=== PATIENT | female | born 1945 | race Caucasian/White ===

== ENCOUNTER 2019-09-16 09:51 | Outpatient (CLI) | payer MEDICARE, SELFPAY ==
--- NOTE | ~2019-09-16 | MM_ITS ---
EXAMINATION: MM screening sathya BI w du HISTORY: Screening mammogram TECHNIQUE: Craniocaudal and mediolateral oblique 3-D tomosynthesis images were obtained and synthetic 2-D images were generated. CAD analysis was submitted and interpreted. COMPARISON: 06/09/2018, 05/11/2017, 03/03/2016 bilateral digital screening mammogram examinations BREAST PARENCHYMAL COMPOSITION: There are scattered areas of fibroglandular density. FINDINGS: There is no evidence of suspicious mass, calcification, or architectural distortion to sugg est malignancy in either breast. There has been no suspicious interval change. IMPRESSION: 1. No mammographic evidence of malignancy. 2. Recommend routine screening mammography in one year. BI-RADS Category 1: Negative Reviewed, dictated and finalized at location A.
== END 2019-09-16 09:52 | disposition home or self-care (01) ==
PROVIDERS: PCP Internal Medicine; Visit Provider Obstetrics & Gynecology Gynecology
DX: Z12.31 Encounter for screening mammogram for malignant neoplasm of breast (principal)
CPT/HCPCS: 77063; 77067

== ENCOUNTER 2019-12-14 14:35 | Outpatient (CLI) | payer MEDICARE, SELFPAY ==
--- NOTE | 2019-12-14 | ECHO_ITS ---
Patient Info Name: Desirae Contreras Age: 74 years : 1945 Gender: Female Ht: 62 in Wt: 197 lbs BSA: 2.02 m2 HR: 90 bpm BP: 149 / 67 mmHg Heart Rhythm: Sinus Rhythm Technical Quality: Good Exam Date: 12/14/2019 3:01 PM Exam Location: [facility] Patient Status: Outpatient Admit Date: 12/14/2019 Staff Ordering Physician: Casey Newsome MD Tapper Shank: Ab Barnes RDCS Attending Provider: Casey Newsome MD Referring Physician: Jerod LONGORIA; Exam Type: CA echo doppler color flow Study Info Indications R01.1 - Cardiac murmur, unspecified Complete two-dimensional, color flow and Doppler transthoracic echocardiogram is performed. History/Risk Factors Murmur. Summary 1. Complete two-dimensional, color flow and Doppler transthoracic echocardiogram is performed. 2. Left ventricular chamber dimension is normal. 3. Left ventricular systolic function is normal, estimated at 55-60%. 4. The left ventricular diastolic function is grade I diastolic dysfunction. 5. E/e' 26 is elevated. 6. Left atrial chamber dimension is mildly enlarged. 7. There is mild aortic valve sclerosis. 8. There is trace aortic valve regurgitation. 9. The mitral valve has mildly calcified annulus. 10. There is mild mitral valve regurgitation. 11. There is trace tricuspid valve regurgitation. Left Ventricle E/e' 26 is elevated. Left ventricular chamber dimension is normal. Left ventricular systolic function is normal, estimated at 55-60%. The left ventricular diastolic function is grade I diastolic dysfunction. Right Ventricle Right ventricular chamber dimension is normal. Right ventricular systolic function is normal. Left Atria Left atrial chamber dimension is mildly enlarged. Right Atria Right atrial chamber dimension is normal. Aortic Valve The aortic valve is trileaflet. There is mild aortic valve sclerosis. There is no aortic valve stenosis. There is trace aortic valve regurgitation. Pulmonic Valve There is no pulmonic regurgitation. Mitral Valve The mitral valve has mildly calcified annulus. There is no mitral valve stenosis. There is mild mitral valve regurgitation. Tricuspid Valve There is trace tricuspid valve regurgitation. RVSP is not calculated due to an inadequate TR jet. Pericardium/Pleural There is no pericardial effusion. Inferior Vena Cava Normal inferior vena cava with >50% collapse upon inspiration consistent with normal right atrial pressure, 5 mmHg. Aorta The aortic root size at the sinus of Valsalva is normal. Left Ventricular Outflow Tract Name Value Normal LVOT 2D LVOT Diameter 2.0 cm LVOT Doppler LVOT Peak Gradient 3 mmHg LVOT Mean Gradient 2 mmHg LVOT VTI 21 cm LVOT VTI/AV VTI Ratio 0.5 LVOT Stroke Volume 62 ml LVOT CO 4.6 l/min LVOT CI 2.3 l/min/m2 Mitral Valve
== END 2019-12-14 14:36 | disposition home or self-care (01) ==
PROVIDERS: PCP Internal Medicine; Visit Provider Internal Medicine
DX: R01.1 Cardiac murmur, unspecified (principal)
CPT/HCPCS: 93306

== ENCOUNTER 2019-12-26 00:57 | Outpatient (CLI) | payer MEDICARE, SELFPAY ==
[2019-12-26 18:12] LABS: SARS-CoV-2 RNA PCR Negative
== END 2019-12-26 00:58 | disposition home or self-care (01) ==
LOC: ANHCOVIDDT 00:58
PROVIDERS: PCP Internal Medicine; Visit Provider Internal Medicine Gastroenterology
DX: Z01.812 Encounter for preprocedural laboratory examination (principal); Z20.828 Contact with and (suspected) exposure to other viral communicable diseases
CPT/HCPCS: 87635; C9803; U0003

== ENCOUNTER 2019-12-28 02:29 | Day surgery (SDC) | payer MEDICARE, SELFPAY ==
[2019-12-21 15:53] VITALS: BMI 34.7
--- NOTE | 2019-12-27 11:50 | WPDANESEPPF ---
Anes - Initial Pre Proc Eval Procedure: Operation Date: 12/28/19 07:30 Proposed Procedures p Screening Colonoscopy - Jose Miguel Seo MD Date/Time: 12/27/19 11:50 Surgeon: Jose Miguel Seo MD Pre Op Diagnosis: Hx Of Colon Cancer Patient Data Age: 74 Gender: F Height: 1.6 m Weight: 89 kg Allergies Allergy/AdvReac Type Severity Reaction Status Date / Time LON Inhibitors Allergy Unknown Cough Verified 12/28/19 06:27 Home Medications Medication Instructions Recorded Confirmed Type metformin 1,000 mg tablet 1,000 mg PO BID #180 tablet 02/23/19 12/28/19 Rx potassium chloride 10 mEq 20 meq PO DAILY #180 tablet 03/07/19 12/28/19 Rx tablet,extended release levothyroxine 137 mcg tablet 137 mcg PO DAILY #90 tablet 03/14/19 12/28/19 Rx losartan 100 mg tablet 100 mg PO DAILY #90 tablet 03/14/19 12/28/19 Rx atorvastatin 20 mg tablet 20 mg PO DAILY tablet 03/28/19 12/28/19 History cholecalciferol (vitamin D3) 1,000 unit PO DAILY ml 03/28/19 12/28/19 History linagliptin 5 mg tablet 5 mg PO QAM 03/28/19 12/28/19 History mecobalamin (vitamin B12) 1,000 1,000 mcg PO DAILY 03/28/19 12/28/19 History mcg disintegrating tablet,sublingual niacin 1,000 mg tablet,extended 1,000 mg PO DAILY tablet 03/28/19 12/28/19 History release omega-3 fatty acids 1,000 mg 2,000 mg PO BID cap 03/28/19 12/28/19 History capsule metoprolol succinate 100 mg 100 mg PO DAILY #90 tablet 06/08/19 12/28/19 Rx tablet,extended release 24 hr rosuvastatin 20 mg tablet 20 mg PO DAILY #90 tablet 07/07/19 12/28/19 Rx ferrous sulfate 325 mg (65 mg 325 mg PO DAILY #30 tablet 08/03/19 12/28/19 Rx iron) tablet furosemide 40 mg tablet 40 mg PO QAM 08/03/19 12/28/19 History gemfibrozil 600 mg tablet 600 mg PO BID #180 tablet 08/16/19 12/28/19 Rx allopurinol 100 mg tablet 100 mg PO DAILY #90 tablet 08/26/19 12/28/19 Rx glimepiride 2 mg tablet 2 mg PO DAILY #90 tablet 10/19/19 12/28/19 Rx calcium polycarbophil 625 mg tablet 1,250 mg PO DAILY 11/16/19 12/28/19 History cinnamon bark 500 mg capsule 500 mg PO DAILY 11/16/19 12/28/19 History folic acid 1 mg tablet 1 mg PO DAILY #90 tablet 11/18/19 12/28/19 Rx Patient hx anesthesia problems: none Family hx anesthesia problems: none [facility] Social History Social History Smoking status: Never smoker Second hand tobacco smoke exposure: No Alcohol intake: never Substance use: never Substance use type: does not use Living arrangements: alone Gender identity (if verbalized by the patient): Female Spiritual care concerns: No Anes - Eval Final PreProcedure Day of Procedure 12/27/19 11:50 Patient weight: obese Heart: regular rate and rhythm Lungs: clear to auscultation and normal air movement Airway: Mallampati scale class II Neurological: alert and oriented Last oral intake: >/= 8 hours ASA classification: III Emergent: no Anesthetic plan: proceed Anesthesia type and monitoring: general GIVS and standard monitoring Informed Consent: The patient's anesthetic plan and its attendant risks and benefits were discussed with the patient/family/POA. Questions were solicited and answers provided to the satisfaction of the patient/family/POA.
[2019-12-28 06:29] VITALS: BP 137/88; PULSE 81; RESP 14; TEMP 37.1; O2SAT 99; BMI 34.0
[2019-12-28] MEDS: LACTATED RINGERS 1,000 ML 150 ML IV CONT (06:41)
[2019-12-28 06:57] LABS: Glucose Point of Care 149 (65-105)
[2019-12-28 07:54] VITALS: BP 101/43; PULSE 84; RESP 17; O2SAT 96
--- NOTE | 2019-12-28 07:54 | WPDGICN ---
Assessment and Plan Assessment and plan (1) History of bowel resection: Code(s): Z90.49 - Acquired absence of other specified parts of digestive tract Status: Acute (2) Hx of colonic polyps: Code(s): Z86.010 - Personal history of colonic polyps Status: Acute Assessment and Plan: Plan is for colonoscopy patient has had colon polyps in the past surgical resection a large colon polyp was required this last year with right hemicolectomy. Continued surveillance exams at 3 year intervals is advised further recommendations may be given after endoscopy. GI Consult Note Consult date/time: 12/28/19 07:54 HPI: Desirae Contreras is a 74 year old female seen in evaluation at the request of Dr Newsome.Patient has a history of colon polyps in the past 1 year ago had large colon polyp requiring surgical resection right hemicolectomy was performed. Patient presents today for follow-up colonoscopy. She states her bowel habits return to normal. She denies abdominal pain she has had no bleeding. Family history is noncontributory. Review of Systems Review of Systems: All systems reviewed & are unremarkable except as noted in HPI and below PMFSH Social History Social History Smoking status: Never smoker Second hand tobacco smoke exposure: No Alcohol intake: never Substance use: never Substance use type: does not use Living arrangements: alone Gender identity (if verbalized by the patient): Female Spiritual care concerns: No Meds Home Medications and Allergies Home Medications Medication Instructions Recorded Confirmed Type metformin 1,000 mg tablet 1,000 mg PO BID #180 tablet 02/23/19 12/28/19 Rx potassium chloride 10 mEq 20 meq PO DAILY #180 tablet 03/07/19 12/28/19 Rx tablet,extended release levothyroxine 137 mcg tablet 137 mcg PO DAILY #90 tablet 03/14/19 12/28/19 Rx losartan 100 mg tablet 100 mg PO DAILY #90 tablet 03/14/19 12/28/19 Rx atorvastatin 20 mg tablet 20 mg PO DAILY tablet 03/28/19 12/28/19 History cholecalciferol (vitamin D3) 1,000 unit PO DAILY ml 03/28/19 12/28/19 History linagliptin 5 mg tablet 5 mg PO QAM 03/28/19 12/28/19 History mecobalamin (vitamin B12) 1,000 1,000 mcg PO DAILY 03/28/19 12/28/19 History mcg disintegrating tablet,sublingual niacin 1,000 mg tablet,extended 1,000 mg PO DAILY tablet 03/28/19 12/28/19 History release omega-3 fatty acids 1,000 mg 2,000 mg PO BID cap 03/28/19 12/28/19 History capsule metoprolol succinate 100 mg 100 mg PO DAILY #90 tablet 06/08/19 12/28/19 Rx tablet,extended release 24 hr rosuvastatin 20 mg tablet 20 mg PO DAILY #90 tablet 07/07/19 12/28/19 Rx ferrous sulfate 325 mg (65 mg 325 mg PO DAILY #30 tablet 08/03/19 12/28/19 Rx iron) tablet furosemide 40 mg tablet 40 mg PO QAM 08/03/19 12/28/19 History gemfibrozil 600 mg tablet 600 mg PO BID #180 tablet 08/16/19 12/28/19 Rx allopurinol 100 mg tablet 100 mg PO DAILY #90 tablet 08/26/19 12/28/19 Rx glimepiride 2 mg tablet 2 mg PO DAILY #90 tablet 10/19/19 12/28/19 Rx calcium polycarbophil 625 mg tablet 1,250 mg PO DAILY 11/16/19 12/28/19 History cinnamon bark 500 mg capsule 500 mg PO DAILY 11/16/19 12/28/19 History folic acid 1 mg tablet 1 mg PO DAILY #90 tablet 11/18/19 12/28/19 Rx Allergies Allergy/AdvReac Type Severity Reaction Status Date / Time LON Inhibitors Allergy Unknown Cough Verified 12/28/19 06:27 Vital Signs Vital Signs - 24 hr 12/28/19 06:29 Temperature 98.8 F Pulse Rate 81 Respiratory Rate 14 Blood Pressure 137/88 Pulse Oximetry 99 Exam Narrative: Exam Narrative: Physical exam reveals patient to be alert. Vital signs stable. HEENT exam unremarkable. Lungs are clear to auscultation and percussion. Heart is without murmur or extra sounds. Abdominal exam bowel sounds are present soft nontender with no organomegaly. Digital external rectal exam is normal.
[2019-12-28 08:04] VITALS: BP 116/54; PULSE 81; RESP 14; O2SAT 97
[2019-12-28 08:12] VITALS: BP 137/65; PULSE 78; RESP 17; O2SAT 100
== END 2019-12-28 08:31 | disposition home or self-care (01) ==
PROVIDERS: PCP Internal Medicine; Visit Provider Internal Medicine Gastroenterology
PROC: 0DJD8ZZ Inspection of Lower Intestinal Tract, Via Natural or Artificial Opening Endoscopic (ICD-10-PCS; CPT 45378; principal; 2019-12-28 07:30)
DX: Z12.11 Encounter for screening for malignant neoplasm of colon (principal); K63.5 Polyp of colon; E66.9 Obesity, unspecified; Z68.34 Body mass index [BMI] 34.0-34.9, adult; K63.89 Other specified diseases of intestine; K57.30 Diverticulosis of large intestine without perforation or abscess without bleeding; K64.8 Other hemorrhoids; Z86.010 Personal history of colon polyps; Z90.49 Acquired absence of other specified parts of digestive tract
CPT/HCPCS: 45385; 88305; J2704; J7120

== ENCOUNTER 2020-03-12 12:04 | Outpatient (CLI) | payer MEDICARE, SELFPAY ==
--- NOTE | ~2020-03-12 | CT_ITS ---
EXAMINATION: CT abdomen pelvis w con EXAM DATE: 03/12/2020 13:11 INDICATION: R10.9 - Unspecified abdominal pain. TECHNIQUE: Spiral CT of the abdomen and pelvis was performed following intravenous injection of 100 m L Omnipaque 350. Axial, coronal and sagittal images were reviewed. The dose-length product (DLP) fo r this examination was 1004.01 mGy-cm. The exposure was tailored according to patient size (auto mA exposure control), and iterative reconstruction (ASIR) was used as additional dose reduction techniqu e. Comparison is made to prior examination from 09/29/2018. FINDINGS: The liver, spleen, adrenal glands and pancreas are unremarkable. There are gallstones with in an otherwise unremarkable gallbladder. No evidence of obstructive biliary disease. Portal and sp lenic veins are patent. Kidneys enhance symmetrically. There is no hydronephrosis. Numerous subcent imeter renal hypodensities likely cysts. The uterus is unremarkable. The bladder is unremarkable. There is no retroperitoneal or pelvic lymphadenopathy. There is mild scattered arteriosclerotic di sease. There is moderate sigmoid predominant diverticulosis. There is a peridiverticular abscess located bet ween the sigmoid colon and the anterior superior aspect of the bladder, measuring 3.0 x 2.5 cm. Patie nt is potentially at risk for developing colovesicular fistula. Cecal resection. The stomach and sma ll bowel are unremarkable. There is expected amount of colonic stool. No free intraperitoneal gas. The heart is normal in size. There are no pericardial or pleural effusions. The lung bases are u nremarkable. There are no osteoblastic or osteolytic lesions identified. IMPRESSION: 1. Small abscess between sigmoid and lateral likely complication of diverticulitis. Patient at risk for developing colovesicular fistula. Reviewed, dictated and finalized at location B. IMPRESSION: 1. Small abscess between sigmoid and lateral likely complication of diverticul itis. Patient at risk for developing colovesicular fistula.
[2020-03-12 13:02] LABS: Estimated Glomerular Filt Rate 54
== END 2020-03-12 12:05 | disposition home or self-care (01) ==
PROVIDERS: PCP Internal Medicine; Visit Provider Internal Medicine
DX: R10.9 Unspecified abdominal pain (principal); Z90.49 Acquired absence of other specified parts of digestive tract
CPT/HCPCS: 74177; Q9967

== ENCOUNTER 2020-03-12 13:40 | Emergency (ER) | payer MEDICARE, SELFPAY ==
[2020-03-12] VITALS (13 sets, daily range): BP systolic 134–168; BP diastolic 55–117; PULSE 83; RESP 16; TEMP 36.8; O2SAT 92–100
[2020-03-12 14:05] LABS: Basophils Absolute Auto 0.1 K/mm3 (0.0-0.1); Basophils Percent Auto 0.7 % (0.2-1.2); Eosinophils Absolute Auto 0.3 K/mm3 (0-0.3); Eosinophils Percent Auto 2.6 % (0-4.4); Hematocrit 34.6 % (37.0-47.0); Hemoglobin 11.6 g/dL (12.0-15.0); Immature Granulocyte Absolute 0.03 K/mm3 (0.00-0.031); Immature Granulocyte Percent A 0.3 % (0-0.5); Lymphocytes Absolute Auto 2.72 K/mm3 (0.9-3.2); Lymphocytes Percent Auto 28.8 % (18.3-44.2); Mean Corpuscular HGB Conc 33.5 g/dl (32-36); Mean Corpuscular Hemoglobin 30.5 pg (26-34); Mean Corpuscular Volume 91.1 fl (80-100); Mean Platelet Volume 8.8 fl (7.4-10.4); Monocytes Absolute Auto 0.8 K/mm3 (0.1-0.6); Monocytes Percent Auto 8.3 % (2.6-8.5); Neutrophils Absolute Auto 5.6 K/mm3 (1.3-6.7); Neutrophils Percent Auto 59.3 % (45.5-73.1); Platelet Count Result 178 k/mm3 (150-375); Red Cell Distribution Width 13.3 % (11.5-14.5); White Blood Count 9.5 K/mm3 (4.5-10.0)
[2020-03-12 14:17] LABS: Alanine Aminotransferase 34 U/L (4-35); Albumin Level 4.4 g/dL (3.5-5.1); Alkaline Phosphatase 90 U/L (38-126); Anion Gap 9 mmol/L (8-16); Aspartate Amino Transferase 35 U/L (14-36); Bilirubin,Total 0.3 mg/dL (0.2-1.3); Blood Urea Nitrogen 27 mg/dL (7-17); Calcium 8.5 mg/dL (8.4-10.2); Carbon Dioxide 22 mmol/L (22-30); Chloride 112 mmol/L (98-107); Estimated CRCL calculation 51 ml/min; Estimated Glomerular Filt Rate > 60; Glucose 97 mg/dL (65-105); Lipase 50 U/L (23-300); Potassium 4.3 mmol/L (3.4-5.0); Sodium 143 mmol/L (137-145)
[2020-03-12 14:32] LABS: Add Urine Microscopic? YES; Appearance Urine Clear (Clear); Bilirubin Urine Negative (Negative); Blood Urine Negative (Negative); Color Urine Straw (Yellow); Glucose Urine UA Negative (Negative); Ketones Urine Negative (Negative); Leukocyte Esterase Ur Negative LEU/UL (Negative); Mucus Urine Rare /lpf; Nitrate Urine Negative (Negative); Protein Urine Negative (Negative); RBC Urine 0-2 /hpf (0-2); Specific Grav Ur 1.045 (1.001-1.035); Urobilinogen Urine Negative mg/dL (<2.0); WBC Urine 0-3 /hpf
--- NOTE | 2020-03-12 15:20 | PC.NURSE ---
patient brought back to ED room 13 with c/o abdomen pain. s/p CT of abdomen earlier today. advised to come to ED due to abscess. reports reviewed. patient has been out in ED waiting room due to no beds available in ED. no change in patient's condition since initial assessments. alert. oriented. daughter in room. Dr. Pritchard to room. SL inserted. additional blood drawn. waiting for further orders. patient is aware that surgical consult is needed.
--- NOTE | 2020-03-12 15:37 | ED.ABDPAIN ---
HPI - Abdominal Pain General Chief Complaint: Abdominal Pain Stated Complaint: abd pain Time Seen by Provider: 03/12/20 15:14 History of Present Illness HPI narrative: Patient is a 74-year-old female who presents to the ER with lower abdominal pain. She was seen by her PCP today who ordered an outpatient CT scan which showed an intra-abdominal abscess likely related to diverticulitis. Patient does have history of diverticulitis and underwent a partial colectomy about a year ago. She reports has been having abdominal pain for about 1 month and since she knew she had a doctor's appointment come coming up she just waited. She has had no fevers or chills or sweats. No diarrhea. Related Data Home Medications Medication Instructions Recorded Confirmed atorvastatin 20 mg tablet 20 mg PO DAILY tablet 03/28/19 03/12/20 cholecalciferol (vitamin D3) 1,000 unit PO DAILY ml 03/28/19 03/12/20 linagliptin 5 mg tablet 5 mg PO QAM 03/28/19 03/12/20 mecobalamin (vitamin B12) 1,000 1,000 mcg PO DAILY 03/28/19 03/12/20 mcg disintegrating tablet,sublingual niacin 1,000 mg tablet,extended 1,000 mg PO DAILY tablet 03/28/19 03/12/20 release omega-3 fatty acids 1,000 mg 2,000 mg PO BID cap 03/28/19 03/12/20 capsule calcium polycarbophil 625 mg tablet 1,250 mg PO DAILY 11/16/19 03/12/20 cinnamon bark 500 mg capsule 500 mg PO DAILY 11/16/19 03/12/20 Allergies Allergy/AdvReac Type Severity Reaction Status Date / Time LON Inhibitors Allergy Unknown Cough Verified 03/12/20 15:55 Review of Systems Review of Systems: All systems reviewed & are unremarkable except as noted in HPI and below Constitutional: Constitutional: Denies chills and Denies fever(s) ENT: Denies nasal congestion and Denies sore throat Cardiovascular: Cardiovascular: Denies chest pain and Denies radiating jaw, neck or arm pain Respiratory: Respiratory: Denies cough, Denies dyspnea and Denies wheezing Gastrointestinal: Gastrointestinal: Reports abdominal pain, Denies diarrhea, Denies nausea and Denies vomiting Genitourinary: Genitourinary: Denies nocturia and Denies dysuria [facility] Past Medical History Medical History (Updated 12/21/20 @ 16:29 by Abdirizak Pritchard MD) Abdominal pain Abnormal finding of blood chemistry Azotemia BMI 34.0-34.9,adult CKD (chronic kidney disease) DM2 (diabetes mellitus, type 2) Encounter for general adult medical examination w/o abnormal findings Encounter for Medicare annual wellness exam Gout Heart murmur History of diverticulitis HTN (hypertension) Hx of colonic polyps Hyperlipidemia Hypothyroidism (acquired) Increased homocysteine Iron deficiency On fci drug therapy Rhus dermatitis Vitamin D deficiency Surgical History Surgical History History of bowel resection Family History Family History Mother Diabetes mellitus Malignant neoplasm of prostate Family history of lung cancer Family history of diabetes mellitus in first degree relative Father Family history of cardiovascular disease Sibling Diabetes mellitus Family history of cardiovascular disease, Onset Age: 80 Social History Social History Smoking status: Never smoker Second hand tobacco smoke exposure: No Alcohol intake: never Substance use: never Substance use type: does not use Gender identity (if verbalized by the patient): Female Spiritual care concerns: No Exam Narrative: Exam Narrative: GENERAL: Well-appearing, well-nourished, and in no acute distress. HEAD: Normocephalic, atraumatic. CHEST: Clear to auscultation. No respiratory distress. HEART: Regular rate and rhythm. Normal peripheral pulses. ABDOMEN: Soft, nontender, nondistended. EXTREMITIES: Normal range of motion. No edema. SKIN: Warm, dry, no rash. NEURO: Alert and oriente
== END 2020-03-12 16:49 | disposition home or self-care (01) ==
PROVIDERS: Emergency Provider Emergency Medicine; PCP Internal Medicine
DX: K57.80 Diverticulitis of intestine, part unspecified, with perforation and abscess without bleeding (principal); E11.22 Type 2 diabetes mellitus with diabetic chronic kidney disease; I12.9 Hypertensive chronic kidney disease with stage 1 through stage 4 chronic kidney disease, or unspecified chronic kidney disease; N18.9 Chronic kidney disease, unspecified; M10.9 Gout, unspecified; Z86.010 Personal history of colon polyps; E78.5 Hyperlipidemia, unspecified; E03.9 Hypothyroidism, unspecified; E55.9 Vitamin D deficiency, unspecified
CPT/HCPCS: 36415; 74177; 80053; 81001; 83690; 85025; 99284; Q9967

== ENCOUNTER → 2020-04-03 15:25 | Outpatient (CLI) | payer MEDICARE, SELFPAY ==
--- NOTE | ~2020-04-03 | CT_ITS ---
EXAMINATION: CT abdomen pelvis w con DATE: 04/03/2020 15:56 INDICATION: Diverticulitis with perforation and abscess. TECHNIQUE: Computed tomography (CT) of the abdomen and pelvis was performed with 100 mL Omnipaque-350 intravenous contrast. Automated exposure control and iterative reconstruction technique were employe d. The dose-length product was 979.72 mGy-cm. COMPARISON: 03/12/2020 FINDINGS: Small calcified nodule in the right lower lobe along with calcified right hilar lymph nodes consisten t with old granulomatous disease. Heart size is normal. Aortic valve calcification. No pericardial or pleural effusion. Multiple calcified gallstones in the dependent aspect of the normal-appearing gall bladder. Liver is normal. No intra or extra hepatic biliary ductal dilation. Splenic calcification co nsistent with old granulomatous disease. Pancreas and bilateral adrenal glands are normal. Again seen are numerous bilateral small renal cysts the largest on the right measuring 1.5 cm. Postoperative ch ena of proximal right hemicolectomy with ileocolic anastomosis in the right upper quadrant. There ar e numerous diverticula along the descending and sigmoid colon. Unchanged wall thickening and mild inf lammatory stranding along the mid sigmoid colon consistent with ongoing diverticulitis. There is a pe rsistent small amount of likely fluid, gas and feculent material within a 2.5 cm peridiverticular abs cess positioned between the sigmoid colon and the dome of the bladder. There is thickening and distor tion of the wall of the bladder at this location suggesting possible invasion of the bladder wall and colovesical fistula. No bowel obstruction. Uterus and bilateral adnexa are unremarkable. No other fr ee intraperitoneal gas or fluid. A few tiny fat-containing ventral hernias along a supraumbilical breanne gical scar. No pathologically enlarged abdominal or pelvic lymphadenopathy. Bilateral fat-containing inguinal hernias. There are bridging osteophytes at multiple levels in the spine, consistent with dif fuse idiopathic skeletal hyperostosis (DISH). Moderate lumbar spondylosis with 3 mm anterolisthesis L 4 on L5. IMPRESSION: 1. No significant change in a 2.5 cm abscess situated between the sigmoid colon and bladder likely re lated to prior diverticulitis. Given the thickening and distortion of the abutting bladder wall this remains concerning for developing colovesical fistula. 2. Cholelithiasis. Reviewed, dictated and finalized at location A. DAMAGE TRA[employer]EE IMPRESSION: 1. No significant change in a 2.5 cm abscess situated between the sigmoid colon and bladder likely related to prior diverticulitis. Given the thickening and d istortion of the abutting bladder wall this remains concerning for developing c olovesical fistula. 2. Cholelithiasis.
[2020-04-03 15:42] LABS: Estimated Glomerular Filt Rate > 60
== END ==
PROVIDERS: PCP Internal Medicine; Visit Provider Surgery
DX: K57.20 Diverticulitis of large intestine with perforation and abscess without bleeding (principal); K80.20 Calculus of gallbladder without cholecystitis without obstruction
CPT/HCPCS: 74177; Q9967

== ENCOUNTER → 2020-05-03 09:46 | Outpatient (CLI) | payer MEDICARE, SELFPAY ==
--- NOTE | ~2020-05-03 | CT_ITS ---
EXAMINATION: CT abdomen pelvis w con DATE: 05/03/2020 10:18 INDICATION: Diverticulitis. Perforation with abscess. TECHNIQUE: Computed tomography (CT) of the abdomen and pelvis was performed with 100 cc Omnipaque 350 intravenous contrast. The dose-length product was 1001.03 mGy-cm. Automated exposure control and ite rative reconstruction technique were employed. COMPARISON: CT dated 04/03/2020 FINDINGS: Lung bases are unremarkable. No significant pleural or pericardial effusion. Heart size is normal. Fatty infiltration of the liver. There are gallstones. There is possible mild gallbladder wall thicke deneen. The spleen, adrenal glands are unremarkable. Pancreas within normal limits. There are multiple subcentimeter hypodensities of the kidneys which are too small to characterize, although most likely cysts. No significant vascular abnormality. No lymphadenopathy. There is mild thickening of the sigmoid colo n. There is colonic diverticulosis. No significant change to abscess situated between the sigmoid col on and bladder. There is mild thickening of the adjacent bladder. There are surgical changes consiste nt with right hemicolectomy with ileocolic anastomosis. There are a few small ventral hernias above t he umbilicus containing fat. There is diffuse idiopathic skeletal hyperostosis (DISH) of the lumbar s pine. IMPRESSION: 1. Stable abscess measuring 3.5 x 2.4 cm, insinuated between the sigmoid colon and bladder, best seen on sagittal image 94. 2: Cholelithiasis. Reviewed, dictated and finalized at location B. DDLE BUG
[2020-05-03 10:05] LABS: Estimated Glomerular Filt Rate 44
== END ==
PROVIDERS: PCP Internal Medicine; Visit Provider Surgery
DX: K57.20 Diverticulitis of large intestine with perforation and abscess without bleeding (principal)
CPT/HCPCS: 74177; Q9967

== ENCOUNTER 2020-08-16 10:34 | Outpatient (CLI) | payer MEDICARE, SELFPAY ==
--- NOTE | ~2020-08-16 | XR_ITS ---
EXAMINATION: XR lumbar spine 2-3V DATE: 08/16/2020 12:25 INDICATION: Back pain TECHNIQUE: Anteroposterior and lateral views in flexion and extension of the lumbar spine were obtain ed. COMPARISON: CT, 05/03/2020 FINDINGS: There are 3 mm of unchanged anterolisthesis of L4 on L5. No laxity is present with flexion or extension. The vertebral body heights are normal. There is moderate loss of intervertebral disc sp lita height at L5-S1 and mild loss of intervertebral disc space height throughout the remainder of the lumbar spine. There is no fracture. Moderate to severe facet osteoarthritis is present in the lower lumbar spine. Calcified atherosclerosis is noted. A group of calcifications oriented in a linear fash ion of the right mid abdomen are consistent with gallstones. IMPRESSION: 1. Mild to moderate lumbar spondylosis without acute findings. 2. Cholelithiasis. Reviewed, dictated and finalized at location A.
--- NOTE | ~2020-08-16 | US_ITS ---
EXAMINATION: US carotid duplex BI DATE: 08/16/2020 11:10 INDICATION: Carotid bruit. TECHNIQUE: Grayscale, color Doppler, and pulsed Doppler images of the cervical carotid arteries were obtained. The degree of vessel stenosis is placed in one of the following categories: normal, <50%, 5 0-69%, >=70% but less than near-occlusion, near-occlusion, or total occlusion. Note that percent sten osis relative to normal distal artery lumen diameter is indirectly measured from velocity measurement s as described by John, et al. Radiology 2003; [id number]. COMPARISON: None. FINDINGS: RIGHT: The right common carotid artery (CCA) peak systolic velocity (PSV) is 75 cm/s. The right internal car otid artery (ICA) PSV is 79 cm/s. The right ICA end-diastolic velocity (EDV) is 28 cm/s. The right IC A/CCA PSV ratio is 1.0. Grayscale and color Doppler images yield an estimate of <50% diameter reducti on from plaque in the ICA. There is antegrade flow in the right vertebral artery. LEFT: The left CCA PSV is 73 cm/s. The left ICA PSV is 112 cm/s. The left ICA EDV is 37 cm/s. The left ICA/ CCA PSV ratio is 1.5. Grayscale and color Doppler images yield an estimate of <50% diameter reduction from plaque in the ICA. There is antegrade flow in the left vertebral artery. IMPRESSION: 1. <50% stenosis in the right internal carotid artery. 2. <50% stenosis in the left internal carotid artery. Reviewed, dictated and finalized at location B.
== END 2020-08-16 10:35 | disposition home or self-care (01) ==
PROVIDERS: PCP Internal Medicine; Visit Provider Internal Medicine
DX: R09.89 Other specified symptoms and signs involving the circulatory and respiratory systems (principal); M79.671 Pain in right foot; M79.672 Pain in left foot; R20.2 Paresthesia of skin; K80.20 Calculus of gallbladder without cholecystitis without obstruction; M47.896 Other spondylosis, lumbar region; I65.23 Occlusion and stenosis of bilateral carotid arteries
CPT/HCPCS: 72100; 93880

== ENCOUNTER 2020-09-13 09:36 | Outpatient (CLI) | payer MEDICARE, SELFPAY ==
--- NOTE | 2020-09-13 12:00 | NEURO_ITS ---
Impression: # Complains of pain in both feet. Known to be diabetic. # Bilateral peroneal amplitude drop, suggestive of neuropathy. # Possibility of higher involvement cannot be ruled out. # Clinical correlation recommended. Nerve Conduction Studies Anti Sensory Summary Table Stim Site NR Peak (ms) P-T Amp (?V) Site1 Site2 Delta-P (ms) Dist (cm) Herminio (m/s) Left Sup Fibular Anti Sensory (Ant Lat Mall) 14 cm 4.6 11.6 14 cm Ant Lat Mall 4.6 16.0 35 Right Sup Fibular Anti Sensory (Ant Lat Mall) 14 cm 3.9 4.9 14 cm Ant Lat Mall 3.9 16.0 41 Left Sural Anti Sensory (Lat Mall) Calf 3.5 11.6 Calf Lat Mall 3.5 16.0 46 Right Sural Anti Sensory (Lat Mall) Calf 4.5 4.8 Calf Lat Mall 4.5 16.0 36 Motor Summary Table Stim Site NR Onset (ms) O-P Amp (mV) Site1 Site2 Delta-0 (ms) Dist (cm) Herminio (m/s) Left Peroneal Motor (Vastus Med) Ankle 5.1 0.6 Popit Ankle 8.3 39.0 47 Popit 13.4 0.8 Right Peroneal Motor (Vastus Med) Ankle 3.9 0.7 Popit Ankle 8.9 37.0 42 Popit 12.8 0.6 Left Tibial Motor (Abd Mcintosh Brev) Ankle 4.8 1.6 Knee Ankle 10.1 41.0 41 Knee 14.9 1.0 Right Tibial Motor (Abd Mcintosh Brev) Ankle 4.6 2.7 Knee Ankle 9.5 40.0 42 Knee 14.1 2.1 F Wave Studies NR F-Lat (ms) L-R F-Lat (ms) Left Peroneal (Mrkrs) (EDB) 53.22 1.05 Right Peroneal (Mrkrs) (EDB) 54.27 1.05 Left Tibial (Mrkrs) (Abd Hallucis) 57.64 0.12 Right Tibial (Mrkrs) (Abd Hallucis) 57.52 0.12 EMG Side Muscle Nerve Root Ins Act Fibs Amp Dur Recrt Comment Right AntTibialis Dp Br Fibular L4-5 Nml Nml Nml Nml Nml Right Gastroc Tibial S1-2 Nml Nml Nml Nml Nml Right Fibularis Long Sup Br Fibular L5-S1 Nml Nml Nml Nml Nml Right Flex Dig Long Tibial L5-S2 Nml Nml Nml Nml Nml Right Ext Dig Brev Dp Br Fibular L5, S1 Nml Nml Nml Nml Nml Left AntTibialis Dp Br Fibular L4-5 Nml Nml Nml Nml Nml Left Gastroc Tibial S1-2 Nml Nml Nml Nml Nml Left Fibularis Long Sup Br Fibular L5-S1 Nml Nml Nml Nml Nml Left Flex Dig Long Tibial L5-S2 Nml Nml Nml Nml Nml Left Ext Dig Brev Dp Br Fibular L5, S1 Nml Nml Nml Nml Nml Right QuadratusFem QuadFemoris L4-5, S1 Nml Nml Nml Nml Nml Left QuadratusFem QuadFemoris L4-5, S1 Nml Nml Nml Nml Nml MTDD
== END 2020-09-13 09:37 | disposition home or self-care (01) ==
PROVIDERS: PCP Internal Medicine; Visit Provider Internal Medicine
DX: R20.2 Paresthesia of skin (principal)
CPT/HCPCS: 95886; 95910

== ENCOUNTER 2020-09-28 07:44 | Outpatient (CLI) | payer MEDICARE, SELFPAY ==
--- NOTE | ~2020-09-28 | MR_ITS ---
EXAMINATION: MR lumbar spine wo con DATE: 09/28/2020 08:52 INDICATION: Low back pain. Paresthesias of skin. TECHNIQUE: Magnetic resonance imaging (MRI) of the lumbar spine was performed without intravenous con trast. Sequences included sagittal T2-weighted FSE, sagittal T2-weighted FS FSE, sagittal T1-weighted FSE, and axial T2-weighted FSE. COMPARISON: Lumbar spine radiographs 08/16/2020 FINDINGS: There is 3 degrees levocurvature of lumbar spine. There is 3 mm anterolisthesis of L4 on L5 . Vertebral body heights are normal. There is mildly decreased disc height from L3-L4 through L5-S1. The distal spinal cord signal intensity is normal. The conus medullaris is at L1. The following disc levels are specifically discussed: L1-L2: The disc does not extend beyond the endplate margin. There is mild bilateral facet joint osteo arthritis. There is no neural foraminal stenosis. There is no central canal stenosis. L2-L3: There is a right foraminal protrusion. There is moderate right and mild left facet joint osteo arthritis. There is mild right neural foraminal stenosis. There is no central canal stenosis. L3-L4: The disc is bulging. There is severe bilateral facet joint osteoarthritis. There is moderate b ilateral neural foraminal stenosis. There is mild central canal stenosis. L4-L5: The disc is bulging and has an annular fissure. There is severe bilateral facet joint osteoart hritis. There is mild bilateral neural foraminal stenosis. There is mild central canal stenosis. L5-S1: The disc is bulging and has an annular fissure. There is severe bilateral facet joint osteoart hritis. There is mild bilateral neural foraminal stenosis. There is mild central canal stenosis. IMPRESSION: 1. Moderate lumbar spondylosis. Reviewed, dictated and finalized at location A.
== END 2020-09-28 07:45 | disposition home or self-care (01) ==
PROVIDERS: PCP Internal Medicine; Visit Provider Internal Medicine
DX: M54.5 Low back pain (principal); R20.2 Paresthesia of skin; M47.816 Spondylosis without myelopathy or radiculopathy, lumbar region
CPT/HCPCS: 72148

== ENCOUNTER 2020-12-19 09:20 | Outpatient (CLI) | payer MEDICARE, SELFPAY ==
--- NOTE | ~2020-12-19 | MM_ITS ---
EXAMINATION: MM screening [facility] BI w du HISTORY: Screening TECHNIQUE: Craniocaudal and mediolateral oblique 3-D tomosynthesis images were obtained and synthetic 2-D images were generated. CAD analysis was submitted and interpreted. COMPARISON: Comparison to multiple prior studies sequentially, with oldest reviewed study dated 10/2013. BREAST PARENCHYMAL COMPOSITION: There are scattered areas of fibroglandular density. FINDINGS: There is no evidence of suspicious mass, calcification, or architectural distortion to sugg est malignancy in either breast. There has been no suspicious interval change. IMPRESSION: 1. No mammographic evidence of malignancy. 2. Recommend routine screening mammography in one year. BI-RADS Category 1: Negative Reviewed, dictated and finalized at location A.
== END 2020-12-19 09:21 | disposition home or self-care (01) ==
LOC: ANHIMG 09:22
PROVIDERS: PCP Internal Medicine; Visit Provider Obstetrics & Gynecology Gynecology
DX: Z12.31 Encounter for screening mammogram for malignant neoplasm of breast (principal)
CPT/HCPCS: 77063; 77067

== ENCOUNTER → 2021-04-05 09:08 | Outpatient (CLI) | payer MEDICARE, SELFPAY ==
[2021-04-05 14:35] LABS: Influenza A QL RT-PCR Negative (Negative); Influenza B QL RT-PCR Negative (Negative)
[2021-04-06 18:18] LABS: SARS-CoV-2 RNA PCR Negative
== END ==
PROVIDERS: PCP Internal Medicine; Visit Provider Internal Medicine
DX: R68.89 Other general symptoms and signs (principal); Z20.822 Contact with and (suspected) exposure to COVID-19
CPT/HCPCS: 87502; 87804; C9803; U0003; U0005

== ENCOUNTER 2021-04-07 08:16 | Inpatient (IN) | payer MEDICARE, SELFPAY ==
[2021-04-07] VITALS (14 sets, daily range): BP systolic 91–170; BP diastolic 37–103; PULSE 35–73; RESP 16–37; TEMP 36.7; O2SAT 96–100
--- NOTE | ~2021-04-07 | XR_ITS ---
XR chest 1V portable 04/15/2021 11:59 Indication: Shortness of breath. Pacemaker insertion. Procedure: AP portable chest Comparison: 04/12/2021 Findings: Cardiomegaly with interstitial edema. Pacemaker leads in expected position in the right atr ium and right ventricle. No significant effusion or pneumothorax. No acute osseous abnormality. Impression: 1: Cardiomegaly with mild interstitial edema. Reviewed, dictated and finalized at location B. PLANER Impression: 1: Cardiomegaly with mild interstitial edema.
--- NOTE | ~2021-04-07 | NM_ITS ---
NM pulmonary perfusion INDICATION: Shortness of breath. Elevated d-dimer. TECHNIQUE: Following ventilation scan, 5.5 mCi Tc 99m MAA was injected intravenously for perfusion im ages. Multiple images were then acquired. COMPARISON: Chest x-ray dated 04/07/2021 FINDINGS: The comparison chest radiograph demonstrates bibasilar infiltrates.. There is a small-moder ate-sized perfusion abnormality of the left upper lung posteriorly. No significant perfusion abnormal ities of the right lung. IMPRESSION: 1: Small-moderate perfusion abnormality of the left upper lung posteriorly. Reviewed, dictated and finalized at location A. ERY TESTER AND REPAIRER
--- NOTE | ~2021-04-07 | NM_ITS ---
EXAMINATION: NM pulmonary perfusion DATE: 04/22/2021 16:22 INDICATION: Chest pain, heart block. Respiratory distress. TECHNIQUE: I 0.1 mCi Tc-99m MAA by intravenous route. Scintigraphic images of the chest were obtaine d. COMPARISON: FINDINGS: There are multiple perfusion defects in the bilateral lungs. This includes a large defect involving b oth the lateral and medial segments of the right middle lobe. Moderate-sized perfusion defects are se en in the superior segment of the left lower lobe and in the anterior segment of the left upper lobe. Small perfusion defects are seen in the anterior basilar and posterior basilar segments of the right lower lobe. There are no corresponding airspace opacities of similar size evident on the prior radio graph from 4 days prior. IMPRESSION: 1. High probability for pulmonary embolism. Reviewed, dictated and finalized at location A. CHUTE CUSHION INSTALLER
--- NOTE | ~2021-04-07 | XR_ITS ---
EXAMINATION: XR chest 1V portable EXAM DATE: 04/12/2021 10:28 INDICATION: SOB, HX: HEART MURMUR, HTN, DM. TECHNIQUE: Portable AP frontal chest x-ray was obtained. Comparison is made to prior examination from 04/07/2021. FINDINGS: Mild cardiomegaly. Moderate amount of basilar edema or pneumonia. Small to moderate left, s mall right pleural effusions. No pneumothorax. There are mild bony degenerative changes. Compared to 04/07, progression in basilar airspace disease and effusions. IMPRESSION: 1. Moderate amount of basilar edema or pneumonia. 2. Small to moderate left, small right pleural effusions. 3. Mild cardiomegaly. Reviewed, dictated and finalized at location B. TABLE HARVEST WORKER
--- NOTE | ~2021-04-07 | US_ITS ---
EXAMINATION: US renal BI EXAM DATE: 04/10/2021 09:44 INDICATION: Elevated creatinine. TECHNIQUE: Multiple grayscale and Doppler images of the kidneys were obtained (by a technologist who performed the scan) and subsequently reviewed. There is no prior study for comparison. FINDINGS: Right kidney: There is normal contour and echogenicity. It measures 10.9 x 4.8 x 5.4 centimeters. Th ere is a 1.2 cm cyst. There is no hydronephrosis. Left kidney: Poorly visualized. It measures 9.2 x 4.2 x 4.8 centimeters. No hydronephrosis suspected . Bladder unremarkable. IMPRESSION: No evidence of hydronephrosis. Reviewed, dictated and finalized at location B. SITION LEAD
--- NOTE | ~2021-04-07 | XR_ITS ---
EXAMINATION: XR chest 1V portable EXAM DATE: 04/18/2021 08:23 INDICATION: Respiratory distress. TECHNIQUE: Portable AP frontal chest x-ray was obtained. Comparison is made to prior examination from 04/16/2021. FINDINGS: There is cardiomegaly and pulmonary vascular congestion. Small to moderate left, small righ t pleural effusions. Possible mild pulmonary edema. Pneumonia not excludable. No pneumothorax. There are mild bony degenerative changes. IMPRESSION: Finding consistent with mild CHF exacerbation. Pneumonia not excludable. Reviewed, dictated and finalized at location A. ARY DIRECTOR IMPRESSION: Finding consistent with mild CHF exacerbation. Pneumonia not exclu dable.
--- NOTE | ~2021-04-07 | XR_ITS ---
XR chest 2V 04/07/2021 08:49 Indication: Shortness of breath Procedure: 2 view chest Comparison: No prior studies for comparison. Findings: Heart size normal. Bibasilar airspace disease which may represent atelectasis or pneumonia. No significant effusion. Mild thoracic spondylosis. No acute osseous abnormality. Impression: 1: Bibasilar airspace disease which may represent atelectasis or pneumonia. Reviewed, dictated and finalized at location A. TY PROGRAM TECHNICIAN Impression: 1: Bibasilar airspace disease which may represent atelectasis or pneumonia.
--- NOTE | ~2021-04-07 | CT_ITS ---
EXAMINATION: CT diagnostic chest wo con DATE: 04/07/2021 10:27 INDICATION: Redness of breath. Elevated d-dimer. TECHNIQUE: Computed tomography (CT) of the chest was performed without intravenous contrast. The dose -length product was 657.40 mGy-cm. Automated exposure control and iterative reconstruction technique were employed. COMPARISON: Chest x-ray dated 04/07/2021 FINDINGS: Mild mediastinal lymphadenopathy, likely reactive. Small pleural effusions. Cardiomegaly. N o significant pericardial effusion. There is dependent atelectasis in the lung bases. No endobronchia l lesions. There are reticulonodular densities in the right upper lobe, lingula, and lower lobes, juan picious for pneumonia. Mild thoracic spondylosis. IMPRESSION: 1. Scattered reticulonodular densities with superimposed groundglass opacification scattered bilatera lly, consistent with pneumonia. 2: Small pleural effusions. 3: Mediastinal and possible right hilar lymphadenopathy, most likely reactive. Reviewed, dictated and finalized at location A. DAYCARE PROVIDER IMPRESSION: 1. Scattered reticulonodular densities with superimposed groundglass opacificat ion scattered bilaterally, consistent with pneumonia. 2: Small pleural effusions. 3: Mediastinal and possible right hilar lymphadenopathy, most likely reactive.
--- NOTE | ~2021-04-07 | US_ITS ---
EXAMINATION:US venous doppler LE BI INDICATION:Elevated d-dimer TECHNIQUE: Multiple grayscale, color flow and Doppler images of the right and left lower extremity de ep venous systems were obtained and reviewed. COMPARISON:Ultrasound dated 12/13/2006 FINDINGS: The common femoral, superficial femoral and popliteal veins demonstrate normal respiratory variation, augmentation and compressibility. Color flow is also seen within the posterior tibial, pe roneal, greater saphenous and profunda veins. Left peroneal vein not adequately visualized. IMPRESSION: 1: No lower extremity deep venous thrombosis. Reviewed, dictated and finalized at location A. OWS DEPLOYMENT TECHNICIAN
--- NOTE | ~2021-04-07 | XR_ITS ---
XR chest 2V 04/16/2021 12:06 Indication: Status post pacemaker insertion. Procedure: 2 view chest Comparison: Comparison to multiple prior studies sequentially, with oldest reviewed study dated 04/15. Findings: Extensive patchy bilateral airspace disease, compatible with pneumonia. Small pleural effus ions. Pacemaker leads are stable. Cardiomegaly. Impression: 1: Patchy bilateral airspace disease, compatible with pneumonia. 2: Small pleural effusions. Reviewed, dictated and finalized at location B. TMENT LEASING AGENT Impression: 1: Patchy bilateral airspace disease, compatible with pneumonia. 2: Small pleural effusions.
--- NOTE | 2021-04-07 08:26 | ECG_ITS ---
Measurements Intervals [place] Rate: 37 P: MS: 0 QRS: -3 QRSD: 88 T: 26 QT: 539 QTc: 426 Interpretive Statements SINUS RHYTHM WITH COMPLETE HEART BLOCK SLOW JUNCTIONAL ESCAPE RHYTHM LOW QRS VOLTAGE IN PRECORDIAL LEADS BASELINE ARTIFACT- I, II, III, AVR, AVL, AVF, V4-V6 ABNORMAL ECG Electronically Signed On 04-07-2021 9:28:37 BUSINESS INTELLIGENCE DEVELOPER by Rohit Flores D.O.
[2021-04-07 08:38] LABS: Basophils Absolute Auto 0.1 K/mm3 (0.0-0.1); Basophils Percent Auto 0.5 % (0.2-1.2); Eosinophils Absolute Auto 0.4 K/mm3 (0-0.3); Eosinophils Percent Auto 2.6 % (0-4.4); Hematocrit 33.9 % (37.0-47.0); Immature Granulocyte Absolute 0.05 K/mm3 (0.00-0.031); Immature Granulocyte Percent A 0.4 % (0-0.5); Lymphocytes Absolute Auto 2.78 K/mm3 (0.9-3.2); Lymphocytes Percent Auto 20.8 % (18.3-44.2); Mean Corpuscular HGB Conc 32.4 g/dl (32-36); Mean Corpuscular Hemoglobin 31.3 pg (26-34); Mean Corpuscular Volume 96.3 fl (80-100); Mean Platelet Volume 9.5 fl (7.4-10.4); Monocytes Percent Auto 7.8 % (2.6-8.5); Neutrophils Absolute Auto 9.1 K/mm3 (1.3-6.7); Neutrophils Percent Auto 67.9 % (45.5-73.1); Platelet Count Result 173 k/mm3 (150-375); Red Blood Count 3.52 M/mm3 (4.2-5.4); Red Cell Distribution Width 13.2 % (11.5-14.5); White Blood Count 13.4 K/mm3 (4.5-10.0)
[2021-04-07 08:49] LABS: Alanine Aminotransferase 63 U/L (4-35); Albumin Level 4.3 g/dL (3.5-5.1); Alkaline Phosphatase 70 U/L (38-126); Anion Gap 14 mmol/L (8-16); Aspartate Amino Transferase 80 U/L (14-36); Bilirubin,Total 0.7 mg/dL (0.2-1.3); Blood Urea Nitrogen 57 mg/dL (7-17); Carbon Dioxide 12 mmol/L (22-30); Chloride 115 mmol/L (98-107); Estimated CRCL calculation 27 ml/min; Estimated Glomerular Filt Rate 28; Glucose 171 mg/dL (65-110); Potassium 5.4 mmol/L (3.4-5.0); Sodium 141 mmol/L (137-145)
--- NOTE | 2021-04-07 08:51 | ED.SOB ---
HPI - SOB/Dyspnea General Chief Complaint: Shortness of Breath/Dyspnea Stated Complaint: SHORT OF BREATH Time Seen by Provider: 04/07/21 08:27 Source: patient Mode of arrival: ambulatory Limitations: no limitations History of Present Illness HPI Narrative: Patient is a 75-year-old female complaining of shortness of breath, worse with exertion x3 days. Patient also states that she is been having diarrhea, loose watery, nonbloody for the past few days, has had approximately 10-15 episodes. Patient denies any chest pain, abdominal pain, nausea, vomiting, diaphoresis, fever or chills. Related Data Home Medications Medication Instructions Recorded Confirmed cholecalciferol (vitamin D3) 1,000 unit PO DAILY ml 03/28/19 12/24/20 mecobalamin (vitamin B12) 1,000 1,000 mcg PO DAILY 03/28/19 12/24/20 mcg disintegrating tablet,sublingual omega-3 fatty acids 1,000 mg 2,000 mg PO BID cap 03/28/19 12/24/20 capsule calcium polycarbophil 625 mg tablet 1,250 mg PO DAILY 11/16/19 12/24/20 cinnamon bark 500 mg capsule 500 mg PO DAILY 11/16/19 12/24/20 vitamin B complex 1 tablet PO DAILY 08/15/20 12/24/20 Allergies Allergy/AdvReac Type Severity Reaction Status Date / Time LON Inhibitors Allergy Unknown Cough Verified 04/07/21 08:36 Review of Systems Review of Systems: All systems reviewed & are unremarkable except as noted in HPI and below Constitutional: Constitutional: Denies body ache(s), Denies chills, Denies excessive sweating, Denies fatigue, Denies fever(s), Denies headache(s), Denies lethargy, Denies malaise, Denies weakness and Denies weight loss Eyes: Eyes: Denies blurry vision, Denies change in vision and Denies loss of vision ENT: Denies dizziness, Denies ear discharge, Denies headache(s), Denies lip swelling, Denies epistaxis, Denies nasal congestion, Denies neck pain, Denies throat swelling and Denies tongue swelling Cardiovascular: Cardiovascular: Denies chest pain, Denies chest pain at rest, Denies chest pain with activity, Denies diaphoresis, Denies rapid heart rate, Denies edema, Denies irregular heart rhythm, Denies lightheadedness and Denies palpitations Respiratory: Respiratory: Denies chest congestion, Denies cough and Denies hemoptysis Gastrointestinal: Gastrointestinal: Denies abdominal pain, Denies melena, Denies hematochezia, Denies nausea, Denies vomiting and Denies hematemesis Musculoskeletal: Musculoskeletal: Denies abnormal gait, Denies deformity, Denies joint swelling, Denies limited range of motion, Denies neck pain and Denies numbness Neurologic: Denies Abnormal speech present, Denies abnormal gait, Denies confusion, Denies dizziness, Denies headache(s), Denies focal weakness, Denies loss of vision, Denies numbness, Denies Other visual disturbances, Denies Sensory deficit (Neuro) and Denies weakness Psychiatric: Psychiatric: Denies confusion, Denies depression, Denies auditory hallucinations, Denies homicidal ideation and Denies suicidal ideation Endocrine: Endocrine: Denies cold intolerance, Denies excessive sweating, Denies fatigue, Denies heat intolerance and Denies palpitations Hematologic/Lymphatic: Hematologic/Lymphatic: Denies easy bleeding and Denies easy bruising Allergic/Immunologic: Allergic/Immunologic: Denies lip swelling, Denies throat swelling and Denies tongue swelling PMFSH Past Medical History Medical History Abdominal pain Abnormal finding of blood chemistry Abscess of sigmoid colon Azotemia Bilateral foot pain BMI 33.0-33.9,adult BMI 34.0-34.9,adult BMI 35.0-35.9,adult Carotid bruit CKD (chronic kidney disease) Claustrophobia Congestive heart failure DM2 (diabetes mellitus, type 2) Encounter for general adult medical examination w/o abnormal findings Encounter for Medicare annual wellness exam Encounter for routine adult health examination with abnormal findings Follow up Gout Heart murmur History of diverticulitis H
[2021-04-07] MEDS: LACTATED RINGERS 1,000 ML 999 ML IV CONT (08:55)
[2021-04-07 09:11] LABS: D Dimer 3.24 ug/mL (<0.48)
[2021-04-07 09:22] LABS: NT Pro B Type Natriuretic Pept 14000 pg/mL (5-100); Troponin I 0.012 ng/mL (0.000-0.034)
--- NOTE | 2021-04-07 09:53 | PC.NURSE ---
Radiology notified Nuclear Med needed for VQ scan.
[2021-04-07] MEDS: FUROSEMIDE INJ 40 MG/4 ML VIAL 20 MG IV PUSH (09:58)
--- NOTE | 2021-04-07 10:07 | PM.CNCAR ---
Assessment and Plan Assessment and plan (1) Hyperlipidemia: Qualifiers: Hyperlipidemia type: mixed hyperlipidemia Qualified Code(s): E78.2 - Mixed hyperlipidemia Code(s): E78.5 - Hyperlipidemia, unspecified Status: Acute Assessment and Plan: On Rosuvastatin. (2) HTN (hypertension): Qualifiers: Hypertension type: essential hypertension Qualified Code(s): I10 - Essential (primary) hypertension Code(s): I10 - Essential (primary) hypertension Status: Acute Assessment and Plan: High. Monitor. Hold Metoprolol. Would use Hydralazine for BP to improve HR. (3) DM2 (diabetes mellitus, type 2): Qualifiers: Diabetes mellitus chcf insulin use: without intermediate designer use Diabetes mellitus complication status: with other specified complication Qualified Code(s): E11.69 - Type 2 diabetes mellitus with other specified complication Code(s): E11.9 - Type 2 diabetes mellitus without complications Status: Acute Assessment and Plan: Manage by hospitalist. (4) CKD (chronic kidney disease): Qualifiers: Chronic kidney disease stage: stage 1 Qualified Code(s): N18.1 - Chronic kidney disease, stage 1 Code(s): N18.9 - Chronic kidney disease, unspecified Status: Acute Assessment and Plan: Worsening with Stage IV with Cr 1.8/CrCl 27. (5) SOB (shortness of breath) on exertion: Code(s): R06.02 - Shortness of breath Status: Acute Assessment and Plan: CXR shows possible pneumonia vs atelectasis. D-Dimer is elevated. She is going for a VQ scan to r/o PE in ER. She was covid and flu negative 2 days ago. (6) Complete heart block: Code(s): I44.2 - Atrioventricular block, complete Status: Acute Assessment and Plan: Glucagon 10 mg IV x [address] Pacer pads on chest in case HR drops further. Hold Metoprolol. Check TSH. If remains in complete heart block in 24 hours, then consider permanent pacemaker implant. (7) Diastolic dysfunction: Code(s): I51.89 - Other ill-defined heart diseases Status: Acute Assessment and Plan: 12/13/20 Echo: EF 55-60%, grade I diastolic dysfunction (E/e' 26), mild LAE, trace AI/TR, mild MR. Obtain echo. History of Present Illness History of Present Illness Consult date/time: 04/07/21 10:07 Reason for consult: Heart block. 75 yr old woman presented to ED with sob x 3 day. Daughter is at bedside. She has a history of DM, hypertension, dyslipidemia. Reports that for last 1 week she noted more [place] walking only up to 10 feet when normally she can walk all over stores just fine. She also noted a cough. She also has diarrhea for last few days which she thought was due to her her GI abscess . Because of these symptoms her Dr. Newsome her PCP ordered a flu and covid tests 2 days ago which came back negative per patient. Denies dizziness, passing out, chest pain, orthopnea, PND, edema. On telemetry in ED she is in complete heart block at 36 bpm. EKG: Sinus rhythm with CHB and slow junctional escape rhythm at 37 bpm, low voltage in precordial leads. CXR shows bibasilar airspace disease, either atelectasis or pneumonia. WBC 13.4, Hb11.0, Potassium 5.4, BUN 57, Cr 1.8/Cr Cl 27, NTproBNP 14,000, D-Dimer 3.2. Last echo from 12/14/19 EF 55-60%, grade I diastolic dysfunction (E/e' 26), mild LAE, trace AI/TR, mild MR. Reason For Visit: SHORT OF BREATH Review of Systems Constitutional: Constitutional: Reports as per HPI, Denies chills, Reports fatigue and Denies fever(s) Cardiovascular: Cardiovascular: Reports as per HPI, Denies chest pain, Denies irregular heart rhythm, Denies leg edema, Denies lightheadedness and Reports dyspnea on exertion Respiratory: Respiratory: Reports as per HPI, Reports cough and Reports dyspnea on exertion Gastrointestinal: Gastrointestinal: Reports as per HPI, Denies abdominal pain and Reports diarrhea Genitourinary:
[2021-04-07 10:35] LABS: Lactic Acid Reflex 1.4 mmol/L (0.7-2.1)
[2021-04-07] MEDS: GLUCAGON FOR INJ 1 MG VIAL 5 MG IV PUSH (10:45)
[2021-04-07] MEDS: ONDANSETRON INJ 4 MG/2 ML VIAL IV PUSH (10:59)
--- NOTE | 2021-04-07 11:21 | PC.NURSE ---
pt taken to nuc med per nm tech.
[2021-04-07] MEDS: ALBUTEROL SULFATE NEB 2.5 MG/0.5 ML INH 5 MG INHALATION ×2 (12:46→21:32)
[2021-04-07] MEDS: IPRATROPIUM BR 0.02% INH SOLN 0.5 MG/2.5 ML VIAL INHALATION ×2 (12:47→21:32)
[2021-04-07 13:07] LABS: Troponin I 0.014 ng/mL (0.000-0.034)
--- NOTE | 2021-04-07 13:16 | PM.IMHP ---
H&P: HPI History of Present Illness Date/Time: 04/07/21 13:16 this is a 75-year-old female patient has multiple medical diagnosis. The patient came into the emergency room with complaints of being short of breath and has gotten worse with exertion the last 3 days. The patient stated that she wants was diagnosed with congestive heart failure. The patient felt that she had COVID and was going to wait it out. The patient had no fever or chills. She did have diarrhea with loose watery stools or non bloody for the last few days she had approximately 10 in 15 episodes. The patient stated that she did take her a.m. medications as usual. She denies any chest pain. The patient felt slightly nauseated earlier today. The patient's heart rate was in the 30s when she came to emergency room. Patient was found to be in complete heart block. Cardiology was consulted and has seen the patient. I did speak with my collaborative physician concerning patient's condition. Interventional Radiology has been consult per ED physician. Mines Inspector will need to be notified as well. The patient is awake and talking but is very short of breath. The patient has external pacer pads placed to her chest but is not currently turned on at this time. The patient was given glucagon and she is on a beta-lakshmi routinely. The patient has an elevated D-dimer of 3.24. Patient has chronic renal failure with creatinine of 1.8 today with a baseline are some more around 1.15 . GFR is 28 with the previous GFR in the 30s to 40s. We were unable to do a CTA pulmonary therefore a nuclear med pulmonary perfusion chest was performed and was read as small to moderate perfusion abnormality of the left upper lung posteriorly. Covid and influenza negative. She did have a chest CT without contrast and was read as the following 1. Scattered reticulonodular densities with superimposed groundglass opacification scattered bilaterally, consistent with pneumonia. 2: Small pleural effusions. 3: Mediastinal and possible right hilar lymphadenopathy, most likely reactive. The patient was ordered a heparin drip.Venous doppler was negative. Troponins are negative x2. BNP 84336. The patient was started on IV fluids. Given a syndrome I sent, Rocephin, Lasix, glucagon, Zofran, albuterol nebulizer treatment and Atrovent nebulizer treatment in the emergency room. The patient is being admitted to inpatient services to ICU on the date of service 04/07/2019 80. Chief Complaint: Shortness of breath Review of Systems Review of Systems: Patient is complaining of vaginal prolapse and tells me that she is unable to receive surgery due to her multiple health issues. All systems reviewed & are unremarkable except as noted in HPI and below Constitutional: Constitutional: Reports as per HPI and Reports no additional constitutional complaints Eyes: Eyes: Reports as per HPI and Reports no additional eye complaints ENT: Reports system reviewed and no additional complaints, except as documented and Reports Normal hearing present Cardiovascular: Cardiovascular: Reports no additional cardiovascular complaints Respiratory: Respiratory: Reports no additional respiratory complaints and Reports no additional respiratory complaints Gastrointestinal: Gastrointestinal: Reports as per HPI and Reports no additional gastrointestinal complaints Musculoskeletal: Musculoskeletal: Reports no additional musculoskeletal complaints Integumentary/Breasts: Skin/Breast: Reports system reviewed and no additional complaints, except as docu and Reports as per HPI Neurologic: Reports system reviewed and no additional complaints, except as documented, Reports as per HPI and Reports Normal hearing present Psychiatric: Psychiatric: Reports no additional psychiatric complaints and Reports as per HPI Endocrine: Endocrine: Reports no additional endocrine complaints Hematologic/Lymphatic: Hematologic/Lymphatic: Reports no additional hematologic/ly
[2021-04-07 14:33] LABS: Basophils Absolute Auto 0.1 K/mm3 (0.0-0.1); Basophils Percent Auto 0.4 % (0.2-1.2); Eosinophils Percent Auto 0.3 % (0-4.4); Hematocrit 33.5 % (37.0-47.0); Hemoglobin 10.8 g/dL (12.0-15.0); Immature Granulocyte Absolute 0.06 K/mm3 (0.00-0.031); Immature Granulocyte Percent A 0.4 % (0-0.5); Lymphocytes Absolute Auto 1.68 K/mm3 (0.9-3.2); Mean Corpuscular HGB Conc 32.2 g/dl (32-36); Mean Corpuscular Hemoglobin 31.1 pg (26-34); Mean Corpuscular Volume 96.5 fl (80-100); Mean Platelet Volume 8.8 fl (7.4-10.4); Monocytes Absolute Auto 0.6 K/mm3 (0.1-0.6); Neutrophils Absolute Auto 12.8 K/mm3 (1.3-6.7); Neutrophils Percent Auto 83.9 % (45.5-73.1); Platelet Count Result 175 k/mm3 (150-375); Red Blood Count 3.47 M/mm3 (4.2-5.4); Red Cell Distribution Width 13.2 % (11.5-14.5); White Blood Count 15.2 K/mm3 (4.5-10.0)
[2021-04-07 14:46] LABS: INR 1.1; Prothrombin Time 14.5 Seconds (11.1-14.7)
[2021-04-07 14:47] LABS: Partial Thromboplastin Time 33.8 SECONDS (22.3-36.8)
[2021-04-07] MEDS: HEPARIN SODIUM 5,000 UNITS/ML VIAL 5500 UNITS IV PUSH (15:00)
[2021-04-07] MEDS: HEPARIN SOD/D5W 100 UNITS/ML 25,000 UNITS/250 ML BAG 12 UNITS IV CONT (15:01)
[2021-04-07 15:28] LABS: Anion Gap 15 mmol/L (8-16); Blood Urea Nitrogen 57 mg/dL (7-17); Calcium 6.9 mg/dL (8.4-10.2); Carbon Dioxide 13 mmol/L (22-30); Chloride 113 mmol/L (98-107); Estimated CRCL calculation 27 ml/min; Estimated Glomerular Filt Rate 28; Glucose 217 mg/dL (65-110); Magnesium 2.1 mg/dL (1.6-2.3); Potassium 5.5 mmol/L (3.4-5.0); Sodium 141 mmol/L (137-145)
[2021-04-07 16:34] LABS: SARS-CoV-2 RNA PCR Negative
--- NOTE | 2021-04-07 17:34 | WPDPROCEDUR ---
Procedures Central Line Placement Right Femoral: Central Line Date: 04/07/21 Central Line Time: 16:55 Discussed w/ the patient/family/POA,the placement of a central venous catheter, including its clinical necessity/indication & associated potential risks, benifits and alternatives.: Yes Time Out Performed: Yes Patient Position: supine Provider Prep: Max. sterile barrier precautions Sterile US Technique with sterile gel/sterile probe covers: Yes Central line lumen inserted: triple Serbian: 7 Length (cm): 20 Depth of Insertion (cm): 20 Post Procedure: sutured in place, good blood return, all ports aspirated, flushed, capped and transparent dressing Patient tolerated procedure: well Complications: none
[2021-04-07 17:42] LABS: Glucose Point of Care 161 mg/dl (65-105)
[2021-04-07 20:54] LABS: Anion Gap 12 mmol/L (8-16); Blood Urea Nitrogen 56 mg/dL (7-17); Calcium 6.6 mg/dL (8.4-10.2); Carbon Dioxide 14 mmol/L (22-30); Chloride 113 mmol/L (98-107); Estimated CRCL calculation 25 ml/min; Estimated Glomerular Filt Rate 26; Glucose 143 mg/dL (65-110); Magnesium 2.1 mg/dL (1.6-2.3); Potassium 5.3 mmol/L (3.4-5.0); Sodium 139 mmol/L (137-145)
[2021-04-08] VITALS (77 sets, daily range): BP systolic 103–148; BP diastolic 40–66; PULSE 38–94; RESP 14–28; TEMP 36.6; O2SAT 97–100
--- NOTE | 2021-04-08 | ECHO_ITS ---
Patient Info Name: Desirae Contreras Age: 75 years : 1945 Gender: Female Ht: 63 in Wt: 200 lbs BSA: 2.05 m2 HR: 41 bpm BP: 119 / 45 mmHg Technical Quality: Fair Exam Date: 04/08/2021 10:54 AM Exam Location: [facility]am Room: ED7 Patient Status: Inpatient Admit Date: 04/07/2021 Staff Ordering Physician: Rohit Flores DO Rn Palliative: Joann Osborne RDCS Attending Provider: Ronit Rios M.A., MD Referring Physician: Mark DONNELLY; Exam Type: CA echo doppler color flow Study Info Indications - SOB Complete two-dimensional, color flow and Doppler transthoracic echocardiogram is performed. Summary 1. Complete two-dimensional, color flow and Doppler transthoracic echocardiogram is performed. 2. Left ventricular chamber dimension is normal. 3. Left ventricular systolic function is normal, estimated at 60-65%. 4. The left ventricular diastolic function is grade I diastolic dysfunction. 5. E/e' 8 is minimally elevated. 6. Left atrial chamber dimension is moderately enlarged. 7. Right atrial chamber dimension is mildly enlarged. 8. There is moderate aortic valve sclerosis. 9. There is moderate aortic valve stenosis with a peak velocity of 274 cm/s, mean gradient of 16 mmHg, and aortic valve area of 1.4 cm2. 10. The mitral valve has moderately calcified annulus. 11. There is mild to moderate mitral valve regurgitation. 12. There is mild to moderate tricuspid valve regurgitation. 13. Moderate pulmonary hypertension, estimated pulmonary arterial systolic pressure is 54 mmHg. Left Ventricle E/e' 8 is minimally elevated. Left ventricular chamber dimension is normal. Left ventricular systolic function is normal, estimated at 60-65%. The left ventricular diastolic function is grade I diastolic dysfunction. Right Ventricle Right ventricular chamber dimension is normal. Right ventricular systolic function is normal. Left Atria Left atrial chamber dimension is moderately enlarged. Right Atria Right atrial chamber dimension is mildly enlarged. Aortic Valve The aortic valve is trileaflet. There is moderate aortic valve sclerosis. There is moderate aortic valve stenosis with a peak velocity of 274 cm/s, mean gradient of 16 mmHg, and aortic valve area of 1.4 cm2. There is no aortic valve regurgitation. Pulmonic Valve There is no pulmonic regurgitation. Mitral Valve The mitral valve has moderately calcified annulus. There is no mitral valve stenosis. There is mild to moderate mitral valve regurgitation. Tricuspid Valve There is mild to moderate tricuspid valve regurgitation. Moderate pulmonary hypertension, estimated pulmonary arterial systolic pressure is 54 mmHg. Pericardium/Pleural There is no pericardial effusion. Inferior Vena Cava Normal inferior vena cava with >50% collapse upon inspiration consistent with normal right atrial pressure, 5 mmHg. Aorta The aortic root size at the sinus of Valsalva is normal. Left Ventricular Outflow Tract Name Value Normal LVOT 2D LVOT Diameter 2.0 cm LVOT Doppler LVOT Peak Gradient 4 mmHg LVOT Mean G
[2021-04-08] MEDS: CENTRAL LINE FLUSH 10 ML IV PUSH ×4 (01:41→18:16)
[2021-04-08] MEDS: ALBUTEROL SULFATE NEB 2.5 MG/0.5 ML INH 5 MG INHALATION ×4 (03:54→20:26)
[2021-04-08] MEDS: IPRATROPIUM BR 0.02% INH SOLN 0.5 MG/2.5 ML VIAL INHALATION ×4 (03:55→20:26)
--- NOTE | 2021-04-08 07:20 | PC.NURSE ---
Pt ambulated to restroom, c/o sob , noted to have small amount bright red blood on pad. states this is new for her.
[2021-04-08 07:46] LABS: Basophils Absolute Auto 0.1 K/mm3 (0.0-0.1); Basophils Percent Auto 0.8 % (0.2-1.2); Eosinophils Absolute Auto 0.3 K/mm3 (0-0.3); Eosinophils Percent Auto 2.2 % (0-4.4); Hematocrit 32.3 % (37.0-47.0); Hemoglobin 10.3 g/dL (12.0-15.0); Immature Granulocyte Absolute 0.05 K/mm3 (0.00-0.031); Immature Granulocyte Percent A 0.4 % (0-0.5); Lymphocytes Absolute Auto 3.32 K/mm3 (0.9-3.2); Lymphocytes Percent Auto 25.8 % (18.3-44.2); Mean Corpuscular HGB Conc 31.9 g/dl (32-36); Mean Corpuscular Hemoglobin 31.1 pg (26-34); Mean Corpuscular Volume 97.6 fl (80-100); Mean Platelet Volume 9.1 fl (7.4-10.4); Neutrophils Absolute Auto 8.1 K/mm3 (1.3-6.7); Neutrophils Percent Auto 62.8 % (45.5-73.1); Platelet Count Result 166 k/mm3 (150-375); Red Blood Count 3.31 M/mm3 (4.2-5.4); Red Cell Distribution Width 13.3 % (11.5-14.5); White Blood Count 12.9 K/mm3 (4.5-10.0)
[2021-04-08 07:55] LABS: Lactic Acid Reflex 2.1 mmol/L (0.7-2.1)
[2021-04-08 07:56] LABS: Alanine Aminotransferase 52 U/L (4-35); Albumin Level 4.1 g/dL (3.5-5.1); Alkaline Phosphatase 66 U/L (38-126); Anion Gap 14 mmol/L (8-16); Aspartate Amino Transferase 43 U/L (14-36); Bilirubin,Total 0.6 mg/dL (0.2-1.3); Blood Urea Nitrogen 55 mg/dL (7-17); Carbon Dioxide 14 mmol/L (22-30); Chloride 113 mmol/L (98-107); Estimated CRCL calculation 23 ml/min; Estimated Glomerular Filt Rate 23; Glucose 148 mg/dL (65-110); Lactate Dehydrogenase 618 U/L (313-618); Lipase 69 U/L (23-300); Magnesium 2.2 mg/dL (1.6-2.3); Potassium 4.8 mmol/L (3.4-5.0); Sodium 141 mmol/L (137-145)
[2021-04-08 08:00] LABS: INR 1.2; Prothrombin Time 14.7 Seconds (11.1-14.7)
[2021-04-08 08:02] LABS: Partial Thromboplastin Time 46.7 SECONDS (22.3-36.8)
--- NOTE | 2021-04-08 08:02 | PM.PNCARD ---
Progress Note: A&P Assessment and Plan (1) Hyperlipidemia: Qualifiers: Hyperlipidemia type: mixed hyperlipidemia Qualified Code(s): E78.2 - Mixed hyperlipidemia Code(s): E78.5 - Hyperlipidemia, unspecified Status: Acute Assessment and Plan: On Rosuvastatin. (2) HTN (hypertension): Qualifiers: Hypertension type: essential hypertension Qualified Code(s): I10 - Essential (primary) hypertension Code(s): I10 - Essential (primary) hypertension Status: Acute Assessment and Plan: Stable. Monitor. Hold Metoprolol and it has been 24 hours this morning since last dose. Would use Hydralazine for BP to improve HR. (3) DM2 (diabetes mellitus, type 2): Qualifiers: Diabetes mellitus longterm insulin use: without longterm use Diabetes mellitus complication status: with other specified complication Qualified Code(s): E11.69 - Type 2 diabetes mellitus with other specified complication Code(s): E11.9 - Type 2 diabetes mellitus without complications Status: Acute Assessment and Plan: Manage by hospitalist. (4) CKD (chronic kidney disease): Qualifiers: Chronic kidney disease stage: stage 1 Qualified Code(s): N18.1 - Chronic kidney disease, stage 1 Code(s): N18.9 - Chronic kidney disease, unspecified Status: Acute Assessment and Plan: Worsening with Stage IV with Cr 1.9/GFR 25. (5) SOB (shortness of breath) on exertion: Code(s): R06.02 - Shortness of breath Status: Acute Assessment and Plan: Due to pneumonia on CT chest and pulm embolism on VQ scan. D-Dimer is elevated. She was covid and flu negative 2 days ago and covid negative again here. On antibiotics and heparin drip. (6) Complete heart block: Code(s): I44.2 - Atrioventricular block, complete Status: Acute Assessment and Plan: Stable BP and asymptomatic at rest. Received Glucagon 10 mg IV x 1.project assistant. Pacer pads on chest in case HR drops further. Hold Metoprolol. TSH is OK. If remains in complete heart block for another 24 hours, then consider permanent pacemaker implant. (7) Diastolic dysfunction: Code(s): I51.89 - Other ill-defined heart diseases Status: Acute Assessment and Plan: 12/13/20 Echo: EF 55-60%, grade I diastolic dysfunction (E/e' 26), mild LAE, trace AI/TR, mild MR. Obtain echo. Subjective Date/time seen: 04/08/21 08:02 Reports SOB with minimal exertion but OK at rest. No chest pains, dizziness. Exam Const: General: cooperative, healthy appearing and comfortable Nutritional Appearance: obese Resp: Auscultation: clear to auscultation bilaterally, no crackles, no rales, no rhonchi and no wheezes Cardio: Jugular venous distension: no JVD Rate: bradycardic Rhythm: abnormal rhythm Heart sounds: no murmurs Peripheral pulses: dorsalis pedis present GI: GI Palp: No abdominal tenderness and Yes Soft to palpation Neuro: General: oriented to person, oriented to place and oriented to time Extrem: Right lower extremity: no edema Left lower extremity: no edema Objective Data Vital Signs Vital Signs: Vital Signs - 24 hr 04/07/21 08:26 04/07/21 08:29 04/07/21 08:56 Temperature 98.0 F Pulse Rate 36 L 37 L 39 L Respiratory Rate 19 23 H Blood Pressure 143/103 H 170/48 H Pulse Oximetry 100 100 04/07/21 10:46 04/07/21 11:57 04/07/21 12:49 Temperature Pulse Rate 35 L 35 L 73 Respiratory Rate 19 26 H 18 Blood Pressure 150/53 H 150/53 H Pulse Oximetry 96 99 04/07/21 13:15 04/07/21 14:02 04/07/21 14:50 Temperature Pulse Rate 37 L Respiratory Rate 37 H Blood Pressure 91/44 L 117/94 H Pulse Oximetry 99 98 04/07/21 16:23 04/07/21 17:13 04/07/21 20:12 Temperature Pulse Rate 37 L 35 L 38 L Respiratory Rate 22 H 19 16 Blood Pressure 127/37 L 119/45 L Pulse Oximetry 100 97 98 04/07/21 21:32 04/07/21 21:42 04/08/21 03:55 Temp
[2021-04-08 08:07] LABS: Hemoglobin A1C 6.2 % (<5.7)
[2021-04-08 08:32] LABS: Glucose Point of Care 149 mg/dl (65-105)
[2021-04-08] MEDS: HEPARIN SODIUM 5,000 UNITS/ML VIAL 5500 UNITS IV PUSH (08:54)
--- NOTE | 2021-04-08 09:03 | PC.NURSE ---
PT given breakfast tray and sitting at bedside.
--- NOTE | 2021-04-08 09:12 | PC.NURSE ---
heparin titrated per protocol.
--- NOTE | 2021-04-08 09:54 | WPDCNINT ---
Assessment and Plan Assessment and plan (1) Suspected pulmonary embolism: Code(s): R09.89 - Other specified symptoms and signs involving the circulatory and respiratory systems Status: Acute Assessment and Plan: perfusion scan showed - Small-moderate perfusion abnormality of the left upper lung posteriorly. unable to do CTA due to elevated creatinine lower extremity Dopplers are negative for DVT currently on heparin infusion which will be continued for now (2) Acute renal failure: Code(s): N17.9 - Acute kidney failure, unspecified Status: Acute Assessment and Plan: likely multifactorial as patient has a baseline history of hypertension, CKD and diabetes and now presented with pneumonia and also complete heart block leading to decreased perfusion will give cautious amount of IV fluids with bicarb for acidosis and intravascular hydration monitor urine output creatinine electrolytes hold Lasix ARB andmetformin (3) Third degree heart block: Code(s): I44.2 - Atrioventricular block, complete Status: Acute Assessment and Plan: currently rate is around 40 and blood pressure is adequate. Her systolic blood pressure was 140 while I was interviewing her beta-lakshmi has been held and patient received a dose of glucagon cardiology is following. If does not resolve conservatively she may need transfer venous versus permanent pacemaker being on the situation continue ICU monitoring TSH is normal (4) Pneumonia: Qualifiers: Laterality: unspecified laterality Lung location: unspecified part of lung Pneumonia type: due to unspecified organism Qualified Code(s): J18.9 - Pneumonia, unspecified organism Code(s): J18.9 - Pneumonia, unspecified organism Status: Acute Assessment and Plan: she was initially given Rocephin but switched to Zosyn on admission. I will continue atypical coverage with azithromycin cultures have been sent check urine Legionella and pneumococcal antigen (5) Diastolic dysfunction: Code(s): I51.89 - Other ill-defined heart diseases Status: Acute Assessment and Plan: patient does have congestive heart failure and chronic lower extremity edema due to her renal failure we will give her some IV fluids and hold diuretics at this time she is on room air echocardiogram is ordered (6) DM2 (diabetes mellitus, type 2): Qualifiers: Diabetes mellitus ferry terminal agent insulin use: without nursing home use Diabetes mellitus complication status: with other specified complication Qualified Code(s): E11.69 - Type 2 diabetes mellitus with other specified complication Code(s): E11.9 - Type 2 diabetes mellitus without complications Status: Acute Assessment and Plan: diabetic diet and sliding scale insulin at this time (7) HTN (hypertension): Qualifiers: Hypertension type: essential hypertension Qualified Code(s): I10 - Essential (primary) hypertension Code(s): I10 - Essential (primary) hypertension Status: Acute Assessment and Plan: currently controlled range treat as needed (8) Hyperlipidemia: Qualifiers: Hyperlipidemia type: mixed hyperlipidemia Qualified Code(s): E78.2 - Mixed hyperlipidemia Code(s): E78.5 - Hyperlipidemia, unspecified Status: Acute Assessment and Plan: hold statin at this time due to slightly elevated liver enzymes. Monitor liver enzymes Additional Plan DVT prophylaxis - currently on heparin drip Code Status - Full Code Total Critical Care Time -40 minutes Due to a high probability of clinically significant, life threatening deterioration, the patient required my highest level of preparedness to intervene emergently and I personally spent this critical care time directly and personally managing the patient. This critical care time included obtaining a history; examining the patient; pulse oxim
--- NOTE | 2021-04-08 10:14 | PC.NURSE ---
Cardiology in room doing echo at this time
[2021-04-08 10:40] LABS: Reflex Lactic Acid Yes or No Add Lactic
[2021-04-08 11:27] LABS: Lactic Acid 1.7 mmol/L (0.7-2.1)
--- NOTE | 2021-04-08 11:27 | PC.NURSE ---
secretary specialist order pt room tray at [phone]
--- NOTE | 2021-04-08 11:43 | PC.NURSE ---
nursing secretary went to deliver pt room tray. pt declined at this time stating that she is unable to sit up due to a line being in her thigh. pt asked if after she was done if nursing secretary could bring back meal. nursing secretary will order a new tray
[2021-04-08] MEDS: SODIUM BICARBONATE 8.4% 150 MEQ in WATER, STERILE FOR INJECTION 950 ML 100 MEQ IV CONT (12:12)
[2021-04-08 12:16] LABS: Glucose Point of Care 229 mg/dl (65-105)
[2021-04-08] MEDS: INSULIN ASPART (*BKC) 100 UNITS/ML SUB-Q (12:18)
--- NOTE | 2021-04-08 13:02 | PC.NURSE ---
Pt placed on hospital bed.
[2021-04-08 14:33] LABS: INR 1.2; Prothrombin Time 15.3 Seconds (11.1-14.7)
[2021-04-08 14:35] LABS: Partial Thromboplastin Time 104.1 SECONDS (22.3-36.8)
[2021-04-08] MEDS: HEPARIN SOD/D5W 100 UNITS/ML 25,000 UNITS/250 ML BAG 15 UNITS IV CONT (14:49)
[2021-04-08] MEDS: CYANOCOBALAMIN 1,000 MCG TABLET 1000 MCG PO (16:14)
[2021-04-08] MEDS: calcium polycarbophiL 625 MG TABLET PO (16:15)
[2021-04-08] MEDS: VITAMIN B COMPLEX CAPSULE 1 CAP PO (16:15)
[2021-04-08] MEDS: allopurinoL 100 MG TABLET PO (16:15)
[2021-04-08] MEDS: OMEGA 3 POLYUNSAT FATTY ACIDS 1 GM CAP PO ×2 (16:16→21:18)
[2021-04-08] MEDS: FERROUS SULFATE 324 MG TABLET PO (16:16)
[2021-04-08] MEDS: FUROSEMIDE 40 MG TABLET PO (16:16)
[2021-04-08] MEDS: CHOLECALCIFEROL 1,000 UNITS TABLET 1000 UNITS PO (16:16)
[2021-04-08] MEDS: LEVOTHYROXINE SODIUM 112 MCG TABLET PO (16:17)
[2021-04-08] MEDS: metFORMIN HCL 500 MG TABLET 1000 MG PO (16:17)
[2021-04-08] MEDS: POTASSIUM CHLORIDE 20 MEQ TABLET.ER PO (16:18)
[2021-04-08] MEDS: FOLIC ACID 1 MG TABLET PO (16:18)
[2021-04-08] MEDS: LOSARTAN POTASSIUM 100 MG TABLET PO (16:18)
[2021-04-08 16:52] LABS: Glucose Point of Care 124 mg/dl (65-105)
--- NOTE | 2021-04-08 17:18 | PC.NURSE ---
medical secretary receptionist brought room tray to pt. Pt is sitting up and eating at this time.
--- NOTE | 2021-04-08 19:18 | PC.NURSE ---
Report received from REYNALDO Gonzalez. Assumed care of patient at this time.
[2021-04-08 19:25] LABS: INR 1.2; Prothrombin Time 14.9 Seconds (11.1-14.7)
[2021-04-08 19:27] LABS: Partial Thromboplastin Time 90.8 SECONDS (22.3-36.8)
--- NOTE | 2021-04-08 20:27 | PC.NURSE ---
Respiratory in room administering breathing treatment. Family at bedside.
[2021-04-08 23:14] LABS: Glucose Point of Care 153 mg/dl (65-105)
[2021-04-09] VITALS (74 sets, daily range): BP systolic 60–132; BP diastolic 35–58; PULSE 42–101; RESP 11–24; TEMP 36.7–37; O2SAT 97–99; BMI 43.0
[2021-04-09] MEDS: SODIUM BICARBONATE 8.4% 150 MEQ in WATER, STERILE FOR INJECTION 950 ML 100 MEQ IV CONT ×2 (00:09→09:49)
[2021-04-09] MEDS: CENTRAL LINE FLUSH 10 ML IV PUSH ×4 (00:09→21:28)
[2021-04-09 01:56] LABS: INR 1.1; Prothrombin Time 14.5 Seconds (11.1-14.7)
[2021-04-09] MEDS: IPRATROPIUM BR 0.02% INH SOLN 0.5 MG/2.5 ML VIAL INHALATION ×4 (02:18→22:08)
[2021-04-09] MEDS: ALBUTEROL SULFATE NEB 2.5 MG/0.5 ML INH 5 MG INHALATION ×4 (02:18→22:08)
[2021-04-09] MEDS: LEVOTHYROXINE SODIUM 112 MCG TABLET PO (06:30)
[2021-04-09 07:07] LABS: INR 1.2; Prothrombin Time 14.9 Seconds (11.1-14.7)
[2021-04-09 07:50] LABS: Hematocrit 24.5 % (37.0-47.0); Hemoglobin 8.1 g/dL (12.0-15.0); Mean Corpuscular HGB Conc 33.1 g/dl (32-36); Mean Corpuscular Hemoglobin 30.9 pg (26-34); Mean Corpuscular Volume 93.5 fl (80-100); Platelet Count Result 114 k/mm3 (150-375); Red Blood Count 2.62 M/mm3 (4.2-5.4); Red Cell Distribution Width 13.4 % (11.5-14.5); White Blood Count 8.6 K/mm3 (4.5-10.0)
[2021-04-09 08:02] LABS: Alanine Aminotransferase 34 U/L (4-35); Albumin Level 3.2 g/dL (3.5-5.1); Alkaline Phosphatase 57 U/L (38-126); Anion Gap 10 mmol/L (8-16); Aspartate Amino Transferase 28 U/L (14-36); Bilirubin,Total 0.5 mg/dL (0.2-1.3); Blood Urea Nitrogen 54 mg/dL (7-17); Calcium 5.9 mg/dL (8.4-10.2); Carbon Dioxide 21 mmol/L (22-30); Chloride 106 mmol/L (98-107); Estimated CRCL calculation 21 ml/min; Estimated Glomerular Filt Rate 21; Glucose 148 mg/dL (65-110); Magnesium 1.8 mg/dL (1.6-2.3); Phosphorus 6.7 mg/dL (2.5-4.5); Potassium 4.6 mmol/L (3.4-5.0); Sodium 137 mmol/L (137-145)
--- NOTE | 2021-04-09 08:02 | ECG_ITS ---
Measurements Intervals [place] Rate: 47 P: [place]: 0 QRS: 11 QRSD: 85 T: 21 QT: 450 QTc: 401 Interpretive Statements SINUS RHYTHM WITH COMPLETE HEART BLOCK JUNCTIONAL ESCAPE RHYTHM LOW QRS VOLTAGE IN PRECORDIAL LEADS BORDERLINE R WAVE PROGRESSION, ANTERIOR LEADS CONSIDER INFERIOR INFARCT, AGE INDETERMINATE BORDERLINE T WAVE ABNORMALITY- ANTERIOR LEADS BASELINE ARTIFACT- V4 ABNORMAL ECG Electronically Signed On 04-09-2021 18:09:32 BOTTLE PACKING MACHINE CLEANER by Rohit Flores D.O.
--- NOTE | 2021-04-09 08:02 | PM.PNCARD ---
Progress Note: A&P Assessment and Plan (1) Hyperlipidemia: Qualifiers: Hyperlipidemia type: mixed hyperlipidemia Qualified Code(s): E78.2 - Mixed hyperlipidemia Code(s): E78.5 - Hyperlipidemia, unspecified Status: Acute Assessment and Plan: On Rosuvastatin. (2) HTN (hypertension): Qualifiers: Hypertension type: essential hypertension Qualified Code(s): I10 - Essential (primary) hypertension Code(s): I10 - Essential (primary) hypertension Status: Acute Assessment and Plan: Stable. Monitor. Hold Metoprolol and it has been 48 hours this morning since last dose. Would use Hydralazine for BP to improve HR. (3) DM2 (diabetes mellitus, type 2): Qualifiers: Diabetes mellitus alf insulin use: without alf use Diabetes mellitus complication status: with other specified complication Qualified Code(s): E11.69 - Type 2 diabetes mellitus with other specified complication Code(s): E11.9 - Type 2 diabetes mellitus without complications Status: Acute Assessment and Plan: Manage by hospitalist. (4) CKD (chronic kidney disease): Qualifiers: Chronic kidney disease stage: stage 1 Qualified Code(s): N18.1 - Chronic kidney disease, stage 1 Code(s): N18.9 - Chronic kidney disease, unspecified Status: Acute Assessment and Plan: Worsening with Stage IV with Cr 1.9/GFR 25. Check labs today. (5) SOB (shortness of breath) on exertion: Code(s): R06.02 - Shortness of breath Status: Acute Assessment and Plan: Due to pneumonia on CT chest and pulm embolism on VQ scan. D-Dimer is elevated. She was covid and flu negative 2 days ago and covid negative again here. On antibiotics and heparin drip. (6) Complete heart block: Code(s): I44.2 - Atrioventricular block, complete Status: Acute Assessment and Plan: Stable BP and asymptomatic at rest. Received Glucagon 10 mg IV x 1.classroom monitor. Pacer pads on chest in case HR drops further. Hold Metoprolol. TSH is OK. Her HR is improving to 43 bpm from 36 bpm. If remains in complete heart block for another 24 hours, then consider permanent pacemaker implant. Check EKG. (7) Diastolic dysfunction: Code(s): I51.89 - Other ill-defined heart diseases Status: Acute Assessment and Plan: 12/13/20 Echo: EF 55-60%, grade I diastolic dysfunction (E/e' 26), mild LAE, trace AI/TR, mild MR. 04/08/20 Echo: EF 60-65%, grade I diastolic dysfunction (E/e' 8), mod LAE, mild FREDY, mod (ATIF 1.4 cm2), mod MAC, mild-mod MR/TR, RVSP 54 mmHg. Subjective Date/time seen: 04/09/21 08:02 Denies chest pain or sob or dizziness. Has TIDWELL with minimal activity such as going to restroom. Exam Const: General: cooperative, healthy appearing and comfortable Nutritional Appearance: obese Resp: Auscultation: clear to auscultation bilaterally, no crackles, no rales, no rhonchi and no wheezes Cardio: Jugular venous distension: no JVD Rate: bradycardic Rhythm: abnormal rhythm Heart sounds: no murmurs Peripheral pulses: dorsalis pedis present GI: GI Palp: No abdominal tenderness and Yes Soft to palpation Neuro: General: oriented to person, oriented to place and oriented to time Extrem: Right lower extremity: no edema Left lower extremity: no edema Objective Data Vital Signs Vital Signs: Vital Signs - 24 hr 04/08/21 08:40 04/08/21 08:52 04/08/21 09:00 Temperature Pulse Rate 40 L 40 L 40 L Respiratory Rate 24 H 17 18 Blood Pressure 148/61 H Pulse Oximetry 100 98 04/08/21 09:45 04/08/21 10:00 04/08/21 10:15 Temperature Pulse Rate 81 80 83 Respiratory Rate 15 18 18 Blood Pressure Pulse Oximetry 04/08/21 10:30 04/08/21 10:45 04/08/21 11:00 Temperature Pulse Rate 82 84 76 Respiratory Rate 14 23 H 19 Blood Pressure Pulse Oximetry 04/08/21 11:10 04/08/21 11:15 04/08/21 11:16 Temperature Pul
[2021-04-09] MEDS: HEPARIN SOD/D5W 100 UNITS/ML 25,000 UNITS/250 ML BAG 15 UNITS IV CONT (08:18)
[2021-04-09 08:55] LABS: Glucose Point of Care 145 mg/dl (65-105)
--- NOTE | 2021-04-09 09:27 | WPDINTPN ---
Progress Note: A&P Assessment and Plan (1) Suspected pulmonary embolism: Code(s): R09.89 - Other specified symptoms and signs involving the circulatory and respiratory systems Status: Acute Assessment and Plan: perfusion scan showed - Small-moderate perfusion abnormality of the left upper lung posteriorly. unable to do CTA due to elevated creatinine lower extremity Dopplers are negative for DVT currently on heparin infusion which will be continued for now specially until plan for pacemaker is definite (2) Acute renal failure: Code(s): N17.9 - Acute kidney failure, unspecified Status: Acute Assessment and Plan: likely multifactorial as patient has a baseline history of hypertension, CKD and diabetes and now presented with pneumonia and also complete heart block leading to decreased perfusion Patient was started on cautious amount of IV fluids with bicarb for acidosis and intravascular hydration Her creatinine continues to be worsen and is slightly more elevated at 2.3 today Check CK level, check renal ultrasound Will consult nephrology Continue to monitor urine output creatinine electrolytes Continue to hold Lasix ARB and metformin. The nurse in ER was suppose to do med reconciliation but instead she ordered all her home medications under my name. I have discontinued all of the meds not indicated at this time. (3) Third degree heart block: Code(s): I44.2 - Atrioventricular block, complete Status: Acute Assessment and Plan: Patient continues to be in complete heart block and currently rate is around 40 but blood pressure is adequate. Her beta-lakshmi has been off cardiology is following and I anticipate the patient will need a pacemaker continue ICU monitoring until then TSH is normal (4) Pneumonia: Qualifiers: Laterality: unspecified laterality Lung location: unspecified part of lung Pneumonia type: due to unspecified organism Qualified Code(s): J18.9 - Pneumonia, unspecified organism Code(s): J18.9 - Pneumonia, unspecified organism Status: Acute Assessment and Plan: she was initially given Rocephin but switched to Zosyn on admission. I will continue atypical coverage with azithromycin cultures have been sent Ordered urine Legionella and pneumococcal antigen She is afebrile and her WBC has became normal (5) Diastolic dysfunction: Code(s): I51.89 - Other ill-defined heart diseases Status: Acute Assessment and Plan: patient does have congestive heart failure and chronic lower extremity edema due to her renal failure we will give her some IV fluids and hold diuretics at this time she is on room air ECHO Summary 1. Complete two-dimensional, color flow and Doppler transthoracic echocardiogram is performed. 2. Left ventricular chamber dimension is normal. 3. Left ventricular systolic function is normal, estimated at 60-65%. 4. The left ventricular diastolic function is grade I diastolic dysfunction. 5. E/e' 8 is minimally elevated. 6. Left atrial chamber dimension is moderately enlarged. 7. Right atrial chamber dimension is mildly enlarged. 8. There is moderate aortic valve sclerosis. 9. There is moderate aortic valve stenosis with a peak velocity of 274 cm/s, mean gradient of 16 mmHg, and aortic valve area of 1.4 cm2. 10. The mitral valve has moderately calcified annulus. 11. There is mild to moderate mitral valve regurgitation. 12. There is mild to moderate tricuspid valve regurgitation. 13. Moderate pulmonary hypertension, estimated pulmonary arterial systolic pressure is 54 mmHg. (6) DM2 (diabetes mellitus, type 2): Qualifiers: Diabetes mellitus terminal carman insulin use: without terminal carman use Diabetes mellitus complication status: with other specified complication Qualified Code(s): E11.69 - Type 2 diabetes mellitus with other specified complication Code(s): E11.9 - Type 2 d
[2021-04-09] MEDS: OMEGA 3 POLYUNSAT FATTY ACIDS 1 GM CAP PO ×4 (09:44→21:28)
[2021-04-09] MEDS: FERROUS SULFATE 324 MG TABLET PO (09:45)
[2021-04-09] MEDS: CALCIUM GLUC 2,000 MG/NS 100ML 2,000 MG/100 ML BAG 100 MG IVPB (11:04)
[2021-04-09 12:27] LABS: Glucose Point of Care 217 mg/dl (65-105)
[2021-04-09] MEDS: CHOLECALCIFEROL 1,000 UNITS TABLET 1000 UNITS PO (12:30)
[2021-04-09] MEDS: VITAMIN B COMPLEX CAPSULE 1 CAP PO (12:30)
[2021-04-09] MEDS: calcium polycarbophiL 625 MG TABLET PO (12:30)
[2021-04-09] MEDS: INSULIN ASPART (*BKC) 100 UNITS/ML SUB-Q (12:31)
[2021-04-09] MEDS: CYANOCOBALAMIN 1,000 MCG TABLET 1000 MCG PO (12:32)
[2021-04-09 15:15] LABS: INR 1.2; Prothrombin Time 15.2 Seconds (11.1-14.7)
[2021-04-09 15:34] LABS: Partial Thromboplastin Time 90.8 SECONDS (22.3-36.8)
--- NOTE | 2021-04-09 16:48 | ADMGEN ---
This patient, Desirae Contreras, was admitted to IMU Room 200-01. Patient/family oriented to hospital policies and general routines including ID bracelet, bed and alarms, visiting hours, pain management, procedures, bathroom and other care routines, personal items, smoking policy, room service/diet, and visiting hours. Information on how to activate the Rapid Response Team has been discussed. Patient/Family are encouraged to report perceived risks to care and to ask questions if they do not understand what they are told or what they should do.
[2021-04-09 16:52] LABS: Glucose Point of Care 187 mg/dl (65-105)
[2021-04-09] MEDS: FOLIC ACID 1 MG TABLET PO (17:39)
[2021-04-09 19:57] LABS: Partial Thromboplastin Time 92.3 SECONDS (22.3-36.8)
[2021-04-09 21:18] LABS: Glucose Point of Care 189 mg/dl (65-105)
[2021-04-10] VITALS (25 sets, daily range): BP systolic 137–168; BP diastolic 36–76; PULSE 36–92; RESP 16–24; TEMP 36–36.6; O2SAT 95–99
[2021-04-10] MEDS: HEPARIN SOD/D5W 100 UNITS/ML 25,000 UNITS/250 ML BAG 15 UNITS IV CONT ×2 (00:33→19:00)
[2021-04-10] MEDS: ALBUTEROL SULFATE NEB 2.5 MG/0.5 ML INH 5 MG INHALATION ×4 (02:13→20:09)
[2021-04-10] MEDS: IPRATROPIUM BR 0.02% INH SOLN 0.5 MG/2.5 ML VIAL INHALATION ×4 (02:13→20:09)
[2021-04-10] MEDS: CENTRAL LINE FLUSH 10 ML IV PUSH ×4 (04:47→20:59)
[2021-04-10 05:15] LABS: Hematocrit 23.7 % (37.0-47.0); Hemoglobin 7.8 g/dL (12.0-15.0); Mean Corpuscular HGB Conc 32.9 g/dl (32-36); Mean Corpuscular Hemoglobin 30.4 pg (26-34); Mean Corpuscular Volume 92.2 fl (80-100); Mean Platelet Volume 9.6 fl (7.4-10.4); Platelet Count Result 123 k/mm3 (150-375); Red Blood Count 2.57 M/mm3 (4.2-5.4); Red Cell Distribution Width 13.3 % (11.5-14.5); White Blood Count 8.1 K/mm3 (4.5-10.0)
[2021-04-10 05:27] LABS: Partial Thromboplastin Time 71.1 SECONDS (22.3-36.8)
[2021-04-10 05:37] LABS: Alanine Aminotransferase 29 U/L (4-35); Albumin Level 3.2 g/dL (3.5-5.1); Alkaline Phosphatase 53 U/L (38-126); Anion Gap 12 mmol/L (8-16); Aspartate Amino Transferase 24 U/L (14-36); Bilirubin,Total 0.4 mg/dL (0.2-1.3); Blood Urea Nitrogen 49 mg/dL (7-17); Calcium 6.2 mg/dL (8.4-10.2); Carbon Dioxide 22 mmol/L (22-30); Chloride 103 mmol/L (98-107); Estimated CRCL calculation 26 ml/min; Estimated Glomerular Filt Rate 23; Glucose 134 mg/dL (65-110); Magnesium 1.9 mg/dL (1.6-2.3); Potassium 4.1 mmol/L (3.4-5.0); Sodium 137 mmol/L (137-145)
--- NOTE | 2021-04-10 06:58 | ECG_ITS ---
Measurements Intervals [place] Rate: 45 P: [place]: 0 QRS: 3 QRSD: 93 T: 12 QT: 538 QTc: 469 Interpretive Statements SINUS RHYTHM WITH COMPLETE HEART BLOCK JUNCTIONAL ESCAPE RHYTHM LOW QRS VOLTAGE IN PRECORDIAL LEADS BORDERLINE R WAVE PROGRESSION, ANTERIOR LEADS CONSIDER INFERIOR INFARCT, AGE INDETERMINATE ABNORMAL ECG Electronically Signed On 04-10-2021 9:05:25 RADIATION ONCOLOGIST by Rohit Flores D.O.
--- NOTE | 2021-04-10 07:44 | PM.CNNEP ---
Assessment and Plan Assessment and plan (1) Acute renal failure: Code(s): N17.9 - Acute kidney failure, unspecified Status: Acute Assessment and Plan: The patient has chronic kidney disease. This is most likely stage IIIA. This is most likely due to diabetes and hypertension. She has acute kidney injury. Her creatinine has gradually risen during the hospital stay. There are several possibilities of what may be going on. The patient could have obstruction. Will check a renal ultrasound. Patient could have rhabdomyolysis. Will check a CPK The patient could have dehydration, however she has been getting IV fluids this entire stay and things have just been getting worse. She could have acute tubular necrosis due to the pneumonia/pulmonary embolism/bradycardia. She does have some heart disease but probably not bad enough to cause chronic pre renal azotemia. I will get a renal ultrasound urine electrolytes and a CPK. I will repeat her chest x-ray to make sure were not giving her too much fluid considering her cardiac disease. (2) Hyperkalemia: Code(s): E87.5 - Hyperkalemia Status: Acute Assessment and Plan: She had a high potassium on admission but this is okay now. (3) Suspected pulmonary embolism: Code(s): R09.89 - Other specified symptoms and signs involving the circulatory and respiratory systems Status: Acute Assessment and Plan: She is on a heparin drip (4) Third degree heart block: Code(s): I44.2 - Atrioventricular block, complete Status: Acute Assessment and Plan: Cardiology is following and plans a pacemaker down the line (5) Pneumonia: Qualifiers: Laterality: unspecified laterality Lung location: unspecified part of lung Pneumonia type: due to unspecified organism Qualified Code(s): J18.9 - Pneumonia, unspecified organism Code(s): J18.9 - Pneumonia, unspecified organism Status: Acute Assessment and Plan: She is on antibiotic (6) HTN (hypertension): Qualifiers: Hypertension type: essential hypertension Qualified Code(s): I10 - Essential (primary) hypertension Code(s): I10 - Essential (primary) hypertension Status: Acute Assessment and Plan: Her blood pressure is under good control right now. She had 1 blood pressure yesterday of 60/50 but that may have just been an error. (7) Pedal edema: Code(s): R60.0 - Localized edema Status: Acute Assessment and Plan: She was on furosemide as an outpatient. This has been discontinued (8) Vitamin D deficiency: Code(s): E55.9 - Vitamin D deficiency, unspecified Status: Acute Assessment and Plan: Will check a level (9) Hyperlipidemia: Qualifiers: Hyperlipidemia type: mixed hyperlipidemia Qualified Code(s): E78.2 - Mixed hyperlipidemia Code(s): E78.5 - Hyperlipidemia, unspecified Status: Acute Assessment and Plan: She is not on a statin (10) DM2 (diabetes mellitus, type 2): Qualifiers: Diabetes mellitus finance manager insulin use: without custodial use Diabetes mellitus complication status: with other specified complication Qualified Code(s): E11.69 - Type 2 diabetes mellitus with other specified complication Code(s): E11.9 - Type 2 diabetes mellitus without complications Status: Acute Assessment and Plan: She is on Accu-Chek plus sliding scale (11) Gout: Qualifiers: Gout site: unspecified site Gout etiology: unspecified cause Chronicity: unspecified Qualified Code(s): M10.9 - Gout, unspecified Code(s): M10.9 - Gout, unspecified Status: Chronic Assessment and Plan: She is on allopurinol History of Present Illness Reason for Consult Consult date: 04/10/21 Chief Complaint Chief complaint: third-degree heart block, pneumonia History of Present Illness Narrative: Desirae is a very pleasa
--- NOTE | 2021-04-10 07:52 | PM.PNCARD ---
Progress Note: A&P Assessment and Plan (1) Hyperlipidemia: Qualifiers: Hyperlipidemia type: mixed hyperlipidemia Qualified Code(s): E78.2 - Mixed hyperlipidemia Code(s): E78.5 - Hyperlipidemia, unspecified Status: Acute Assessment and Plan: On Rosuvastatin. (2) HTN (hypertension): Qualifiers: Hypertension type: essential hypertension Qualified Code(s): I10 - Essential (primary) hypertension Code(s): I10 - Essential (primary) hypertension Status: Acute Assessment and Plan: Stable. Monitor. Hold Metoprolol and it has been 72 hours this morning since last dose. Would use Hydralazine for BP to improve HR. (3) DM2 (diabetes mellitus, type 2): Qualifiers: Diabetes mellitus long-term insulin use: without long-term use Diabetes mellitus complication status: with other specified complication Qualified Code(s): E11.69 - Type 2 diabetes mellitus with other specified complication Code(s): E11.9 - Type 2 diabetes mellitus without complications Status: Acute Assessment and Plan: Manage by hospitalist. (4) CKD (chronic kidney disease): Qualifiers: Chronic kidney disease stage: stage 1 Qualified Code(s): N18.1 - Chronic kidney disease, stage 1 Code(s): N18.9 - Chronic kidney disease, unspecified Status: Acute Assessment and Plan: Worsening with Stage IV with Cr 2.1/Cr Cl 26. (5) SOB (shortness of breath) on exertion: Code(s): R06.02 - Shortness of breath Status: Acute Assessment and Plan: Due to pneumonia on CT chest and pulm embolism on VQ scan. D-Dimer is elevated. She was covid and flu negative 2 days ago and covid negative again here. On antibiotics and heparin drip. Worsening anemia with Hb 7.8 today. (6) Complete heart block: Code(s): I44.2 - Atrioventricular block, complete Status: Acute Assessment and Plan: Stable BP and asymptomatic at rest. Received Glucagon 10 mg IV x 1.court monitor. Pacer pads on chest in case HR drops further. Hold Metoprolol. TSH is OK. Her HR is improving to 40's bpm from 36 bpm. If remains in complete heart block for another 24 hours, then consider permanent pacemaker implant. Check EKG. (7) Diastolic dysfunction: Code(s): I51.89 - Other ill-defined heart diseases Status: Acute Assessment and Plan: 12/13/20 Echo: EF 55-60%, grade I diastolic dysfunction (E/e' 26), mild LAE, trace AI/TR, mild MR. 04/08/20 Echo: EF 60-65%, grade I diastolic dysfunction (E/e' 8), mod LAE, mild FREDY, mod (ATIF 1.4 cm2), mod MAC, mild-mod MR/TR, RVSP 54 mmHg. Subjective Date/time seen: 04/10/21 07:52 Denies chest pain or dizziness. Had sob last night requiring breathing treatment. Exam Const: General: cooperative, healthy appearing and comfortable Nutritional Appearance: obese Resp: Auscultation: clear to auscultation bilaterally, no crackles, no rales, no rhonchi and no wheezes Cardio: Jugular venous distension: no JVD Rate: bradycardic Rhythm: abnormal rhythm Heart sounds: no murmurs Peripheral pulses: dorsalis pedis present GI: GI Palp: No abdominal tenderness and Yes Soft to palpation Neuro: General: oriented to person, oriented to place and oriented to time Extrem: Right lower extremity: no edema Left lower extremity: no edema Objective Data Vital Signs Vital Signs: Vital Signs - 24 hr 04/09/21 08:01 04/09/21 08:15 04/09/21 08:24 Temperature Pulse Rate 75 82 87 Respiratory Rate 17 19 18 Blood Pressure 123/45 L 123/45 L Pulse Oximetry 98 04/09/21 09:15 04/09/21 09:30 04/09/21 09:45 Temperature Pulse Rate 89 90 84 Respiratory Rate 18 19 18 Blood Pressure Pulse Oximetry 04/09/21 10:15 04/09/21 10:27 04/09/21 10:30 Temperature Pulse Rate 94 47 L 94 Respiratory Rate 24 H 15 20 Blood Pressure Pulse Oximetry 04/09/21 10:32 04/09/21 11:01 04/09/21 11:15 Temperatur
[2021-04-10 09:10] LABS: Glucose Point of Care 143 mg/dl (65-105)
[2021-04-10] MEDS: OMEGA 3 POLYUNSAT FATTY ACIDS 1 GM CAP PO ×4 (10:22→20:58)
[2021-04-10] MEDS: FERROUS SULFATE 324 MG TABLET PO (10:22)
--- NOTE | 2021-04-10 12:11 | PM.IMPN ---
Progress Note: A&P Assessment and Plan (1) Third degree heart block: Code(s): I44.2 - Atrioventricular block, complete Status: Acute Assessment and Plan: Patient presents with SOB with EKG showing CHB. She was on metoprolol and this has been stopped. Last dose of metoprolol was 04/06/21. She continues to be in CHB and currently rate is around 40 with adequate blood pressure. Cardiology is following and appreciate their input. Echo with EF 60-65%, Grade I diastolic dysfunction and moderate . TSH normal. Anticipate the patient will need a pacemaker if remains in CHB tomorrow. Echo also showing moderate pulmonary hypertension (54 mmHg). (2) Suspected pulmonary embolism: Code(s): R09.89 - Other specified symptoms and signs involving the circulatory and respiratory systems Status: Acute Assessment and Plan: Patient presents with SOB. DDimer 3.3. CT chest without contrast as mentioned below. Perfusion scan showing small-moderate perfusion abnormality of the left upper lung posteriorly. Unable to do CTA chest due to elevated creatinine. Lower extremity Dopplers are negative for DVT. Patient remains on heparin infusion which will be continued for now specially until plan for pacemaker is definite. Monitor HH closely. (3) Acute renal failure: Code(s): N17.9 - Acute kidney failure, unspecified Status: Acute Assessment and Plan: Cr baseline normal last year but was 1.8 on admission. Likely multifactorial as patient has a baseline history of hypertension, CKD and diabetes and now presents with pneumonia and CHB leading to decreased perfusion. Patient was started on cautious amount of IV fluids with bicarb for acidosis and intravascular hydration. Her creatinine worsened to 2.3 but slightly better today. Renal US normal. TCK pending. Nephrology consulted and appreciate their input. Continue to hold Lasix, ARB and metformin. (4) Pneumonia: Qualifiers: Laterality: unspecified laterality Lung location: unspecified part of lung Pneumonia type: due to unspecified organism Qualified Code(s): J18.9 - Pneumonia, unspecified organism Code(s): J18.9 - Pneumonia, unspecified organism Status: Acute Assessment and Plan: Patient presents with SOB. CT chest without contrast 04/07 showing scattered reticulonodular densities with superimposed ground glass opacification scattered bilaterally, consistent with pneumonia. No fevers but WBC up to 15K. She was initially given Rocephin but switched to Zosyn on admission. Atypical coverage with azithromycin added but this can prolong the QT so will stop. She remains on room air. MRSA nasal swab negative. BCx NGTD. Continue IV abx. (5) Anemia: Code(s): D64.9 - Anemia, unspecified Status: Acute Assessment and Plan: Hgb 10-11 last year and was 11 on admission. She is on Heparin drip. Hgb has trended down daily to 7.8. Suspect related to fluid overload. No evidence of acute blood loss. Check iron studies. Trend HH. (6) Diastolic dysfunction: Code(s): I51.89 - Other ill-defined heart diseases Status: Acute Assessment and Plan: Patient does have chronic diastolic CHF and chronic lower extremity edema due to her renal failure. Heart block also contributing. Echo as mentioned above. Resume diuretics when able when renal failure improved. (7) DM2 (diabetes mellitus, type 2): Qualifiers: Diabetes mellitus complication status: with other specified complication Diabetes mellitus custodial insulin use: without custodial use Qualified Code(s): E11.69 - Type 2 diabetes mellitus with other specified complication Code(s): E11.9 - Type 2 diabetes mellitus without complications Status: Acute Assessment and Plan: A1c 6.2 The patient's blood glucose was reviewed on 04/10 Glucose remains reasonably well controlled. Continue AccuCheks covering with sliding scale. Hypoglycemia
[2021-04-10] MEDS: calcium polycarbophiL 625 MG TABLET PO (13:20)
[2021-04-10] MEDS: VITAMIN B COMPLEX CAPSULE 1 CAP PO (13:20)
[2021-04-10] MEDS: CYANOCOBALAMIN 1,000 MCG TABLET 1000 MCG PO (13:20)
[2021-04-10] MEDS: CHOLECALCIFEROL 1,000 UNITS TABLET 1000 UNITS PO (13:20)
[2021-04-10 13:50] LABS: Hematocrit 25.9 % (37.0-47.0); Hemoglobin 8.5 g/dL (12.0-15.0)
[2021-04-10] MEDS: FOLIC ACID 1 MG TABLET PO (16:02)
[2021-04-10 17:35] LABS: Glucose Point of Care 173 mg/dl (65-105)
[2021-04-10 17:52] LABS: Glucose Point of Care 186 mg/dl (65-105)
[2021-04-10 22:44] LABS: Glucose Point of Care 172 mg/dl (65-105)
[2021-04-10 23:59] LABS: Add Urine Microscopic? YES; Appearance Urine Clear (Clear); Bilirubin Urine Negative (Negative); Blood Urine Negative (Negative); Color Urine Yellow (Yellow); Glucose Urine UA Negative (Negative); Ketones Urine Negative (Negative); Leukocyte Esterase Ur Negative LEU/UL (NEGATIVE); Nitrate Urine Negative (Negative); Protein Urine 1+ mg/dL (Negative); RBC Urine 0-2 /hpf (0-2); Specific Grav Ur 1.009 (1.001-1.035); Squamous Epithelial Cell Urine Rare /hpf (Few); Urobilinogen Urine Negative mg/dL (<2.0); WBC Urine 0-3 /hpf (0-3)
[2021-04-11] VITALS (25 sets, daily range): BP systolic 150–176; BP diastolic 32–57; PULSE 41–51; RESP 16–22; TEMP 35.7–37.1; O2SAT 95–100
[2021-04-11 00:10] LABS: Creatinine Urine 80.8 mg/dL; Total Protein Urine Random 48 mg/dL; Ur Ttl Prot Creatinine Ratio 0.59 mg/mg (0-0.20)
[2021-04-11 00:20] LABS: Sodium Urine Random 10 meq/L
[2021-04-11 01:34] LABS: Hematocrit 26.6 % (37.0-47.0); Hemoglobin 8.7 g/dL (12.0-15.0)
[2021-04-11 01:49] LABS: Iron 58 ug/dL (37-170)
[2021-04-11 01:58] LABS: Percent Iron Saturation 21 % (20-50)
[2021-04-11] MEDS: ALBUTEROL SULFATE NEB 2.5 MG/0.5 ML INH 5 MG INHALATION ×4 (02:06→21:03)
[2021-04-11] MEDS: IPRATROPIUM BR 0.02% INH SOLN 0.5 MG/2.5 ML VIAL INHALATION ×4 (02:06→21:03)
[2021-04-11 02:07] LABS: Vitamin D 25 Hydroxy 14.8 ng/mL
[2021-04-11] MEDS: LEVOTHYROXINE SODIUM 112 MCG TABLET PO (05:03)
[2021-04-11] MEDS: CENTRAL LINE FLUSH 10 ML IV PUSH ×3 (05:04→20:41)
[2021-04-11 05:20] LABS: Hematocrit 26.1 % (37.0-47.0); Hemoglobin 8.5 g/dL (12.0-15.0); Mean Corpuscular HGB Conc 32.6 g/dl (32-36); Mean Corpuscular Hemoglobin 31.4 pg (26-34); Mean Corpuscular Volume 96.3 fl (80-100); Mean Platelet Volume 9.2 fl (7.4-10.4); Platelet Count Result 134 k/mm3 (150-375); Red Blood Count 2.71 M/mm3 (4.2-5.4); White Blood Count 9.7 K/mm3 (4.5-10.0)
[2021-04-11 05:31] LABS: Creatine Kinase 57 U/L (30-135); Uric Acid 6.3 mg/dL (2.5-7.5)
[2021-04-11 05:35] LABS: Alanine Aminotransferase 25 U/L (4-35); Albumin Level 3.4 g/dL (3.5-5.1); Alkaline Phosphatase 57 U/L (38-126); Anion Gap 12 mmol/L (8-16); Aspartate Amino Transferase 24 U/L (14-36); Bilirubin,Total 0.4 mg/dL (0.2-1.3); Blood Urea Nitrogen 42 mg/dL (7-17); Calcium 6.5 mg/dL (8.4-10.2); Carbon Dioxide 21 mmol/L (22-30); Chloride 105 mmol/L (98-107); Estimated CRCL calculation 28 ml/min; Estimated Glomerular Filt Rate 26; Glucose 167 mg/dL (65-110); Phosphorus 7.2 mg/dL (2.5-4.5); Sodium 138 mmol/L (137-145)
[2021-04-11 05:36] LABS: Partial Thromboplastin Time 66.5 SECONDS (22.3-36.8)
[2021-04-11] MEDS: HEPARIN SODIUM 5,000 UNITS/ML VIAL 2500 UNITS IV PUSH (06:03)
--- NOTE | 2021-04-11 06:15 | ECG_ITS ---
Measurements Intervals [place] Rate: 47 P: [place]: 0 QRS: 8 QRSD: 86 T: 15 QT: 542 QTc: 481 Interpretive Statements SINUS RHYTHM WITH COMPLETE HEART BLOCK JUNCTIONAL ESCAPE RHYTHM LOW QRS VOLTAGE IN PRECORDIAL LEADS BORDERLINE R WAVE PROGRESSION, ANTERIOR LEADS CONSIDER INFERIOR INFARCT, AGE INDETERMINATE BASELINE ARTIFACT- I, II, III, AVR, AVF, V3-V6 ABNORMAL ECG Electronically Signed On 04-11-2021 9:35:45 CABLE TELEVISION TECHNICIAN by Rohit Flores D.O.
[2021-04-11 06:44] LABS: Folic Acid > 20.0 ng/mL (2.76->20); Vitamin B12 > 1000.0 pg/mL (239-931)
[2021-04-11 08:18] LABS: Glucose Point of Care 146 mg/dl (65-105)
--- NOTE | 2021-04-11 08:29 | PM.PNCARD ---
Progress Note: A&P Assessment and Plan (1) HTN (hypertension): Qualifiers: Hypertension type: essential hypertension Qualified Code(s): I10 - Essential (primary) hypertension Code(s): I10 - Essential (primary) hypertension Status: Acute Assessment and Plan: Stable. Monitor. Hold Metoprolol and it has been 96 hours this morning since last dose. Would use Hydralazine for BP to improve HR. (2) DM2 (diabetes mellitus, type 2): Qualifiers: Diabetes mellitus termite inspector insulin use: without fdc use Diabetes mellitus complication status: with other specified complication Qualified Code(s): E11.69 - Type 2 diabetes mellitus with other specified complication Code(s): E11.9 - Type 2 diabetes mellitus without complications Status: Acute Assessment and Plan: Manage by hospitalist. (3) CKD (chronic kidney disease): Qualifiers: Chronic kidney disease stage: stage 1 Qualified Code(s): N18.1 - Chronic kidney disease, stage 1 Code(s): N18.9 - Chronic kidney disease, unspecified Status: Acute Assessment and Plan: Worsened but stabilized and slightly improved to Cr 1.9/Cl Cr 28. Followed by Dr. Kate. (4) SOB (shortness of breath) on exertion: Code(s): R06.02 - Shortness of breath Status: Acute Assessment and Plan: Due to pneumonia on CT chest and pulm embolism on VQ scan. D-Dimer is elevated. She was covid and flu negative 2 days ago and covid negative again here. On antibiotics and heparin drip. Blood cultures has shown no growth to date. Worsening anemia and this morning Hb 8.5. Discuss with Dr. Kate to perform CTA chest to assess PE. If no PE, then can stop anticoagulation, and would move forward with pacemaker placement. The concern is bleeding into pacemaker pocket perioperatively as would need to anticoagulate her for PE. (5) Complete heart block: Code(s): I44.2 - Atrioventricular block, complete Status: Acute Assessment and Plan: Stable BP and asymptomatic at rest. Received Glucagon 10 mg IV x 1.secured entrance monitor. Pacer pads on chest in case HR drops further. Hold Metoprolol. TSH is OK. Her HR is improving to 40's bpm from 36 bpm. If remains in complete heart block for another 24 hours, then consider permanent pacemaker implant. Check EKG. (6) Diastolic dysfunction: Code(s): I51.89 - Other ill-defined heart diseases Status: Acute Assessment and Plan: 12/13/20 Echo: EF 55-60%, grade I diastolic dysfunction (E/e' 26), mild LAE, trace AI/TR, mild MR. 04/08/20 Echo: EF 60-65%, grade I diastolic dysfunction (E/e' 8), mod LAE, mild FREDY, mod (ATIF 1.4 cm2), mod MAC, mild-mod MR/TR, RVSP 54 mmHg. Subjective Date/time seen: 04/11/21 08:29 Denies chest pain or dizziness. Has TIDWELL with very minimal activity and cough. Exam Const: General: cooperative, healthy appearing and comfortable Nutritional Appearance: obese Resp: Auscultation: clear to auscultation bilaterally, no crackles, no rales, no rhonchi and no wheezes Cardio: Jugular venous distension: no JVD Rate: bradycardic Rhythm: abnormal rhythm Heart sounds: no murmurs Peripheral pulses: dorsalis pedis present GI: GI Palp: No abdominal tenderness and Yes Soft to palpation Neuro: General: oriented to person, oriented to place and oriented to time Extrem: Right lower extremity: no edema Left lower extremity: no edema Objective Data Vital Signs Vital Signs: Vital Signs - 24 hr 04/10/21 10:00 04/10/21 12:00 04/10/21 14:00 Temperature 97.8 F Pulse Rate 45 L 45 L 43 L Respiratory Rate 22 H 20 Blood Pressure 138/42 L Pulse Oximetry 95 04/10/21 14:08 04/10/21 16:00 04/10/21 18:00 Temperature 97.6 F Pulse Rate 50 L 46 L 46 L Respiratory Rate 20 20 Blood Pressure 143/49 H Pulse Oximetry 95 04/10/21 19:44 04/10/21 20:00 04/10/21 20:11 Temperature 97.5 F L Pulse Rate 48 L 48 L 49 L Respi
[2021-04-11] MEDS: OMEGA 3 POLYUNSAT FATTY ACIDS 1 GM CAP PO ×4 (08:32→20:40)
[2021-04-11] MEDS: FERROUS SULFATE 324 MG TABLET PO (08:33)
--- NOTE | 2021-04-11 10:17 | PM.IMPN ---
Progress Note: A&P Assessment and Plan (1) Third degree heart block: Code(s): I44.2 - Atrioventricular block, complete Status: Acute Assessment and Plan: Patient presents with SOB with EKG showing CHB. She was on metoprolol and this has been stopped. Last dose of metoprolol was around 04/06/21. She continues to be in CHB and currently rate is around 40 with adequate blood pressure. Cardiology is following and appreciate their input. Echo with EF 60-65%, Grade I diastolic dysfunction and moderate . Echo also showing moderate pulmonary hypertension (54 mmHg). TSH normal. Anticipate the patient will need a pacemaker. CTA chest being considered in hopes of being able to stop heparin drip for PM placement. (2) Suspected pulmonary embolism: Code(s): R09.89 - Other specified symptoms and signs involving the circulatory and respiratory systems Status: Acute Assessment and Plan: Patient presents with SOB. DDimer 3.3. CT chest without contrast as mentioned below. Perfusion scan showing small-moderate perfusion abnormality of the left upper lung posteriorly. Have been unable to do CTA chest due to elevated creatinine. Lower extremity Dopplers are negative for DVT. Patient remains on heparin infusion. Cr slightly better. CTA chest being considered. (3) Acute renal failure: Code(s): N17.9 - Acute kidney failure, unspecified Status: Acute Assessment and Plan: Cr baseline normal last year but was 1.8 on admission. Likely multifactorial as patient has a baseline history of hypertension, CKD and diabetes and now presents with pneumonia and CHB leading to decreased perfusion. Patient was started on cautious amount of IV fluids with bicarb for acidosis and intravascular hydration. Her creatinine worsened to 2.3 but better at 1.9 today. Renal US normal. TCK normal. Potassium normal and serum bicarb 21 with normal gap. Nephrology consulted and appreciate their input. Continue to hold Lasix, ARB and metformin. (4) Pneumonia: Qualifiers: Laterality: unspecified laterality Lung location: unspecified part of lung Pneumonia type: due to unspecified organism Qualified Code(s): J18.9 - Pneumonia, unspecified organism Code(s): J18.9 - Pneumonia, unspecified organism Status: Acute Assessment and Plan: Patient presents with SOB. CT chest without contrast 04/07 showing scattered reticulonodular densities with superimposed ground glass opacification scattered bilaterally, consistent with pneumonia. No fevers but WBC was up to 15K. She was initially given Rocephin but switched to Zosyn on admission. Atypical coverage with azithromycin added but this can prolong the QT so this was stopped. She remains on room air. MRSA nasal swab negative. BCx NGTD. Continue IV abx (Day 5) to complete a 7 day course. (5) Anemia: Code(s): D64.9 - Anemia, unspecified Status: Acute Assessment and Plan: Hgb 10-11 last year and was 11 on admission. She is on Heparin drip. Hgb trended down to 7.8. Suspect related to fluid overload. No evidence of acute blood loss. Iron studies, B12, folate levels normal. hgb better at 8.5. Continue to follow. Add pepcid (6) Diastolic dysfunction: Code(s): I51.89 - Other ill-defined heart diseases Status: Acute Assessment and Plan: Patient does have chronic diastolic CHF and chronic lower extremity edema due to her renal failure. Heart block also contributing. Echo as mentioned above. Resume diuretics when able when renal failure improved. (7) DM2 (diabetes mellitus, type 2): Qualifiers: Diabetes mellitus complication status: with other specified complication Diabetes mellitus assistant terminal manager insulin use: without assistant terminal manager use Qualified Code(s): E11.69 - Type 2 diabetes mellitus with other specified complication Code(s): E11.9 - Type 2 diabetes mellitus without complications Status: Acute Assessm
--- NOTE | 2021-04-11 11:40 | PM.PNNEP ---
Progress Note: A&P Assessment and Plan (1) Acute renal failure: Code(s): N17.9 - Acute kidney failure, unspecified Status: Acute Assessment and Plan: The patient has chronic kidney disease. This is most likely stage IIIA. This is most likely due to diabetes and hypertension. She has acute kidney injury. Urine electrolytes are pre renal CPK is normal renal ultrasound is unremarkable. Will check another chest x-ray. Consider IV fluids question her creatinine peaked to 2.3 and now is 1.9. Will check another creatinine tomorrow. she has a positive lung perfusion scan suggesting a pulmonary embolus but this is not definitive. She is on anticoagulants now but since she has bradycardia they are waiting to decide whether they can do a permanent pacemaker. Just holding the anticoagulants for a day still gives her risk of pocket oozing and infection so Dr. Flores would rather not do it if she can be off anticoagulants in the near future. If the creatinine is stable then we might be able to do a CT angio tomorrow. The risk of contrast nephrotoxicity is higher in those who are dehydrated. Ideally it would be better to wait till her creatinine is back down to 1.1. however understand the urgency with which pacer needs to be done. See how her creatinine is tomorrow. (2) Hyperkalemia: Code(s): E87.5 - Hyperkalemia Status: Acute Assessment and Plan: She had a high potassium on admission but this is okay now. (3) Suspected pulmonary embolism: Code(s): R09.89 - Other specified symptoms and signs involving the circulatory and respiratory systems Status: Acute Assessment and Plan: She is on a heparin drip (4) Third degree heart block: Code(s): I44.2 - Atrioventricular block, complete Status: Acute Assessment and Plan: Cardiology is following and plans a pacemaker down the line (5) Pneumonia: Qualifiers: Laterality: unspecified laterality Lung location: unspecified part of lung Pneumonia type: due to unspecified organism Qualified Code(s): J18.9 - Pneumonia, unspecified organism Code(s): J18.9 - Pneumonia, unspecified organism Status: Acute Assessment and Plan: She is on antibiotic (6) HTN (hypertension): Qualifiers: Hypertension type: essential hypertension Qualified Code(s): I10 - Essential (primary) hypertension Code(s): I10 - Essential (primary) hypertension Status: Acute Assessment and Plan: Her blood pressure is under good control right now. She had 1 blood pressure yesterday of 60/50 but that may have just been an error. (7) Pedal edema: Code(s): R60.0 - Localized edema Status: Acute Assessment and Plan: She was on furosemide as an outpatient. This has been discontinued (8) Vitamin D deficiency: Code(s): E55.9 - Vitamin D deficiency, unspecified Status: Acute Assessment and Plan: Will check a level (9) Hyperlipidemia: Qualifiers: Hyperlipidemia type: mixed hyperlipidemia Qualified Code(s): E78.2 - Mixed hyperlipidemia Code(s): E78.5 - Hyperlipidemia, unspecified Status: Acute Assessment and Plan: She is not on a statin (10) DM2 (diabetes mellitus, type 2): Qualifiers: Diabetes mellitus terminal supervisor insulin use: without terminal supervisor use Diabetes mellitus complication status: with other specified complication Qualified Code(s): E11.69 - Type 2 diabetes mellitus with other specified complication Code(s): E11.9 - Type 2 diabetes mellitus without complications Status: Acute Assessment and Plan: She is on Accu-Chek plus sliding scale (11) Gout: Qualifiers: Gout site: unspecified site Gout etiology: unspecified cause Chronicity: unspecified Qualified Code(s): M10.9 - Gout, unspecified Code(s): M10.9 - Gout, unspecified Status: Chronic
[2021-04-11] MEDS: CHOLECALCIFEROL 1,000 UNITS TABLET 1000 UNITS PO (12:07)
[2021-04-11] MEDS: CYANOCOBALAMIN 1,000 MCG TABLET 1000 MCG PO (12:07)
[2021-04-11] MEDS: CALCIUM GLUC 1,000 MG/NS 50 ML 1,000 MG/50 ML BAG 100 MG IVPB (12:07)
[2021-04-11] MEDS: FAMOTIDINE 20 MG TABLET PO ×2 (12:07→20:40)
[2021-04-11] MEDS: VITAMIN B COMPLEX CAPSULE 1 CAP PO (12:07)
[2021-04-11] MEDS: calcium polycarbophiL 625 MG TABLET PO (12:07)
[2021-04-11 12:41] LABS: Glucose Point of Care 157 mg/dl (65-105)
[2021-04-11] MEDS: HEPARIN SOD/D5W 100 UNITS/ML 25,000 UNITS/250 ML BAG 15 UNITS IV CONT (12:53)
[2021-04-11] MEDS: SODIUM CHLORIDE 0.9% IV 1,000 ML 100 ML IV CONT (12:53)
[2021-04-11 12:54] LABS: Parathyroid Intact 31.3 pg/mL (7.5-53.5)
[2021-04-11 14:23] LABS: Vitamin D 25 Hydroxy < 12.8 ng/mL
[2021-04-11] MEDS: FOLIC ACID 1 MG TABLET PO (16:16)
[2021-04-11 16:47] LABS: Glucose Point of Care 191 mg/dl (65-105)
[2021-04-11 20:19] LABS: Partial Thromboplastin Time 78.2 SECONDS (22.3-36.8)
[2021-04-11 22:07] LABS: Glucose Point of Care 172 mg/dl (65-105)
[2021-04-12] VITALS (23 sets, daily range): BP systolic 154–191; BP diastolic 44–70; PULSE 45–52; RESP 20–24; TEMP 36.4–37.1; O2SAT 95–99
[2021-04-12] MEDS: SODIUM CHLORIDE 0.9% IV 1,000 ML 100 ML IV CONT ×2 (00:09→10:53)
[2021-04-12] MEDS: IPRATROPIUM BR 0.02% INH SOLN 0.5 MG/2.5 ML VIAL INHALATION ×4 (02:53→19:52)
[2021-04-12] MEDS: ALBUTEROL SULFATE NEB 2.5 MG/0.5 ML INH 5 MG INHALATION ×4 (02:53→19:52)
[2021-04-12] MEDS: HEPARIN SOD/D5W 100 UNITS/ML 25,000 UNITS/250 ML BAG 15 UNITS IV CONT (06:02)
[2021-04-12] MEDS: CENTRAL LINE FLUSH 10 ML IV PUSH ×3 (06:03→20:58)
[2021-04-12 06:14] LABS: Hematocrit 29.4 % (37.0-47.0); Hemoglobin 9.2 g/dL (12.0-15.0); Mean Corpuscular HGB Conc 31.3 g/dl (32-36); Mean Corpuscular Hemoglobin 30.3 pg (26-34); Mean Corpuscular Volume 96.7 fl (80-100); Mean Platelet Volume 9.1 fl (7.4-10.4); Platelet Count Result 168 k/mm3 (150-375); Red Blood Count 3.04 M/mm3 (4.2-5.4); Red Cell Distribution Width 14.1 % (11.5-14.5); White Blood Count 10.7 K/mm3 (4.5-10.0)
[2021-04-12 06:23] LABS: Alanine Aminotransferase 24 U/L (4-35); Albumin Level 3.8 g/dL (3.5-5.1); Alkaline Phosphatase 62 U/L (38-126); Anion Gap 12 mmol/L (8-16); Aspartate Amino Transferase 25 U/L (14-36); Bilirubin,Total 0.5 mg/dL (0.2-1.3); Blood Urea Nitrogen 33 mg/dL (7-17); Calcium 6.7 mg/dL (8.4-10.2); Carbon Dioxide 20 mmol/L (22-30); Chloride 109 mmol/L (98-107); Estimated CRCL calculation 32 ml/min; Estimated Glomerular Filt Rate 29; Glucose 174 mg/dL (65-110); Magnesium 2.1 mg/dL (1.6-2.3); Phosphorus 6.2 mg/dL (2.5-4.5); Potassium 4.1 mmol/L (3.4-5.0); Sodium 141 mmol/L (137-145)
[2021-04-12 06:32] LABS: Partial Thromboplastin Time 75.2 SECONDS (22.3-36.8)
--- NOTE | 2021-04-12 06:39 | ECG_ITS ---
Measurements Intervals [place] Rate: 48 P: [place]: 0 QRS: 7 QRSD: 88 T: 12 QT: 533 QTc: 480 Interpretive Statements SINUS RHYTHM WITH COMPLETE HEART BLOCK JUNCTIONAL ESCAPE RHYTHM LOW QRS VOLTAGE IN PRECORDIAL LEADS BORDERLINE R WAVE PROGRESSION, ANTERIOR LEADS CONSIDER INFERIOR INFARCT, AGE INDETERMINATE BASELINE ARTIFACT- II, III, V1, V4 ABNORMAL ECG Electronically Signed On 04-12-2021 9:11:10 VP COMMUNICATIONS by Rohit Flores D.O.
[2021-04-12] MEDS: LEVOTHYROXINE SODIUM 112 MCG TABLET PO (06:47)
--- NOTE | 2021-04-12 08:01 | PM.PNCARD ---
Progress Note: A&P Assessment and Plan (1) HTN (hypertension): Qualifiers: Hypertension type: essential hypertension Qualified Code(s): I10 - Essential (primary) hypertension Code(s): I10 - Essential (primary) hypertension Status: Acute Assessment and Plan: High. Monitor. Hold Metoprolol and it has been 96 hours this morning since last dose. Change Hydralazine 10 mg IV q 8 hrs for BP to improve HR and to be given for SBP>160. (2) DM2 (diabetes mellitus, type 2): Qualifiers: Diabetes mellitus intermission coordinator insulin use: without intermission coordinator use Diabetes mellitus complication status: with other specified complication Qualified Code(s): E11.69 - Type 2 diabetes mellitus with other specified complication Code(s): E11.9 - Type 2 diabetes mellitus without complications Status: Acute Assessment and Plan: Manage by hospitalist. (3) CKD (chronic kidney disease): Qualifiers: Chronic kidney disease stage: stage 1 Qualified Code(s): N18.1 - Chronic kidney disease, stage 1 Code(s): N18.9 - Chronic kidney disease, unspecified Status: Acute Assessment and Plan: Worsened but stabilized and slightly improved to Cr 1.7/Cl Cr 32. Followed by Dr. Kate. (4) SOB (shortness of breath) on exertion: Code(s): R06.02 - Shortness of breath Status: Acute Assessment and Plan: Due to pneumonia on CT chest and pulm embolism on VQ scan. D-Dimer is elevated. She was covid and flu negative 2 days ago and covid negative again here. On antibiotics and heparin drip. Blood cultures has shown no growth to date. Worsening anemia and this morning Hb 9.2. Discussed with Dr. Kate to perform CTA chest to assess PE. If no PE, then can stop anticoagulation, and would move forward with pacemaker placement. The concern is bleeding into pacemaker pocket perioperatively as would need to anticoagulate her for PE. (5) Complete heart block: Code(s): I44.2 - Atrioventricular block, complete Status: Acute Assessment and Plan: Stable BP and asymptomatic at rest. She is symptomatic with minimal exertion. 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 Pacer pads on chest in case HR drops further. Hold Metoprolol. TSH is OK. Her HR is improving to 40's bpm from 36 bpm. If remains in complete heart block, then consider permanent pacemaker implant after we evaluate for definitive pulm embolism so we can stop anticoagulation if not needed. Since it is the weekend approaching and pacemaker not placed non-emergently on weekends, would hold off on CTA chest until at least Thursday to let her kidney function return as close as possible to baseline. Check EKG. (6) Diastolic dysfunction: Code(s): I51.89 - Other ill-defined heart diseases Status: Acute Assessment and Plan: 12/13/20 Echo: EF 55-60%, grade I diastolic dysfunction (E/e' 26), mild LAE, trace AI/TR, mild MR. 04/08/20 Echo: EF 60-65%, grade I diastolic dysfunction (E/e' 8), mod LAE, mild FREDY, mod (ATIF 1.4 cm2), mod MAC, mild-mod MR/TR, RVSP 54 mmHg. Subjective Date/time seen: 04/12/21 08:01 Reports having sob with minimal activity and last night she felt like she was going to pass out while using cammode. No chest pains. Exam Const: General: cooperative, healthy appearing and comfortable Nutritional Appearance: obese Resp: Auscultation: clear to auscultation bilaterally, no crackles, no rales, no rhonchi and no wheezes Cardio: Jugular venous distension: no JVD Rate: bradycardic Rhythm: abnormal rhythm Heart sounds: no murmurs Peripheral pulses: dorsalis pedis present GI: GI Palp: No abdominal tenderness and Yes Soft to palpation Neuro: General: oriented to person, oriented to place and oriented to time Extrem: Right lower extremity: no edema Left lower extremity: no edema Objective Data Vital Signs Vital Signs: Vital Signs - 24 hr 04/11/21 08:20 04/11/21 08:44 0
[2021-04-12 08:06] LABS: Glucose Point of Care 157 mg/dl (65-105)
[2021-04-12] MEDS: CALCIUM CARBONATE (TUMS) 500 MG (200 MG ELEMENTAL) PO (08:33)
[2021-04-12] MEDS: FAMOTIDINE 20 MG TABLET PO ×2 (08:34→20:57)
[2021-04-12] MEDS: FERROUS SULFATE 324 MG TABLET PO (08:34)
[2021-04-12] MEDS: OMEGA 3 POLYUNSAT FATTY ACIDS 1 GM CAP PO ×4 (08:34→20:57)
--- NOTE | 2021-04-12 09:54 | PM.IMPN ---
Progress Note: A&P Assessment and Plan (1) Third degree heart block: Code(s): I44.2 - Atrioventricular block, complete Status: Acute Assessment and Plan: Patient presents with SOB with EKG showing CHB. She was on metoprolol and this was stopped. Last dose of metoprolol was around 04/06/21. She continues to be in CHB and currently rate is around 40 with adequate blood pressure. Echo with EF 60-65%, Grade I diastolic dysfunction and moderate . Echo also showing moderate pulmonary hypertension (54 mmHg). TSH normal. Anticipate the patient will need a pacemaker. CTA chest being considered in hopes of being able to stop heparin drip for PM placement. Cardiology is following and appreciate their input. (2) Suspected pulmonary embolism: Code(s): R09.89 - Other specified symptoms and signs involving the circulatory and respiratory systems Status: Acute Assessment and Plan: Patient presents with SOB. DDimer 3.3. CT chest without contrast as mentioned below. Perfusion scan showing small-moderate perfusion abnormality of the left upper lung posteriorly so she was started on Heparin drip. Unable to do CTA chest due to elevated creatinine. Lower extremity Dopplers are negative for DVT. Patient remains on heparin infusion. Cr slightly better. CTA chest being considered. (3) Acute on chronic renal failure: Code(s): N17.9 - Acute kidney failure, unspecified; N18.9 - Chronic kidney disease, unspecified Status: Acute Assessment and Plan: Cr baseline normal last year with a CrCl in the 50's but Cr was 1.8 on admission. Likely multifactorial as patient has a baseline history of HTN, CKD and DM and now presents with pneumonia and CHB leading to decreased perfusion. Renal US normal. TCK normal. Patient was started on cautious amount of IV fluids with bicarb for acidosis and intravascular hydration. Her creatinine worsened to 2.3 but better at 1.7 today. Potassium normal and serum bicarb 20 with normal gap. Nephrology consulted and appreciate their input. Continue to hold Lasix, ARB and metformin. (4) Congestive heart failure: Code(s): I50.9 - Heart failure, unspecified Status: Acute Assessment and Plan: Patient does have chronic diastolic CHF. BNP 14K. Chest CT showing scattered reticulonodular densities (04/07). Patient with acute/chronic diastolic CHF related to new CHB and renal insufficiency contributing to her lower extremity edema and tachypnea. Echo as mentioned above. Resume diuretics when able when renal failure improved. Check CXR today. (5) Pneumonia: Qualifiers: Laterality: unspecified laterality Lung location: unspecified part of lung Pneumonia type: due to unspecified organism Qualified Code(s): J18.9 - Pneumonia, unspecified organism Code(s): J18.9 - Pneumonia, unspecified organism Status: Acute Assessment and Plan: Patient presents with SOB. CT chest without contrast 04/07 showing scattered reticulonodular densities with superimposed ground glass opacification scattered bilaterally, consistent with pneumonia. No fevers but WBC was up to 15K. She was initially given Rocephin but switched to Zosyn on admission. Atypical coverage with azithromycin added but this can prolong the QT so this was stopped. She remains on room air. MRSA nasal swab negative. BCx NGTD. Sputum cx negative. Continue IV abx (Day 6) to complete a 7 day course. (6) Anemia: Code(s): D64.9 - Anemia, unspecified Status: Acute Assessment and Plan: Hgb 10-11 last year and was 11 on admission. She is on Heparin drip. Hgb trended down to 7.8. Suspect related to fluid overload. No evidence of acute blood loss. Iron studies, B12, folate levels normal. Hgb better at 9.2 today. Continue to follow. Continue pepcid. Continue Vit B and Iron supplements. (7) DM2 (diabetes mellitus, type 2): Qualifiers: Diabetes mellitus complication status: w
[2021-04-12] MEDS: CALCIUM GLUCONATE 1,000 MG/10 ML VIAL 1000 MG IV PUSH (10:52)
[2021-04-12] MEDS: ERGOCALCIFEROL 50,000 UNIT CAPSULE 50000 UNITS PO (10:53)
--- NOTE | 2021-04-12 12:19 | PM.PNNEP ---
Progress Note: A&P Assessment and Plan (1) Acute renal failure: Code(s): N17.9 - Acute kidney failure, unspecified Status: Acute Assessment and Plan: creatinine elevated above baseline on admission evaluation to date reveals: unremarkable renal U/S prerenal urine electrolytes normal CPK creatinine peaked at 2.3mg/dl...now down to 1.7mg/dl still remains at risk for contrast nephropathy would rather wait till renal function closer to baseline prior to contrast exposure if possible... (2) Stage 3a chronic kidney disease: Code(s): N18.31 - Chronic kidney disease, stage 3a Status: Chronic Assessment and Plan: Baseline creatinine runs ~ 0.8 - 1.3mg/dl likely due to diabetes and hypertension (3) Suspected pulmonary embolism: Code(s): R09.89 - Other specified symptoms and signs involving the circulatory and respiratory systems Status: Acute Assessment and Plan: on a heparin drip CTA of chest on hold given renal dysfunction (4) Third degree heart block: Code(s): I44.2 - Atrioventricular block, complete Status: Acute Assessment and Plan: may need pacemaker Cardiology following (5) Pneumonia: Qualifiers: Laterality: unspecified laterality Lung location: unspecified part of lung Pneumonia type: due to unspecified organism Qualified Code(s): J18.9 - Pneumonia, unspecified organism Code(s): J18.9 - Pneumonia, unspecified organism Status: Acute Assessment and Plan: follow culture data on antibiotics (6) HTN (hypertension): Qualifiers: Hypertension type: essential hypertension Qualified Code(s): I10 - Essential (primary) hypertension Code(s): I10 - Essential (primary) hypertension Status: Chronic Assessment and Plan: BP quite elevated today follow trend to ascertain if further medications needed (7) DM2 (diabetes mellitus, type 2): Qualifiers: Diabetes mellitus complication status: with other specified complication Diabetes mellitus longterm insulin use: without longterm use Qualified Code(s): E11.69 - Type 2 diabetes mellitus with other specified complication Code(s): E11.9 - Type 2 diabetes mellitus without complications Status: Chronic Assessment and Plan: follow Accu-Cheks on SSI Will continue to follow. Subjective Date/time seen: 04/12/21 12:19 Chart reviewed - assuming care from Dr. Kate; ongoing issues with shortness of breath which is worse with exertional activities - eventually improves with relaxation techniques and controlled breathing; noted some worse shortness of breath overnight as well. Exam Narrative: General: Elderly female in NAD Heart: normal S1 and S2; no rub Lungs: soem bibasilar crackles noted Abdomen: soft, nontender, nondistended, positive bowel sounds Extremities: no cyanosis or clubbing; 1+ edema Skin: warm and dry Objective Data Vital Signs Vital Signs: Vital Signs Temp Pulse Resp BP Pulse Ox 04/12/21 12:00 36.4 C L 46 L 22 H 191/58 H 96 04/12/21 10:00 46 L 04/12/21 08:42 47 L 20 04/12/21 08:27 45 L 20 96 04/12/21 08:00 36.4 C L 45 L 22 H 163/70 H 97 04/12/21 06:00 47 L 04/12/21 04:00 37.1 C 47 L 20 172/44 H 95 04/12/21 03:07 46 L 20 04/12/21 02:54 46 L 20 04/12/21 02:00 46 L 04/12/21 00:00 47 L 04/11/21 23:54 36.6 C 49 L 20 162/43 H 96 04/11/21 22:00 49 L 04/11/21 21:13 47 L 20 04/11/21 21:04 47 L 20 04/11/21 21:02 47 L 95 04/11/21 20:45 37.1 C 48 L 21 H 176/57 H 97 04/11/21 20:00 47 L 04/11/21 18:00 49 L 04/11/21 16:54 35.7 C L 49 L 20 157/44 H 97 04/11/21 16:00 46 L 96 Intake/Output Intake/Output: Intake & Output 04/09/21 04/10/21 04/11/21 04/12/21 23:59 23:59 23:59 23:59 Intake Total 2999 2019 7378.6 1371.4 Ou
--- NOTE | 2021-04-12 12:19 | P.PNNP_ITS ---
Progress Note: A&P Assessment and Plan (1) Acute renal failure: Code(s): N17.9 - Acute kidney failure, unspecified Status: Acute Assessment and Plan: * creatinine elevated above baseline on admission * evaluation to date reveals: * unremarkable renal U/S * prerenal urine electrolytes * normal CPK * creatinine peaked at 2.3mg/dl...now down to 1.7mg/dl * still remains at risk for contrast nephropathy * would rather wait till renal function closer to baseline prior to contrast exposure if possible... (2) Stage 3a chronic kidney disease: Code(s): N18.31 - Chronic kidney disease, stage 3a Status: Chronic Assessment and Plan: * Baseline creatinine runs ~ 0.8 - 1.3mg/dl * likely due to diabetes and hypertension (3) Suspected pulmonary embolism: Code(s): R09.89 - Other specified symptoms and signs involving the circulatory and respiratory systems Status: Acute Assessment and Plan: * on a heparin drip * CTA of chest on hold given renal dysfunction (4) Third degree heart block: Code(s): I44.2 - Atrioventricular block, complete Status: Acute Assessment and Plan: * may need pacemaker * Cardiology following (5) Pneumonia: Qualifiers: Laterality: unspecified laterality Lung location: unspecified part of [place] Pneumonia type: due to unspecified organism Qualified Code(s): J18.9 - Pneumonia, unspecified organism Code(s): J18.9 - Pneumonia, unspecified organism Status: Acute Assessment and Plan: * follow culture data * on antibiotics (6) HTN (hypertension): Qualifiers: Hypertension type: essential hypertension Qualified Code(s): I10 - Essential (primary) hypertension Code(s): I10 - Essential (primary) hypertension Status: Chronic Assessment and Plan: * BP quite elevated today * follow trend to ascertain if further medications needed (7) DM2 (diabetes mellitus, type 2): Qualifiers: Diabetes mellitus complication status: with other specified complication Diabetes mellitus snf insulin use: without termite inspector use Qualified Code(s): E11.69 - Type 2 diabetes mellitus with other specified complication Code(s): E11.9 - Type 2 diabetes mellitus without complications Status: Chronic Assessment and Plan: * follow Accu-Cheks * on SSI Will continue to follow. Subjective Date/time seen: 04/12/21 12:19 Chart reviewed - assuming care from Dr. Kate; ongoing issues with shortness of breath which is worse with exertional activities - eventually improves with relaxation techniques and controlled breathing; noted some worse shortness of breath overnight as well. Exam Narrative: General: Elderly female in NAD Heart: normal S1 and S2; no rub Lungs: soem bibasilar crackles noted Abdomen: soft, nontender, nondistended, positive bowel sounds Extremities: no cyanosis or clubbing; 1+ edema Skin: warm and dry Objective Data Vital Signs Vital Signs: Vital Signs Temp Pulse Resp BP Pulse Ox 04/12/21 12:00 36.4 C L 46 L 22 H 191/58 H 96 04/12/21 10:00 46 L 04/12/21 08:42 47 L 20 04/12/21 08:27 45 L 20 96 04/12/21 08:00 36.4 C L 45 L 22 H 163/70 H 97 04/12/21 06:00 47 L 04/12/21 04:00 37.1 C 47 L 20 172/44 H 95
[2021-04-12] MEDS: hydrALAZINE HCL 20 MG/ML VIAL 10 MG IV PUSH (12:41)
[2021-04-12] MEDS: CHOLECALCIFEROL 1,000 UNITS TABLET 1000 UNITS PO (12:41)
[2021-04-12] MEDS: VITAMIN B COMPLEX CAPSULE 1 CAP PO (12:41)
[2021-04-12] MEDS: CYANOCOBALAMIN 1,000 MCG TABLET 1000 MCG PO (12:42)
[2021-04-12] MEDS: calcium polycarbophiL 625 MG TABLET PO (12:42)
[2021-04-12 12:49] LABS: Glucose Point of Care 177 mg/dl (65-105)
[2021-04-12] MEDS: FUROSEMIDE INJ 40 MG/4 ML VIAL IV PUSH (13:09)
[2021-04-12 17:05] LABS: Glucose Point of Care 202 mg/dl (65-105)
[2021-04-12] MEDS: FOLIC ACID 1 MG TABLET PO (17:13)
[2021-04-12] MEDS: INSULIN ASPART (*BKC) 100 UNITS/ML SUB-Q (17:13)
[2021-04-12 20:22] LABS: Glucose Point of Care 247 mg/dl (65-105)
--- NOTE | 2021-04-12 23:11 | PC.NURSE ---
Spoke with daughter Di Mcnamara, and updated her on the events of the day. Advised her that her mother is feeling much better with decreased shortness of breath, good urine output after IV Lasix. Vital signs stable, O2 sat 99% on 2L nasal cannula.
[2021-04-13] VITALS (25 sets, daily range): BP systolic 142–157; BP diastolic 51–89; PULSE 43–60; RESP 18–23; TEMP 35.6–37; O2SAT 96–100
[2021-04-13] MEDS: HEPARIN SOD/D5W 100 UNITS/ML 25,000 UNITS/250 ML BAG 15 UNITS IV CONT ×2 (00:38→17:04)
[2021-04-13] MEDS: IPRATROPIUM BR 0.02% INH SOLN 0.5 MG/2.5 ML VIAL INHALATION ×4 (02:05→20:36)
[2021-04-13] MEDS: ALBUTEROL SULFATE NEB 2.5 MG/0.5 ML INH 5 MG INHALATION ×4 (02:05→20:35)
[2021-04-13] MEDS: LEVOTHYROXINE SODIUM 112 MCG TABLET PO (05:31)
[2021-04-13] MEDS: CENTRAL LINE FLUSH 10 ML IV PUSH ×3 (05:32→20:22)
[2021-04-13 05:51] LABS: Hematocrit 30.7 % (37.0-47.0); Hemoglobin 9.7 g/dL (12.0-15.0); Mean Corpuscular HGB Conc 31.6 g/dl (32-36); Mean Corpuscular Hemoglobin 31.4 pg (26-34); Mean Corpuscular Volume 99.4 fl (80-100); Mean Platelet Volume 9.1 fl (7.4-10.4); Platelet Count Result 164 k/mm3 (150-375); Red Blood Count 3.09 M/mm3 (4.2-5.4); Red Cell Distribution Width 14.6 % (11.5-14.5); White Blood Count 11.9 K/mm3 (4.5-10.0)
[2021-04-13 06:03] LABS: Partial Thromboplastin Time 86.9 SECONDS (22.3-36.8)
[2021-04-13 06:09] LABS: Alanine Aminotransferase 25 U/L (4-35); Albumin Level 3.9 g/dL (3.5-5.1); Alkaline Phosphatase 62 U/L (38-126); Anion Gap 14 mmol/L (8-16); Aspartate Amino Transferase 37 U/L (14-36); Bilirubin,Total 0.6 mg/dL (0.2-1.3); Blood Urea Nitrogen 32 mg/dL (7-17); Calcium 7.1 mg/dL (8.4-10.2); Carbon Dioxide 19 mmol/L (22-30); Chloride 108 mmol/L (98-107); Estimated CRCL calculation 28 ml/min; Estimated Glomerular Filt Rate 26; Glucose 181 mg/dL (65-110); Magnesium 2.1 mg/dL (1.6-2.3); Phosphorus 6.7 mg/dL (2.5-4.5); Sodium 141 mmol/L (137-145)
--- NOTE | 2021-04-13 07:19 | ECG_ITS ---
Measurements Intervals [place] Rate: 47 P: NE: 0 QRS: -1 QRSD: 73 T: 127 QT: 500 QTc: 445 Interpretive Statements SINUS RHYTHM WITH COMPLETE HEART BLOCK JUNCTIONAL ESCAPE RHYTHM LOW QRS VOLTAGE IN PRECORDIAL LEADS ANTEROSEPTAL INFARCT, AGE INDETERMINATE BORDERLINE T WAVE ABNORMALITY- INFERIOR LEADS BASELINE ARTIFACT- I, II, III, AVR, AVL, AVF, V1-V6 ABNORMAL ECG Electronically Signed On 04-13-2021 14:59:14 RAILROAD TRACK INSPECTOR by Rohit Flores D.O.
--- NOTE | 2021-04-13 08:20 | PM.PNCARD ---
Progress Note: A&P Assessment and Plan (1) HTN (hypertension): Qualifiers: Hypertension type: essential hypertension Qualified Code(s): I10 - Essential (primary) hypertension Code(s): I10 - Essential (primary) hypertension Status: Acute Assessment and Plan: Mildly high. Monitor. Hold Metoprolol and it has been 96 hours this morning since last dose. Change Hydralazine 10 mg IV q 8 hrs for BP to improve HR and to be given for SBP>160. 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 (3) CKD (chronic kidney disease): Qualifiers: Chronic kidney disease stage: stage 1 Qualified Code(s): N18.1 - Chronic kidney disease, stage 1 Code(s): N18.9 - Chronic kidney disease, unspecified Status: Acute Assessment and Plan: Worsened with Lasix, but she needed it for volume overload. Followed by Dr. Kate. (4) SOB (shortness of breath) on exertion: Code(s): R06.02 - Shortness of breath Status: Acute Assessment and Plan: Due to pneumonia on CT chest and pulm embolism on VQ scan. D-Dimer is elevated. She was covid and flu negative 2 days ago and covid negative again here. On antibiotics and heparin drip. Blood cultures has shown no growth to date. Worsening anemia that stabilized. Discussed with Dr. Kate concern for worsening kidney function if she is exposed to contrast with CTA chest to assess PE. If no PE, then can stop anticoagulation, and would move forward with pacemaker placement. The concern is bleeding into pacemaker pocket perioperatively as would need to anticoagulate her for PE. (5) Complete heart block: Code(s): I44.2 - Atrioventricular block, complete Status: Acute Assessment and Plan: Stable BP and asymptomatic at rest. She is symptomatic with very minimal exertion. 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 Pacer pads on chest in case HR drops further. Hold Metoprolol. TSH is OK. Her HR is improving to 40's bpm from 36 bpm. If remains in complete heart block, then consider permanent pacemaker implant after we evaluate for definitive pulm embolism so we can stop anticoagulation if not needed. Check EKG. (6) Diastolic dysfunction: Code(s): I51.89 - Other ill-defined heart diseases Status: Acute Assessment and Plan: 12/13/20 Echo: EF 55-60%, grade I diastolic dysfunction (E/e' 26), mild LAE, trace AI/TR, mild MR. 04/08/20 Echo: EF 60-65%, grade I diastolic dysfunction (E/e' 8), mod LAE, mild FREDY, mod (ATIF 1.4 cm2), mod MAC, mild-mod MR/TR, RVSP 54 mmHg. Subjective Date/time seen: 04/13/21 08:20 Had episode of acute sob yesterday and after given Lasix 40 mg IV she felt better. With minimal activity such as using using cammode or changing she is sob. No chest pain or dizziness. Exam Const: General: cooperative, healthy appearing and comfortable Nutritional Appearance: obese Resp: Auscultation: clear to auscultation bilaterally, crackles (slight crackles at bases), no rhonchi and no wheezes Cardio: Jugular venous distension: no JVD Rate: bradycardic Rhythm: abnormal rhythm Heart sounds: no murmurs Peripheral pulses: dorsalis pedis present GI: GI Palp: No abdominal tenderness and Yes Soft to palpation Neuro: General: oriented to person, oriented to place and oriented to time Extrem: Right lower extremity: edema Left lower extremity: edema Other: Mild edema of both legs Objective Data Vital Signs Vital Signs: Vital Signs - 24 hr 04/12/21 08:27 04/12/21 08:42 04/12/21 10:00 Temperature Pulse Rate 45 L 47 L 46 L
[2021-04-13 08:30] LABS: Glucose Point of Care 164 mg/dl (65-105)
[2021-04-13] MEDS: FAMOTIDINE 20 MG TABLET PO ×2 (08:30→20:22)
[2021-04-13] MEDS: FERROUS SULFATE 324 MG TABLET PO (08:30)
[2021-04-13] MEDS: CALCIUM CARBONATE (TUMS) 500 MG (200 MG ELEMENTAL) PO (08:30)
[2021-04-13] MEDS: OMEGA 3 POLYUNSAT FATTY ACIDS 1 GM CAP PO ×4 (08:30→20:22)
--- NOTE | 2021-04-13 11:31 | PM.IMPN ---
Progress Note: A&P Assessment and Plan (1) Third degree heart block: Code(s): I44.2 - Atrioventricular block, complete Status: Acute Assessment and Plan: Patient presents with SOB with EKG showing CHB. She was on metoprolol and this was stopped. Last dose of metoprolol was around 04/06/21. She continues to be in CHB and currently rate is around 40 with adequate blood pressure. Echo with EF 60-65%, Grade I diastolic dysfunction and moderate . Echo also showing moderate pulmonary hypertension (54 mmHg). TSH normal. Anticipate the patient will need a pacemaker. CTA chest being considered in hopes of being able to stop heparin drip for PM placement. Cardiology is following. (2) Suspected pulmonary embolism: Code(s): R09.89 - Other specified symptoms and signs involving the circulatory and respiratory systems Status: Acute Assessment and Plan: Patient presents with SOB. DDimer 3.3. CT chest without contrast as mentioned below. Perfusion scan showing small-moderate perfusion abnormality of the left upper lung posteriorly so she was started on Heparin drip. Unable to do CTA chest due to elevated creatinine. Lower extremity Dopplers are negative for DVT. Patient remains on heparin infusion. 04/13 creatinine improved from high of 2.3 to 1.9. (3) Acute renal failure: Qualifiers: Acute renal failure type: unspecified Qualified Code(s): N17.9 - Acute kidney failure, unspecified Code(s): N17.9 - Acute kidney failure, unspecified Status: Acute Assessment and Plan: Possibly related to decreased perfusion due ot 3rd degree AV block (4) Pneumonia: Qualifiers: Laterality: unspecified laterality Lung location: unspecified part of lung Pneumonia type: due to unspecified organism Qualified Code(s): J18.9 - Pneumonia, unspecified organism Code(s): J18.9 - Pneumonia, unspecified organism Status: Acute Assessment and Plan: Patient presents with SOB. CT chest without contrast 04/07 showing scattered reticulonodular densities with superimposed ground glass opacification scattered bilaterally, consistent with pneumonia. No fevers but WBC was up to 15K. She was initially given Rocephin but switched to Zosyn on admission. Atypical coverage with azithromycin added but this can prolong the QT so this was stopped. She remains on room air. MRSA nasal swab negative. BCx NGTD. Sputum cx negative. D/c Zosyn 04/13 as this completes her 7-day course. (5) Anemia: Qualifiers: Anemia type: unspecified type Qualified Code(s): D64.9 - Anemia, unspecified Code(s): D64.9 - Anemia, unspecified Status: Acute Assessment and Plan: Hgb 10-11 last year and was 11 on admission. She is on Heparin drip. Hgb trended down to 7.8. Suspect related to fluid overload. No evidence of acute blood loss. Iron studies, B12, folate levels normal. 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 Continue AccuCheks covering with sliding scale. Hypoglycemia protocol available as needed. Continue to monitor. (8) HTN (hypertension): Qualifiers: Hypertension type: essential hypertension Qualified Code(s): I10 - Essential (primary) hypertension Code(s): I10 - Essential (primary) hypertension Status: Acute Ass
--- NOTE | 2021-04-13 12:13 | PM.PNNEP ---
Progress Note: A&P Assessment and Plan (1) Acute renal failure: Qualifiers: Acute renal failure type: unspecified Qualified Code(s): N17.9 - Acute kidney failure, unspecified Code(s): N17.9 - Acute kidney failure, unspecified Status: Acute Assessment and Plan: creatinine elevated above baseline on admission evaluation to date reveals: unremarkable renal U/S prerenal urine electrolytes normal CPK creatinine peaked at 2.3mg/dl...came down to 1.7 but back up again... suspect possible decreased renal perfusion due to bradycardia/heart block(?) still remains at risk for contrast nephropathy would rather wait till renal function closer to baseline prior to contrast exposure if possible...but not sure renal function will ever be truly optimal given current trend (2) Stage 3a chronic kidney disease: Code(s): N18.31 - Chronic kidney disease, stage 3a Status: Chronic Assessment and Plan: Baseline creatinine runs ~ 0.8 - 1.3mg/dl likely due to diabetes and hypertension (3) Suspected pulmonary embolism: Code(s): R09.89 - Other specified symptoms and signs involving the circulatory and respiratory systems Status: Acute Assessment and Plan: on a heparin drip CTA of chest on hold given renal dysfunction as noted, I am concerned that renal function may never be optimal for contrast exposure (4) Third degree heart block: Code(s): I44.2 - Atrioventricular block, complete Status: Acute Assessment and Plan: may need pacemaker Cardiology following (5) Pneumonia: Qualifiers: Laterality: unspecified laterality Lung location: unspecified part of lung Pneumonia type: due to unspecified organism Qualified Code(s): J18.9 - Pneumonia, unspecified organism Code(s): J18.9 - Pneumonia, unspecified organism Status: Acute Assessment and Plan: follow culture data on antibiotics (6) HTN (hypertension): Qualifiers: Hypertension type: essential hypertension Qualified Code(s): I10 - Essential (primary) hypertension Code(s): I10 - Essential (primary) hypertension Status: Chronic Assessment and Plan: BP quite elevated today follow trend to ascertain if further medications needed (7) DM2 (diabetes mellitus, type 2): Qualifiers: Diabetes mellitus roasterman insulin use: without longterm use Diabetes mellitus complication status: with other specified complication Qualified Code(s): E11.69 - Type 2 diabetes mellitus with other specified complication Code(s): E11.9 - Type 2 diabetes mellitus without complications Status: Chronic Assessment and Plan: follow Accu-Cheks on SSI Will continue to follow. Subjective Date/time seen: 04/13/21 12:13 Ongoing issues with shortness of breath yesterday and with CXR findings, given IV lasix with good response and improvement in symptoms; however, she still feels quite fatigued and continues to have shortness of breath with any exertional activity; no acute distress voiced at the time of my visit. Exam Narrative: General: Elderly female in NAD Heart: normal S1 and S2; no rub Lungs: soem bibasilar crackles noted Abdomen: soft, nontender, nondistended, positive bowel sounds Extremities: no cyanosis or clubbing; 1+ edema Skin: warm and intact Objective Data Vital Signs Vital Signs: Vital Signs Temp Pulse Resp BP Pulse Ox 04/13/21 12:00 45 L 100 04/13/21 10:00 47 L 04/13/21 08:44 49 L 18 04/13/21 08:37 35.6 C L 46 L 23 H 152/61 H 100 04/13/21 08:32 48 L 18 98 04/13/21 08:00 44 L 99 04/13/21 06:00 43 L 04/13/21 04:00 36.9 C 46 L 21 H 142/58 H 100 04/13/21 02:13 60 21 H 04/13/21 02:05 60 22 H 04/13/21 02:00 48 L 04/13/21 00:30 37.0 C 48 L 21 H 153/57 H 99 04/13/21 00:00 49 L 99 04/12/21 22:00
--- NOTE | 2021-04-13 12:13 | P.PNNP_ITS ---
Progress Note: A&P Assessment and Plan (1) Acute renal failure: Qualifiers: Acute renal failure type: unspecified Qualified Code(s): N17.9 - Acute kidney failure, unspecified Code(s): N17.9 - Acute kidney failure, unspecified Status: Acute Assessment and Plan: * creatinine elevated above baseline on admission * evaluation to date reveals: * unremarkable renal U/S * prerenal urine electrolytes * normal CPK * creatinine peaked at 2.3mg/dl...came down to 1.7 but back up again... * suspect possible decreased renal perfusion due to bradycardia/heart block(?) * still remains at risk for contrast nephropathy * would rather wait till renal function closer to baseline prior to contrast exposure if possible...but not sure renal function will ever be truly optimal given current trend (2) Stage 3a chronic kidney disease: Code(s): N18.31 - Chronic kidney disease, stage 3a Status: Chronic Assessment and Plan: * Baseline creatinine runs ~ 0.8 - 1.3mg/dl * likely due to diabetes and hypertension (3) Suspected pulmonary embolism: Code(s): R09.89 - Other specified symptoms and signs involving the circulatory and respiratory systems Status: Acute Assessment and Plan: * on a heparin drip * CTA of chest on hold given renal dysfunction * as noted, I am concerned that renal function may never be optimal for contrast exposure (4) Third degree heart block: Code(s): I44.2 - Atrioventricular block, complete Status: Acute Assessment and Plan: * may need pacemaker * Cardiology following (5) Pneumonia: Qualifiers: Laterality: unspecified laterality Lung location: unspecified part of lung Pneumonia type: due to unspecified organism Qualified Code(s): J18.9 - Pneumonia, unspecified organism Code(s): J18.9 - Pneumonia, unspecified organism Status: Acute Assessment and Plan: * follow culture data * on antibiotics (6) HTN (hypertension): Qualifiers: Hypertension type: essential hypertension Qualified Code(s): I10 - Essential (primary) hypertension Code(s): I10 - Essential (primary) hypertension Status: Chronic Assessment and Plan: * BP quite elevated today * follow trend to ascertain if further medications needed (7) DM2 (diabetes mellitus, type 2): Qualifiers: Diabetes mellitus fci insulin use: without intermediate frame tender use Diabetes mellitus complication status: with other specified complication Qualified Code(s): E11.69 - Type 2 diabetes mellitus with other specified complication Code(s): E11.9 - Type 2 diabetes mellitus without complications Status: Chronic Assessment and Plan: * follow Accu-Cheks * on SSI Will continue to follow. Subjective Date/time seen: 04/13/21 12:13 Ongoing issues with shortness of breath yesterday and with CXR findings, given IV lasix with good response and improvement in symptoms; however, she still feels quite fatigued and continues to have shortness of breath with any exertional activity; no acute distress voiced at the time of my visit. Exam Narrative: General: Elderly female in NAD Heart: normal S1 and S2; no rub Lungs: soem bibasilar crackles noted Abdomen: soft, nontender, nondistended, positive bowel sounds Extremities: no cyanosis or clubbing; 1+ edema Skin: warm and intact Objective Data Vital Signs Vital Signs:
[2021-04-13] MEDS: VITAMIN B COMPLEX CAPSULE 1 CAP PO (12:56)
[2021-04-13] MEDS: CHOLECALCIFEROL 1,000 UNITS TABLET 1000 UNITS PO (12:56)
[2021-04-13] MEDS: calcium polycarbophiL 625 MG TABLET PO (12:56)
[2021-04-13] MEDS: CYANOCOBALAMIN 1,000 MCG TABLET 1000 MCG PO (12:56)
[2021-04-13 13:04] LABS: Glucose Point of Care 186 mg/dl (65-105)
[2021-04-13 17:03] LABS: Glucose Point of Care 203 mg/dl (65-105)
[2021-04-13] MEDS: FOLIC ACID 1 MG TABLET PO (17:05)
[2021-04-13] MEDS: INSULIN ASPART (*BKC) 100 UNITS/ML SUB-Q (17:05)
[2021-04-13 21:27] LABS: Glucose Point of Care 218 mg/dl (65-105)
[2021-04-14] VITALS (22 sets, daily range): BP systolic 144–165; BP diastolic 43–53; PULSE 44–51; RESP 16–21; TEMP 36.2–36.9; O2SAT 96–99
[2021-04-14] MEDS: ALBUTEROL SULFATE NEB 2.5 MG/0.5 ML INH 5 MG INHALATION ×4 (01:38→20:02)
[2021-04-14] MEDS: IPRATROPIUM BR 0.02% INH SOLN 0.5 MG/2.5 ML VIAL INHALATION ×4 (01:38→20:02)
[2021-04-14] MEDS: LEVOTHYROXINE SODIUM 112 MCG TABLET PO (05:45)
[2021-04-14] MEDS: CENTRAL LINE FLUSH 10 ML IV PUSH ×3 (05:46→21:00)
[2021-04-14 06:33] LABS: Anion Gap 11 mmol/L (8-16); Blood Urea Nitrogen 39 mg/dL (7-17); Calcium 6.9 mg/dL (8.4-10.2); Carbon Dioxide 21 mmol/L (22-30); Chloride 108 mmol/L (98-107); Estimated CRCL calculation 21 ml/min; Estimated Glomerular Filt Rate 18; Glucose 172 mg/dL (65-110); Potassium 3.9 mmol/L (3.4-5.0); Sodium 140 mmol/L (137-145)
--- NOTE | 2021-04-14 07:16 | ECG_ITS ---
Measurements Intervals [place] Rate: 47 P: LA: 0 QRS: 7 QRSD: 75 T: 77 QT: 497 QTc: 443 Interpretive Statements SINUS RHYTHM WITH COMPLETE HEART BLOCK JUNCTIONAL ESCAPE RHYTHM LOW QRS VOLTAGE IN PRECORDIAL LEADS ANTEROSEPTAL INFARCT, AGE INDETERMINATE BORDERLINE T WAVE ABNORMALITY- HIGH LATERAL LEADS BASELINE ARTIFACT- I, II, III, AVR, AVL, AVF, V1-V5 ABNORMAL ECG Electronically Signed On 04-14-2021 13:36:48 [employer] by Rohit Flores D.O.
--- NOTE | 2021-04-14 07:53 | PM.PNCARD ---
Progress Note: A&P Assessment and Plan (1) HTN (hypertension): Qualifiers: Hypertension type: essential hypertension Qualified Code(s): I10 - Essential (primary) hypertension Code(s): I10 - Essential (primary) hypertension Status: Acute Assessment and Plan: Mildly high. Monitor. Hold Metoprolol and it has been 96 hours this morning since last dose. Change Hydralazine 10 mg IV q 8 hrs for BP to improve HR and to be given for SBP>160. (2) DM2 (diabetes mellitus, type 2): Qualifiers: Diabetes mellitus penitentiary insulin use: without intermediate accountant use Diabetes mellitus complication status: with other specified complication Qualified Code(s): E11.69 - Type 2 diabetes mellitus with other specified complication Code(s): E11.9 - Type 2 diabetes mellitus without complications Status: Acute Assessment and Plan: Manage by hospitalist. (3) CKD (chronic kidney disease): Qualifiers: Chronic kidney disease stage: stage 1 Qualified Code(s): N18.1 - Chronic kidney disease, stage 1 Code(s): N18.9 - Chronic kidney disease, unspecified Status: Acute Assessment and Plan: Worsened with Lasix, but she needed it for volume overload. Followed by Dr. Kate. (4) SOB (shortness of breath) on exertion: Code(s): R06.02 - Shortness of breath Status: Acute Assessment and Plan: Due to pneumonia on CT chest and pulm embolism on VQ scan. D-Dimer is elevated. She was covid and flu negative 2 days ago and covid negative again here. On antibiotics and heparin drip. Blood cultures has shown no growth to date. Worsening anemia that stabilized. Discussed with Dr. Kate concern for worsening kidney function if she is exposed to contrast with CTA chest to assess PE. If no PE, then can stop anticoagulation, and would move forward with pacemaker placement. The concern is bleeding into pacemaker pocket perioperatively as would need to anticoagulate her for PE. (5) Complete heart block: Code(s): I44.2 - Atrioventricular block, complete Status: Acute Assessment and Plan: Stable BP and asymptomatic at rest. She is symptomatic with very minimal exertion. Received Glucagon 10 mg IV x 1.gambling monitor. Pacer pads on chest in case HR drops further. Hold Metoprolol. TSH is OK. Her HR is improving to 40's bpm from 36 bpm. If remains in complete heart block, then consider permanent pacemaker implant after we evaluate for definitive pulm embolism so we can stop anticoagulation if not needed. Check EKG. Due to worsening kidney function which precludes obtaining CTA chest to r/o PE definitively, will ask HCG to see her tomorrow for dual chamber pacemaker implant. Discuss risks/benefits/alternative treatment with patient which includes but not limited to bleeding, infection, perforation, . She is agreeable to it. (6) Diastolic dysfunction: Code(s): I51.89 - Other ill-defined heart diseases Status: Acute Assessment and Plan: 12/13/20 Echo: EF 55-60%, grade I diastolic dysfunction (E/e' 26), mild LAE, trace AI/TR, mild MR. 04/08/20 Echo: EF 60-65%, grade I diastolic dysfunction (E/e' 8), mod LAE, mild FREDY, mod (ATIF 1.4 cm2), mod MAC, mild-mod MR/TR, RVSP 54 mmHg. Subjective Date/time seen: 04/14/21 07:53 Reports no sob while resting in bed. No chest pains or dizziness. Exam Const: General: cooperative, healthy appearing and comfortable Nutritional Appearance: obese Resp: Auscultation: clear to auscultation bilaterally, crackles (slight crackles at bases), no rhonchi and no wheezes Cardio: Jugular venous distension: no JVD Rate: bradycardic Rhythm: abnormal rhythm Heart sounds: no murmurs Peripheral pulses: dorsalis pedis present GI: GI Palp: No abdominal tenderness and Yes Soft to palpation Neuro: General: oriented to person, oriented to place and oriented to time Extrem: Right lower extremity: edema Left lower ex
[2021-04-14 08:43] LABS: Glucose Point of Care 144 mg/dl (65-105)
--- NOTE | 2021-04-14 10:13 | PC.NURSE ---
Patient is eating and drinking. Dr. Downey ordered for fluids to be stopped.
[2021-04-14] MEDS: HEPARIN SOD/D5W 100 UNITS/ML 25,000 UNITS/250 ML BAG 14 UNITS IV CONT (10:18)
[2021-04-14] MEDS: FAMOTIDINE 20 MG TABLET PO ×2 (10:36→21:00)
[2021-04-14] MEDS: CALCIUM CARBONATE (TUMS) 500 MG (200 MG ELEMENTAL) PO (10:36)
[2021-04-14] MEDS: OMEGA 3 POLYUNSAT FATTY ACIDS 1 GM CAP PO ×4 (10:36→21:00)
[2021-04-14] MEDS: FERROUS SULFATE 324 MG TABLET PO (10:37)
--- NOTE | 2021-04-14 10:40 | PM.IMPN ---
Progress Note: A&P Assessment and Plan (1) Third degree heart block: Code(s): I44.2 - Atrioventricular block, complete Status: Acute Assessment and Plan: Patient presents with SOB with EKG showing CHB. She was on metoprolol and this was stopped. Last dose of metoprolol was around 04/06/21. She continues to be in CHB and currently rate is around 40 with adequate blood pressure. Echo with EF 60-65%, Grade I diastolic dysfunction and moderate . Echo also showing moderate pulmonary hypertension (54 mmHg). TSH normal. Anticipate the patient will need a pacemaker. CTA chest is now out of the question due to worsening renal function with creatinine of 2.[address] Kathryn olivas and Dr. Flores by phone that further delay prior to pacemaker insertion does not seem prudent. Both manager transportation and the patient agree to proceed tomorrow. 04/14 HOLD HEPARING AFTER MN AND NPO AFTER MN (2) Suspected pulmonary embolism: Code(s): R09.89 - Other specified symptoms and signs involving the circulatory and respiratory systems Status: Acute Assessment and Plan: Patient presents with SOB. DDimer 3.3. CT chest without contrast as mentioned below. Perfusion scan showing small-moderate perfusion abnormality of the left upper lung posteriorly so she was started on Heparin drip. Unable to do CTA chest due to elevated creatinine. Lower extremity Dopplers are negative for DVT. Patient remains on heparin infusion. 04/13 creatinine improved from high of 2.3 to 1.9. (3) Acute renal failure: Qualifiers: Acute renal failure type: unspecified Qualified Code(s): N17.9 - Acute kidney failure, unspecified Code(s): N17.9 - Acute kidney failure, unspecified Status: Acute Assessment and Plan: Possibly related to decreased perfusion due ot 3rd degree AV block Creatinine: 04/12 1.7, 04/14 2.6 (4) Pneumonia: Qualifiers: Laterality: unspecified laterality Lung location: unspecified part of lung Pneumonia type: due to unspecified organism Qualified Code(s): J18.9 - Pneumonia, unspecified organism Code(s): J18.9 - Pneumonia, unspecified organism Status: Acute Assessment and Plan: Patient presents with SOB. CT chest without contrast 04/07 showing scattered reticulonodular densities with superimposed ground glass opacification scattered bilaterally, consistent with pneumonia. No fevers but WBC was up to 15K. She was initially given Rocephin but switched to Zosyn on admission. Atypical coverage with azithromycin added but this can prolong the QT so this was stopped. She remains on room air. MRSA nasal swab negative. BCx NGTD. Sputum cx negative. D/c'd Zosyn 04/13 as this completed a 7-day course. (5) Anemia: Qualifiers: Anemia type: unspecified type Qualified Code(s): D64.9 - Anemia, unspecified Code(s): D64.9 - Anemia, unspecified Status: Acute Assessment and Plan: Hgb 10-11 last year and was 11 on admission. She is on Heparin drip. Hgb trended down to 7.8. Suspect related to fluid overload. No evidence of acute blood loss. Iron studies, B12, folate levels normal. 04/13 hgb 9/7 (6) Diastolic dysfunction: Code(s): I51.89 - Other ill-defined heart diseases Status: Acute Assessment and Plan: Monitor fluid balance (7) DM2 (diabetes mellitus, type 2): Qualifiers: Diabetes mellitus joint terminal attack controller insulin use: without joint terminal attack controller use Diabetes mellitus complication status: with other specified complication Qualified Code(s): E11.69 - Type 2 diabetes mellitus with other specified complication Code(s): E11.9 - Type 2 diabetes mellitus without complications Status: Acute Assessment and Plan: A1c 6.2 The patient's blood glucose was reviewed on 04/14 Glucose remains reasonably well controlled. Continue AccuCheks covering with sliding scale. Hypoglycemia protocol available as needed. Continue to monitor.
[2021-04-14 12:19] LABS: Glucose Point of Care 198 mg/dl (65-105)
--- NOTE | 2021-04-14 13:08 | PM.PNNEP ---
Progress Note: A&P Assessment and Plan (1) Acute renal failure: Qualifiers: Acute renal failure type: unspecified Qualified Code(s): N17.9 - Acute kidney failure, unspecified Code(s): N17.9 - Acute kidney failure, unspecified Status: Acute Assessment and Plan: creatinine elevated above baseline on admission evaluation to date reveals: unremarkable renal U/S prerenal urine electrolytes normal CPK creatinine peaked at 2.3mg/dl...came down to 1.7 but back up again... suspect possible decreased renal perfusion due to bradycardia/heart block(?) would rather wait till renal function closer to baseline prior to contrast exposure if possible...but not sure renal function will ever be truly optimal given current trend hence, seems reasonable as noted to proceed with pacemaker placement (scheduled for tomorrow - 04/15/20) (2) Stage 3a chronic kidney disease: Code(s): N18.31 - Chronic kidney disease, stage 3a Status: Chronic Assessment and Plan: Baseline creatinine runs ~ 0.8 - 1.3mg/dl likely due to diabetes and hypertension (3) Suspected pulmonary embolism: Code(s): R09.89 - Other specified symptoms and signs involving the circulatory and respiratory systems Status: Acute Assessment and Plan: on a heparin drip CTA of chest on hold given renal dysfunction as noted, I am concerned that renal function may never be optimal for contrast exposure by trend of labs (4) Third degree heart block: Code(s): I44.2 - Atrioventricular block, complete Status: Acute Assessment and Plan: needs pacemaker - tentatively on schedule for tomorrow (04/15/20) Cardiology following (5) Pneumonia: Qualifiers: Laterality: unspecified laterality Lung location: unspecified part of lung Pneumonia type: due to unspecified organism Qualified Code(s): J18.9 - Pneumonia, unspecified organism Code(s): J18.9 - Pneumonia, unspecified organism Status: Acute Assessment and Plan: follow culture data on antibiotics (6) HTN (hypertension): Qualifiers: Hypertension type: essential hypertension Qualified Code(s): I10 - Essential (primary) hypertension Code(s): I10 - Essential (primary) hypertension Status: Chronic Assessment and Plan: BP quite elevated today follow trend to ascertain if further medications needed (7) DM2 (diabetes mellitus, type 2): Qualifiers: Diabetes mellitus jail insulin use: without jail use Diabetes mellitus complication status: with other specified complication Qualified Code(s): E11.69 - Type 2 diabetes mellitus with other specified complication Code(s): E11.9 - Type 2 diabetes mellitus without complications Status: Chronic Assessment and Plan: follow Accu-Cheks on SSI Will continue to follow. Subjective Date/time seen: 04/14/21 13:08 Still with shortness of breath with any exertional activities as well as generalized fatigue; denies any shortness of breath at rest; creatinine worse today by AM labs; no acute distress noted. Exam Narrative: General: Elderly female in NAD Heart: normal S1 and S2; no rub Lungs: soem bibasilar crackles noted Abdomen: soft, nontender, nondistended, positive bowel sounds Extremities: no cyanosis or clubbing; 1+ edema Skin: no rash Objective Data Vital Signs Vital Signs: Vital Signs Temp Pulse Resp BP Pulse Ox 04/14/21 12:00 36.7 C 46 L 18 156/44 H 99 04/14/21 10:00 46 L 04/14/21 08:08 45 L 16 04/14/21 08:00 36.7 C 45 L 18 153/48 H 99 04/14/21 07:59 46 L 16 96 04/14/21 06:00 44 L 04/14/21 04:00 46 L 97 04/14/21 03:29 36.8 C 47 L 20 144/43 H 97 04/14/21 02:00 46 L 04/14/21 01:47 48 L 20 04/14/21 01:39 47 L 20 04/14/21 00:00 36.9 C 50 L 21 H 161/51 H 97 04/13/21 22:00 48 L
--- NOTE | 2021-04-14 13:08 | P.PNNP_ITS ---
Progress Note: A&P Assessment and Plan (1) Acute renal failure: Qualifiers: Acute renal failure type: unspecified Qualified Code(s): N17.9 - Acute kidney failure, unspecified Code(s): N17.9 - Acute kidney failure, unspecified Status: Acute Assessment and Plan: * creatinine elevated above baseline on admission * evaluation to date reveals: * unremarkable renal U/S * prerenal urine electrolytes * normal CPK * creatinine peaked at 2.3mg/dl...came down to 1.7 but back up again... * suspect possible decreased renal perfusion due to bradycardia/heart block(?) * would rather wait till renal function closer to baseline prior to contrast exposure if possible...but not sure renal function will ever be truly optimal given current trend * hence, seems reasonable as noted to proceed with pacemaker placement (scheduled for tomorrow - 04/15/20) (2) Stage 3a chronic kidney disease: Code(s): N18.31 - Chronic kidney disease, stage 3a Status: Chronic Assessment and Plan: * Baseline creatinine runs ~ 0.8 - 1.3mg/dl * likely due to diabetes and hypertension (3) Suspected pulmonary embolism: Code(s): R09.89 - Other specified symptoms and signs involving the circulatory and r espiratory systems Status: Acute Assessment and Plan: * on a heparin drip * CTA of chest on hold given renal dysfunction * as noted, I am concerned that renal function may never be optimal for contrast exposure by trend of labs (4) Third degree heart block: Code(s): I44.2 - Atrioventricular block, complete Status: Acute Assessment and Plan: * needs pacemaker - tentatively on schedule for tomorrow (04/15/20) * Cardiology following (5) Pneumonia: Qualifiers: Laterality: unspecified laterality Lung location: unspecified part of lung Pneumonia type: due to unspecified organism Qualified Code(s): J18.9 - Pneumonia, unspecified organism Code(s): J18.9 - Pneumonia, unspecified organism Status: Acute Assessment and Plan: * follow culture data * on antibiotics (6) HTN (hypertension): Qualifiers: Hypertension type: essential hypertension Qualified Code(s): I10 - Essential (primary) hypertension Code(s): I10 - Essential (primary) hypertension Status: Chronic Assessment and Plan: * BP quite elevated today * follow trend to ascertain if further medications needed (7) DM2 (diabetes mellitus, type 2): Qualifiers: Diabetes mellitus fci insulin use: without terminal worker use Diabetes mellitus complication status: with other specified complication Qualified Code(s): E11.69 - Type 2 diabetes mellitus with other specified complication Code(s): E11.9 - Type 2 diabetes mellitus without complications Status: Chronic Assessment and Plan: * follow Accu-Cheks * on SSI Will continue to follow. Subjective Date/time seen: 04/14/21 13:08 Still with shortness of breath with any exertional activities as well as generalized fatigue; denies any shortness of breath at rest; creatinine worse today by AM labs; no acute distress noted. Exam Narrative: General: Elderly female in NAD Heart: normal S1 and S2; no rub Lungs: soem bibasilar crackles noted Abdomen: soft, nontender, nondistended, positive bowel sounds Extremities: no cyanosis or clubbing; 1+ edema Skin: no rash Objective Data Vital Signs Vital Signs:
[2021-04-14] MEDS: calcium polycarbophiL 625 MG TABLET PO (13:40)
[2021-04-14] MEDS: CHOLECALCIFEROL 1,000 UNITS TABLET 1000 UNITS PO (13:40)
[2021-04-14] MEDS: VITAMIN B COMPLEX CAPSULE 1 CAP PO (13:41)
[2021-04-14] MEDS: CYANOCOBALAMIN 1,000 MCG TABLET 1000 MCG PO (13:41)
[2021-04-14 17:14] LABS: Glucose Point of Care 205 mg/dl (65-105)
[2021-04-14] MEDS: INSULIN ASPART (*BKC) 100 UNITS/ML SUB-Q (18:01)
[2021-04-14] MEDS: FOLIC ACID 1 MG TABLET PO (18:03)
[2021-04-14 19:31] LABS: Partial Thromboplastin Time 87.2 SECONDS (22.3-36.8)
[2021-04-14 20:00] LABS: Ionized Calcium 3.5 mg/dL (4.8-5.6)
[2021-04-14 21:45] LABS: Glucose Point of Care 213 mg/dl (65-105)
[2021-04-15] VITALS (28 sets, daily range): BP systolic 134–178; BP diastolic 43–121; PULSE 44–117; RESP 16–28; TEMP 36.1–37; O2SAT 94–100
[2021-04-15] MEDS: ALBUTEROL SULFATE NEB 2.5 MG/0.5 ML INH 5 MG INHALATION ×4 (02:06→19:54)
[2021-04-15] MEDS: IPRATROPIUM BR 0.02% INH SOLN 0.5 MG/2.5 ML VIAL INHALATION ×4 (02:06→19:54)
[2021-04-15 02:34] LABS: Pneumococcal Antigen Urine Not Detected (Not Detected)
[2021-04-15] MEDS: CENTRAL LINE FLUSH 10 ML IV PUSH ×3 (04:10→21:21)
[2021-04-15] MEDS: LEVOTHYROXINE SODIUM 112 MCG TABLET PO (04:10)
[2021-04-15 04:35] LABS: Hematocrit 28.8 % (37.0-47.0); Hemoglobin 9.1 g/dL (12.0-15.0); Mean Corpuscular HGB Conc 31.6 g/dl (32-36); Mean Corpuscular Hemoglobin 30.7 pg (26-34); Mean Corpuscular Volume 97.3 fl (80-100); Mean Platelet Volume 9.6 fl (7.4-10.4); Platelet Count Result 182 k/mm3 (150-375); Red Blood Count 2.96 M/mm3 (4.2-5.4); Red Cell Distribution Width 14.6 % (11.5-14.5); White Blood Count 10.9 K/mm3 (4.5-10.0)
[2021-04-15 04:48] LABS: Partial Thromboplastin Time 31.4 SECONDS (22.3-36.8)
[2021-04-15 04:53] LABS: Anion Gap 14 mmol/L (8-16); Blood Urea Nitrogen 44 mg/dL (7-17); Calcium 6.8 mg/dL (8.4-10.2); Carbon Dioxide 18 mmol/L (22-30); Chloride 107 mmol/L (98-107); Estimated CRCL calculation 19 ml/min; Estimated Glomerular Filt Rate 16; Glucose 174 mg/dL (65-110); Magnesium 2.3 mg/dL (1.6-2.3); Potassium 3.5 mmol/L (3.4-5.0); Sodium 139 mmol/L (137-145)
--- NOTE | 2021-04-15 06:51 | P.PNNP_ITS ---
Progress Note: A&P Assessment and Plan (1) Acute renal failure: Qualifiers: Acute renal failure type: unspecified Qualified Code(s): N17.9 - Acute kidney failure, unspecified Code(s): N17.9 - Acute kidney failure, unspecified Status: Acute Assessment and Plan: * creatinine elevated above baseline on admission * evaluation to date reveals: * unremarkable renal U/S * prerenal urine electrolytes * normal CPK * creatinine peaked at 2.3mg/dl...came down to 1.7 but currently on the rise and is up to 2.9. * Patient is not making very much urine. * suspect possible decreased renal perfusion due to bradycardia/heart block(?) Pre renal electrolytes consistent with this thought. No exposure to contrast. No offending medications. No episodes of hypotension. * Possibly a pacemaker might improve renal perfusion * If creatinine continues to worsen we may need to do dialysis. * would rather wait till renal function closer to baseline prior to contrast exposure if possible...but not sure renal function will ever be truly optimal given current trend * hence, seems reasonable as noted to proceed with pacemaker placement (scheduled for tomorrow - 04/15/20) (2) Stage 3a chronic kidney disease: Code(s): N18.31 - Chronic kidney disease, stage 3a Status: Chronic Assessment and Plan: * Baseline creatinine runs ~ 0.8 - 1.3mg/dl * likely due to diabetes and hypertension (3) Suspected pulmonary embolism: Code(s): R09.89 - Other specified symptoms and signs involving the circulatory and respiratory systems Status: Acute Assessment and Plan: * on a heparin drip * CTA of chest on hold given renal dysfunction * as noted, I am concerned that renal function may never be optimal for contrast exposure by trend of labs (4) Third degree heart block: Code(s): I44.2 - Atrioventricular block, complete Status: Acute Assessment and Plan: * needs pacemaker - tentatively on schedule for tomorrow (04/15/20) * Cardiology following (5) Pneumonia: Qualifiers: Laterality: unspecified laterality Lung location: unspecified part of lung Pneumonia type: due to unspecified organism Qualified Code(s): J18.9 - Pneumonia, unspecified organism Code(s): J18.9 - Pneumonia, unspecified organism Status: Acute Assessment and Plan: * Cultures negative. * on Zosyn (6) HTN (hypertension): Qualifiers: Hypertension type: essential hypertension Qualified Code(s): I10 - Essential (primary) hypertension Code(s): I10 - Essential (primary) hypertension Status: Chronic Assessment and Plan: * BP quite elevated today * follow trend to ascertain if further medications needed (7) DM2 (diabetes mellitus, type 2): Qualifiers: Diabetes mellitus mcc insulin use: without mcc use Diabetes mellitus complication status: with other specified complication Qualified Code(s): E11.69 - Type 2 diabetes mellitus with other specified complication Code(s): E11.9 - Type 2 diabetes mellitus without complications Status: Chronic Assessment and Plan: * follow Accu-Cheks * on SSI Will continue to follow. (8) Shortness of breath: Code(s): R06.02 - Shortness of breath Status: Acute Assessment and Plan: She looks fairly dyspneic. Chest x-ray shows volume overload. Urine output not all that great. On Thursday she was more short of breath and received some Lasix
--- NOTE | 2021-04-15 06:51 | PM.PNNEP ---
Progress Note: A&P Assessment and Plan (1) Acute renal failure: Qualifiers: Acute renal failure type: unspecified Qualified Code(s): N17.9 - Acute kidney failure, unspecified Code(s): N17.9 - Acute kidney failure, unspecified Status: Acute Assessment and Plan: creatinine elevated above baseline on admission evaluation to date reveals: unremarkable renal U/S prerenal urine electrolytes normal CPK creatinine peaked at 2.3mg/dl...came down to 1.7 but currently on the rise and is up to 2.9. Patient is not making very much urine. suspect possible decreased renal perfusion due to bradycardia/heart block(?) Pre renal electrolytes consistent with this thought. No exposure to contrast. No offending medications. No episodes of hypotension. Possibly a pacemaker might improve renal perfusion If creatinine continues to worsen we may need to do dialysis. would rather wait till renal function closer to baseline prior to contrast exposure if possible...but not sure renal function will ever be truly optimal given current trend hence, seems reasonable as noted to proceed with pacemaker placement (scheduled for tomorrow - 04/15/20) (2) Stage 3a chronic kidney disease: Code(s): N18.31 - Chronic kidney disease, stage 3a Status: Chronic Assessment and Plan: Baseline creatinine runs ~ 0.8 - 1.3mg/dl likely due to diabetes and hypertension (3) Suspected pulmonary embolism: Code(s): R09.89 - Other specified symptoms and signs involving the circulatory and respiratory systems Status: Acute Assessment and Plan: on a heparin drip CTA of chest on hold given renal dysfunction as noted, I am concerned that renal function may never be optimal for contrast exposure by trend of labs (4) Third degree heart block: Code(s): I44.2 - Atrioventricular block, complete Status: Acute Assessment and Plan: needs pacemaker - tentatively on schedule for tomorrow (04/15/20) Cardiology following (5) Pneumonia: Qualifiers: Laterality: unspecified laterality Lung location: unspecified part of lung Pneumonia type: due to unspecified organism Qualified Code(s): J18.9 - Pneumonia, unspecified organism Code(s): J18.9 - Pneumonia, unspecified organism Status: Acute Assessment and Plan: Cultures negative. on Zosyn (6) HTN (hypertension): Qualifiers: Hypertension type: essential hypertension Qualified Code(s): I10 - Essential (primary) hypertension Code(s): I10 - Essential (primary) hypertension Status: Chronic Assessment and Plan: BP quite elevated today follow trend to ascertain if further medications needed (7) DM2 (diabetes mellitus, type 2): Qualifiers: Diabetes mellitus residential insulin use: without support service tech use Diabetes mellitus complication status: with other specified complication Qualified Code(s): E11.69 - Type 2 diabetes mellitus with other specified complication Code(s): E11.9 - Type 2 diabetes mellitus without complications Status: Chronic Assessment and Plan: follow Accu-Cheks on SSI Will continue to follow. (8) Shortness of breath: Code(s): R06.02 - Shortness of breath Status: Acute Assessment and Plan: She looks fairly dyspneic. Chest x-ray shows volume overload. Urine output not all that great. On Thursday she was more short of breath and received some Lasix and had a good response. Will try this again. I am hoping that placing the pacemaker will improve renal perfusion and improve renal function. Either way she needs to make more urine to be less dyspneic. So will give a dose of diuretics to help things out. If creatinine continues to worsen or if shortness of breath is worse then we may need to do dialysis. Subjective Date/time seen: 04/15/21 06:51 Interval history: The patient is still shor
--- NOTE | 2021-04-15 07:46 | PM.PNCARD ---
Progress Note: A&P Assessment and Plan (1) HTN (hypertension): Qualifiers: Hypertension type: essential hypertension Qualified Code(s): I10 - Essential (primary) hypertension Code(s): I10 - Essential (primary) hypertension Status: Chronic Assessment and Plan: Mildly high. Monitor. Hold Metoprolol and it has been over a week since last dose. On Hydralazine 10 mg IV q 8 hrs for BP to improve HR and to be given for SBP>160. (2) DM2 (diabetes mellitus, type 2): Qualifiers: Diabetes mellitus spd manager insulin use: without fpc use Diabetes mellitus complication status: with other specified complication Qualified Code(s): E11.69 - Type 2 diabetes mellitus with other specified complication Code(s): E11.9 - Type 2 diabetes mellitus without complications Status: Chronic Assessment and Plan: Manage by hospitalist. (3) CKD (chronic kidney disease): Qualifiers: Chronic kidney disease stage: stage 1 Qualified Code(s): N18.1 - Chronic kidney disease, stage 1 Code(s): N18.9 - Chronic kidney disease, unspecified Status: Acute Assessment and Plan: Worsened with Lasix, but she needed it for volume overload. Followed by Dr. Kate. (4) SOB (shortness of breath) on exertion: Code(s): R06.02 - Shortness of breath Status: Acute Assessment and Plan: Due to pneumonia on CT chest and pulm embolism on VQ scan. D-Dimer is elevated. She was covid and flu negative 2 days ago and covid negative again here. On antibiotics and heparin drip. Blood cultures has shown no growth to date. Worsening anemia that stabilized. Discussed with Dr. Kate concern for worsening kidney function if she is exposed to contrast with CTA chest to assess PE. If no PE, then can stop anticoagulation, and would move forward with pacemaker placement. The concern is bleeding into pacemaker pocket perioperatively as would need to anticoagulate her for PE. Discussed with Dr. Raines and due to concern for pocket hematoma with anticoagulation, would rather hold off on anticoagulation after pacemaker placement as PE was not definitive. (5) Complete heart block: Code(s): I44.2 - Atrioventricular block, complete Status: Acute Assessment and Plan: Stable BP and asymptomatic at rest. She is symptomatic with very minimal exertion. 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 Pacer pads on chest in case HR drops further. Hold Metoprolol. TSH is OK. Her HR remained in mid 40's bpm range in heart block. Due to worsening kidney function which precludes obtaining CTA chest to r/o PE definitively, I spoke to Dr. Raines this morning for dual chamber pacemaker implant. Discuss risks/benefits/alternative treatment with patient which includes but not limited to bleeding, infection, perforation, . She is agreeable to it. (6) Diastolic dysfunction: Code(s): I51.89 - Other ill-defined heart diseases Status: Acute Assessment and Plan: 12/13/20 Echo: EF 55-60%, grade I diastolic dysfunction (E/e' 26), mild LAE, trace AI/TR, mild MR. 04/08/20 Echo: EF 60-65%, grade I diastolic dysfunction (E/e' 8), mod LAE, mild FREDY, mod (ATIF 1.4 cm2), mod MAC, mild-mod MR/TR, RVSP 54 mmHg. Subjective Date/time seen: 04/15/21 07:46 Reports sob with very minimal movement such as turning. No chest pain or dizziness. Exam Const: General: cooperative, healthy appearing and comfortable Nutritional Appearance: obese Resp: Auscultation: clear to auscultation bilaterally, crackles (slight crackles at bases), no rhonchi and no wheezes Cardio: Jugular venous distension: no JVD Rate: bradycardic Rhythm: abnormal rhythm Heart sounds: no murmurs Peripheral pulses: dorsalis pedis present GI: GI Palp: No abdominal tenderness and Yes Soft to palpation Neuro: General: oriented to person, oriented to place and oriented to time Extrem: Right lower extremity:
[2021-04-15] MEDS: FUROSEMIDE INJ 40 MG/4 ML VIAL IV PUSH ×2 (08:11→13:23)
[2021-04-15 08:18] LABS: Glucose Point of Care 174 mg/dl (65-105)
--- NOTE | 2021-04-15 08:36 | PCNWS ---
Weekly nutritional screen. Patient screened in for 7 day length of stay. Patient is tolerating current diet with adequate intake. No weight loss reported. No nutritional needs at this time.
[2021-04-15 08:42] LABS: INR 1.2; Prothrombin Time 14.7 Seconds (11.1-14.7)
--- NOTE | 2021-04-15 09:41 | WPDMODSED ---
Moderate Sedation Note-Pt Data Patient Data Diagnosis: Acquired complete heart block Acute on chronic renal failure Morbid obesity Anemia Present Complaint: Shortness of breath Procedure to be performed/Plan: Implantation of permanent pacemaker Allergies Allergy/AdvReac Type Severity Reaction Status Date / Time LON Inhibitors Allergy Unknown Cough Verified 04/07/21 08:36 Home Medications Medication Instructions Recorded Confirmed Type cholecalciferol (vitamin D3) 1,000 unit PO QNOON ml 03/28/19 04/08/21 History mecobalamin (vitamin B12) 1,000 1,000 mcg PO QNOON 03/28/19 04/08/21 History mcg disintegrating tablet,sublingual omega-3 fatty acids 1,000 mg 1,000 mg PO QID cap 03/28/19 04/08/21 History capsule calcium polycarbophil 625 mg tablet 1,250 mg PO QNOON 11/16/19 04/08/21 History vitamin B complex 1 tablet PO QNOON 08/15/20 04/08/21 History allopurinol 100 mg PO QPM 04/08/21 04/08/21 History ferrous sulfate 325 mg PO QAM 04/08/21 04/08/21 History folic acid 1 mg PO QPM 04/08/21 04/08/21 History furosemide 40 mg PO EVERY OTHER DAY 04/08/21 04/08/21 History furosemide 80 mg PO EVERY OTHER DAY 04/08/21 04/08/21 History glimepiride 2 mg PO QAM 04/08/21 04/08/21 History levothyroxine 112 mcg PO QAM 04/08/21 04/08/21 History linagliptin [Tradjenta] 5 mg PO QAM 04/08/21 04/08/21 History losartan 100 mg PO QPM 04/08/21 04/08/21 History metformin 1,000 mg PO BID 04/08/21 04/08/21 History metoprolol succinate 100 mg PO QAM 04/08/21 04/08/21 History potassium chloride 20 meq PO QAM 04/08/21 04/08/21 History Current Medications: Active Medications Albuterol (Albuterol Sulfate Neb 2.5 Mg/0.5 Ml Inh) 5 mg INHALATION Q6HRT MARIA D Last Admin: 04/15/21 08:14 Dose: 5 mg Documented by: Calcium Carbonate (Calcium Carbonate (Tums) 500 Mg (200 Mg Elemental)) 200 mg PO DAILY@0800 [facility] Last Admin: 04/14/21 10:36 Dose: 200 mg Documented by: Calcium Polycarbophil (Calcium Polycarbophil 625 Mg Tablet) 625 mg PO NOON [facility] Last Admin: 04/14/21 13:40 Dose: 625 mg Documented by: Cyanocobalamin (Cyanocobalamin 1,000 Mcg Tablet) 1,000 mcg PO NOON [facility] Last Admin: 04/14/21 13:41 Dose: 1,000 mcg Documented by: Dextrose (Dextrose 50% 25 Gm/50 Ml Syringe) 12.5 gm IV PUSH PRN PRN; Protocol PRN Reason: Hypoglycemia Ergocalciferol (Ergocalciferol 50,000 Unit Capsule) 50,000 unit PO WEEKLY [facility] Last Admin: 04/12/21 10:53 Dose: 50,000 unit Documented by: Famotidine (Famotidine 20 Mg Tablet) 20 mg PO Q12HR [facility] Last Admin: 04/14/21 21:00 Dose: 20 mg Documented by: Ferrous Sulfate (Ferrous Sulfate 324 Mg Tablet) 324 mg PO DAILY@0800 [facility] Last Admin: 04/14/21 10:37 Dose: 324 mg Documented by: Fish Oil ([place] 3 Polyunsat Fatty Acids 1 Gm Cap) 1 gm PO QID [facility] Last Admin: 04/14/21 21:00 Dose: 1 gm Documented by: Folic Acid (Folic Acid 1 Mg Tablet) 1 mg PO DAILY@1700 [facility] Last Admin: 04/14/21 18:03 Dose: 1 mg Documented by: Glucagon (Glucagon For Inj 1 Mg Vial) 1 mg IM PRN PRN; Protocol PRN Reason: Hypoglycemia Glucose (Glucose Oral Gel 15 Gm Of Glucse In 37.5 Gm Tube) 15 gm PO PRN PRN; Protocol PRN Reason: Hypoglycemia Heparin Sodium (Porcine) (Heparin Sodium 5,000 Units/Ml Vial) 5,500 units IV PUSH PRN PRN PRN Reason: aPTT less than 55 seconds Last Admin: 04/08/21 08:54 Dose: 5,500 units Documented by: Heparin Sodium (Porcine) (Heparin Sodium 5,000 Units/Ml Vial) 2,500 units IV PUSH PRN PRN PRN Reason: aPTT 55 - 70 seconds Last Admin: 04/11/21 06:03 Dose: 2,500 units Documented by: Hydralazine HCl (Hydralazine Hcl 20 Mg/Ml Vial) 10 mg IV PUSH Q8H PRN PRN Reason: Blood Pressure - High Last Admin: 04/12/21 12:41 Dose: 10 mg Documented by: Dextrose (Dextrose 5% 1,000 Ml) 1,000 mls @ 100 mls/hr IVPB PRN PRN; Protocol PRN Reason: Hypoglycemia Piperacillin/Tazobactam/Dextrose (Zosyn 3.375 Gm/D5w 50ml Pm) 3.375 gm in 50 mls @ 100 mls/hr IVPB Q6H [facility] Last Infusion: 04/15/21 04:40 Dose: Infused Doc
--- NOTE | 2021-04-15 11:24 | ECG_ITS ---
Measurements Intervals [place] Rate: 109 P: -52 DC: 82 QRS: -75 QRSD: 190 T: 80 QT: 450 QTc: 607 Interpretive Statements ELECTRONIC VENTRICULAR PACEMAKER UNDERLYING SINUS TACHYCARDIA BASELINE ARTIFACT- I, II, III, AVR, AVL, AVF NO FURTHER INTERPRETATION IS POSSIBLE ABNORMAL ECG Electronically Signed On 04-15-2021 12:49:24 WEED ERADICATOR by Rohit Flores D.O.
--- NOTE | 2021-04-15 11:26 | WPDCARDPROC ---
Cardiac Cath Procedure Note Date of procedure:: 04/15/21 Performing physician:: Mario Raines MD Indication:: complete heart block Brief clinical history:: this is a 75-year-old lady who presented to the hospital with symptomatic bradycardia and complete heart block. Despite withdrawal of beta-lakshmi she remains in complete heart block and permanent pacemaker implantation has been recommended Procedure Procedure performed:: implantation of permanent dual-chamber pacemaker Sedation/Medication given:: fentanyl 25 mg Versed 2 mg case start time 1038 a.m. case end time 11:19 a.m. Access site:: left anterior chest wall /left subclavian vein Estimated blood loss:: 15 cc Procedure note:: patient was brought to the cardiac catheterization lab in the postabsorptive state she was placed on the hatchery laborer table in the supine position and was started on 3 L of nasal cannula oxygen. She the left anterior chest wall was then draped in the usual sterile fashion. Anesthesia was the given with 1% lidocaine infiltrated inferior to the clavicle. An incision was then made about an inch below the clavicle from the midclavicular line to the deltopectoral groove. Using electrocautery cutaneous hemostasis was provided. Sharp and blunt dissection was used to separate the subcutaneous tissue to the level of the prepectoral fascia and blunt dissection was then used to create a pocket inferior to the incision. A Ancef soaked 4 x 4 was placed into the pocket. Attention was then turned to venous access. Using the safe sheath kit provided 2 separate punctures were made of the left subclavian vein and the J tipped access wires were placed into the venous circulation under fluoroscopic visualization into the level of the right atrium. Using the 2 6 Vietnamese safe sheaths the leads detailed below were placed into the venous circulation to the level of the right atrium. Attention was then turned to the ventricular lead. The stylet was with moved and I used a 3 cc syringe to fashion a J-tip on the stylet and used this to steer the lead through the right ventricle and out into the pulmonary artery. A straight stylet was then placed back into the lead it was withdrawn and placed into the right ventricular apex. The lead was fixed into position by deploying the fixation screw and appropriate pacing and sensing performance was demonstrated. Following this attention was turned to the atrial lead. The straight stylet was removed and a preformed atrial J stylet was placed into the lead was then fixed into the right atrial appendage position and the fixation screw was deployed. Once again appropriate pacing and sensing performance was demonstrated. A 10 volts stimulus in either lead did not show any evidence of extracardiac stimulation. Following this the lead was secured to the base the pocket using the suture sleeves and 2-0 silk ties. The retained sponge was then removed from the pocket which was irrigated with Ancef infused saline. Following this the pacemaker generator was connected to the leads using the torque wrench and the entire assembly was placed into the newly created pocket. The wound was then closed in layers using 3-0 Vicryl an interrupted fashion for the subcutaneous tissue and 4-0 Vicryl in a running subcuticular fashion for the skin. The wound was dressed with an Aquacel dressing postop antibiotics chest x-ray and ECG were ordered. Procedure was well tolerated and uncomplicated. Findings:: The patient received a Biotronik dual-chamber pacemaker model Edora 8 DR-T serial number [id number]. device is programmed in the DDD mode lower rate limit 60 upper rate limit 130. the atrial lead is a Biotronik screw-in bipolar lead model Solia S 53 serial number [id number]. the P-waves are sensed at 1.8 mV threshold 0.9 volts at 0.4 millisecond impedance 429 Ohms. The ventricular lead is a Biotronik screw-in bipolar lead model Solia S 60 serial number [id number].
--- NOTE | 2021-04-15 12:01 | PM.IMPN ---
Progress Note: A&P Assessment and Plan (1) Acute respiratory failure: Code(s): J96.00 - Acute respiratory failure, unspecified whether with hypoxia or hypercapnia Status: Acute Assessment and Plan: Patient developed acute respiratory failure on 04/12 felt related to fluid overload. IV fluids stopped and Lasix once given. Her symptoms improved and had good UOP but unfortunately, her renal function worsened. Called again to the room for acute respiratory failure. Patient with tachypnea, hypoxia and orthopnea with evidence of fluid overload. She did receive lasix 40mg IV once this morning but unclear if she had a good diuresis with this. CXR not showing any PTX but mild pulmonary congestion. Clinically doubt PE but more likely fluid overload. Will check ABG. Repeat Lasix. Discussed with Cardiology and Nephrology. 35 minutes spent on critical care Returned to the room. Patient feels much better. She feels less SOB. (2) Third degree heart block: Code(s): I44.2 - Atrioventricular block, complete Status: Acute Assessment and Plan: Patient presents with SOB with EKG showing CHB. She was on metoprolol and this was stopped. She continued to be in CHB. Echo with EF 60-65%, Grade I diastolic dysfunction and moderate . Echo also showing moderate pulmonary hypertension (54 mmHg). TSH normal. Heparin held and PM placed today. Appreciate Cardiology input. (3) Suspected pulmonary embolism: Code(s): R09.89 - Other specified symptoms and signs involving the circulatory and respiratory systems Status: Acute Assessment and Plan: Patient presents with SOB. DDimer 3.3. COVID negative. CT chest without contrast as mentioned below. Perfusion scan showing small-moderate perfusion abnormality of the left upper lung posteriorly so she was started on Heparin drip. Unable to do CTA chest due to elevated creatinine. Lower extremity Dopplers are negative for DVT. Patient was on heparin infusion but held due to PM placement. Resume Heparin drip when okay with Cardiology. (4) Acute renal failure: Qualifiers: Acute renal failure type: unspecified Qualified Code(s): N17.9 - Acute kidney failure, unspecified Code(s): N17.9 - Acute kidney failure, unspecified Status: Acute Assessment and Plan: Possibly related to decreased perfusion due ot 3rd degree AV block. Creatinine climbed to 2.3 befor improvinig to 1.7. Creatinine worsened after the Lasix on 04/12 to 2.9 today. Lasix was repeated this morning. Hopefully renal perfusion will help with fluid overload and renal function will improve. (5) Stage 3a chronic kidney disease: Code(s): N18.31 - Chronic kidney disease, stage 3a Status: Chronic Assessment and Plan: Patient has underlying CKD. Baseline Cr 0.8-1.2 over the past year. As above (6) Pneumonia: Qualifiers: Laterality: unspecified laterality Lung location: unspecified part of lung Pneumonia type: due to unspecified organism Qualified Code(s): J18.9 - Pneumonia, unspecified organism Code(s): J18.9 - Pneumonia, unspecified organism Status: Acute Assessment and Plan: Patient presents with SOB. CT chest without contrast 04/07 showing scattered reticulonodular densities with superimposed ground glass opacification scattered bilaterally, consistent with pneumonia. No fevers but WBC was up to 15K. She was initially given Rocephin but switched to Zosyn on admission. Atypical coverage with azithromycin added but this can prolong the QT so this was stopped. MRSA nasal swab negative. BCx and Sputum cx negative. Will stop Zosyn since she has completed a course. (7) Anemia: Qualifiers: Anemia type: unspecified type Qualified Code(s): D64.9 - Anemia, unspecified Code(s): D64.9 - Anemia, unspecified Status: Acute Assessment and Plan: Hgb 10-11 last year and was 11 on admission. She was on a Hepa
[2021-04-15 12:50] LABS: Glucose Point of Care 197 mg/dl (65-105)
[2021-04-15 13:17] LABS: Alveolar/Arterial O2 Gradient 74.3 mmHg; Base Excess ABG -6.8 mEq/l (+/-2.0); Device NASAL CANNULA; Fractional Inspired Oxygen 28 %; HCO3 ABG 17.1 mEq/l (22.0-26.0); Modified Allen's Test Pass; Oxygen Content ABG 15.4 %vol (16.0-22.0); Oxyhemoglobin 94.8 % THb (90.0-100.0); PCO2 ABG 29.1 mmHg (35.0-45.0); PO2 FiO2 Ratio Arterial Blood 3.25 %; Site Drawn RIGHT RADIAL; Total Hemoglobin 11.5 g/dL (12.0-18.0); pH ABG 7.386 (7.350-7.450)
[2021-04-15] MEDS: CALCIUM GLUCONATE 1,000 MG/10 ML VIAL 1000 MG IV PUSH (17:27)
[2021-04-15] MEDS: FOLIC ACID 1 MG TABLET PO (17:30)
[2021-04-15] MEDS: OMEGA 3 POLYUNSAT FATTY ACIDS 1 GM CAP PO ×2 (17:30→21:21)
[2021-04-15 18:01] LABS: Glucose Point of Care 176 mg/dl (65-105)
[2021-04-15 20:42] LABS: Glucose Point of Care 168 mg/dl (65-105)
[2021-04-15] MEDS: FAMOTIDINE 20 MG TABLET PO (21:21)
[2021-04-16] VITALS (20 sets, daily range): BP systolic 137–160; BP diastolic 77–91; PULSE 82–120; RESP 18–32; TEMP 36.5–36.9; O2SAT 96–100
--- NOTE | 2021-04-16 00:39 | PC.NURSE ---
Patient becomes very anxious, tachypneic, forced respirations with wheezes with any activity. O2 sats remain 99-100% on 2L. Teaching done regarding pursed lip breathing and relaxation techniques.
[2021-04-16] MEDS: ALBUTEROL SULFATE NEB 2.5 MG/0.5 ML INH 5 MG INHALATION ×3 (02:00→20:48)
[2021-04-16] MEDS: IPRATROPIUM BR 0.02% INH SOLN 0.5 MG/2.5 ML VIAL INHALATION ×3 (02:00→20:48)
[2021-04-16 05:41] LABS: Hematocrit 30.4 % (37.0-47.0); Hemoglobin 9.3 g/dL (12.0-15.0); Mean Corpuscular HGB Conc 30.6 g/dl (32-36); Mean Corpuscular Hemoglobin 31.1 pg (26-34); Mean Corpuscular Volume 101.7 fl (80-100); Mean Platelet Volume 9.7 fl (7.4-10.4); Platelet Count Result 175 k/mm3 (150-375); Red Blood Count 2.99 M/mm3 (4.2-5.4); Red Cell Distribution Width 14.4 % (11.5-14.5); White Blood Count 13.3 K/mm3 (4.5-10.0)
[2021-04-16] MEDS: LEVOTHYROXINE SODIUM 112 MCG TABLET PO (05:45)
[2021-04-16 05:48] LABS: Partial Thromboplastin Time 29.9 SECONDS (22.3-36.8)
[2021-04-16 05:50] LABS: Albumin Level 3.9 g/dL (3.5-5.1); Anion Gap 15 mmol/L (8-16); Blood Urea Nitrogen 43 mg/dL (7-17); Calcium 7.1 mg/dL (8.4-10.2); Carbon Dioxide 20 mmol/L (22-30); Chloride 107 mmol/L (98-107); Estimated CRCL calculation 24 ml/min; Estimated Glomerular Filt Rate 21; Glucose 179 mg/dL (65-110); Phosphorus 7.7 mg/dL (2.5-4.5); Potassium 3.9 mmol/L (3.4-5.0); Sodium 142 mmol/L (137-145)
--- NOTE | 2021-04-16 06:47 | P.PNNP_ITS ---
Progress Note: A&P Assessment and Plan (1) Acute renal failure: Qualifiers: Acute renal failure type: unspecified Qualified Code(s): N17.9 - Acute kidney failure, unspecified Code(s): N17.9 - Acute kidney failure, unspecified Status: Acute Assessment and Plan: * creatinine elevated above baseline on admission * evaluation to date reveals: * unremarkable renal U/S * prerenal urine electrolytes * normal CPK * creatinine peaked at 2.3mg/dl...came down to 1.7 but then mallory to 2.9 yesterday. This morning creatinine is down to 2.3. * Urine output is much better after the diuretics. * Creatinine is better also. * I think that most of this was due to the bradycardia and pre renal azotemia there from. * Pacemaker is in and so now her creatinine is improving. * She still volume overloaded so will give extra doses of diuretics today. (2) Stage 3a chronic kidney disease: Code(s): N18.31 - Chronic kidney disease, stage 3a Status: Chronic Assessment and Plan: * Baseline creatinine runs ~ 0.8 - 1.3mg/dl * likely due to diabetes and hypertension (3) Suspected pulmonary embolism: Code(s): R09.89 - Other specified symptoms and signs involving the circulatory and respiratory systems Status: Acute Assessment and Plan: * on a heparin drip * CTA of chest on hold given renal dysfunction * Hopefully renal function will improve and we can get the CTA down the line. (4) Third degree heart block: Code(s): I44.2 - Atrioventricular block, complete Status: Acute Assessment and Plan: * needs pacemaker - tentatively on schedule for tomorrow (04/15/20) * Cardiology following (5) Pneumonia: Qualifiers: Laterality: unspecified laterality Lung location: unspecified part of lung Pneumonia type: due to unspecified organism Qualified Code(s): J18.9 - Pneumonia, unspecified organism Code(s): J18.9 - Pneumonia, unspecified organism Status: Acute Assessment and Plan: * Cultures negative. * on Zosyn (6) HTN (hypertension): Qualifiers: Hypertension type: essential hypertension Qualified Code(s): I10 - Essential (primary) hypertension Code(s): I10 - Essential (primary) hypertension Status: Chronic Assessment and Plan: * Systolic running 130-160. * Will see how she does after diuretics. (7) DM2 (diabetes mellitus, type 2): Qualifiers: Diabetes mellitus marine tower operator insulin use: without marine tower operator use Diabetes mellitus complication status: with other specified complication Qualified Code(s): E11.69 - Type 2 diabetes mellitus with other specified complication Code(s): E11.9 - Type 2 diabetes mellitus without complications Status: Chronic Assessment and Plan: * follow Accu-Cheks * on SSI Will continue to follow. (8) Shortness of breath: Code(s): R06.02 - Shortness of breath Status: Acute Assessment and Plan: She looks a little better today than she did yesterday morning and certainly better than yesterday afternoon. She still has some swelling. Will give diuretics Subjective Date/time seen: 04/16/21 06:47 Interval history: Breathing got worse after the pacemaker. Dr. Castano gave her diuretics. Now she is better but still short of breath. No chest pain. Pacemaker pocket is a little uncomfortable but not bad. Exam Narrative: General: Elderly female in NAD Heart: normal S1 and S
--- NOTE | 2021-04-16 06:47 | PM.PNNEP ---
Progress Note: A&P Assessment and Plan (1) Acute renal failure: Qualifiers: Acute renal failure type: unspecified Qualified Code(s): N17.9 - Acute kidney failure, unspecified Code(s): N17.9 - Acute kidney failure, unspecified Status: Acute Assessment and Plan: creatinine elevated above baseline on admission evaluation to date reveals: unremarkable renal U/S prerenal urine electrolytes normal CPK creatinine peaked at 2.3mg/dl...came down to 1.7 but then mallory to 2.9 yesterday. This morning creatinine is down to 2.3. Urine output is much better after the diuretics. Creatinine is better also. I think that most of this was due to the bradycardia and pre renal azotemia there from. Pacemaker is in and so now her creatinine is improving. She still volume overloaded so will give extra doses of diuretics today. (2) Stage 3a chronic kidney disease: Code(s): N18.31 - Chronic kidney disease, stage 3a Status: Chronic Assessment and Plan: Baseline creatinine runs ~ 0.8 - 1.3mg/dl likely due to diabetes and hypertension (3) Suspected pulmonary embolism: Code(s): R09.89 - Other specified symptoms and signs involving the circulatory and respiratory systems Status: Acute Assessment and Plan: on a heparin drip CTA of chest on hold given renal dysfunction Hopefully renal function will improve and we can get the CTA down the line. (4) Third degree heart block: Code(s): I44.2 - Atrioventricular block, complete Status: Acute Assessment and Plan: needs pacemaker - tentatively on schedule for tomorrow (04/15/20) Cardiology following (5) Pneumonia: Qualifiers: Laterality: unspecified laterality Lung location: unspecified part of lung Pneumonia type: due to unspecified organism Qualified Code(s): J18.9 - Pneumonia, unspecified organism Code(s): J18.9 - Pneumonia, unspecified organism Status: Acute Assessment and Plan: Cultures negative. on Zosyn (6) HTN (hypertension): Qualifiers: Hypertension type: essential hypertension Qualified Code(s): I10 - Essential (primary) hypertension Code(s): I10 - Essential (primary) hypertension Status: Chronic Assessment and Plan: Systolic running 130-160. Will see how she does after diuretics. (7) DM2 (diabetes mellitus, type 2): Qualifiers: Diabetes mellitus terminal operator insulin use: without terminal operator use Diabetes mellitus complication status: with other specified complication Qualified Code(s): E11.69 - Type 2 diabetes mellitus with other specified complication Code(s): E11.9 - Type 2 diabetes mellitus without complications Status: Chronic Assessment and Plan: follow Accu-Cheks on SSI Will continue to follow. (8) Shortness of breath: Code(s): R06.02 - Shortness of breath Status: Acute Assessment and Plan: She looks a little better today than she did yesterday morning and certainly better than yesterday afternoon. She still has some swelling. Will give diuretics Subjective Date/time seen: 04/16/21 06:47 Interval history: Breathing got worse after the pacemaker. Dr. Castano gave her diuretics. Now she is better but still short of breath. No chest pain. Pacemaker pocket is a little uncomfortable but not bad. Exam Narrative: General: Elderly female in NAD Heart: normal S1 and S2; no rub or gallop Lungs: soem bibasilar crackles noted Abdomen: soft, nontender, nondistended, positive bowel sounds Extremities: 1+ edema bilaterally Skin: no rash or subQ nodules Objective Data Vital Signs Vital Signs: Vital Signs - 24 hr 04/15/21 08:00 04/15/21 08:17 04/15/21 08:25 Temperature 36.7 C Pulse Rate 44 L 47 L 47 L Respiratory Rate 18 16 16 Blood Pressure 153/51 H Pulse Oximetry 95 95 04/15/21 10:00 04/15/21 11:43 04/15/21 11:53
--- NOTE | 2021-04-16 07:31 | PM.PNCARD ---
Progress Note: A&P Assessment and Plan (1) HTN (hypertension): Qualifiers: Hypertension type: essential hypertension Qualified Code(s): I10 - Essential (primary) hypertension Code(s): I10 - Essential (primary) hypertension Status: Chronic Assessment and Plan: Mildly high. Start Coreg 6.25 mg BID. Hydralazine prn for SBP>160 mmHg. Monitor BP. (2) DM2 (diabetes mellitus, type 2): Qualifiers: Diabetes mellitus retirement insulin use: without retirement use Diabetes mellitus complication status: with other specified complication Qualified Code(s): E11.69 - Type 2 diabetes mellitus with other specified complication Code(s): E11.9 - Type 2 diabetes mellitus without complications Status: Chronic Assessment and Plan: Manage by hospitalist. (3) CKD (chronic kidney disease): Qualifiers: Chronic kidney disease stage: stage 1 Qualified Code(s): N18.1 - Chronic kidney disease, stage 1 Code(s): N18.9 - Chronic kidney disease, unspecified Status: Acute Assessment and Plan: Worsened with Lasix, but she needed it for volume overload. Followed by Dr. Kate. (4) SOB (shortness of breath) on exertion: Code(s): R06.02 - Shortness of breath Status: Acute Assessment and Plan: Due to pneumonia on CT chest and pulm embolism on VQ scan. D-Dimer is elevated. She was covid and flu negative 2 days ago and covid negative again here. On antibiotics and heparin drip. Blood cultures has shown no growth to date. Worsening anemia that stabilized. Discussed with Dr. Kate concern for worsening kidney function if she is exposed to contrast with CTA chest to assess PE. If no PE, then can stop anticoagulation, and would move forward with pacemaker placement. The concern is bleeding into pacemaker pocket perioperatively as would need to anticoagulate her for PE. Discussed with Dr. Raines and due to concern for pocket hematoma with anticoagulation, would rather hold off on anticoagulation post pacemaker implant. Given sob and with orthopnea, will give Lasix 40 mg IV x 1 now. Monitor kidney function. (5) Complete heart block: Code(s): I44.2 - Atrioventricular block, complete Status: Acute Assessment and Plan: Stable BP and asymptomatic at rest. She is symptomatic with very minimal exertion. Received Glucagon 10 mg IV x 1.quality assurance monitor body. Pacer pads on chest in case HR drops further. Hold Metoprolol. TSH is OK. Her HR remained in mid 40's bpm range in heart block. Due to worsening kidney function which precludes obtaining CTA chest to r/o PE definitively, I spoke to Dr. Raines this morning for dual chamber pacemaker implant. Discuss risks/benefits/alternative treatment with patient which includes but not limited to bleeding, infection, perforation, . She is agreeable to it. S/P Biotronik dual chamber pacemaker with rates of 60/130 POD 1. Post op management per Dr. Raines. Upon discharge she will f/u with Dr. Raines in 1 week for incisional wound check, and then f/u with me 3 weeks later. (6) Diastolic dysfunction: Code(s): I51.89 - Other ill-defined heart diseases Status: Acute Assessment and Plan: 12/13/20 Echo: EF 55-60%, grade I diastolic dysfunction (E/e' 26), mild LAE, trace AI/TR, mild MR. 04/08/20 Echo: EF 60-65%, grade I diastolic dysfunction (E/e' 8), mod LAE, mild FREDY, mod (ATIF 1.4 cm2), mod MAC, mild-mod MR/TR, RVSP 54 mmHg. Subjective Date/time seen: 04/16/21 07:31 Reports sob while sitting reclined in bed. No chest pain. Left chest pacemaker pocket incision is bandaged. Exam Const: General: cooperative, healthy appearing and comfortable Nutritional Appearance: obese Resp: Auscultation: clear to auscultation bilaterally, crackles (slight crackles at bases), no rhonchi and no wheezes Cardio: Jugular venous distension: no JVD Rate: bradycardic Rhythm: abnormal rhythm Heart sound
[2021-04-16 08:07] LABS: Glucose Point of Care 149 mg/dl (65-105)
--- NOTE | 2021-04-16 08:16 | PM.IMPN ---
Progress Note: A&P Assessment and Plan (1) Acute respiratory failure: Code(s): J96.00 - Acute respiratory failure, unspecified whether with hypoxia or hypercapnia Status: Acute Assessment and Plan: Patient developed acute respiratory failure on 04/12 felt related to fluid overload. IV fluids stopped and Lasix once given. Her symptoms improved and had good UOP but unfortunately, her renal function worsened. Called again to the room for acute respiratory failure on 04/15 and received Lasix 40mg IV once with good response. CXR not showing any PTX but mild pulmonary congestion. ABG 7.38/ on 2L. Better overall today with continued diuretics and negative fluid balance. Follow. (2) Third degree heart block: Code(s): I44.2 - Atrioventricular block, complete Status: Acute Assessment and Plan: Patient presents with SOB with EKG showing CHB. She was on metoprolol and this was stopped. She continued to be in CHB. Echo with EF 60-65%, Grade I diastolic dysfunction and moderate . Echo also showing moderate pulmonary hypertension (54 mmHg). TSH normal. Heparin held and PM placed She toelrated this procedure well. Appreciate Cardiology input. (3) Suspected pulmonary embolism: Code(s): R09.89 - Other specified symptoms and signs involving the circulatory and respiratory systems Status: Acute Assessment and Plan: Patient presents with SOB. DDimer 3.3. COVID negative. CT chest without contrast as mentioned below. Perfusion scan showing small-moderate perfusion abnormality of the left upper lung posteriorly so she was started on Heparin drip. Unable to do CTA chest due to elevated creatinine. Lower extremity Dopplers are negative for DVT. Patient was on heparin infusion but held due to PM placement. Resume Heparin drip when okay with Cardiology. Check CTA when renal function improves. (4) Acute renal failure: Qualifiers: Acute renal failure type: unspecified Qualified Code(s): N17.9 - Acute kidney failure, unspecified Code(s): N17.9 - Acute kidney failure, unspecified Status: Acute Assessment and Plan: Possibly related to decreased perfusion due ot 3rd degree AV block. Creatinine climbed to 2.3 befor improvinig to 1.7. Creatinine worsened to 2.9 but better today with good UOP. Started on Bumex IV. Follow. Appreciate nephrology input. (5) Stage 3a chronic kidney disease: Code(s): N18.31 - Chronic kidney disease, stage 3a Status: Chronic Assessment and Plan: Patient has underlying CKD. Baseline Cr 0.8-1.2 over the past year. As above (6) Pneumonia: Qualifiers: Laterality: unspecified laterality Lung location: unspecified part of lung Pneumonia type: due to unspecified organism Qualified Code(s): J18.9 - Pneumonia, unspecified organism Code(s): J18.9 - Pneumonia, unspecified organism Status: Acute Assessment and Plan: Patient presents with SOB. CT chest without contrast 04/07 showing scattered reticulonodular densities with superimposed ground glass opacification scattered bilaterally, consistent with pneumonia. No fevers but WBC was up to 15K. She was initially given Rocephin but switched to Zosyn on admission. Atypical coverage with azithromycin added but this can prolong the QT so this was stopped. MRSA nasal swab negative. BCx and Sputum cx negative. She completed a course of abx. (7) Anemia: Qualifiers: Anemia type: unspecified type Qualified Code(s): D64.9 - Anemia, unspecified Code(s): D64.9 - Anemia, unspecified Status: Acute Assessment and Plan: Hgb 10-11 last year and was 11 on admission. She was on a Heparin drip. Hgb trended down to 7.8. Suspect related to fluid overload. No evidence of acute blood loss. Iron studies, B12, folate levels normal. Hgb improved to 9 range. Follow. (8) Diastolic dysfunction: Code(s): I51.89 - Other ill-defined heart
--- NOTE | 2021-04-16 08:43 | PM.PNCARD ---
Progress Note: A&P Assessment and Plan (1) Complete heart block: Code(s): I44.2 - Atrioventricular block, complete Status: Acute Assessment and Plan: S/p Biotronik dual chamber PPM. Chest xray stable this a.m., no pneumothorax. She does not have and bleeding, hematoma, or pain at the incision site. Experiencing some mild tenderness with palpation. Surgical dressing clean, dry, and intact. Will schedule wound check in our office in one week then subsequent follow up will be with Dr. Flores. We will sign off for now. Please do not hesitate to contact us if we can be of assistance in the care of this patient in any way. (2) Congestive heart failure: Code(s): I50.9 - Heart failure, unspecified Status: Acute Additional Plan She is short of breath and has evidence of volume overload on exam. Will defer management of this to her greek professor, Dr. Flores. Subjective Date/time seen: 04/16/21 08:43 Interval history: 75yo female with DM and HTN here for shortness of breath as well as diarrhea. EKG on admission showing CHB now s/p dual chamber PPM placement yesterday. Follow up visit 04/16/2021: Feels okay today, complaining of feeling short of breath. No concerns regarding her pacemaker implantation site, not having any pain. She remains in the sling. Review of Systems Review of Systems: All systems reviewed & are unremarkable except as noted in HPI and below Exam Const: General: comfortable, no acute distress, alert and awake HENMT: Head: normal to inspection Ears: hearing grossly normal bilaterally Eyes: General: appearance normal, both eyes and all related structures Chest: Other: Left upper chest pacemaker pocket site covered with surgical dressing. Dressing clean, dry, intact. No hematoma. Resp: Effort & Inspection: not able to speak in complete sentences and tachypneic (mildly tachypneic ) Auscultation: not clear to auscultation bilaterally and rales (1/[address] bilaterally ) Cardio: Rate: tachycardic Rhythm: regular rhythm Heart sounds: no murmurs GI: Auscultation: normal bowel sounds Skin: General skin exam: normal color Neuro: General: patient oriented x3 Extrem: General: edema and pedal edema Psych: Appearance: grossly normal Mental Status: mental status grossly normal Objective Data Vital Signs Vital Signs: Vital Signs - 24 hr 04/15/21 10:00 04/15/21 11:43 04/15/21 11:53 Temperature 36.5 C Pulse Rate 46 L 116 H 112 H Respiratory Rate 28 H 25 H Blood Pressure 178/121 H 172/91 H Pulse Oximetry 94 95 04/15/21 12:05 04/15/21 12:16 04/15/21 13:00 Temperature Pulse Rate 109 H 109 H 100 Respiratory Rate 26 H 24 H 16 Blood Pressure 171/100 H 150/112 H Pulse Oximetry 95 95 04/15/21 13:08 04/15/21 13:09 04/15/21 14:00 Temperature 37.0 C Pulse Rate 101 H 72 80 Respiratory Rate 16 20 Blood Pressure 134/65 Pulse Oximetry 100 04/15/21 16:00 04/15/21 17:09 04/15/21 18:00 Temperature 36.9 C Pulse Rate 105 H 69 117 H Respiratory Rate 20 Blood Pressure 137/63 Pulse Oximetry 100 100 04/15/21 19:54 04/15/21 19:56 04/15/21 20:00 Temperature 36.7 C Pulse Rate 87 87 111 H Respiratory Rate 18 18 22 H Blood Pressure 149/70 H Pulse Oximetry 99 100 04/15/21 20:08 04/15/21 22:00 04/15/21 23:32 Temperature 36.5 C Pulse Rate 89 110 H 109 H Respiratory Rate 20 20 Blood Pressure 149/78 H Pulse Oximetry 100 04/16/21 00:00 04/16/21 02:00 04/16/21 02:07 Temperature Pulse Rate 108 H 110 H 89 Respiratory Rate 18 19 Blood Pressure Pulse Oximetry 100 04/16/21 04:00 04/16/21 06:00 04/16/21 08:00 Temperature 36.6 C 36.7 C Pulse Rate 107 H 109 H 111 H Respiratory Rate 20 32 H Blood Pressure 160/80 H 137/91 H Pulse Oximetry 99 100 04/16/21 08:11 Temperature Pulse Rate 82 Respiratory Rate 18 Blood Pressure Pulse Oximetry 99 Intake/Output Intake/Output: Intake & Output 03/24
[2021-04-16] MEDS: FERROUS SULFATE 324 MG TABLET PO (09:00)
[2021-04-16] MEDS: CALCIUM CARBONATE (TUMS) 500 MG (200 MG ELEMENTAL) PO (09:00)
[2021-04-16] MEDS: metOLazone 5 MG TABLET PO (09:00)
[2021-04-16] MEDS: carvediloL 6.25 MG TABLET PO ×2 (09:01→20:33)
[2021-04-16] MEDS: BUMETANIDE INJ 2.5 MG/10 ML VIAL 2 MG IV PUSH ×2 (09:01→17:55)
[2021-04-16] MEDS: FAMOTIDINE 20 MG TABLET PO ×2 (09:01→20:33)
[2021-04-16] MEDS: OMEGA 3 POLYUNSAT FATTY ACIDS 1 GM CAP PO ×4 (09:02→20:33)
[2021-04-16] MEDS: calcium polycarbophiL 625 MG TABLET PO (13:21)
[2021-04-16] MEDS: CYANOCOBALAMIN 1,000 MCG TABLET 1000 MCG PO (13:21)
[2021-04-16] MEDS: CHOLECALCIFEROL 1,000 UNITS TABLET 1000 UNITS PO (13:22)
[2021-04-16] MEDS: VITAMIN B COMPLEX CAPSULE 1 CAP PO (13:22)
[2021-04-16 13:34] LABS: Glucose Point of Care 166 mg/dl (65-105)
[2021-04-16 15:47] LABS: Glucose Point of Care 174 mg/dl (65-105)
[2021-04-16] MEDS: FOLIC ACID 1 MG TABLET PO (17:56)
[2021-04-16 20:57] LABS: Glucose Point of Care 159 mg/dl (65-105)
[2021-04-16 23:39] LABS: Legionella pneumophila Ag Ur Not Detected (Not Detected)
[2021-04-17] VITALS (19 sets, daily range): BP systolic 127–157; BP diastolic 58–89; PULSE 83–104; RESP 18–20; TEMP 36.1–36.8; O2SAT 97–100
[2021-04-17] MEDS: IPRATROPIUM BR 0.02% INH SOLN 0.5 MG/2.5 ML VIAL INHALATION ×4 (01:41→19:28)
[2021-04-17] MEDS: ALBUTEROL SULFATE NEB 2.5 MG/0.5 ML INH 5 MG INHALATION ×4 (01:41→19:28)
[2021-04-17 05:19] LABS: Basophils Absolute Auto 0.1 K/mm3 (0.0-0.1); Basophils Percent Auto 0.6 % (0.2-1.2); Eosinophils Absolute Auto 0.1 K/mm3 (0-0.3); Eosinophils Percent Auto 1.3 % (0-4.4); Hematocrit 28.1 % (37.0-47.0); Hemoglobin 8.8 g/dL (12.0-15.0); Immature Granulocyte Absolute 0.07 K/mm3 (0.00-0.031); Immature Granulocyte Percent A 0.7 % (0-0.5); Lymphocytes Absolute Auto 1.48 K/mm3 (0.9-3.2); Lymphocytes Percent Auto 15.3 % (18.3-44.2); Mean Corpuscular HGB Conc 31.3 g/dl (32-36); Mean Corpuscular Hemoglobin 30.3 pg (26-34); Mean Corpuscular Volume 96.9 fl (80-100); Mean Platelet Volume 9.8 fl (7.4-10.4); Monocytes Absolute Auto 0.8 K/mm3 (0.1-0.6); Monocytes Percent Auto 8.2 % (2.6-8.5); Neutrophils Absolute Auto 7.1 K/mm3 (1.3-6.7); Neutrophils Percent Auto 73.9 % (45.5-73.1); Nucleated Red Blood Cells Perc 0.2 % (0.0-0.2); Platelet Count Result 160 k/mm3 (150-375); White Blood Count 9.7 K/mm3 (4.5-10.0)
[2021-04-17 05:44] LABS: Alanine Aminotransferase 17 U/L (4-35); Albumin Level 3.7 g/dL (3.5-5.1); Alkaline Phosphatase 52 U/L (38-126); Anion Gap 12 mmol/L (8-16); Aspartate Amino Transferase 30 U/L (14-36); Bilirubin,Total 0.6 mg/dL (0.2-1.3); Blood Urea Nitrogen 44 mg/dL (7-17); Calcium 7.3 mg/dL (8.4-10.2); Carbon Dioxide 22 mmol/L (22-30); Chloride 107 mmol/L (98-107); Estimated CRCL calculation 28 ml/min; Estimated Glomerular Filt Rate 26; Glucose 150 mg/dL (65-110); Magnesium 1.7 mg/dL (1.6-2.3); Phosphorus 5.9 mg/dL (2.5-4.5); Potassium 3.2 mmol/L (3.4-5.0); Sodium 141 mmol/L (137-145)
[2021-04-17] MEDS: LEVOTHYROXINE SODIUM 112 MCG TABLET PO (06:46)
--- NOTE | 2021-04-17 07:45 | PM.PNCARD ---
Progress Note: A&P Assessment and Plan (1) HTN (hypertension): Qualifiers: Hypertension type: essential hypertension Qualified Code(s): I10 - Essential (primary) hypertension Code(s): I10 - Essential (primary) hypertension Status: Chronic Assessment and Plan: Stable. On Coreg 6.25 mg BID. Hydralazine prn for SBP>160 mmHg. Monitor BP. (2) DM2 (diabetes mellitus, type 2): Qualifiers: Diabetes mellitus poison information specialist insulin use: without poison information specialist use Diabetes mellitus complication status: with other specified complication Qualified Code(s): E11.69 - Type 2 diabetes mellitus with other specified complication Code(s): E11.9 - Type 2 diabetes mellitus without complications Status: Chronic Assessment and Plan: Manage by hospitalist. (3) CKD (chronic kidney disease): Qualifiers: Chronic kidney disease stage: stage 1 Qualified Code(s): N18.1 - Chronic kidney disease, stage 1 Code(s): N18.9 - Chronic kidney disease, unspecified Status: Acute Assessment and Plan: Improving with Bumetanide and after pacemaker implant. Followed by Dr. Kate. (4) SOB (shortness of breath) on exertion: Code(s): R06.02 - Shortness of breath Status: Acute Assessment and Plan: Also due to volume overload from acute on chronic diastolic heart failure. Due to pneumonia on CT chest and pulm embolism on VQ scan. D-Dimer is elevated. She was covid and flu negative 2 days ago and covid negative again here. On antibiotics and heparin drip. Blood cultures has shown no growth to date. Worsening anemia that stabilized. Discussed with Dr. Kate concern for worsening kidney function if she is exposed to contrast with CTA chest to assess PE. If no PE, then can stop anticoagulation, and would move forward with pacemaker placement. The concern is bleeding into pacemaker pocket perioperatively as would need to anticoagulate her for PE. Discussed with Dr. Raines and due to concern for pocket hematoma with anticoagulation, would rather hold off on anticoagulation post pacemaker implant. On Bumetanide 2 mg IV BID now, normally on Lasix 40 mg PO alternating with 80 mg daily at home. Monitor kidney function. Consider CTA to assess PE once Cr is back to baseline at Cr 1.1. (5) Complete heart block: Code(s): I44.2 - Atrioventricular block, complete Status: Acute Assessment and Plan: Stable BP and asymptomatic at rest. She is symptomatic with very minimal exertion. Received Glucagon 10 mg IV x 1.compliance monitor. Pacer pads on chest in case HR drops further. Hold Metoprolol. TSH is OK. Her HR remained in mid 40's bpm range in heart block. Due to worsening kidney function which precludes obtaining CTA chest to r/o PE definitively, I spoke to Dr. Raines this morning for dual chamber pacemaker implant. Discuss risks/benefits/alternative treatment with patient which includes but not limited to bleeding, infection, perforation, . She is agreeable to it. S/P Biotronik dual chamber pacemaker with rates of 60/130 POD 2. Post op management per Dr. Raines. Upon discharge she will f/u with Dr. Raines in 1 week for incisional wound check, and then f/u with me 3 weeks later. (6) Diastolic dysfunction: Code(s): I51.89 - Other ill-defined heart diseases Status: Acute Assessment and Plan: 12/13/20 Echo: EF 55-60%, grade I diastolic dysfunction (E/e' 26), mild LAE, trace AI/TR, mild MR. 04/08/20 Echo: EF 60-65%, grade I diastolic dysfunction (E/e' 8), mod LAE, mild FREDY, mod (ATIF 1.4 cm2), mod MAC, mild-mod MR/TR, RVSP 54 mmHg. Subjective Date/time seen: 04/17/21 07:45 Denies chest pain. She has some back pain and would like to be able to sit up in chair. Breathing is better than yesterday, has some sob. Exam Const: General: cooperative, healthy appearing and comfortable Nutritional Appearance: obese Resp: Auscultation: clear
[2021-04-17 10:09] LABS: Glucose Point of Care 142 mg/dl (65-105)
[2021-04-17] MEDS: MAGNESIUM SULF 2 GM/WATER 50ML 2 GM/50 ML BAG IVPB (10:18)
[2021-04-17] MEDS: carvediloL 6.25 MG TABLET PO ×2 (10:19→22:28)
[2021-04-17] MEDS: FAMOTIDINE 20 MG TABLET PO ×2 (10:19→22:28)
[2021-04-17] MEDS: OMEGA 3 POLYUNSAT FATTY ACIDS 1 GM CAP PO ×4 (10:19→22:28)
[2021-04-17] MEDS: BUMETANIDE INJ 2.5 MG/10 ML VIAL 2 MG IV PUSH ×2 (10:19→17:39)
[2021-04-17] MEDS: CALCIUM CARBONATE (TUMS) 500 MG (200 MG ELEMENTAL) PO (10:19)
[2021-04-17] MEDS: FERROUS SULFATE 324 MG TABLET PO (10:20)
--- NOTE | 2021-04-17 12:25 | PM.IMPN ---
Progress Note: A&P Assessment and Plan (1) Acute respiratory failure: Code(s): J96.00 - Acute respiratory failure, unspecified whether with hypoxia or hypercapnia Status: Acute Assessment and Plan: Patient developed acute respiratory failure on 04/12 felt related to fluid overload. IV fluids stopped and Lasix once given. Her symptoms improved and had good UOP but unfortunately, her renal function worsened. Called again to the room for acute respiratory failure on 04/15 and received Lasix 40mg IV once with good response. CXR showing again mild pulmonary congestion. ABG 7.38 on 2L. Started on Bumex with good UOP and continued improvement in her respiratory symptoms. She has been weaned to room air. (2) Third degree heart block: Code(s): I44.2 - Atrioventricular block, complete Status: Acute Assessment and Plan: Patient presents with SOB with EKG showing CHB. She was on metoprolol and this was stopped. She continued to be in CHB. Echo with EF 60-65%, Grade I diastolic dysfunction and moderate . Echo also showing moderate pulmonary hypertension (54 mmHg). TSH normal. Heparin held and PM placed 04/15. She tolerated this procedure well. Appreciate Cardiology input. Check apnea link. (3) Suspected pulmonary embolism: Code(s): R09.89 - Other specified symptoms and signs involving the circulatory and respiratory systems Status: Acute Assessment and Plan: Patient presents with SOB. DDimer 3.3. COVID negative. CT chest without contrast as mentioned below. Perfusion scan showing small-moderate perfusion abnormality of the left upper lung posteriorly so she was started on Heparin drip. Unable to do CTA Chest due to elevated creatinine. Lower extremity Dopplers are negative for DVT. Patient was on heparin infusion but held due to PM placement. No plans to resume Heparin drip per Cardiology. Check CTA when renal function improves. SCDs for DVT prophylaxis. (4) Acute renal failure: Qualifiers: Acute renal failure type: unspecified Qualified Code(s): N17.9 - Acute kidney failure, unspecified Code(s): N17.9 - Acute kidney failure, unspecified Status: Acute Assessment and Plan: Possibly related to decreased perfusion due to 3rd degree AV block. Creatinine climbed to 2.9 but has been improving daily since PM placement with good UOP. Cr down to 1.9 today. Continue Bumex IV. Follow. Appreciate nephrology input. Okay to remove Elin (5) Stage 3a chronic kidney disease: Code(s): N18.31 - Chronic kidney disease, stage 3a Status: Chronic Assessment and Plan: Patient has underlying CKD. Baseline Cr 0.8-1.2 over the past year. As above (6) Pneumonia: Qualifiers: Laterality: unspecified laterality Lung location: unspecified part of lung Pneumonia type: due to unspecified organism Qualified Code(s): J18.9 - Pneumonia, unspecified organism Code(s): J18.9 - Pneumonia, unspecified organism Status: Acute Assessment and Plan: Patient presents with SOB. CT chest without contrast 04/07 showing scattered reticulonodular densities with superimposed ground glass opacification scattered bilaterally, consistent with pneumonia. No fevers but WBC was up to 15K. She was initially given Rocephin but switched to Zosyn on admission. Atypical coverage with azithromycin added but this can prolong the QT so this was stopped. MRSA nasal swab negative. BCx and Sputum cx negative. She completed a course of abx. Repeat CXR tomorrow (7) Anemia: Qualifiers: Anemia type: unspecified type Qualified Code(s): D64.9 - Anemia, unspecified Code(s): D64.9 - Anemia, unspecified Status: Acute Assessment and Plan: Hgb 10-11 last year and was 11 on admission. She was on a Heparin drip. Hgb trended down to 7.8. Suspect related to fluid overload. No evidence of acute blood loss. Iron studies, B12, folate levels normal.
[2021-04-17 12:36] LABS: Glucose Point of Care 175 mg/dl (65-105)
--- NOTE | 2021-04-17 13:10 | P.PNNP_ITS ---
Progress Note: A&P Assessment and Plan (1) Acute renal failure: Qualifiers: Acute renal failure type: unspecified Qualified Code(s): N17.9 - Acute kidney failure, unspecified Code(s): N17.9 - Acute kidney failure, unspecified Status: Acute Assessment and Plan: * creatinine elevated above baseline on admission * evaluation to date reveals: * unremarkable renal U/S * prerenal urine electrolytes * normal CPK * creatinine has continued to drop. Now down to 1.9. * Urine output is much better after the diuretics. * Will continue diuretics. (2) Stage 3a chronic kidney disease: Code(s): N18.31 - Chronic kidney disease, stage 3a Status: Chronic Assessment and Plan: * Baseline creatinine runs ~ 0.8 - 1.3mg/dl * likely due to diabetes and hypertension (3) Suspected pulmonary embolism: Code(s): R09.89 - Other specified symptoms and signs involving the circulatory and respiratory systems Status: Acute Assessment and Plan: * on a heparin drip * CTA of chest on hold given renal dysfunction * Hopefully renal function will improve and we can get the CTA down the line. (4) Third degree heart block: Code(s): I44.2 - Atrioventricular block, complete Status: Acute Assessment and Plan: * needs pacemaker - tentatively on schedule for tomorrow (04/15/20) * Cardiology following (5) Pneumonia: Qualifiers: Laterality: unspecified laterality Lung location: unspecified part of lung Pneumonia type: due to unspecified organism Qualified Code(s): J18.9 - Pneumonia, unspecified organism Code(s): J18.9 - Pneumonia, unspecified organism Status: Acute Assessment and Plan: * Cultures negative. * on Zosyn (6) HTN (hypertension): Qualifiers: Hypertension type: essential hypertension Qualified Code(s): I10 - Essential (primary) hypertension Code(s): I10 - Essential (primary) hypertension Status: Chronic Assessment and Plan: * Systolic running 130-150. * Continue diuretic (7) DM2 (diabetes mellitus, type 2): Qualifiers: Diabetes mellitus terminal operator insulin use: without intermediate use Diabetes mellitus complication status: with other specified complication Qualified Code(s): E11.69 - Type 2 diabetes mellitus with other specified complication Code(s): E11.9 - Type 2 diabetes mellitus without complications Status: Chronic Assessment and Plan: * follow Accu-Cheks * on SSI Will continue to follow. (8) Shortness of breath: Code(s): R06.02 - Shortness of breath Status: Acute Assessment and Plan: She looks a little better today than she did yesterday morning and certainly better than yesterday afternoon. She still has some swelling. Will give diuretics Subjective Date/time seen: 04/17/21 13:10 Interval history: patient sitting up in a chair. She is comfortable without any dyspnea. No chest pain. Pacemaker pocket is a little uncomfortable but not bad. Exam Narrative: General: Elderly female in NAD Heart: normal S1 and S2; no rub or gallop Lungs: Rare by basilar crackles Abdomen: soft, nontender, nondistended, positive bowel sounds Extremities: 1+ edema bilaterally Skin: no rash Objective Data Vital Signs Vital Signs: Vital Signs - 24 hr 04/16/21 13:43 04/16/21 13:50 04/16/21 14:0
--- NOTE | 2021-04-17 13:10 | PM.PNNEP ---
Progress Note: A&P Assessment and Plan (1) Acute renal failure: Qualifiers: Acute renal failure type: unspecified Qualified Code(s): N17.9 - Acute kidney failure, unspecified Code(s): N17.9 - Acute kidney failure, unspecified Status: Acute Assessment and Plan: creatinine elevated above baseline on admission evaluation to date reveals: unremarkable renal U/S prerenal urine electrolytes normal CPK creatinine has continued to drop. Now down to 1.9. Urine output is much better after the diuretics. Will continue diuretics. (2) Stage 3a chronic kidney disease: Code(s): N18.31 - Chronic kidney disease, stage 3a Status: Chronic Assessment and Plan: Baseline creatinine runs ~ 0.8 - 1.3mg/dl likely due to diabetes and hypertension (3) Suspected pulmonary embolism: Code(s): R09.89 - Other specified symptoms and signs involving the circulatory and respiratory systems Status: Acute Assessment and Plan: on a heparin drip CTA of chest on hold given renal dysfunction Hopefully renal function will improve and we can get the CTA down the line. (4) Third degree heart block: Code(s): I44.2 - Atrioventricular block, complete Status: Acute Assessment and Plan: needs pacemaker - tentatively on schedule for tomorrow (04/15/20) Cardiology following (5) Pneumonia: Qualifiers: Laterality: unspecified laterality Lung location: unspecified part of lung Pneumonia type: due to unspecified organism Qualified Code(s): J18.9 - Pneumonia, unspecified organism Code(s): J18.9 - Pneumonia, unspecified organism Status: Acute Assessment and Plan: Cultures negative. on Zosyn (6) HTN (hypertension): Qualifiers: Hypertension type: essential hypertension Qualified Code(s): I10 - Essential (primary) hypertension Code(s): I10 - Essential (primary) hypertension Status: Chronic Assessment and Plan: Systolic running 130-150. Continue diuretic (7) DM2 (diabetes mellitus, type 2): Qualifiers: Diabetes mellitus tank terminal gauger insulin use: without tank terminal gauger use Diabetes mellitus complication status: with other specified complication Qualified Code(s): E11.69 - Type 2 diabetes mellitus with other specified complication Code(s): E11.9 - Type 2 diabetes mellitus without complications Status: Chronic Assessment and Plan: follow Accu-Cheks on SSI Will continue to follow. (8) Shortness of breath: Code(s): R06.02 - Shortness of breath Status: Acute Assessment and Plan: She looks a little better today than she did yesterday morning and certainly better than yesterday afternoon. She still has some swelling. Will give diuretics Subjective Date/time seen: 04/17/21 13:10 Interval history: patient sitting up in a chair. She is comfortable without any dyspnea. No chest pain. Pacemaker pocket is a little uncomfortable but not bad. Exam Narrative: General: Elderly female in NAD Heart: normal S1 and S2; no rub or gallop Lungs: Rare by basilar crackles Abdomen: soft, nontender, nondistended, positive bowel sounds Extremities: 1+ edema bilaterally Skin: no rash Objective Data Vital Signs Vital Signs: Vital Signs - 24 hr 04/16/21 13:43 04/16/21 13:50 04/16/21 14:00 Temperature Pulse Rate 82 85 102 H Respiratory Rate 18 19 Blood Pressure Pulse Oximetry 04/16/21 15:56 04/16/21 16:00 04/16/21 18:00 Temperature 36.6 C Pulse Rate 110 H 102 H 101 H Respiratory Rate 28 H Blood Pressure 139/84 Pulse Oximetry 96 04/16/21 20:00 04/16/21 20:50 04/16/21 20:56 Temperature 36.5 C Pulse Rate 120 H 103 H 100 Respiratory Rate 20 18 18 Blood Pressure 154/82 H Pulse Oximetry 99 99 04/16/21 22:00 04/17/21 00:00 04/17/21 01:44 Temperature 36.6 C Pulse Rate 99 93 97
[2021-04-17] MEDS: VITAMIN B COMPLEX CAPSULE 1 CAP PO (13:16)
[2021-04-17] MEDS: CHOLECALCIFEROL 1,000 UNITS TABLET 1000 UNITS PO (13:17)
[2021-04-17] MEDS: POTASSIUM CHLORIDE 20 MEQ TABLET 40 MEQ PO (13:17)
[2021-04-17] MEDS: CYANOCOBALAMIN 1,000 MCG TABLET 1000 MCG PO (13:17)
[2021-04-17] MEDS: calcium polycarbophiL 625 MG TABLET PO (13:17)
[2021-04-17] MEDS: FOLIC ACID 1 MG TABLET PO (17:39)
[2021-04-17] MEDS: metOLazone 5 MG TABLET PO (17:39)
[2021-04-17 19:13] LABS: Glucose Point of Care 167 mg/dl (65-105)
[2021-04-17 20:10] LABS: Glucose Point of Care 219 mg/dl (65-105)
--- NOTE | 2021-04-17 22:54 | PCRCNOTE ---
An ApneaLink was ordered on Ms. Contreras. She recently had a pacemaker implanted and has some tenderness in the area, so was somewhat concerned with the strap being put around her chest, but she did agree to try the study. However, the pt is not yet in bed and will not be going to bed until she gets moved to her new room (moving from U to 2M). At that time, it will be too late to perform the study tonight. Study will be attempted again tomorrow.
[2021-04-18] VITALS (16 sets, daily range): BP systolic 123–142; BP diastolic 58–71; PULSE 74–99; RESP 14–20; TEMP 36.1–36.8; O2SAT 97–99
--- NOTE | 2021-04-18 01:34 | PC.NURSE ---
This patient, Desirae Contreras, was transferred to [facility] on 04/17/21 at 2330. Personal belongings sent with patient. Report given to Faraz JACOBS. Appropriate documentation sent with patient.
[2021-04-18] MEDS: IPRATROPIUM BR 0.02% INH SOLN 0.5 MG/2.5 ML VIAL INHALATION ×3 (01:44→14:21)
[2021-04-18] MEDS: ALBUTEROL SULFATE NEB 2.5 MG/0.5 ML INH 5 MG INHALATION ×3 (01:44→14:21)
[2021-04-18 06:37] LABS: Basophils Absolute Auto 0.1 K/mm3 (0.0-0.1); Basophils Percent Auto 0.6 % (0.2-1.2); Eosinophils Absolute Auto 0.2 K/mm3 (0-0.3); Eosinophils Percent Auto 2.4 % (0-4.4); Hemoglobin 9.5 g/dL (12.0-15.0); Immature Granulocyte Absolute 0.04 K/mm3 (0.00-0.031); Immature Granulocyte Percent A 0.4 % (0-0.5); Lymphocytes Absolute Auto 1.87 K/mm3 (0.9-3.2); Lymphocytes Percent Auto 18.9 % (18.3-44.2); Mean Corpuscular HGB Conc 31.7 g/dl (32-36); Mean Corpuscular Hemoglobin 30.6 pg (26-34); Mean Corpuscular Volume 96.8 fl (80-100); Mean Platelet Volume 9.9 fl (7.4-10.4); Monocytes Absolute Auto 0.8 K/mm3 (0.1-0.6); Monocytes Percent Auto 8.2 % (2.6-8.5); Neutrophils Absolute Auto 6.9 K/mm3 (1.3-6.7); Neutrophils Percent Auto 69.5 % (45.5-73.1); Nucleated Red Blood Cells Perc 0.2 % (0.0-0.2); Platelet Count Result 170 k/mm3 (150-375); Red Cell Distribution Width 14.2 % (11.5-14.5); White Blood Count 9.9 K/mm3 (4.5-10.0)
[2021-04-18] MEDS: LEVOTHYROXINE SODIUM 112 MCG TABLET PO (06:53)
[2021-04-18 06:57] LABS: Albumin Level 3.7 g/dL (3.5-5.1); Anion Gap 12 mmol/L (8-16); Blood Urea Nitrogen 44 mg/dL (7-17); Calcium 7.6 mg/dL (8.4-10.2); Carbon Dioxide 25 mmol/L (22-30); Chloride 104 mmol/L (98-107); Estimated CRCL calculation 29 ml/min; Estimated Glomerular Filt Rate 28; Glucose 153 mg/dL (65-110); Potassium 3.2 mmol/L (3.4-5.0); Sodium 141 mmol/L (137-145)
[2021-04-18 06:59] LABS: Magnesium 1.9 mg/dL (1.6-2.3)
[2021-04-18 07:53] LABS: Glucose Point of Care 146 mg/dl (65-105)
--- NOTE | 2021-04-18 08:23 | PM.PNCARD ---
Progress Note: A&P Assessment and Plan (1) HTN (hypertension): Qualifiers: Hypertension type: essential hypertension Qualified Code(s): I10 - Essential (primary) hypertension Code(s): I10 - Essential (primary) hypertension Status: Chronic Assessment and Plan: Stable. On Coreg 6.25 mg BID. Hydralazine prn for SBP>160 mmHg. Monitor BP. (2) DM2 (diabetes mellitus, type 2): Qualifiers: Diabetes mellitus manager terminal insulin use: without manager terminal use Diabetes mellitus complication status: with other specified complication Qualified Code(s): E11.69 - Type 2 diabetes mellitus with other specified complication Code(s): E11.9 - Type 2 diabetes mellitus without complications Status: Chronic Assessment and Plan: Manage by hospitalist. (3) CKD (chronic kidney disease): Qualifiers: Chronic kidney disease stage: stage 1 Qualified Code(s): N18.1 - Chronic kidney disease, stage 1 Code(s): N18.9 - Chronic kidney disease, unspecified Status: Acute Assessment and Plan: Improving with Bumetanide and after pacemaker implant. Followed by Dr. Kate. (4) SOB (shortness of breath) on exertion: Code(s): R06.02 - Shortness of breath Status: Acute Assessment and Plan: Also due to volume overload from acute on chronic diastolic heart failure. Due to pneumonia on CT chest and pulm embolism on VQ scan. D-Dimer is elevated. She was covid and flu negative 2 days ago and covid negative again here. On antibiotics and heparin drip. Blood cultures has shown no growth to date. Worsening anemia that stabilized. Discussed with Dr. Kate concern for worsening kidney function if she is exposed to contrast with CTA chest to assess PE. If no PE, then can stop anticoagulation, and would move forward with pacemaker placement. The concern is bleeding into pacemaker pocket perioperatively as would need to anticoagulate her for PE. Discussed with Dr. aRines and due to concern for pocket hematoma with anticoagulation, would rather hold off on anticoagulation post pacemaker implant. On Bumetanide 2 mg IV BID now, normally on Lasix 40 mg PO alternating with 80 mg daily at home. Monitor kidney function and electrolytes. Replete potassium. Consider CTA to assess PE once Cr is back to baseline at Cr 1.1. (5) Complete heart block: Code(s): I44.2 - Atrioventricular block, complete Status: Acute Assessment and Plan: Stable BP and asymptomatic at rest. She is symptomatic with very minimal exertion. 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 Pacer pads on chest in case HR drops further. Hold Metoprolol. TSH is OK. Her HR remained in mid 40's bpm range in heart block. Due to worsening kidney function which precludes obtaining CTA chest to r/o PE definitively, I spoke to Dr. Raines this morning for dual chamber pacemaker implant. Discuss risks/benefits/alternative treatment with patient which includes but not limited to bleeding, infection, perforation, . She is agreeable to it. S/P Biotronik dual chamber pacemaker with rates of 60/130 POD 2. Post op management per Dr. Raines. Upon discharge she will f/u with Dr. Raines in 1 week for incisional wound check, and then f/u with me 3 weeks later. (6) Diastolic dysfunction: Code(s): I51.89 - Other ill-defined heart diseases Status: Acute Assessment and Plan: 12/13/20 Echo: EF 55-60%, grade I diastolic dysfunction (E/e' 26), mild LAE, trace AI/TR, mild MR. 04/08/20 Echo: EF 60-65%, grade I diastolic dysfunction (E/e' 8), mod LAE, mild FREDY, mod (ATIF 1.4 cm2), mod MAC, mild-mod MR/TR, RVSP 54 mmHg. Subjective Date/time seen: 04/18/21 08:23 Reports sob with very minimal activity. No chest pains. Exam Const: General: cooperative, healthy appearing and comfortable Nutritional Appearance: obese Resp: Auscultation: clear to auscultation bilaterally, crackles (slight
[2021-04-18] MEDS: OMEGA 3 POLYUNSAT FATTY ACIDS 1 GM CAP PO ×4 (09:31→20:02)
[2021-04-18] MEDS: CALCIUM CARBONATE (TUMS) 500 MG (200 MG ELEMENTAL) PO (09:31)
[2021-04-18] MEDS: FAMOTIDINE 20 MG TABLET PO ×2 (09:32→20:02)
[2021-04-18] MEDS: FERROUS SULFATE 324 MG TABLET PO (09:32)
[2021-04-18] MEDS: carvediloL 6.25 MG TABLET PO ×2 (09:32→20:02)
[2021-04-18] MEDS: BUMETANIDE INJ 2.5 MG/10 ML VIAL 2 MG IV PUSH ×2 (09:34→16:41)
[2021-04-18 11:45] LABS: Glucose Point of Care 179 mg/dl (65-105)
[2021-04-18] MEDS: POTASSIUM CHLORIDE 20 MEQ TABLET 40 MEQ PO (12:09)
[2021-04-18] MEDS: calcium polycarbophiL 625 MG TABLET PO (12:09)
[2021-04-18] MEDS: VITAMIN B COMPLEX CAPSULE 1 CAP PO (12:09)
[2021-04-18] MEDS: CHOLECALCIFEROL 1,000 UNITS TABLET 1000 UNITS PO (12:10)
[2021-04-18] MEDS: CYANOCOBALAMIN 1,000 MCG TABLET 1000 MCG PO (12:10)
--- NOTE | 2021-04-18 13:56 | PM.PNNEP ---
Progress Note: A&P Assessment and Plan (1) Acute renal failure: Qualifiers: Acute renal failure type: unspecified Qualified Code(s): N17.9 - Acute kidney failure, unspecified Code(s): N17.9 - Acute kidney failure, unspecified Status: Acute Assessment and Plan: slow improvement noted at this time evaluation to date reveals: unremarkable renal U/S prerenal urine electrolytes normal CPK creatinine down to 1.8mg/dl urine output is much better after the diuretics continue diuretics (for CHF and shortness of breath) and follow repeat labs (2) Stage 3a chronic kidney disease: Code(s): N18.31 - Chronic kidney disease, stage 3a Status: Chronic Assessment and Plan: baseline creatinine runs ~ 0.8 - 1.3mg/dl likely due to diabetes and hypertension (3) Suspected pulmonary embolism: Code(s): R09.89 - Other specified symptoms and signs involving the circulatory and respiratory systems Status: Acute Assessment and Plan: off heparin drip CTA of chest on hold for now hopefully renal function will improve and we can get the CTA down the line. (4) Third degree heart block: Code(s): I44.2 - Atrioventricular block, complete Status: Acute Assessment and Plan: s/p pacemaker placement on 04/15/21 Cardiology following (5) Pneumonia: Qualifiers: Laterality: unspecified laterality Lung location: unspecified part of lung Pneumonia type: due to unspecified organism Qualified Code(s): J18.9 - Pneumonia, unspecified organism Code(s): J18.9 - Pneumonia, unspecified organism Status: Acute Assessment and Plan: resolved cultures negative completed course of antibiotics (6) HTN (hypertension): Qualifiers: Hypertension type: essential hypertension Qualified Code(s): I10 - Essential (primary) hypertension Code(s): I10 - Essential (primary) hypertension Status: Chronic Assessment and Plan: reasonable control at this time follow trend of hemodynamics diuresis likely helping to stablize (7) DM2 (diabetes mellitus, type 2): Qualifiers: Diabetes mellitus complication status: with other specified complication Diabetes mellitus long term care pharmacist insulin use: without correction use Qualified Code(s): E11.69 - Type 2 diabetes mellitus with other specified complication Code(s): E11.9 - Type 2 diabetes mellitus without complications Status: Chronic Assessment and Plan: follow Accu-Cheks on SSI Will continue to follow. Subjective Date/time seen: 04/18/21 13:56 Chart reviewed - assuming care from Dr. Kate; shortness of breath has improved when she is at rest but still has some dyspnea on exertion; good/reasonable urine output with diuretic therapy; no other issues/events overnight or earlier this morning. Exam Narrative: General: Elderly female in NAD Heart: normal S1 and S2; no rub or gallop Lungs: Rare by basilar crackles Abdomen: soft, nontender, nondistended, positive bowel sounds Extremities: 1+ edema bilaterally Skin: warm and dry Objective Data Vital Signs Vital Signs: Vital Signs Temp Pulse Resp BP Pulse Ox 04/18/21 12:00 82 04/18/21 11:47 36.6 C 74 14 123/58 L 99 04/18/21 09:32 92 04/18/21 09:21 82 20 04/18/21 08:00 95 04/18/21 07:59 36.1 C L 96 14 136/63 99 04/18/21 04:00 36.4 C 88 16 135/62 98 04/18/21 01:50 88 20 04/18/21 01:44 83 20 04/18/21 00:00 79 04/17/21 20:00 36.5 C 89 20 127/58 L 98 04/17/21 19:38 86 18 04/17/21 19:31 93 18 99 04/17/21 18:00 83 Intake/Output Intake/Output: Intake & Output 04/15/21 04/16/21 04/17/21 04/18/21 23:59 23:59 23:59 23:59 Intake Total 220 770 800 540 Output Total 1575 1700 3550 1550 Balance -1355 -930 -2750 -1010 Meds/Results Medications: Active Medications G
--- NOTE | 2021-04-18 13:56 | P.PNNP_ITS ---
Progress Note: A&P Assessment and Plan (1) Acute renal failure: Qualifiers: Acute renal failure type: unspecified Qualified Code(s): N17.9 - Acute kidney failure, unspecified Code(s): N17.9 - Acute kidney failure, unspecified Status: Acute Assessment and Plan: * slow improvement noted at this time * evaluation to date reveals: * unremarkable renal U/S * prerenal urine electrolytes * normal CPK * creatinine down to 1.8mg/dl * urine output is much better after the diuretics * continue diuretics (for CHF and shortness of breath) and follow repeat labs (2) Stage 3a chronic kidney disease: Code(s): N18.31 - Chronic kidney disease, stage 3a Status: Chronic Assessment and Plan: * baseline creatinine runs ~ 0.8 - 1.3mg/dl * likely due to diabetes and hypertension (3) Suspected pulmonary embolism: Code(s): R09.89 - Other specified symptoms and signs involving the circulatory and respiratory systems Status: Acute Assessment and Plan: * off heparin drip * CTA of chest on hold for now * hopefully renal function will improve and we can get the CTA down the line. (4) Third degree heart block: Code(s): I44.2 - Atrioventricular block, complete Status: Acute Assessment and Plan: * s/p pacemaker placement on 04/15/21 * Cardiology following (5) Pneumonia: Qualifiers: Laterality: unspecified laterality Lung location: unspecified part of lung Pneumonia type: due to unspecified organism Qualified Code(s): J18.9 - Pneumonia, unspecified organism Code(s): J18.9 - Pneumonia, unspecified organism Status: Acute Assessment and Plan: * resolved * cultures negative * completed course of antibiotics (6) HTN (hypertension): Qualifiers: Hypertension type: essential hypertension Qualified Code(s): I10 - Essential (primary) hypertension Code(s): I10 - Essential (primary) hypertension Status: Chronic Assessment and Plan: * reasonable control at this time * follow trend of hemodynamics * diuresis likely helping to stablize (7) DM2 (diabetes mellitus, type 2): Qualifiers: Diabetes mellitus complication status: with other specified complication Diabetes mellitus halfway insulin use: without halfway use Qualified Code(s): E11.69 - Type 2 diabetes mellitus with other specified complication Code(s): E11.9 - Type 2 diabetes mellitus without complications Status: Chronic Assessment and Plan: * follow Accu-Cheks * on SSI Will continue to follow. Subjective Date/time seen: 04/18/21 13:56 Chart reviewed - assuming care from Dr. Kate; shortness of breath has improved when she is at rest but still has some dyspnea on exertion; good/reasonable urine output with diuretic therapy; no other issues/events overnight or earlier this morning. Exam Narrative: General: Elderly female in NAD Heart: normal S1 and S2; no rub or gallop Lungs: Rare by basilar crackles Abdomen: soft, nontender, nondistended, positive bowel sounds Extremities: 1+ edema bilaterally Skin: warm and dry Objective Data Vital Signs Vital Signs: Vital Signs Temp Pulse Resp BP Pulse Ox 04/18/21 12:00 82 04/18/21 11:47 36.6 C 74 14 123/58 L 99 04/18/21 09:32 92 04/18/21 09:21 82 20
--- NOTE | 2021-04-18 15:18 | PC.NURSE ---
On 04/18/21, the student, [Max Lawrence], provided care and completed [facility] documentation on this patient. I have reviewed the student's documentation and agree with the findings.
--- NOTE | 2021-04-18 15:55 | PM.IMPN ---
Progress Note: A&P Assessment and Plan (1) Acute respiratory failure: Code(s): J96.00 - Acute respiratory failure, unspecified whether with hypoxia or hypercapnia Status: Acute Assessment and Plan: Patient developed acute respiratory failure on 04/12 felt related to fluid overload. IV fluids stopped and Lasix once given. Her symptoms improved and had good UOP but unfortunately, her renal function worsened. Called again to the room for acute respiratory failure on 04/15 and received Lasix 40mg IV once with good response. CXR showing again mild pulmonary congestion. ABG 7.38/ on 2L. Started on Bumex with good UOP with continued improvement in her respiratory symptoms and Cr trending down. CXR showing mild CHF exacerbation. She has been weaned to room air. Much better overall. Change nebs to prn. (2) Third degree heart block: Code(s): I44.2 - Atrioventricular block, complete Status: Acute Assessment and Plan: Patient presents with SOB with EKG showing CHB. She was on metoprolol and this was stopped. She continued to be in CHB. Echo with EF 60-65%, Grade I diastolic dysfunction and moderate . Echo also showing moderate pulmonary hypertension (54 mmHg). TSH normal. Heparin held and PM placed 04/15. She tolerated this procedure well. Apnea link ordered but not completed. Appreciate Cardiology input. Continue tele. (3) Suspected pulmonary embolism: Code(s): R09.89 - Other specified symptoms and signs involving the circulatory and respiratory systems Status: Acute Assessment and Plan: Patient presents with SOB. DDimer 3.3. COVID negative. CT chest without contrast as mentioned below. Perfusion scan showing small-moderate perfusion abnormality of the left upper lung posteriorly so she was started on Heparin drip. Unable to do CTA Chest due to elevated creatinine. Lower extremity Dopplers are negative for DVT. Patient was on heparin infusion but held due to PM placement. No plans to resume Heparin drip per Cardiology. Check CTA when renal function improves. SCDs for DVT prophylaxis. (4) Acute renal failure: Qualifiers: Acute renal failure type: unspecified Qualified Code(s): N17.9 - Acute kidney failure, unspecified Code(s): N17.9 - Acute kidney failure, unspecified Status: Acute Assessment and Plan: Possibly related to decreased perfusion due to 3rd degree AV block. Creatinine climbed to 2.9 but has been improving daily since PM placement with good UOP. Cr down to 1.8 today. Continue Bumex IV. Follow. Appreciate nephrology input. (5) Stage 3a chronic kidney disease: Code(s): N18.31 - Chronic kidney disease, stage 3a Status: Chronic Assessment and Plan: Patient has underlying CKD. Baseline Cr 0.8-1.2 over the past year. As above (6) Pneumonia: Qualifiers: Laterality: unspecified laterality Lung location: unspecified part of lung Pneumonia type: due to unspecified organism Qualified Code(s): J18.9 - Pneumonia, unspecified organism Code(s): J18.9 - Pneumonia, unspecified organism Status: Acute Assessment and Plan: Patient presents with SOB. CT chest without contrast 04/07 showing scattered reticulonodular densities with superimposed ground glass opacification scattered bilaterally, consistent with pneumonia. No fevers but WBC was up to 15K. She was initially given Rocephin but switched to Zosyn on admission. Atypical coverage with azithromycin added but this can prolong the QT so this was stopped. MRSA nasal swab negative. BCx and Sputum cx negative. She completed a course of abx. Resolved (7) Anemia: Qualifiers: Anemia type: unspecified type Qualified Code(s): D64.9 - Anemia, unspecified Code(s): D64.9 - Anemia, unspecified Status: Acute Assessment and Plan: Hgb 10-11 last year and was 11 on admission. She was on a Heparin drip. Hgb trended down to 7.8. Suspec
[2021-04-18 16:23] LABS: Glucose Point of Care 146 mg/dl (65-105)
[2021-04-18] MEDS: FOLIC ACID 1 MG TABLET PO (16:40)
[2021-04-18 21:29] LABS: Glucose Point of Care 151 mg/dl (65-105)
--- NOTE | 2021-04-18 22:15 | PCRCNOTE ---
apnea study was not completed; pt reported frequent urination due to the use of a diuretic
[2021-04-19] VITALS (13 sets, daily range): BP systolic 117–138; BP diastolic 51–75; PULSE 78–100; RESP 14–20; TEMP 35.8–36.7; O2SAT 96–100
[2021-04-19 06:05] LABS: Anion Gap 10 mmol/L (8-16); Blood Urea Nitrogen 42 mg/dL (7-17); Calcium 7.4 mg/dL (8.4-10.2); Carbon Dioxide 27 mmol/L (22-30); Chloride 103 mmol/L (98-107); Estimated CRCL calculation 31 ml/min; Estimated Glomerular Filt Rate 29; Glucose 139 mg/dL (65-110); Potassium 3.1 mmol/L (3.4-5.0); Sodium 140 mmol/L (137-145)
[2021-04-19] MEDS: LEVOTHYROXINE SODIUM 112 MCG TABLET PO (06:24)
--- NOTE | 2021-04-19 07:38 | PM.PNCARD ---
Progress Note: A&P Assessment and Plan (1) HTN (hypertension): Qualifiers: Hypertension type: essential hypertension Qualified Code(s): I10 - Essential (primary) hypertension Code(s): I10 - Essential (primary) hypertension Status: Chronic Assessment and Plan: Stable. On Coreg 6.25 mg BID. Hydralazine prn for SBP>160 mmHg. Monitor BP. (2) DM2 (diabetes mellitus, type 2): Qualifiers: Diabetes mellitus predatory animal 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 insulin use: without predatory animal 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 use Diabetes mellitus complication status: with other specified complication Qualified Code(s): E11.69 - Type 2 diabetes mellitus with other specified complication Code(s): E11.9 - Type 2 diabetes mellitus without complications Status: Chronic Assessment and Plan: Manage by hospitalist. (3) CKD (chronic kidney disease): Qualifiers: Chronic kidney disease stage: stage 1 Qualified Code(s): N18.1 - Chronic kidney disease, stage 1 Code(s): N18.9 - Chronic kidney disease, unspecified Status: Acute Assessment and Plan: Improving with Bumetanide and after pacemaker implant. Followed by Dr. Kate. (4) SOB (shortness of breath) on exertion: Code(s): R06.02 - Shortness of breath Status: Acute Assessment and Plan: Also due to volume overload from acute on chronic diastolic heart failure. Due to pneumonia on CT chest and pulm embolism on VQ scan. D-Dimer is elevated. She was covid and flu negative and covid negative again here. On antibiotics and heparin drip. Blood cultures has shown no growth to date. Worsening anemia that stabilized. Discussed with Dr. Kate concern for worsening kidney function if she is exposed to contrast with CTA chest to assess PE. If no PE, then can stop anticoagulation, and would move forward with pacemaker placement. The concern is bleeding into pacemaker pocket perioperatively as would need to anticoagulate her for PE. Discussed with Dr. Raines and due to concern for pocket hematoma with anticoagulation, would rather hold off on anticoagulation post pacemaker implant. On Bumetanide 2 mg IV BID now, normally on Lasix 40 mg PO alternating with 80 mg daily at home. Monitor kidney function and electrolytes. Replete potassium. Consider CTA to assess PE once Cr is back to baseline at Cr 1.1. (5) Complete heart block: Code(s): I44.2 - Atrioventricular block, complete Status: Acute Assessment and Plan: Stable BP and asymptomatic at rest. She is symptomatic with very minimal exertion. 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 Pacer pads on chest in case HR drops further. Hold Metoprolol. TSH is OK. Her HR remained in mid 40's bpm range in heart block. Due to worsening kidney function which precludes obtaining CTA chest to r/o PE definitively, I spoke to Dr. Raines this morning for dual chamber pacemaker implant. Discuss risks/benefits/alternative treatment with patient which includes but not limited to bleeding, infection, perforation, . She is agreeable to it. S/P Biotronik dual chamber pacemaker on 04/15/21. Post op management per Dr. Raines. Upon discharge she will f/u with Dr. Raines in 1 week for incisional wound check, and then f/u with me 3 weeks later. (6) Diastolic dysfunction: Code(s): I51.89 - Other ill-defined heart diseases Status: Acute Assessment and Plan: 12/13/20 Echo: EF 55-60%, grade I diastolic dysfunction (E/e' 26), mild LAE, trace AI/TR, mild MR. 04/08/20 Echo: EF 60-65%, grade I diastolic dysfunction (E/e' 8), mod LAE, mild FREDY, mod (ATIF 1.4 cm2), mod MAC, mild-mod MR/TR, RVSP 54 mmHg. Subjective Date/time seen: 04/19/21 07:38 Patient reports breathing has improved but has sob with activity. No chest pains. Exam Const: General: cooperative, healthy appearing and comfortable Nutritional Appearance: obese Resp: Auscultation: clear to auscultation bilaterally, crackles (slight c
[2021-04-19 08:38] LABS: Glucose Point of Care 160 mg/dl (65-105)
[2021-04-19] MEDS: CALCIUM CARBONATE (TUMS) 500 MG (200 MG ELEMENTAL) PO (09:03)
[2021-04-19] MEDS: carvediloL 6.25 MG TABLET PO ×2 (09:04→21:16)
[2021-04-19] MEDS: FERROUS SULFATE 324 MG TABLET PO (09:04)
[2021-04-19] MEDS: OMEGA 3 POLYUNSAT FATTY ACIDS 1 GM CAP PO ×4 (09:05→21:17)
[2021-04-19] MEDS: FAMOTIDINE 20 MG TABLET PO ×2 (09:05→21:16)
[2021-04-19] MEDS: ERGOCALCIFEROL 50,000 UNIT CAPSULE 50000 UNITS PO (09:05)
[2021-04-19] MEDS: BUMETANIDE INJ 2.5 MG/10 ML VIAL 2 MG IV PUSH (09:07)
[2021-04-19] MEDS: ENOXAPARIN 40 MG/0.4 ML SYRINGE SUB-Q (09:07)
--- NOTE | 2021-04-19 09:42 | P.PNNP_ITS ---
Progress Note: A&P Assessment and Plan (1) Acute renal failure: Qualifiers: Acute renal failure type: unspecified Qualified Code(s): N17.9 - Acute kidney failure, unspecified Code(s): N17.9 - Acute kidney failure, unspecified Status: Acute Assessment and Plan: * slow improvement noted at this time * evaluation to date reveals: * unremarkable renal U/S * prerenal urine electrolytes * normal CPK * creatinine has stabilized at 1.8. Her baseline creatinine is lower than this. * Her volume status is much better. I think we can switch to p.o. diuretics and her creatinine will probably improve. * Once the creatinine is back to baseline or if on very mild diuretics her creatinine is stable we can do the CT angio. This can be done as an outpatient if she is ready to go home before hand. (2) Stage 3a chronic kidney disease: Code(s): N18.31 - Chronic kidney disease, stage 3a Status: Chronic Assessment and Plan: * baseline creatinine runs ~ 0.8 - 1.3mg/dl * likely due to diabetes and hypertension (3) Suspected pulmonary embolism: Code(s): R09.89 - Other specified symptoms and signs involving the circulatory and respiratory systems Status: Acute Assessment and Plan: * off heparin drip * CTA of chest on hold for now * hopefully renal function will improve and we can get the CTA down the line. (4) Third degree heart block: Code(s): I44.2 - Atrioventricular block, complete Status: Acute Assessment and Plan: * s/p pacemaker placement on 04/15/21 * Much better heart function since then. * Cardiology following (5) Pneumonia: Qualifiers: Laterality: unspecified laterality Lung location: unspecified part of lung Pneumonia type: due to unspecified organism Qualified Code(s): J18.9 - Pneumonia, unspecified organism Code(s): J18.9 - Pneumonia, unspecified organism Status: Acute Assessment and Plan: * resolved (6) HTN (hypertension): Qualifiers: Hypertension type: essential hypertension Qualified Code(s): I10 - Essential (primary) hypertension Code(s): I10 - Essential (primary) hypertension Status: Chronic Assessment and Plan: * Blood pressure is good between 110 and 140. * On carvedilol 6.25 b.i.d.. (7) DM2 (diabetes mellitus, type 2): Qualifiers: Diabetes mellitus emt intermediate insulin use: without emt intermediate use Diabetes mellitus complication status: with other specified complication Qualified Code(s): E11.69 - Type 2 diabetes mellitus with other specified complication Code(s): E11.9 - Type 2 diabetes mellitus without complications Status: Chronic Assessment and Plan: * On Accu-Cheks and sliding-scale insulin Will continue to follow. Subjective Date/time seen: 04/19/21 09:42 Interval history: patient sitting up in a chair. Walks around the room without shortness of breath. Physical therapy is about to walker down the halls. Swelling is much better. Exam Narrative: General: Elderly female in NAD Heart: normal S1 and S2; no rub or gallop Lungs: Just about clear Abdomen: soft, nontender, nondistended, positive bowel sounds Extremities: 1+ edema bilaterally Skin: No rash or subcu nodules Objective Data Vital Signs Vital Signs: Vital Signs - 24 hr 04/18/21 11:47 04/18/21 12:00 04/18/21 14:21
--- NOTE | 2021-04-19 09:42 | PM.PNNEP ---
Progress Note: A&P Assessment and Plan (1) Acute renal failure: Qualifiers: Acute renal failure type: unspecified Qualified Code(s): N17.9 - Acute kidney failure, unspecified Code(s): N17.9 - Acute kidney failure, unspecified Status: Acute Assessment and Plan: slow improvement noted at this time evaluation to date reveals: unremarkable renal U/S prerenal urine electrolytes normal CPK creatinine has stabilized at 1.8. Her baseline creatinine is lower than this. Her volume status is much better. I think we can switch to p.o. diuretics and her creatinine will probably improve. Once the creatinine is back to baseline or if on very mild diuretics her creatinine is stable we can do the CT angio. This can be done as an outpatient if she is ready to go home before hand. (2) Stage 3a chronic kidney disease: Code(s): N18.31 - Chronic kidney disease, stage 3a Status: Chronic Assessment and Plan: baseline creatinine runs ~ 0.8 - 1.3mg/dl likely due to diabetes and hypertension (3) Suspected pulmonary embolism: Code(s): R09.89 - Other specified symptoms and signs involving the circulatory and respiratory systems Status: Acute Assessment and Plan: off heparin drip CTA of chest on hold for now hopefully renal function will improve and we can get the CTA down the line. (4) Third degree heart block: Code(s): I44.2 - Atrioventricular block, complete Status: Acute Assessment and Plan: s/p pacemaker placement on 04/15/21 Much better heart function since then. Cardiology following (5) Pneumonia: Qualifiers: Laterality: unspecified laterality Lung location: unspecified part of lung Pneumonia type: due to unspecified organism Qualified Code(s): J18.9 - Pneumonia, unspecified organism Code(s): J18.9 - Pneumonia, unspecified organism Status: Acute Assessment and Plan: resolved (6) HTN (hypertension): Qualifiers: Hypertension type: essential hypertension Qualified Code(s): I10 - Essential (primary) hypertension Code(s): I10 - Essential (primary) hypertension Status: Chronic Assessment and Plan: Blood pressure is good between 110 and 140. On carvedilol 6.25 b.i.d.. (7) DM2 (diabetes mellitus, type 2): Qualifiers: Diabetes mellitus machine long goods helper insulin use: without jail use Diabetes mellitus complication status: with other specified complication Qualified Code(s): E11.69 - Type 2 diabetes mellitus with other specified complication Code(s): E11.9 - Type 2 diabetes mellitus without complications Status: Chronic Assessment and Plan: On Accu-Cheks and sliding-scale insulin Will continue to follow. Subjective Date/time seen: 04/19/21 09:42 Interval history: patient sitting up in a chair. Walks around the room without shortness of breath. Physical therapy is about to walker down the halls. Swelling is much better. Exam Narrative: General: Elderly female in NAD Heart: normal S1 and S2; no rub or gallop Lungs: Just about clear Abdomen: soft, nontender, nondistended, positive bowel sounds Extremities: 1+ edema bilaterally Skin: No rash or subcu nodules Objective Data Vital Signs Vital Signs: Vital Signs - 24 hr 04/18/21 11:47 04/18/21 12:00 04/18/21 14:21 Temperature 36.6 C Pulse Rate 74 82 86 Respiratory Rate 14 20 Blood Pressure 123/58 L Pulse Oximetry 99 04/18/21 14:30 04/18/21 16:00 04/18/21 20:00 Temperature 36.8 C 36.4 C Pulse Rate 89 87 99 Respiratory Rate 20 18 16 Blood Pressure 132/58 L 142/71 H Pulse Oximetry 98 97 04/18/21 20:02 04/18/21 22:14 04/19/21 00:00 Temperature 36.4 C Pulse Rate 91 78 Respiratory Rate 14 Blood Pressure 138/75 Pulse Oximetry 97 96 04/19/21 04:00 04/19/21 09:04 Temperature 36.4 C L Pulse Rate 84 86 Respi
[2021-04-19] MEDS: POTASSIUM CHLORIDE 20 MEQ TABLET 40 MEQ PO (11:04)
[2021-04-19] MEDS: CYANOCOBALAMIN 1,000 MCG TABLET 1000 MCG PO (11:05)
[2021-04-19] MEDS: CHOLECALCIFEROL 1,000 UNITS TABLET 1000 UNITS PO (11:05)
[2021-04-19] MEDS: VITAMIN B COMPLEX CAPSULE 1 CAP PO (11:05)
[2021-04-19] MEDS: calcium polycarbophiL 625 MG TABLET PO (11:05)
--- NOTE | 2021-04-19 11:19 | PM.IMPN ---
Progress Note: A&P Assessment and Plan (1) Acute respiratory failure: Code(s): J96.00 - Acute respiratory failure, unspecified whether with hypoxia or hypercapnia Status: Acute Assessment and Plan: Patient developed acute respiratory failure on 04/12 felt related to fluid overload. IV fluids stopped and Lasix once given. Her symptoms improved and had good UOP but unfortunately, her renal function worsened. Called again to the room for acute respiratory failure on 04/15 and received Lasix 40mg IV once with good response. CXR showing again mild pulmonary congestion. ABG 7.38/ on 2L. Started on Bumex with good UOP with continued improvement in her respiratory symptoms and Cr trending down. CXR 04/18 showing mild CHF exacerbation. She has been weaned to room air and only minimal TIDWELL. Much better overall. Home when okay with others. (2) Third degree heart block: Code(s): I44.2 - Atrioventricular block, complete Status: Acute Assessment and Plan: Patient presents with SOB with EKG showing CHB. She was on metoprolol and this was stopped. She continued to be in CHB. Echo with EF 60-65%, Grade I diastolic dysfunction and moderate . Echo also showing moderate pulmonary hypertension (54 mmHg). TSH normal. Heparin held and PM placed 04/15. She tolerated this procedure well. Apnea link ordered but not completed. Appreciate Cardiology input. Continue tele. (3) Suspected pulmonary embolism: Code(s): R09.89 - Other specified symptoms and signs involving the circulatory and respiratory systems Status: Acute Assessment and Plan: Patient presents with SOB. DDimer 3.3. COVID negative. CT chest without contrast as mentioned below. Perfusion scan showing small-moderate perfusion abnormality of the left upper lung posteriorly so she was started on Heparin drip. Unable to do Chest CTA due to elevated creatinine. Lower extremity Dopplers are negative for DVT. Patient was on heparin infusion but held due to PM placement. No plans to resume Heparin drip per Cardiology. Check CTA when renal function improves. (4) Acute renal failure: Qualifiers: Acute renal failure type: unspecified Qualified Code(s): N17.9 - Acute kidney failure, unspecified Code(s): N17.9 - Acute kidney failure, unspecified Status: Acute Assessment and Plan: Possibly related to decreased perfusion due to 3rd degree AV block. Creatinine climbed to 2.9 but has been improving daily since PM placement with good UOP. Cr down to 1.7 today. Continue Bumex IV. Follow. Appreciate nephrology input. (5) Stage 3a chronic kidney disease: Code(s): N18.31 - Chronic kidney disease, stage 3a Status: Chronic Assessment and Plan: Patient has underlying CKD. Baseline Cr 0.8-1.2 over the past year. As above (6) Pneumonia: Qualifiers: Laterality: unspecified laterality Lung location: unspecified part of lung Pneumonia type: due to unspecified organism Qualified Code(s): J18.9 - Pneumonia, unspecified organism Code(s): J18.9 - Pneumonia, unspecified organism Status: Acute Assessment and Plan: Patient presents with SOB. CT chest without contrast 04/07 showing scattered reticulonodular densities with superimposed ground glass opacification scattered bilaterally, consistent with pneumonia. No fevers but WBC was up to 15K. She was initially given Rocephin but switched to Zosyn on admission. Atypical coverage with azithromycin added but this can prolong the QT so this was stopped. MRSA nasal swab negative. BCx and Sputum cx negative. She completed a course of abx. Resolved (7) Anemia: Qualifiers: Anemia type: unspecified type Qualified Code(s): D64.9 - Anemia, unspecified Code(s): D64.9 - Anemia, unspecified Status: Acute Assessment and Plan: Hgb 10-11 last year and was 11 on admission. She was on a Heparin drip. Hgb trended down to 7
[2021-04-19 12:06] LABS: Glucose Point of Care 161 mg/dl (65-105)
[2021-04-19] MEDS: FOLIC ACID 1 MG TABLET PO (16:19)
[2021-04-19 16:39] LABS: Glucose Point of Care 148 mg/dl (65-105)
[2021-04-19 21:30] LABS: Glucose Point of Care 159 mg/dl (65-105)
[2021-04-20] VITALS (14 sets, daily range): BP systolic 108–172; BP diastolic 45–89; PULSE 73–90; RESP 14–20; TEMP 36.1–37.2; O2SAT 92–100
[2021-04-20] MEDS: LEVOTHYROXINE SODIUM 112 MCG TABLET PO (05:17)
[2021-04-20 05:56] LABS: Albumin Level 3.9 g/dL (3.5-5.1); Anion Gap 8 mmol/L (8-16); Blood Urea Nitrogen 40 mg/dL (7-17); Calcium 7.7 mg/dL (8.4-10.2); Carbon Dioxide 29 mmol/L (22-30); Chloride 105 mmol/L (98-107); Cholesterol 218 mg/dL (0-200); Estimated CRCL calculation 30 ml/min; Estimated Glomerular Filt Rate 29; Glucose 140 mg/dL (65-110); HDL Direct 40 mg/dL; Phosphorus 5.8 mg/dL (2.5-4.5); Potassium 3.4 mmol/L (3.4-5.0); Sodium 142 mmol/L (137-145); Triglycerides 221 mg/dL (<150)
[2021-04-20 06:06] LABS: LDL Cholesterol Direct 104 mg/dL
[2021-04-20 08:20] LABS: Glucose Point of Care 137 mg/dl (65-105)
--- NOTE | 2021-04-20 08:41 | PM.PNCARD ---
Progress Note: A&P Assessment and Plan (1) HTN (hypertension): Qualifiers: Hypertension type: essential hypertension Qualified Code(s): I10 - Essential (primary) hypertension Code(s): I10 - Essential (primary) hypertension Status: Chronic Assessment and Plan: Stable. On Coreg 6.25 mg BID. Hydralazine prn for SBP>160 mmHg. Monitor BP. (2) DM2 (diabetes mellitus, type 2): Qualifiers: Diabetes mellitus ferry terminal supervisor insulin use: without ferry terminal supervisor use Diabetes mellitus complication status: with other specified complication Qualified Code(s): E11.69 - Type 2 diabetes mellitus with other specified complication Code(s): E11.9 - Type 2 diabetes mellitus without complications Status: Chronic Assessment and Plan: Manage by hospitalist. (3) CKD (chronic kidney disease): Qualifiers: Chronic kidney disease stage: stage 1 Qualified Code(s): N18.1 - Chronic kidney disease, stage 1 Code(s): N18.9 - Chronic kidney disease, unspecified Status: Acute Assessment and Plan: Improving with Bumetanide and after pacemaker implant. Bumetanide changed to Furosemide. Followed by Dr. Kate. (4) SOB (shortness of breath) on exertion: Code(s): R06.02 - Shortness of breath Status: Acute Assessment and Plan: Also due to volume overload from acute on chronic diastolic heart failure. Due to pneumonia on CT chest and pulm embolism on VQ scan. D-Dimer is elevated. She was covid and flu negative and covid negative again here. On antibiotics and heparin drip. Blood cultures has shown no growth to date. Worsening anemia that stabilized. Discussed with Dr. Kate concern for worsening kidney function if she is exposed to contrast with CTA chest to assess PE. If no PE, then can stop anticoagulation, and would move forward with pacemaker placement. The concern is bleeding into pacemaker pocket perioperatively as would need to anticoagulate her for PE. Discussed with Dr. Raines and due to concern for pocket hematoma with anticoagulation, would rather hold off on anticoagulation post pacemaker implant. On Furosemide 40 mg PO daily now, normally on Lasix 40 mg PO alternating with 80 mg daily at home. Monitor kidney function and electrolytes. Replete potassium. Increase Furosemide 40 mg PO BID as she still has edema and crackles and pleural effusions. Consider CTA to assess PE once Cr is back to baseline at Cr 1.1. (5) Complete heart block: Code(s): I44.2 - Atrioventricular block, complete Status: Acute Assessment and Plan: Stable BP and asymptomatic at rest. She is symptomatic with very minimal exertion. 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 Pacer pads on chest in case HR drops further. Hold Metoprolol. TSH is OK. Her HR remained in mid 40's bpm range in heart block. Due to worsening kidney function which precludes obtaining CTA chest to r/o PE definitively, I spoke to Dr. Raines this morning for dual chamber pacemaker implant. Discuss risks/benefits/alternative treatment with patient which includes but not limited to bleeding, infection, perforation, . She is agreeable to it. S/P Biotronik dual chamber pacemaker on 04/15/21. Post op management per Dr. Raines. Upon discharge she will f/u with Dr. Raines in 1 week for incisional wound check, and then f/u with me 3 weeks later. (6) Diastolic dysfunction: Code(s): I51.89 - Other ill-defined heart diseases Status: Acute Assessment and Plan: 12/13/20 Echo: EF 55-60%, grade I diastolic dysfunction (E/e' 26), mild LAE, trace AI/TR, mild MR. 04/08/20 Echo: EF 60-65%, grade I diastolic dysfunction (E/e' 8), mod LAE, mild FREDY, mod (ATIF 1.4 cm2), mod MAC, mild-mod MR/TR, RVSP 54 mmHg. Subjective Date/time seen: 04/20/21 08:41 She was able to sit at side of bed for several hours yesterday which made her feel better. No chest pain or sob. Exam Const: Syncurity
--- NOTE | 2021-04-20 08:47 | P.PNNP_ITS ---
Progress Note: A&P Assessment and Plan (1) Acute renal failure: Qualifiers: Acute renal failure type: unspecified Qualified Code(s): N17.9 - Acute kidney failure, unspecified Code(s): N17.9 - Acute kidney failure, unspecified Status: Acute Assessment and Plan: * slow improvement noted at this time * evaluation to date reveals: * unremarkable renal U/S * prerenal urine electrolytes * normal CPK * creatinine has stabilized at 1.8. Her baseline creatinine is lower than this. * On furosemide 40mg once a day p.o.. * See how the creatinine does over the weekend (2) Stage 3a chronic kidney disease: Code(s): N18.31 - Chronic kidney disease, stage 3a Status: Chronic Assessment and Plan: * baseline creatinine runs ~ 0.8 - 1.3mg/dl * likely due to diabetes and hypertension (3) Suspected pulmonary embolism: Code(s): R09.89 - Other specified symptoms and signs involving the circulatory and res piratory systems Status: Acute Assessment and Plan: * off heparin drip * CTA of chest on hold for now * If it drops to normal or a new baseline we can proceed with the CTA. (4) Third degree heart block: Code(s): I44.2 - Atrioventricular block, complete Status: Acute Assessment and Plan: * s/p pacemaker placement on 04/15/21 * Much better heart function since then. * Cardiology following (5) Pneumonia: Qualifiers: Laterality: unspecified laterality Lung location: unspecified part of lung Pneumonia type: due to unspecified organism Qualified Code(s): J18.9 - Pneumonia, unspecified organism Code(s): J18.9 - Pneumonia, unspecified organism Status: Acute Assessment and Plan: * resolved (6) HTN (hypertension): Qualifiers: Hypertension type: essential hypertension Qualified Code(s): I10 - Essential (primary) hypertension Code(s): I10 - Essential (primary) hypertension Status: Chronic Assessment and Plan: * Blood pressure is high this morning. This is a 1 time value though because generally has been running between 117 and 135. Will see how it is going forward. * On carvedilol 6.25 b.i.d.. (7) DM2 (diabetes mellitus, type 2): Qualifiers: Diabetes mellitus correction insulin use: without correction use Diabetes mellitus complication status: with other specified complication Qualified Code(s): E11.69 - Type 2 diabetes mellitus with other specified complication Code(s): E11.9 - Type 2 diabetes mellitus without complications Status: Chronic Assessment and Plan: * On Accu-Cheks and sliding-scale insulin Will continue to follow. Subjective Date/time seen: 04/20/21 08:47 Interval history: Feels okay today. Resting in bed comfortably. Still a little bit of swelling but much better than before Exam Narrative: General: Elderly female in NAD Heart: normal S1 and S2; no rub or gallop Lungs: Fairly clear Abdomen: soft, nontender, nondistended, positive bowel sounds Extremities: 1+ edema bilaterally Skin: No rash or subcu nodules Objective Data Vital Signs Vital Signs: Vital Signs - 24 hr 04/19/21 09:04 04/19/21 10:35 04/19/21 12:00 Temperature 36.7 C Pulse Rate 86 80 78 Respiratory Rate 16 Blood Pressure 130/66 Pulse Oximetry 98 04/19/21 14:
--- NOTE | 2021-04-20 08:47 | PM.PNNEP ---
Progress Note: A&P Assessment and Plan (1) Acute renal failure: Qualifiers: Acute renal failure type: unspecified Qualified Code(s): N17.9 - Acute kidney failure, unspecified Code(s): N17.9 - Acute kidney failure, unspecified Status: Acute Assessment and Plan: slow improvement noted at this time evaluation to date reveals: unremarkable renal U/S prerenal urine electrolytes normal CPK creatinine has stabilized at 1.8. Her baseline creatinine is lower than this. On furosemide 40mg once a day p.o.. See how the creatinine does over the weekend (2) Stage 3a chronic kidney disease: Code(s): N18.31 - Chronic kidney disease, stage 3a Status: Chronic Assessment and Plan: baseline creatinine runs ~ 0.8 - 1.3mg/dl likely due to diabetes and hypertension (3) Suspected pulmonary embolism: Code(s): R09.89 - Other specified symptoms and signs involving the circulatory and respiratory systems Status: Acute Assessment and Plan: off heparin drip CTA of chest on hold for now If it drops to normal or a new baseline we can proceed with the CTA. (4) Third degree heart block: Code(s): I44.2 - Atrioventricular block, complete Status: Acute Assessment and Plan: s/p pacemaker placement on 04/15/21 Much better heart function since then. Cardiology following (5) Pneumonia: Qualifiers: Laterality: unspecified laterality Lung location: unspecified part of lung Pneumonia type: due to unspecified organism Qualified Code(s): J18.9 - Pneumonia, unspecified organism Code(s): J18.9 - Pneumonia, unspecified organism Status: Acute Assessment and Plan: resolved (6) HTN (hypertension): Qualifiers: Hypertension type: essential hypertension Qualified Code(s): I10 - Essential (primary) hypertension Code(s): I10 - Essential (primary) hypertension Status: Chronic Assessment and Plan: Blood pressure is high this morning. This is a 1 time value though because generally has been running between 117 and 135. Will see how it is going forward. On carvedilol 6.25 b.i.d.. (7) DM2 (diabetes mellitus, type 2): Qualifiers: Diabetes mellitus fci insulin use: without fci use Diabetes mellitus complication status: with other specified complication Qualified Code(s): E11.69 - Type 2 diabetes mellitus with other specified complication Code(s): E11.9 - Type 2 diabetes mellitus without complications Status: Chronic Assessment and Plan: On Accu-Cheks and sliding-scale insulin Will continue to follow. Subjective Date/time seen: 04/20/21 08:47 Interval history: Feels okay today. Resting in bed comfortably. Still a little bit of swelling but much better than before Exam Narrative: General: Elderly female in NAD Heart: normal S1 and S2; no rub or gallop Lungs: Fairly clear Abdomen: soft, nontender, nondistended, positive bowel sounds Extremities: 1+ edema bilaterally Skin: No rash or subcu nodules Objective Data Vital Signs Vital Signs: Vital Signs - 24 hr 04/19/21 09:04 04/19/21 10:35 04/19/21 12:00 Temperature 36.7 C Pulse Rate 86 80 78 Respiratory Rate 16 Blood Pressure 130/66 Pulse Oximetry 98 04/19/21 14:43 04/19/21 16:00 04/19/21 18:22 Temperature 36.5 C 36.6 C Pulse Rate 89 87 85 Respiratory Rate 16 16 Blood Pressure 131/55 L 125/53 L Pulse Oximetry 100 100 04/19/21 20:00 04/19/21 20:24 04/19/21 21:16 Temperature 35.8 C L Pulse Rate 84 85 85 Respiratory Rate 20 Blood Pressure 135/51 L Pulse Oximetry 100 04/19/21 23:36 04/20/21 00:00 04/20/21 04:00 Temperature Pulse Rate 77 80 Respiratory Rate Blood Pressure Pulse Oximetry 98 04/20/21 05:22 Temperature 36.1 C L Pulse Rate 84 Respiratory Rate 20 Blood Pressure 172/89 H Pulse Oximetry
[2021-04-20] MEDS: FERROUS SULFATE 324 MG TABLET PO (09:03)
[2021-04-20] MEDS: CALCIUM CARBONATE (TUMS) 500 MG (200 MG ELEMENTAL) PO (09:03)
[2021-04-20] MEDS: carvediloL 6.25 MG TABLET PO ×2 (09:03→21:04)
[2021-04-20] MEDS: FUROSEMIDE 40 MG TABLET PO ×2 (09:04→17:27)
[2021-04-20] MEDS: FAMOTIDINE 20 MG TABLET PO ×2 (09:04→21:05)
[2021-04-20] MEDS: OMEGA 3 POLYUNSAT FATTY ACIDS 1 GM CAP PO ×4 (09:04→21:05)
[2021-04-20] MEDS: POTASSIUM CHLORIDE 20 MEQ TABLET PO (09:08)
[2021-04-20 11:44] LABS: Glucose Point of Care 137 mg/dl (65-105)
[2021-04-20] MEDS: VITAMIN B COMPLEX CAPSULE 1 CAP PO (12:08)
[2021-04-20] MEDS: CYANOCOBALAMIN 1,000 MCG TABLET 1000 MCG PO (12:08)
[2021-04-20] MEDS: calcium polycarbophiL 625 MG TABLET PO (12:08)
[2021-04-20] MEDS: CHOLECALCIFEROL 1,000 UNITS TABLET 1000 UNITS PO (12:08)
[2021-04-20 16:46] LABS: Glucose Point of Care 129 mg/dl (65-105)
--- NOTE | 2021-04-20 17:25 | PM.IMPN ---
Progress Note: A&P Assessment and Plan (1) Acute respiratory failure: Code(s): J96.00 - Acute respiratory failure, unspecified whether with hypoxia or hypercapnia Status: Acute Assessment and Plan: Patient developed acute respiratory failure on 04/12 felt related to fluid overload. IV fluids stopped and Lasix once given. Her symptoms improved and had good UOP but unfortunately, her renal function worsened. Called again to the room for acute respiratory failure on 04/15 and received Lasix 40mg IV once with good response. CXR showing again mild pulmonary congestion. ABG 7.38/ on 2L. Started on Bumex with good UOP with continued improvement in her respiratory symptoms and Cr trending down. CXR 04/18 showing mild CHF exacerbation. She has been weaned to room air and only minimal TIDWELL. Much better overall. Home when okay with others. (2) Third degree heart block: Code(s): I44.2 - Atrioventricular block, complete Status: Acute Assessment and Plan: Patient presents with SOB with EKG showing CHB. She was on metoprolol and this was stopped. She continued to be in CHB. Echo with EF 60-65%, Grade I diastolic dysfunction and moderate . Echo also showing moderate pulmonary hypertension (54 mmHg). TSH normal. Heparin held and PM placed 04/15. She tolerated this procedure well. Apnea link ordered but not completed. Appreciate Cardiology input. Continue tele. (3) Suspected pulmonary embolism: Code(s): R09.89 - Other specified symptoms and signs involving the circulatory and respiratory systems Status: Acute Assessment and Plan: Patient presents with SOB. DDimer 3.3. COVID negative. CT chest without contrast as mentioned below. Perfusion scan showing small-moderate perfusion abnormality of the left upper lung posteriorly so she was started on Heparin drip. Unable to do Chest CTA due to elevated creatinine. Lower extremity Dopplers are negative for DVT. Patient was on heparin infusion but held due to PM placement. No plans to resume Heparin drip per Cardiology. Check CTA when renal function improves. Awaiting creatinine to improve for this evaluation renal is following with regard to her renal dysfunction. (4) Acute renal failure: Qualifiers: Acute renal failure type: unspecified Qualified Code(s): N17.9 - Acute kidney failure, unspecified Code(s): N17.9 - Acute kidney failure, unspecified Status: Acute Assessment and Plan: Possibly related to decreased perfusion due to 3rd degree AV block. Creatinine climbed to 2.9 but has been improving daily since PM placement with good UOP. Cr down to 1.7 and remained stable. Continue Bumex IV. Follow. Appreciate nephrology input. (5) Stage 3a chronic kidney disease: Code(s): N18.31 - Chronic kidney disease, stage 3a Status: Chronic Assessment and Plan: Patient has underlying CKD. Baseline Cr 0.8-1.2 over the past year. As above (6) Pneumonia: Qualifiers: Laterality: unspecified laterality Lung location: unspecified part of lung Pneumonia type: due to unspecified organism Qualified Code(s): J18.9 - Pneumonia, unspecified organism Code(s): J18.9 - Pneumonia, unspecified organism Status: Acute Assessment and Plan: Patient presents with SOB. CT chest without contrast 04/07 showing scattered reticulonodular densities with superimposed ground glass opacification scattered bilaterally, consistent with pneumonia. No fevers but WBC was up to 15K. She was initially given Rocephin but switched to Zosyn on admission. Atypical coverage with azithromycin added but this can prolong the QT so this was stopped. MRSA nasal swab negative. BCx and Sputum cx negative. She completed a course of abx. Resolved (7) Anemia: Qualifiers: Anemia type: unspecified type Qualified Code(s): D64.9 - Anemia, unspecified Code(s): D64.9 - Anemia, unspecified Status: Acute
[2021-04-20] MEDS: FOLIC ACID 1 MG TABLET PO (17:28)
[2021-04-21] VITALS (15 sets, daily range): BP systolic 120–138; BP diastolic 53–64; PULSE 72–90; RESP 18–20; TEMP 36–37.1; O2SAT 96–100
[2021-04-21 00:48] LABS: Glucose Point of Care 149 mg/dl (65-105)
[2021-04-21] MEDS: LEVOTHYROXINE SODIUM 112 MCG TABLET PO (05:38)
[2021-04-21 06:02] LABS: Basophils Absolute Auto 0.1 K/mm3 (0.0-0.1); Basophils Percent Auto 0.8 % (0.2-1.2); Eosinophils Absolute Auto 0.2 K/mm3 (0-0.3); Eosinophils Percent Auto 3.1 % (0-4.4); Hematocrit 30.7 % (37.0-47.0); Hemoglobin 9.5 g/dL (12.0-15.0); Immature Granulocyte Absolute 0.02 K/mm3 (0.00-0.031); Immature Granulocyte Percent A 0.3 % (0-0.5); Lymphocytes Absolute Auto 2.29 K/mm3 (0.9-3.2); Lymphocytes Percent Auto 31.2 % (18.3-44.2); Mean Corpuscular HGB Conc 30.9 g/dl (32-36); Mean Corpuscular Volume 100.3 fl (80-100); Mean Platelet Volume 9.5 fl (7.4-10.4); Monocytes Absolute Auto 0.7 K/mm3 (0.1-0.6); Monocytes Percent Auto 9.7 % (2.6-8.5); Neutrophils Percent Auto 54.9 % (45.5-73.1); Platelet Count Result 157 k/mm3 (150-375); Red Blood Count 3.06 M/mm3 (4.2-5.4); Red Cell Distribution Width 13.9 % (11.5-14.5); White Blood Count 7.3 K/mm3 (4.5-10.0)
[2021-04-21 06:19] LABS: Alanine Aminotransferase 15 U/L (4-35); Albumin Level 3.8 g/dL (3.5-5.1); Alkaline Phosphatase 60 U/L (38-126); Anion Gap 5 mmol/L (8-16); Aspartate Amino Transferase 28 U/L (14-36); Bilirubin,Total 0.5 mg/dL (0.2-1.3); Blood Urea Nitrogen 40 mg/dL (7-17); Calcium 7.5 mg/dL (8.4-10.2); Carbon Dioxide 33 mmol/L (22-30); Chloride 104 mmol/L (98-107); Estimated CRCL calculation 32 ml/min; Estimated Glomerular Filt Rate 32; Glucose 135 mg/dL (65-110); Potassium 3.2 mmol/L (3.4-5.0); Sodium 142 mmol/L (137-145)
[2021-04-21 06:32] LABS: Phosphorus 5.4 mg/dL (2.5-4.5)
[2021-04-21] MEDS: CALCIUM CARBONATE (TUMS) 500 MG (200 MG ELEMENTAL) PO (07:48)
[2021-04-21] MEDS: FAMOTIDINE 20 MG TABLET PO ×2 (07:49→19:43)
[2021-04-21] MEDS: FUROSEMIDE 40 MG TABLET PO ×2 (07:49→17:47)
[2021-04-21] MEDS: FERROUS SULFATE 324 MG TABLET PO (07:49)
[2021-04-21] MEDS: OMEGA 3 POLYUNSAT FATTY ACIDS 1 GM CAP PO ×4 (07:50→19:43)
[2021-04-21] MEDS: carvediloL 6.25 MG TABLET PO ×2 (07:50→19:43)
--- NOTE | 2021-04-21 08:30 | PM.PNCARD ---
Progress Note: A&P Assessment and Plan (1) HTN (hypertension): Qualifiers: Hypertension type: essential hypertension Qualified Code(s): I10 - Essential (primary) hypertension Code(s): I10 - Essential (primary) hypertension Status: Chronic Assessment and Plan: Stable. On Coreg 6.25 mg BID. Hydralazine prn for SBP>160 mmHg. Monitor BP. 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 (3) CKD (chronic kidney disease): Qualifiers: Chronic kidney disease stage: stage 1 Qualified Code(s): N18.1 - Chronic kidney disease, stage 1 Code(s): N18.9 - Chronic kidney disease, unspecified Status: Acute Assessment and Plan: Improving with Bumetanide and after pacemaker implant. Bumetanide changed to Furosemide. Followed by Dr. Kate. (4) SOB (shortness of breath) on exertion: Code(s): R06.02 - Shortness of breath Status: Acute Assessment and Plan: Also due to volume overload from acute on chronic diastolic heart failure. Due to pneumonia on CT chest and pulm embolism on VQ scan. D-Dimer is elevated. She was covid and flu negative and covid negative again here. On antibiotics and heparin drip. Blood cultures has shown no growth to date. Worsening anemia that stabilized. Discussed with Dr. Kate concern for worsening kidney function if she is exposed to contrast with CTA chest to assess PE. If no PE, then can stop anticoagulation, and would move forward with pacemaker placement. The concern is bleeding into pacemaker pocket perioperatively as would need to anticoagulate her for PE. Discussed with Dr. Raines and due to concern for pocket hematoma with anticoagulation, would rather hold off on anticoagulation post pacemaker implant. On Furosemide 40 mg PO daily now, normally on Lasix 40 mg PO alternating with 80 mg daily at home. Monitor kidney function and electrolytes. Replete potassium. Increase Furosemide 40 mg PO BID as she still has edema and crackles and pleural effusions. Consider CTA to assess PE once Cr is back to baseline at Cr 1.1. (5) Complete heart block: Code(s): I44.2 - Atrioventricular block, complete Status: Acute Assessment and Plan: Stable BP and asymptomatic at rest. She is symptomatic with very minimal exertion. 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 Pacer pads on chest in case HR drops further. Hold Metoprolol. TSH is OK. Her HR remained in mid 40's bpm range in heart block. Due to worsening kidney function which precludes obtaining CTA chest to r/o PE definitively, I spoke to Dr. Raines this morning for dual chamber pacemaker implant. Discuss risks/benefits/alternative treatment with patient which includes but not limited to bleeding, infection, perforation, . She is agreeable to it. S/P Biotronik dual chamber pacemaker on 04/15/21. Post op management per Dr. Raines. Upon discharge she will f/u with Dr. Raines in 1 week for incisional wound check, and then f/u with me 3 weeks later. (6) Diastolic dysfunction: Code(s): I51.89 - Other ill-defined heart diseases Status: Acute Assessment and Plan: 12/13/20 Echo: EF 55-60%, grade I diastolic dysfunction (E/e' 26), mild LAE, trace AI/TR, mild MR. 04/08/20 Echo: EF 60-65%, grade I diastolic dysfunction (E/e' 8), mod LAE, mild FREDY, mod (ATIF 1.4 cm2), mod MAC, mild-mod MR/TR, RVSP 54 mmHg. Subjective Date/time seen: 04/21/21 08:30 Denies chest pain or sob. Has TIDWELL with minimal activity. Exam Const: General: cooperative, healthy appearing and comfortable N
--- NOTE | 2021-04-21 08:45 | P.PNNP_ITS ---
Progress Note: A&P Assessment and Plan (1) Acute renal failure: Qualifiers: Acute renal failure type: unspecified Qualified Code(s): N17.9 - Acute kidney failure, unspecified Code(s): N17.9 - Acute kidney failure, unspecified Status: Acute Assessment and Plan: * slow improvement noted at this time * evaluation to date reveals: * unremarkable renal U/S * prerenal urine electrolytes * normal CPK * creatinine dropped to to 1.6. * On furosemide 40mg once a day p.o.. * See how the creatinine does over the weekend (2) Stage 3a chronic kidney disease: Code(s): N18.31 - Chronic kidney disease, stage 3a Status: Chronic Assessment and Plan: * baseline creatinine runs ~ 0.8 - 1.3mg/dl * likely due to diabetes and hypertension (3) Suspected pulmonary embolism: Code(s): R09.89 - Other specified symptoms and signs involving the circulatory and respiratory systems Status: Acute Assessment and Plan: * off heparin drip * CTA of chest on hold for now * If it drops to normal or a new baseline we can proceed with the CTA. Creatinine due to improve a little bit. (4) Third degree heart block: Code(s): I44.2 - Atrioventricular block, complete Status: Acute Assessment and Plan: * s/p pacemaker placement on 04/15/21 * Much better heart function since then. * Cardiology following (5) Pneumonia: Qualifiers: Laterality: unspecified laterality Lung location: unspecified part of lung Pneumonia type: due to unspecified organism Qualified Code(s): J18.9 - Pneumonia, unspecified organism Code(s): J18.9 - Pneumonia, unspecified organism Status: Acute Assessment and Plan: * resolved (6) HTN (hypertension): Qualifiers: Hypertension type: essential hypertension Qualified Code(s): I10 - Essential (primary) hypertension Code(s): I10 - Essential (primary) hypertension Status: Chronic Assessment and Plan: * Blood pressure is high this morning. This is a 1 time value though because generally has been running between 117 and 135. Will see how it is going forward. * On carvedilol 6.25 b.i.d.. 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 Subjective Date/time seen: 04/21/21 08:45 Interval history: Feels okay today. Resting in bed comfortably. Eating okay. Getting out of bed and walking around. Exam Narrative: General: Elderly female in NAD Heart: normal S1 and S2; no rub or gallop Lungs: Clear Abdomen: soft, nontender, nondistended, positive bowel sounds Extremities: 1+ edema bilaterally Skin: No rash or subcu nodules Objective Data Vital Signs Vital Signs: Vital Signs - 24 hr 04/20/21 09:03 04/20/21 10:00 04/20/21 12:00 Temperature 36.2 C L Pulse Rate 84 77 78 Respiratory Rate 16 Blood Pressure 131/62 Pulse Oximetry 99 04/20/21 14:00
--- NOTE | 2021-04-21 08:45 | PM.PNNEP ---
Progress Note: A&P Assessment and Plan (1) Acute renal failure: Qualifiers: Acute renal failure type: unspecified Qualified Code(s): N17.9 - Acute kidney failure, unspecified Code(s): N17.9 - Acute kidney failure, unspecified Status: Acute Assessment and Plan: slow improvement noted at this time evaluation to date reveals: unremarkable renal U/S prerenal urine electrolytes normal CPK creatinine dropped to to 1.6. On furosemide 40mg once a day p.o.. See how the creatinine does over the weekend (2) Stage 3a chronic kidney disease: Code(s): N18.31 - Chronic kidney disease, stage 3a Status: Chronic Assessment and Plan: baseline creatinine runs ~ 0.8 - 1.3mg/dl likely due to diabetes and hypertension (3) Suspected pulmonary embolism: Code(s): R09.89 - Other specified symptoms and signs involving the circulatory and respiratory systems Status: Acute Assessment and Plan: off heparin drip CTA of chest on hold for now If it drops to normal or a new baseline we can proceed with the CTA. Creatinine due to improve a little bit. (4) Third degree heart block: Code(s): I44.2 - Atrioventricular block, complete Status: Acute Assessment and Plan: s/p pacemaker placement on 04/15/21 Much better heart function since then. Cardiology following (5) Pneumonia: Qualifiers: Laterality: unspecified laterality Lung location: unspecified part of lung Pneumonia type: due to unspecified organism Qualified Code(s): J18.9 - Pneumonia, unspecified organism Code(s): J18.9 - Pneumonia, unspecified organism Status: Acute Assessment and Plan: resolved (6) HTN (hypertension): Qualifiers: Hypertension type: essential hypertension Qualified Code(s): I10 - Essential (primary) hypertension Code(s): I10 - Essential (primary) hypertension Status: Chronic Assessment and Plan: Blood pressure is high this morning. This is a 1 time value though because generally has been running between 117 and 135. Will see how it is going forward. On carvedilol 6.25 b.i.d.. 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 Subjective Date/time seen: 04/21/21 08:45 Interval history: Feels okay today. Resting in bed comfortably. Eating okay. Getting out of bed and walking around. Exam Narrative: General: Elderly female in NAD Heart: normal S1 and S2; no rub or gallop Lungs: Clear Abdomen: soft, nontender, nondistended, positive bowel sounds Extremities: 1+ edema bilaterally Skin: No rash or subcu nodules Objective Data Vital Signs Vital Signs: Vital Signs - 24 hr 04/20/21 09:03 04/20/21 10:00 04/20/21 12:00 Temperature 36.2 C L Pulse Rate 84 77 78 Respiratory Rate 16 Blood Pressure 131/62 Pulse Oximetry 99 04/20/21 14:00 04/20/21 16:00 04/20/21 18:35 Temperature 36.7 C 36.6 C Pulse Rate 84 74 83 Respiratory Rate 16 14 Blood Pressure 137/58 L 132/57 L Pulse Oximetry 100 100 04/20/21 20:00 04/20/21 20:17 04/20/21 21:04 Temperature 37.2 C Pulse Rate 84 84 80 Respiratory Rate 17 Blood Pressure 122/52 L Pulse Oximetry 99 04/20/21 23:44 04/21/21 00:00 04/21/21 00:41 Temperature 36.3 C L Pulse Rate 73 73 Respiratory Rate 18 Blood Pressure 108/45 L Pulse Oximetry 99 99 04/21/21 03:36 04/21/21 04:00 04/21/21 07:50 Temperature 37.1 C Pulse Rate 90 76 81 Respiratory Rate 18
[2021-04-21 09:31] LABS: Glucose Point of Care 133 mg/dl (65-105)
[2021-04-21] MEDS: POTASSIUM CHLORIDE 20 MEQ TABLET 40 MEQ PO (11:45)
[2021-04-21] MEDS: calcium polycarbophiL 625 MG TABLET PO (11:45)
[2021-04-21] MEDS: VITAMIN B COMPLEX CAPSULE 1 CAP PO (11:45)
[2021-04-21] MEDS: CHOLECALCIFEROL 1,000 UNITS TABLET 1000 UNITS PO (11:45)
[2021-04-21] MEDS: CYANOCOBALAMIN 1,000 MCG TABLET 1000 MCG PO (11:46)
[2021-04-21 11:51] LABS: Glucose Point of Care 138 mg/dl (65-105)
--- NOTE | 2021-04-21 15:18 | PM.IMPN ---
Progress Note: A&P Assessment and Plan (1) Acute respiratory failure: Code(s): J96.00 - Acute respiratory failure, unspecified whether with hypoxia or hypercapnia Status: Acute Assessment and Plan: Patient developed acute respiratory failure on 04/12 felt related to fluid overload. IV fluids stopped and Lasix once given. Her symptoms improved and had good UOP but unfortunately, her renal function worsened. Called again to the room for acute respiratory failure on 04/15 and received Lasix 40mg IV once with good response. CXR showing again mild pulmonary congestion. ABG 7.38/ on 2L. Started on Bumex with good UOP with continued improvement in her respiratory symptoms and Cr trending down. CXR 04/18 showing mild CHF exacerbation. She has been weaned to room air and only minimal TIDWELL. Much better overall. Home when okay with others. PT OT suggest home with home health to be arranged at the time of discharge (2) Third degree heart block: Code(s): I44.2 - Atrioventricular block, complete Status: Acute Assessment and Plan: Patient presents with SOB with EKG showing CHB. She was on metoprolol and this was stopped. She continued to be in CHB. Echo with EF 60-65%, Grade I diastolic dysfunction and moderate . Echo also showing moderate pulmonary hypertension (54 mmHg). TSH normal. Heparin held and PM placed 04/15. She tolerated this procedure well. Apnea link with AHI 13.4 with RIS 15 suspected sleep apnea. Needs formal sleep study as an outpatient basis. Appreciate Cardiology input. Continue tele. (3) Suspected pulmonary embolism: Code(s): R09.89 - Other specified symptoms and signs involving the circulatory and respiratory systems Status: Acute Assessment and Plan: Patient presents with SOB. DDimer 3.3. COVID negative. CT chest without contrast as mentioned below. Perfusion scan showing small-moderate perfusion abnormality of the left upper lung posteriorly so she was started on Heparin drip. Unable to do Chest CTA due to elevated creatinine. Lower extremity Dopplers are negative for DVT. Patient was on heparin infusion but held due to PM placement. No plans to resume Heparin drip per Cardiology. Check CTA when renal function improves. Awaiting creatinine to improve for this evaluation renal is following with regard to her renal dysfunction. (4) Acute renal failure: Qualifiers: Acute renal failure type: unspecified Qualified Code(s): N17.9 - Acute kidney failure, unspecified Code(s): N17.9 - Acute kidney failure, unspecified Status: Acute Assessment and Plan: Possibly related to decreased perfusion due to 3rd degree AV block. Creatinine climbed to 2.9 but has been improving daily since PM placement with good UOP. Cr slowly improving. Continue diuresis per nephrology (5) Stage 3a chronic kidney disease: Code(s): N18.31 - Chronic kidney disease, stage 3a Status: Chronic Assessment and Plan: Patient has underlying CKD. Baseline Cr 0.8-1.2 over the past year. As above (6) Pneumonia: Qualifiers: Laterality: unspecified laterality Lung location: unspecified part of lung Pneumonia type: due to unspecified organism Qualified Code(s): J18.9 - Pneumonia, unspecified organism Code(s): J18.9 - Pneumonia, unspecified organism Status: Acute Assessment and Plan: Patient presents with SOB. CT chest without contrast 04/07 showing scattered reticulonodular densities with superimposed ground glass opacification scattered bilaterally, consistent with pneumonia. No fevers but WBC was up to 15K. She was initially given Rocephin but switched to Zosyn on admission. Atypical coverage with azithromycin added but this can prolong the QT so this was stopped. MRSA nasal swab negative. BCx and Sputum cx negative. She completed a course of abx. Resolved (7) Anemia: Qualifiers: Anemia type: unspecified type Qual
[2021-04-21 16:54] LABS: Glucose Point of Care 145 mg/dl (65-105)
[2021-04-21] MEDS: FOLIC ACID 1 MG TABLET PO (17:48)
[2021-04-21 20:55] LABS: Glucose Point of Care 154 mg/dl (65-105)
[2021-04-22] VITALS (14 sets, daily range): BP systolic 130–134; BP diastolic 52–65; PULSE 72–87; RESP 14–20; TEMP 36–36.8; O2SAT 98–100
[2021-04-22] MEDS: LEVOTHYROXINE SODIUM 112 MCG TABLET PO (05:53)
[2021-04-22 06:48] LABS: Basophils Absolute Auto 0.1 K/mm3 (0.0-0.1); Basophils Percent Auto 0.7 % (0.2-1.2); Eosinophils Absolute Auto 0.3 K/mm3 (0-0.3); Eosinophils Percent Auto 3.8 % (0-4.4); Hematocrit 29.9 % (37.0-47.0); Hemoglobin 9.5 g/dL (12.0-15.0); Immature Granulocyte Absolute 0.03 K/mm3 (0.00-0.031); Immature Granulocyte Percent A 0.4 % (0-0.5); Lymphocytes Absolute Auto 2.24 K/mm3 (0.9-3.2); Lymphocytes Percent Auto 30.6 % (18.3-44.2); Mean Corpuscular HGB Conc 31.8 g/dl (32-36); Mean Corpuscular Hemoglobin 30.5 pg (26-34); Mean Corpuscular Volume 96.1 fl (80-100); Mean Platelet Volume 9.6 fl (7.4-10.4); Monocytes Absolute Auto 0.7 K/mm3 (0.1-0.6); Monocytes Percent Auto 9.8 % (2.6-8.5); Neutrophils Percent Auto 54.7 % (45.5-73.1); Platelet Count Result 159 k/mm3 (150-375); Red Blood Count 3.11 M/mm3 (4.2-5.4); Red Cell Distribution Width 13.7 % (11.5-14.5); White Blood Count 7.3 K/mm3 (4.5-10.0)
[2021-04-22 07:09] LABS: Alanine Aminotransferase 16 U/L (4-35); Albumin Level 3.8 g/dL (3.5-5.1); Alkaline Phosphatase 60 U/L (38-126); Anion Gap 7 mmol/L (8-16); Aspartate Amino Transferase 30 U/L (14-36); Bilirubin,Total 0.6 mg/dL (0.2-1.3); Blood Urea Nitrogen 40 mg/dL (7-17); Calcium 7.5 mg/dL (8.4-10.2); Carbon Dioxide 33 mmol/L (22-30); Chloride 103 mmol/L (98-107); Estimated CRCL calculation 28 ml/min; Estimated Glomerular Filt Rate 28; Glucose 131 mg/dL (65-110); Magnesium 1.5 mg/dL (1.6-2.3); Potassium 3.2 mmol/L (3.4-5.0); Sodium 143 mmol/L (137-145)
[2021-04-22 07:15] LABS: Troponin I 0.038 ng/mL (0.000-0.034)
--- NOTE | 2021-04-22 07:29 | P.PNNP_ITS ---
Progress Note: A&P Assessment and Plan (1) Acute renal failure: Qualifiers: Acute renal failure type: unspecified Qualified Code(s): N17.9 - Acute kidney failure, unspecified Code(s): N17.9 - Acute kidney failure, unspecified Status: Acute Assessment and Plan: * slow improvement noted at this time * evaluation to date reveals: * unremarkable renal U/S * prerenal urine electrolytes * normal CPK * creatinine back up to 1.8. * On furosemide 40mg b.i.d. per Cardiology. 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 Diuretics are necessary to keep her fluid under control. * This creatinine may be a new baseline for her. (2) Stage 3a chronic kidney disease: Code(s): N18.31 - Chronic kidney disease, stage 3a Status: Chronic Assessment and Plan: * baseline creatinine runs ~ 0.8 - 1.3mg/dl * likely due to diabetes and hypertension (3) Suspected pulmonary embolism: Code(s): R09.89 - Other specified symptoms and signs involving the circulatory and respiratory systems Status: Acute Assessment and Plan: * off heparin drip * CTA of chest on hold for now * If creatinine is stable tomorrow we could probably do the CTA. (4) Third degree heart block: Code(s): I44.2 - Atrioventricular block, complete Status: Acute Assessment and Plan: * s/p pacemaker placement on 04/15/21 * Much better heart function since then. * Cardiology following (5) Pneumonia: Qualifiers: Laterality: unspecified laterality Lung location: unspecified part of lung Pneumonia type: due to unspecified organism Qualified Code(s): J18.9 - Pneumonia, unspecified organism Code(s): J18.9 - Pneumonia, unspecified organism Status: Acute Assessment and Plan: * resolved (6) HTN (hypertension): Qualifiers: Hypertension type: essential hypertension Qualified Code(s): I10 - Essential (primary) hypertension Code(s): I10 - Essential (primary) hypertension Status: Chronic Assessment and Plan: * Blood pressure is under good control * On carvedilol 6.25 b.i.d.. (7) DM2 (diabetes mellitus, type 2): Qualifiers: Diabetes mellitus long chain beamer insulin use: without residential use Diabetes mellitus complication status: with other specified complication Qualified Code(s): E11.69 - Type 2 diabetes mellitus with other specified complication Code(s): E11.9 - Type 2 diabetes mellitus without complications Status: Chronic Assessment and Plan: * On Accu-Cheks and sliding-scale insulin Will continue to follow. Subjective Date/time seen: 04/22/21 07:29 Interval history: Feels okay today. Resting in bed comfortably. Eating okay. Swelling is mild. She is currently on 40mg of Lasix b.i.d. Exam Narrative: General: Elderly female in NAD Heart: normal S1 and S2; no rub or gallop Lungs: Clear bilaterally Abdomen: soft, nontender, nondistended, positive bowel sounds Extremities: Trace to 1+ edema bilaterally Skin: No rash or subcu nodules Objective Data Vital Signs Vital Signs: Vital Signs - 24 hr 04/21/21 07:50 04/21/21 08:00 04/21/21 10:03 Temperature 36.3 C L Pulse Rate 81 82 77 Respiratory Rate 20 Blood Pressure 138/64 Pulse Oximetry 100 04/21/21
--- NOTE | 2021-04-22 07:29 | PM.PNNEP ---
Progress Note: A&P Assessment and Plan (1) Acute renal failure: Qualifiers: Acute renal failure type: unspecified Qualified Code(s): N17.9 - Acute kidney failure, unspecified Code(s): N17.9 - Acute kidney failure, unspecified Status: Acute Assessment and Plan: slow improvement noted at this time evaluation to date reveals: unremarkable renal U/S prerenal urine electrolytes normal CPK creatinine back up to 1.8. On furosemide 40mg b.i.d. per Cardiology. 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 Diuretics are necessary to keep her fluid under control. This creatinine may be a new baseline for her. (2) Stage 3a chronic kidney disease: Code(s): N18.31 - Chronic kidney disease, stage 3a Status: Chronic Assessment and Plan: baseline creatinine runs ~ 0.8 - 1.3mg/dl likely due to diabetes and hypertension (3) Suspected pulmonary embolism: Code(s): R09.89 - Other specified symptoms and signs involving the circulatory and respiratory systems Status: Acute Assessment and Plan: off heparin drip CTA of chest on hold for now If creatinine is stable tomorrow we could probably do the CTA. (4) Third degree heart block: Code(s): I44.2 - Atrioventricular block, complete Status: Acute Assessment and Plan: s/p pacemaker placement on 04/15/21 Much better heart function since then. Cardiology following (5) Pneumonia: Qualifiers: Laterality: unspecified laterality Lung location: unspecified part of lung Pneumonia type: due to unspecified organism Qualified Code(s): J18.9 - Pneumonia, unspecified organism Code(s): J18.9 - Pneumonia, unspecified organism Status: Acute Assessment and Plan: resolved (6) HTN (hypertension): Qualifiers: Hypertension type: essential hypertension Qualified Code(s): I10 - Essential (primary) hypertension Code(s): I10 - Essential (primary) hypertension Status: Chronic Assessment and Plan: Blood pressure is under good control On carvedilol 6.25 b.i.d.. (7) DM2 (diabetes mellitus, type 2): Qualifiers: Diabetes mellitus oysterman insulin use: without oysterman use Diabetes mellitus complication status: with other specified complication Qualified Code(s): E11.69 - Type 2 diabetes mellitus with other specified complication Code(s): E11.9 - Type 2 diabetes mellitus without complications Status: Chronic Assessment and Plan: On Accu-Cheks and sliding-scale insulin Will continue to follow. Subjective Date/time seen: 04/22/21 07:29 Interval history: Feels okay today. Resting in bed comfortably. Eating okay. Swelling is mild. She is currently on 40mg of Lasix b.i.d. Exam Narrative: General: Elderly female in NAD Heart: normal S1 and S2; no rub or gallop Lungs: Clear bilaterally Abdomen: soft, nontender, nondistended, positive bowel sounds Extremities: Trace to 1+ edema bilaterally Skin: No rash or subcu nodules Objective Data Vital Signs Vital Signs: Vital Signs - 24 hr 04/21/21 07:50 04/21/21 08:00 04/21/21 10:03 Temperature 36.3 C L Pulse Rate 81 82 77 Respiratory Rate 20 Blood Pressure 138/64 Pulse Oximetry 100 04/21/21 12:00 04/21/21 14:39 04/21/21 16:00 Temperature 36.6 C Pulse Rate 72 76 80 Respiratory Rate 20 Blood Pressure 138/60 Pulse Oximetry 98 04/21/21 17:58 04/21/21 19:43 04/21/21 19:47 Temperature 36.3 C L 36.9 C Pulse Rate 88 88 86 Respiratory Rate 18 18 Blood Pressure 134/55 L 128/61 Pulse Oximetry 100 100 04/21/21 20:00 04/21/21 23:38 04/22/21 00:00 Temperature 36.0 C L Pulse Rate 84 88 73 Respiratory Rate 18 Blood Pressure 120/53 L Pulse Oximetry 97 04/22/21 03:43 04/22/21 04:00 Temperature 36.4 C L Pulse Rate 81 75 Respiratory Rate 16 Blood Pressu
--- NOTE | 2021-04-22 07:57 | PM.PNCARD ---
Progress Note: A&P Assessment and Plan (1) HTN (hypertension): Qualifiers: Hypertension type: essential hypertension Qualified Code(s): I10 - Essential (primary) hypertension Code(s): I10 - Essential (primary) hypertension Status: Chronic Assessment and Plan: Stable. On Coreg 6.25 mg BID. Hydralazine prn for SBP>160 mmHg. Monitor BP. (2) DM2 (diabetes mellitus, type 2): Qualifiers: Diabetes mellitus termite treater helper insulin use: without termite treater helper use Diabetes mellitus complication status: with other specified complication Qualified Code(s): E11.69 - Type 2 diabetes mellitus with other specified complication Code(s): E11.9 - Type 2 diabetes mellitus without complications Status: Chronic Assessment and Plan: Manage by hospitalist. (3) CKD (chronic kidney disease): Qualifiers: Chronic kidney disease stage: stage 1 Qualified Code(s): N18.1 - Chronic kidney disease, stage 1 Code(s): N18.9 - Chronic kidney disease, unspecified Status: Acute Assessment and Plan: Improving with Bumetanide and after pacemaker implant. Bumetanide changed to Furosemide. Followed by Dr. Kate. (4) SOB (shortness of breath) on exertion: Code(s): R06.02 - Shortness of breath Status: Acute Assessment and Plan: Also due to volume overload from acute on chronic diastolic heart failure. Due to pneumonia on CT chest and pulm embolism on VQ scan. D-Dimer is elevated. She was covid and flu negative and covid negative again here. On antibiotics and heparin drip. Blood cultures has shown no growth to date. Worsening anemia that stabilized. Discussed with Dr. Kate concern for worsening kidney function if she is exposed to contrast with CTA chest to assess PE. If no PE, then can stop anticoagulation, and would move forward with pacemaker placement. The concern is bleeding into pacemaker pocket perioperatively as would need to anticoagulate her for PE. Discussed with Dr. Raines and due to concern for pocket hematoma with anticoagulation, would rather hold off on anticoagulation post pacemaker implant. On Furosemide 40 mg PO BID now, normally on Lasix 40 mg PO alternating with 80 mg daily at home. Monitor kidney function and electrolytes. Clinically less sob, will decrease Furosemide 40 mg daily. Replete potassium and Mag. Consider CTA to assess PE once Cr is back to baseline at Cr 1.1. (5) Complete heart block: Code(s): I44.2 - Atrioventricular block, complete Status: Acute Assessment and Plan: Stable BP and asymptomatic at rest. She is symptomatic with very minimal exertion. Received Glucagon 10 mg IV x 1.alarm security or surveillance monitor. Pacer pads on chest in case HR drops further. Hold Metoprolol. TSH is OK. Her HR remained in mid 40's bpm range in heart block. Due to worsening kidney function which precludes obtaining CTA chest to r/o PE definitively, I spoke to Dr. Raines this morning for dual chamber pacemaker implant. Discuss risks/benefits/alternative treatment with patient which includes but not limited to bleeding, infection, perforation, . She is agreeable to it. S/P Biotronik dual chamber pacemaker on 04/15/21. Post op management per Dr. Raines. Upon discharge she will f/u with Dr. Raines in 1 week for incisional wound check, and then f/u with me 3 weeks later. (6) Diastolic dysfunction: Code(s): I51.89 - Other ill-defined heart diseases Status: Acute Assessment and Plan: 12/13/20 Echo: EF 55-60%, grade I diastolic dysfunction (E/e' 26), mild LAE, trace AI/TR, mild MR. 04/08/20 Echo: EF 60-65%, grade I diastolic dysfunction (E/e' 8), mod LAE, mild FREDY, mod (ATIF 1.4 cm2), mod MAC, mild-mod MR/TR, RVSP 54 mmHg. Subjective Date/time seen: 04/22/21 07:57 Denies chest pain or sob at rest. Has TIDWELL with minimal activity. Exam Const: General: cooperative, healthy appearing and comfortable Nutritional Appeara
[2021-04-22 08:05] LABS: Glucose Point of Care 119 mg/dl (65-105)
[2021-04-22] MEDS: MAGNESIUM SULF 2 GM/WATER 50ML 2 GM/50 ML BAG IVPB (08:24)
[2021-04-22] MEDS: FUROSEMIDE 40 MG TABLET PO (08:24)
[2021-04-22] MEDS: CALCIUM CARBONATE (TUMS) 500 MG (200 MG ELEMENTAL) PO (08:24)
[2021-04-22] MEDS: POTASSIUM CHLORIDE 20 MEQ TABLET 40 MEQ PO (08:24)
[2021-04-22] MEDS: OMEGA 3 POLYUNSAT FATTY ACIDS 1 GM CAP PO ×4 (08:24→20:41)
[2021-04-22] MEDS: FERROUS SULFATE 324 MG TABLET PO (08:25)
[2021-04-22] MEDS: carvediloL 6.25 MG TABLET PO ×2 (08:25→20:41)
[2021-04-22] MEDS: FAMOTIDINE 20 MG TABLET PO ×2 (08:25→20:41)
--- NOTE | 2021-04-22 09:06 | PC.NURSE ---
1 week post PPM implant wound check completed. Aquacell dressing removed by this RN per Dr Raines, 1 week post ppm implant. Old drainage noted on removed bandage, pt wearing sling appropriately. Pt tolerated extremely well, noted no pain to site. Wound well approximated, no scabs noted, no sutures seen at site, care instructions given to pt and pt verbalized understanding. All questions answered. See additional wound care documentation for further info.
--- NOTE | 2021-04-22 10:27 | PCNWS ---
Weekly nutritional screen. Patient is tolerating current diet with adequate intake. No weight loss reported. No nutritional needs at this time.
[2021-04-22 11:55] LABS: Glucose Point of Care 145 mg/dl (65-105)
[2021-04-22] MEDS: calcium polycarbophiL 625 MG TABLET PO (12:09)
[2021-04-22] MEDS: VITAMIN B COMPLEX CAPSULE 1 CAP PO (12:09)
[2021-04-22] MEDS: CYANOCOBALAMIN 1,000 MCG TABLET 1000 MCG PO (12:09)
[2021-04-22] MEDS: CHOLECALCIFEROL 1,000 UNITS TABLET 1000 UNITS PO (12:09)
--- NOTE | 2021-04-22 15:21 | PM.IMPN ---
Progress Note: A&P Assessment and Plan (1) Acute respiratory failure: Code(s): J96.00 - Acute respiratory failure, unspecified whether with hypoxia or hypercapnia Status: Acute Assessment and Plan: Patient developed acute respiratory failure on 04/12 felt related to fluid overload. IV fluids stopped and Lasix once given. Her symptoms improved and had good UOP but unfortunately, her renal function worsened. Called again to the room for acute respiratory failure on 04/15 and received Lasix 40mg IV once with good response. CXR showing again mild pulmonary congestion. ABG 7.38/ on 2L. Started on Bumex with good UOP with continued improvement in her respiratory symptoms. CXR 04/18 showing mild CHF exacerbation. She has been weaned to room air and only minimal TIDWELL. Much better overall. (2) Third degree heart block: Code(s): I44.2 - Atrioventricular block, complete Status: Acute Assessment and Plan: Patient presents with SOB with EKG showing CHB. She was on metoprolol and this was stopped. She continued to be in CHB. Echo with EF 60-65%, Grade I diastolic dysfunction and moderate . Echo also showing moderate pulmonary hypertension (54 mmHg). TSH normal. Heparin held and PM placed 04/15. She tolerated this procedure well. Apnea link with AHI 13.4 with RI 15 and thus suspected sleep apnea. Needs formal sleep study as an outpatient basis. Troponin level elevated slightly but not felt to be clinically significant given that she is asymptomatic and unclear why this was drawn. Appreciate Cardiology input. Continue tele. (3) Suspected pulmonary embolism: Code(s): R09.89 - Other specified symptoms and signs involving the circulatory and respiratory systems Status: Acute Assessment and Plan: Patient presents with SOB. DDimer 3.3. COVID negative. CT chest without contrast as mentioned below. Perfusion scan showing small-moderate perfusion abnormality of the left upper lung posteriorly so she was started on Heparin drip. Unable to do Chest CTA due to elevated creatinine. Lower extremity Dopplers are negative for DVT. Patient was on heparin infusion but held due to PM placement. No plans to resume Heparin drip per Cardiology. Check CTA when renal function improves. Cr worse today so mally repeat lung perfusion study. Awaiting creatinine to improve for this evaluation. Renal is following with regard to her renal dysfunction. (4) Acute renal failure: Qualifiers: Acute renal failure type: unspecified Qualified Code(s): N17.9 - Acute kidney failure, unspecified Code(s): N17.9 - Acute kidney failure, unspecified Status: Acute Assessment and Plan: Possibly related to decreased perfusion due to 3rd degree AV block. Creatinine climbed to 2.9 but was improving daily since PM placement with good UOP but worse today. Continue diuresis as tolerated (5) Stage 3a chronic kidney disease: Code(s): N18.31 - Chronic kidney disease, stage 3a Status: Chronic Assessment and Plan: Patient has underlying CKD. Baseline Cr 0.8-1.2 over the past year. As above. (6) Pneumonia: Qualifiers: Laterality: unspecified laterality Lung location: unspecified part of lung Pneumonia type: due to unspecified organism Qualified Code(s): J18.9 - Pneumonia, unspecified organism Code(s): J18.9 - Pneumonia, unspecified organism Status: Acute Assessment and Plan: Patient presents with SOB. CT chest without contrast 04/07 showing scattered reticulonodular densities with superimposed ground glass opacification scattered bilaterally, consistent with pneumonia. No fevers but WBC was up to 15K. She was initially given Rocephin but switched to Zosyn on admission. Atypical coverage with azithromycin added but this can prolong the QT so this was stopped. MRSA nasal swab negative. BCx and Sputum cx negative. She completed a course of abx. Resolved (7) Anemia:
[2021-04-22 16:42] LABS: Glucose Point of Care 132 mg/dl (65-105)
[2021-04-22] MEDS: FOLIC ACID 1 MG TABLET PO (17:03)
[2021-04-22 22:17] LABS: Glucose Point of Care 160 mg/dl (65-105)
[2021-04-23] VITALS (8 sets, daily range): BP systolic 121–132; BP diastolic 52–66; PULSE 76–92; RESP 16–20; TEMP 36.2–36.7; O2SAT 98–100
[2021-04-23 05:33] LABS: Hematocrit 30.5 % (37.0-47.0); Hemoglobin 9.5 g/dL (12.0-15.0); Mean Corpuscular HGB Conc 31.1 g/dl (32-36); Mean Corpuscular Hemoglobin 30.7 pg (26-34); Mean Corpuscular Volume 98.7 fl (80-100); Mean Platelet Volume 9.7 fl (7.4-10.4); Platelet Count Result 156 k/mm3 (150-375); Red Blood Count 3.09 M/mm3 (4.2-5.4); Red Cell Distribution Width 13.5 % (11.5-14.5); White Blood Count 7.7 K/mm3 (4.5-10.0)
[2021-04-23 05:43] LABS: Albumin Level 3.6 g/dL (3.5-5.1); Anion Gap 6 mmol/L (8-16); Blood Urea Nitrogen 41 mg/dL (7-17); Calcium 7.3 mg/dL (8.4-10.2); Carbon Dioxide 32 mmol/L (22-30); Chloride 103 mmol/L (98-107); Estimated CRCL calculation 28 ml/min; Estimated Glomerular Filt Rate 28; Glucose 132 mg/dL (65-110); Magnesium 2.1 mg/dL (1.6-2.3); Phosphorus 5.4 mg/dL (2.5-4.5); Potassium 3.5 mmol/L (3.4-5.0); Sodium 141 mmol/L (137-145)
[2021-04-23] MEDS: LEVOTHYROXINE SODIUM 112 MCG TABLET PO (06:13)
[2021-04-23] MEDS: APIXABAN 5 MG TABLET PO ×2 (06:13→08:50)
--- NOTE | 2021-04-23 06:36 | P.PNNP_ITS ---
Progress Note: A&P Assessment and Plan (1) Acute renal failure: Qualifiers: Acute renal failure type: unspecified Qualified Code(s): N17.9 - Acute kidney failure, unspecified Code(s): N17.9 - Acute kidney failure, unspecified Status: Acute Assessment and Plan: * slow improvement noted at this time * evaluation to date reveals: * unremarkable renal U/S * prerenal urine electrolytes * normal CPK * creatinine stable at 1.8. * On furosemide 40mg PO b.i.d. per Cardiology. 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 We discussed at length. * This creatinine may be a new baseline for her. * Okay for discharge from the kidney standpoint once anticoagulation worked out (2) Stage 3a chronic kidney disease: Code(s): N18.31 - Chronic kidney disease, stage 3a Status: Chronic Assessment and Plan: * baseline creatinine runs ~ 0.8 - 1.3mg/dl * likely due to diabetes and hypertension (3) Suspected pulmonary embolism: Code(s): R09.89 - Other specified symptoms and signs involving the circulatory and respiratory systems Status: Acute Assessment and Plan: * off heparin drip * Discussed with Dr. Castano at length yesterday. He ordered a V/Q scan. It was done late at night and the result has come back high probability. I put the patient on apixaban when the nurse talked to me about the scan. (4) Third degree heart block: Code(s): I44.2 - Atrioventricular block, complete Status: Acute Assessment and Plan: * s/p pacemaker placement on 04/15/21 * Much better heart function since then. * Cardiology following (5) Pneumonia: Qualifiers: Laterality: unspecified laterality Lung location: unspecified part of lung Pneumonia type: due to unspecified organism Qualified Code(s): J18.9 - Pneumonia, unspecified organism Code(s): J18.9 - Pneumonia, unspecified organism Status: Acute Assessment and Plan: * resolved (6) HTN (hypertension): Qualifiers: Hypertension type: essential hypertension Qualified Code(s): I10 - Essential (primary) hypertension Code(s): I10 - Essential (primary) hypertension Status: Chronic Assessment and Plan: * Blood pressure is under good control * On carvedilol 6.25 b.i.d.. (7) DM2 (diabetes mellitus, type 2): Qualifiers: Diabetes mellitus longwall shearer operator insulin use: without longwall shearer operator use Diabetes mellitus complication status: with other specified complication Qualified Code(s): E11.69 - Type 2 diabetes mellitus with other specified complication Code(s): E11.9 - Type 2 diabetes mellitus without complications Status: Chronic Assessment and Plan: * On Accu-Cheks and sliding-scale insulin Will continue to follow. Subjective Date/time seen: 04/23/21 06:36 Interval history: Feels okay today. She slept well. Swelling is mild. Exam Narrative: General: Elderly female in NAD Heart: normal S1 and S2; no rub or gallop Lungs: Few crackles at the bases. Abdomen: soft, nontender, nondistended, positive bowel sounds Extremities: Trace to 1+ edema bilaterally Skin: No rash or subcu nodules Objective Data Vital Signs Vital Signs: Vital Signs - 24 hr 04/22/21 08:00 04/22/21 08:25 04/22/21 09:45 Temperature 36.0 C L Pulse Rate 80 75 77 Respiratory
--- NOTE | 2021-04-23 06:36 | PM.PNNEP ---
Progress Note: A&P Assessment and Plan (1) Acute renal failure: Qualifiers: Acute renal failure type: unspecified Qualified Code(s): N17.9 - Acute kidney failure, unspecified Code(s): N17.9 - Acute kidney failure, unspecified Status: Acute Assessment and Plan: slow improvement noted at this time evaluation to date reveals: unremarkable renal U/S prerenal urine electrolytes normal CPK creatinine stable at 1.8. On furosemide 40mg PO b.i.d. per Cardiology. 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 We discussed at length. This creatinine may be a new baseline for her. Okay for discharge from the kidney standpoint once anticoagulation worked out (2) Stage 3a chronic kidney disease: Code(s): N18.31 - Chronic kidney disease, stage 3a Status: Chronic Assessment and Plan: baseline creatinine runs ~ 0.8 - 1.3mg/dl likely due to diabetes and hypertension (3) Suspected pulmonary embolism: Code(s): R09.89 - Other specified symptoms and signs involving the circulatory and respiratory systems Status: Acute Assessment and Plan: off heparin drip Discussed with Dr. Castano at length yesterday. He ordered a V/Q scan. It was done late at night and the result has come back high probability. I put the patient on apixaban when the nurse talked to me about the scan. (4) Third degree heart block: Code(s): I44.2 - Atrioventricular block, complete Status: Acute Assessment and Plan: s/p pacemaker placement on 04/15/21 Much better heart function since then. Cardiology following (5) Pneumonia: Qualifiers: Laterality: unspecified laterality Lung location: unspecified part of lung Pneumonia type: due to unspecified organism Qualified Code(s): J18.9 - Pneumonia, unspecified organism Code(s): J18.9 - Pneumonia, unspecified organism Status: Acute Assessment and Plan: resolved (6) HTN (hypertension): Qualifiers: Hypertension type: essential hypertension Qualified Code(s): I10 - Essential (primary) hypertension Code(s): I10 - Essential (primary) hypertension Status: Chronic Assessment and Plan: Blood pressure is under good control On carvedilol 6.25 b.i.d.. (7) DM2 (diabetes mellitus, type 2): Qualifiers: Diabetes mellitus [facility] insulin use: without terminal computer operator use Diabetes mellitus complication status: with other specified complication Qualified Code(s): E11.69 - Type 2 diabetes mellitus with other specified complication Code(s): E11.9 - Type 2 diabetes mellitus without complications Status: Chronic Assessment and Plan: On Accu-Cheks and sliding-scale insulin Will continue to follow. Subjective Date/time seen: 04/23/21 06:36 Interval history: Feels okay today. She slept well. Swelling is mild. Exam Narrative: General: Elderly female in NAD Heart: normal S1 and S2; no rub or gallop Lungs: Few crackles at the bases. Abdomen: soft, nontender, nondistended, positive bowel sounds Extremities: Trace to 1+ edema bilaterally Skin: No rash or subcu nodules Objective Data Vital Signs Vital Signs: Vital Signs - 24 hr 04/22/21 08:00 04/22/21 08:25 04/22/21 09:45 Temperature 36.0 C L Pulse Rate 80 75 77 Respiratory Rate 14 Blood Pressure 134/58 L Pulse Oximetry 100 04/22/21 12:00 04/22/21 14:04 04/22/21 16:00 Temperature 36.4 C Pulse Rate 78 72 87 Respiratory Rate 14 Blood Pressure 132/61 Pulse Oximetry 99 04/22/21 18:21 04/22/21 20:00 04/22/21 20:25 Temperature 36.8 C 36.6 C Pulse Rate 83 87 86 Respiratory Rate 16 20 20 Blood Pressure 134/53 L 133/65 Pulse Oximetry 98 100 100 04/22/21 20:41 04/22/21 23:54 04/23/21 00:00 Temperature 36.4 C L Pulse Rate 73 82 76 Respiratory Rate 18 Blood Pressure 130/52 L Pulse Oximet
--- NOTE | 2021-04-23 07:42 | PM.PNCARD ---
Progress Note: A&P Assessment and Plan (1) HTN (hypertension): Qualifiers: Hypertension type: essential hypertension Qualified Code(s): I10 - Essential (primary) hypertension Code(s): I10 - Essential (primary) hypertension Status: Chronic Assessment and Plan: Stable. On Coreg 6.25 mg BID. Hydralazine prn for SBP>160 mmHg. Monitor BP. (2) DM2 (diabetes mellitus, type 2): Qualifiers: Diabetes mellitus long term care phlebotomist insulin use: without long term care phlebotomist use Diabetes mellitus complication status: with other specified complication Qualified Code(s): E11.69 - Type 2 diabetes mellitus with other specified complication Code(s): E11.9 - Type 2 diabetes mellitus without complications Status: Chronic Assessment and Plan: Manage by hospitalist. (3) CKD (chronic kidney disease): Qualifiers: Chronic kidney disease stage: stage 1 Qualified Code(s): N18.1 - Chronic kidney disease, stage 1 Code(s): N18.9 - Chronic kidney disease, unspecified Status: Acute Assessment and Plan: Improving with Bumetanide and after pacemaker implant. Bumetanide changed to Furosemide. Followed by Dr. Kate. (4) SOB (shortness of breath) on exertion: Code(s): R06.02 - Shortness of breath Status: Acute Assessment and Plan: Also due to volume overload from acute on chronic diastolic heart failure. Due to pneumonia on CT chest and pulm embolism on VQ scan. D-Dimer is elevated. She was covid and flu negative and covid negative again here. On antibiotics and heparin drip. Blood cultures has shown no growth to date. Worsening anemia that stabilized. Discussed with Dr. Kate concern for worsening kidney function if she is exposed to contrast with CTA chest to assess PE. If no PE, then can stop anticoagulation, and would move forward with pacemaker placement. The concern is bleeding into pacemaker pocket perioperatively as would need to anticoagulate her for PE. Discussed with Dr. Raines and due to concern for pocket hematoma with anticoagulation, would rather hold off on anticoagulation post pacemaker implant. On Furosemide 40 mg PO daily now, normally on Lasix 40 mg PO alternating with 80 mg daily at home. Monitor kidney function and electrolytes. Consider CTA to assess PE once Cr is back to baseline at Cr 1.1. Repeat VQ scan on 04/22/21 shows high probability for pulm embolism. She is started on Eliquis 5 mg BID. Monitor pacemaker pocket for hematoma development. (5) Complete heart block: Code(s): I44.2 - Atrioventricular block, complete Status: Acute Assessment and Plan: Stable BP and asymptomatic at rest. She is symptomatic with very minimal exertion. 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 Pacer pads on chest in case HR drops further. Hold Metoprolol. TSH is OK. Her HR remained in mid 40's bpm range in heart block. Due to worsening kidney function which precludes obtaining CTA chest to r/o PE definitively, I spoke to Dr. Raines this morning for dual chamber pacemaker implant. Discuss risks/benefits/alternative treatment with patient which includes but not limited to bleeding, infection, perforation, . She is agreeable to it. S/P Biotronik dual chamber pacemaker on 04/15/21. Post op management per Dr. Raines. (6) Diastolic dysfunction: Code(s): I51.89 - Other ill-defined heart diseases Status: Acute Assessment and Plan: 12/13/20 Echo: EF 55-60%, grade I diastolic dysfunction (E/e' 26), mild LAE, trace AI/TR, mild MR. 04/08/20 Echo: EF 60-65%, grade I diastolic dysfunction (E/e' 8), mod LAE, mild FREDY, mod (ATIF 1.4 cm2), mod MAC, mild-mod MR/TR, RVSP 54 mmHg. Subjective Date/time seen: 04/23/21 07:42 Denies chest pain. Has TIDWELL with minimal activity getting out of bed. Exam Const: General: cooperative, healthy appearing and comfortable Nutritional Appearance: obese Resp: Auscultation: clear to
[2021-04-23 08:26] LABS: Glucose Point of Care 133 mg/dl (65-105)
[2021-04-23] MEDS: carvediloL 6.25 MG TABLET PO (08:49)
[2021-04-23] MEDS: FAMOTIDINE 20 MG TABLET PO (08:49)
[2021-04-23] MEDS: OMEGA 3 POLYUNSAT FATTY ACIDS 1 GM CAP PO ×2 (08:49→12:21)
[2021-04-23] MEDS: FERROUS SULFATE 324 MG TABLET PO (08:50)
[2021-04-23] MEDS: CALCIUM CARBONATE (TUMS) 500 MG (200 MG ELEMENTAL) PO (08:50)
[2021-04-23] MEDS: FUROSEMIDE 40 MG TABLET PO (08:50)
[2021-04-23 12:01] LABS: Glucose Point of Care 167 mg/dl (65-105)
[2021-04-23] MEDS: CHOLECALCIFEROL 1,000 UNITS TABLET 1000 UNITS PO (12:21)
[2021-04-23] MEDS: calcium polycarbophiL 625 MG TABLET PO (12:21)
[2021-04-23] MEDS: CYANOCOBALAMIN 1,000 MCG TABLET 1000 MCG PO (12:21)
[2021-04-23] MEDS: VITAMIN B COMPLEX CAPSULE 1 CAP PO (12:21)
--- NOTE | 2021-04-23 12:34 | PM.DS ---
DS: Admitting Diagnosis Discharge Date 04/23/21 Admitting Diagnosis Shortness of breath DS: Discharge Diagnosis Discharge Diagnosis (1) Third degree heart block: Code(s): I44.2 - Atrioventricular block, complete Status: Acute Assessment and Plan: Patient presents with SOB with EKG showing CHB. She was on metoprolol and this was stopped. She continued to be in CHB. Echo with EF 60-65%, Grade I diastolic dysfunction and moderate . Echo also showing moderate pulmonary hypertension (54 mmHg). TSH normal. Heparin held and PM placed 04/15. She tolerated this procedure well. Apnea link with AHI 13.4 with RI 15 and thus suspected sleep apnea. Plan to set up a formal sleep study as an outpatient. Appreciate Cardiology input. (2) Acute respiratory failure: Code(s): J96.00 - Acute respiratory failure, unspecified whether with hypoxia or hypercapnia Status: Acute Assessment and Plan: Patient developed acute respiratory failure on 04/12 felt related to fluid overload. IV fluids stopped and Lasix once given. Her symptoms improved and had good UOP but unfortunately, her renal function worsened. Called again to the room for acute respiratory failure on 04/15 and received Lasix 40mg IV once with good response. CXR showing again mild pulmonary congestion. ABG 7.38 on 2L. Started on scheduled Bumex with good UOP with continued improvement in her respiratory symptoms. CXR 04/18 showing mild pulmonary edema. She has been weaned to room air and only minimal TIDWELL now. Much better overall. (3) Suspected pulmonary embolism: Code(s): R09.89 - Other specified symptoms and signs involving the circulatory and respiratory systems Status: Acute Assessment and Plan: Patient presented with SOB. DDimer was 3.3. COVID negative. CT chest without contrast as mentioned below. Perfusion scan showing small-moderate perfusion abnormality of the left upper lung posteriorly so she was started on Heparin drip. Unable to do Chest CTA due to elevated creatinine. Lower extremity Dopplers are negative for DVT. Heparin infusion was held due to PM placement and not resumed per Cardiology. Renal function improved but still remained abnormal. We repeated the lung perfusion study on 04/22 which showed high probability for PE. She was started on Eliquis. (4) Acute renal failure: Qualifiers: Acute renal failure type: unspecified Qualified Code(s): N17.9 - Acute kidney failure, unspecified Code(s): N17.9 - Acute kidney failure, unspecified Status: Acute Assessment and Plan: [place] [employer] [place] related to decreased perfusion due to 3rd degree AV block. Creatinine climbed to 2.9 before improving daily after pacemaker placement. Renal US showing no acute findings. Cr improved to 1.8 but there it remained stable. Nephrology was consulted and appreciate their input. (5) Stage 3a chronic kidney disease: Code(s): N18.31 - Chronic kidney disease, stage 3a Status: Chronic Assessment and Plan: Patient has underlying CKD. Baseline Cr 0.8-1.2 over the past year. As above. (6) Pneumonia: Qualifiers: Laterality: unspecified laterality Lung location: unspecified part of lung Pneumonia type: due to unspecified organism Qualified Code(s): J18.9 - Pneumonia, unspecified organism Code(s): J18.9 - Pneumonia, unspecified organism Status: Acute Assessment and Plan: Patient presents with SOB. CT chest without contrast 04/07 showing scattered reticulonodular densities with superimposed ground glass opacification scattered bilaterally, consistent with pneumonia. No fevers but WBC was up to 15K. She was initially given Rocephin but switched to Zosyn on admission. Atypical coverage with azithromycin added but this can prolong the QT so this was stopped. MRSA nasal swab negative. BCx and Sputum cx negative. She completed a course of abx. Resolved (7) Anemia: Qualifiers
== END 2021-04-23 16:30 | disposition home or self-care (01) | DRG 981 ==
LOC: ANHED 13:25 → ANHICU 04-08 06:35 → ANHIMU 04-09 16:52 → ANH2MED 04-23 13:14 → ANHICU 04-24 11:22 → ANHIMU 04-24 11:22
PROVIDERS: Emergency Medicine; Internal Medicine; Internal Medicine Cardiovascular Disease; Internal Medicine Nephrology; Nurse Practitioner; Specialist; Admitting Provider Internal Medicine; Emergency Provider Emergency Medicine; PCP Internal Medicine; Visit Provider Internal Medicine
PROC: 0JH606Z Insertion of Pacemaker, Dual Chamber into Chest Subcutaneous Tissue and Fascia, Open Approach (ICD-10-PCS; CPT 33208; principal; 2021-04-15 10:00)
DX: I26.99 Other pulmonary embolism without acute cor pulmonale (principal); J18.9 Pneumonia, unspecified organism; J96.00 Acute respiratory failure, unspecified whether with hypoxia or hypercapnia; I44.2 Atrioventricular block, complete; I13.0 Hypertensive heart and chronic kidney disease with heart failure and stage 1 through stage 4 chronic kidney disease, or unspecified chronic kidney disease; N17.9 Acute kidney failure, unspecified; Z20.822 Contact with and (suspected) exposure to COVID-19; E11.22 Type 2 diabetes mellitus with diabetic chronic kidney disease; M10.9 Gout, unspecified; I50.9 Heart failure, unspecified; E03.9 Hypothyroidism, unspecified; E55.9 Vitamin D deficiency, unspecified; R19.7 Diarrhea, unspecified; D50.9 Iron deficiency anemia, unspecified; E87.5 Hyperkalemia; R79.89 Other specified abnormal findings of blood chemistry; Z68.38 Body mass index [BMI] 38.0-38.9, adult; E78.2 Mixed hyperlipidemia; D64.9 Anemia, unspecified; I27.20 Pulmonary hypertension, unspecified; N18.31 Chronic kidney disease, stage 3a; E87.70 Fluid overload, unspecified; Z79.4 Long term (current) use of insulin; E66.01 Morbid (severe) obesity due to excess calories; G47.30 Sleep apnea, unspecified; I35.0 Nonrheumatic aortic (valve) stenosis
CPT/HCPCS: 33208; 36415; 36600; 71045; 71046; 71250; 76775; 78580; 80048; 80053; 80061; 80069; 81001; 82306; 82330; 82550; 82570; 82607; 82728; 82746; 82805; 82948; 83036; 83540; 83550; 83605; 83615; 83690; 83735; 83880; 83970; 84100; 84156; 84300; 84443; 84484; 84550; 85014; 85018; 85025; 85027; 85380; 85610; 85730; 87040; 87070; 87081; 87205; 87449; 87502; 87899; 93005; 93306; 93970; 94640; 94762; 96361; 96365; 96367; 96375; 97110; 97116; 97161; 97165; 97530; 97535; 99285; A9270; A9540; C1751; C1779; C1785; C9803; J0360; J0456; J0610; J0690; J0696; J1610; J1644; J1650; J1815; J1940; J2250; J2405; J2543; J3010; J3475; J7030; J7040; J7120; U0003; U0005

== ENCOUNTER 2021-05-01 11:43 | Outpatient (CLI) | payer MEDICARE, SELFPAY ==
[2021-05-01 13:12] LABS: Basophils Absolute Auto 0.1 K/mm3 (0.0-0.1); Basophils Percent Auto 0.9 % (0.2-1.2); Eosinophils Absolute Auto 0.2 K/mm3 (0-0.3); Eosinophils Percent Auto 2.6 % (0-4.4); Hematocrit 33.2 % (37.0-47.0); Hemoglobin 10.7 g/dL (12.0-15.0); Immature Granulocyte Absolute 0.04 K/mm3 (0.00-0.031); Immature Granulocyte Percent A 0.5 % (0-0.5); Lymphocytes Absolute Auto 2.01 K/mm3 (0.9-3.2); Lymphocytes Percent Auto 23.6 % (18.3-44.2); Mean Corpuscular HGB Conc 32.2 g/dl (32-36); Mean Corpuscular Hemoglobin 30.7 pg (26-34); Mean Corpuscular Volume 95.4 fl (80-100); Mean Platelet Volume 9.8 fl (7.4-10.4); Monocytes Absolute Auto 0.6 K/mm3 (0.1-0.6); Monocytes Percent Auto 7.5 % (2.6-8.5); Neutrophils Absolute Auto 5.5 K/mm3 (1.3-6.7); Neutrophils Percent Auto 64.9 % (45.5-73.1); Platelet Count Result 190 k/mm3 (150-375); Red Blood Count 3.48 M/mm3 (4.2-5.4); Red Cell Distribution Width 12.7 % (11.5-14.5); White Blood Count 8.5 K/mm3 (4.5-10.0)
[2021-05-01 13:19] LABS: Creatinine Urine 37.6 mg/dL
[2021-05-01 13:22] LABS: Alanine Aminotransferase 19 U/L (4-35); Albumin Level 4.3 g/dL (3.5-5.1); Alkaline Phosphatase 78 U/L (38-126); Anion Gap 9 mmol/L (8-16); Aspartate Amino Transferase 35 U/L (14-36); Bilirubin,Total 0.5 mg/dL (0.2-1.3); Blood Urea Nitrogen 25 mg/dL (7-17); Calcium 7.6 mg/dL (8.4-10.2); Carbon Dioxide 27 mmol/L (22-30); Chloride 105 mmol/L (98-107); Estimated Glomerular Filt Rate 40; Glucose 137 mg/dL (65-110); Potassium 3.2 mmol/L (3.4-5.0); Sodium 141 mmol/L (137-145)
[2021-05-01 13:23] LABS: MALB Creatinine Ratio 308.5 mg/g (0-30)
[2021-05-01 13:54] LABS: Thyroid Stimulating Hormone 0.419 uIU/mL (0.465-4.680)
[2021-05-01 14:14] LABS: Free T4 Free Thyroxine 2.06 ng/mL (0.78-2.19)
[2021-05-03 20:48] LABS: Homocysteine 11.7 umol/L (<10.4)
[2021-05-06 11:30] LABS: Vitamin D 1,25 (OH)2 Total 18 pg/mL (18-72); Vitamin D2 1,25 (OH)2 <8 pg/mL; Vitamin D3 1,25 (OH)2 18 pg/mL
== END 2021-05-01 11:44 | disposition home or self-care (01) ==
LOC: ANHLAB 11:49
PROVIDERS: PCP Internal Medicine; Visit Provider Internal Medicine
DX: E11.69 Type 2 diabetes mellitus with other specified complication (principal); E78.2 Mixed hyperlipidemia; E03.9 Hypothyroidism, unspecified; E61.1 Iron deficiency; Z79.899 Other long term (current) drug therapy; I10 Essential (primary) hypertension; R79.89 Other specified abnormal findings of blood chemistry; M10.9 Gout, unspecified; E55.9 Vitamin D deficiency, unspecified
CPT/HCPCS: 36415; 80053; 82043; 82652; 83090; 84439; 84443; 85025

== ENCOUNTER 2021-05-17 07:40 | Outpatient (CLI) | payer MEDICARE, SELFPAY ==
--- NOTE | 2021-05-26 21:00 | WPDSLEEPSTUD ---
Sleep Study Date of Study: 05/17/21 Ordering Provider: Casey Newsome MD Interpreting Physician: Isis Cisse DO Sleep Study Type: Polysomnogram Height: 1.6 m Weight: 88.451 kg Body Mass Index: 34.5 Neck Circumference (inches): 15 [place]: 9 Reason for Sleep Study Daytime hypersomnia Sleep History The patient is a 75-year-old female with diabetes, stage 3 chronic kidney disease, hypothyroidism, hypertension, congestive heart failure, gout, pacemaker and hx of pulmonary embolism that had a sleep study ordered by her primary care physician. the patient states that she has a significant number of nighttime awakenings. She occasionally has trouble sleeping when she has a cold. She denies waking up gasping for air throughout the night. She occasionally has breathing problems at night observed by herself for others. She denies sweating excessively at night. She occasionally has heart palpitations or irregular heartbeats during the night. She cage Ali falls asleep during the day but never while driving. She denies sleep paralysis, cataplexy and hypnagogic / hypnopompic hallucinations. She rarely has nightmares. She denies having thoughts racing through her mind. She denies feeling sad or depressed. She occasionally has anxiety. She denies noticing parts of her body jerk. She denies taking during the night. She denies having crawling aching feelings in her legs as well as leg pain during the night. She denies grinding her teeth during sleep and awakening with morning jock pain. She denies being bothered by pain during the day the being awakened by pain during the night. She denies waking up feeling stiff in the morning. She denies waking up with Sore a cobian muscles. She occasionally wakes up with pain in the neck, spine and other joints. She goes to bed between 10 30 and 11:00 p.m. on both weekdays and weekends. It takes her 30 minutes to fall asleep. She typically wakes up 2-3 times throughout the night for unknown reasons. When she awakens, she will just lay in bed. It typically takes her 30 minutes to fall back asleep. She wakes up at 7:00 a.m. on both weekdays and weekends. She typically gets 6-7 hours of sleep per night. She will stay in bed for 5 minutes after waking up in the morning. He currently lives alone. She denies consuming any caffeinated beverages within 2 hours of bedtime. She does not engage in physical exercise before bedtime. She will watch television before falling asleep. She does not take naps in the afternoon or the evening. She denies any caffeine intake during the day. She denies tobacco, alcohol and recreational drug use. [facility] Past Medical History Medical History Abdominal pain Abnormal finding of blood chemistry Abscess of sigmoid colon Azotemia Bilateral foot pain BMI 33.0-33.9,adult BMI 34.0-34.9,adult BMI 35.0-35.9,adult Cardiac pacemaker in situ Carotid bruit CKD (chronic kidney disease) Claustrophobia Congestive heart failure Diverticulosis DM2 (diabetes mellitus, type 2) Encounter for general adult medical examination w/o abnormal findings Encounter for Medicare annual wellness exam Encounter for routine adult health examination with abnormal findings Follow up Gout Heart murmur History of diverticulitis HTN (hypertension) Hx of colonic polyps Hyperlipidemia Hypersomnia Hypothyroidism (acquired) Increased homocysteine Iron deficiency Low back pain On skilled nursing drug therapy Paresthesia of both feet Pedal edema Pulmonary embolism Renal insufficiency Rhus dermatitis Shortness of breath Vaginal prolapse Vitamin D deficiency Surgical History Surgical History H/O cervical polypectomy History of bowel resection History of thyroid surgery removal Hx of cataract extraction Family History Family History (Reviewed 05/26/21 @ 21:12 by Isis Pisano
[2021-05-27 11:54] VITALS: BMI 34.5
== END 2021-05-18 06:24 | disposition home or self-care (01) ==
LOC: ANHCSM 07:41
PROVIDERS: PCP Internal Medicine; Visit Provider Internal Medicine
DX: G47.10 Hypersomnia, unspecified (principal); G47.33 Obstructive sleep apnea (adult) (pediatric)
CPT/HCPCS: 95810

== ENCOUNTER 2021-05-30 07:48 | Outpatient (CLI) | payer MEDICARE, SELFPAY ==
--- NOTE | 2021-06-06 15:44 | WPDSLEEPSTUD ---
Sleep Study Date of Study: 05/30/21 Ordering Provider: Casey Newsome MD Interpreting Physician: Namrata Cordova MD Sleep Study Type: CPAP Titration Height: 1.6 m Weight: 83.915 kg Body Mass Index: 32.8 Neck Circumference (inches): 16 [place]: 10 Reason for Sleep Study * Basic sleep study 05/17/2021 with severe obstructive sleep apnea, AHI 99.9, difficulty maintinaing sleep due to fragmenetation due to apneas, lowest saturation 85%; she presents for CPAP Titration Sleep History Desirae Contreras is a 75-year-old female with diabetes, stage 3 chronic kidney disease, hypothyroidism, hypertension, congestive heart failure, gout, pacemaker and hx of pulmonary embolism who had severe obstructive sleep apnea documented on a basic NPSG 05/17/2021. She has a significant number of nighttime awakenings. She occasionally has trouble sleeping when she has a cold. She denies waking up gasping for air throughout the night. She occasionally has breathing problems at night observed by herself or others. She denies sweating excessively at night. She occasionally has heart palpitations or irregular heartbeats during the night. She occasionally falls asleep during the day but never while driving. She denies feeling unable to move on sleep onset or waking, weakness with strong emotion, or vivid dreams on sleep onset or waking. She rarely has nightmares. She denies having thoughts racing through her mind. She denies feeling sad or depressed. She occasionally has anxiety. She denies noticing parts of her body jerk. She denies taking during the night. She denies having crawling or aching feelings in her legs or any kind of leg pain during the night. She denies grinding her teeth during sleep. She does not wake with jaw pain in the morning. She is not bothered by pain during the day nor is she awakened by pain at night. She denies waking up feeling stiff in the morning. She denies waking up with sore or achy muscles. She occasionally wakes up with pain in the neck, spine and other joints. Normal bedtime is between 10:30 and 11:00 p.m., and it takes her 30 minutes to fall asleep. She typically wakes up 2-3 times throughout the night for unknown reasons. When she awakens, she will lie in bed, often taking 30 minutes to return to sleep. She wakes at 7:00 a.m.. She typically gets 6-7 hours of sleep per night. She currently lives alone. She does not take naps in the afternoon or the evening. Habits: No tobacco. No caffeine, alcohol or recreational drug use. [facility] Past Medical History Medical History (Updated 06/06/21 @ 16:24 by Namrata Cordova MD) Abdominal pain Abnormal finding of blood chemistry Abscess of sigmoid colon Azotemia Bilateral foot pain Cardiac pacemaker in situ Carotid bruit CKD (chronic kidney disease) Claustrophobia Congestive heart failure Diverticulosis DM2 (diabetes mellitus, type 2) Encounter for Medicare annual wellness exam Gout Heart murmur History of diverticulitis HTN (hypertension) Hx of colonic polyps Hyperlipidemia Hypothyroidism (acquired) Increased homocysteine Iron deficiency Low back pain On rat 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 drug therapy Paresthesia of both feet Pedal edema Pulmonary embolism Renal insufficiency Rhus dermatitis Shortness of breath Vaginal prolapse Vitamin D deficiency Surgical History Surgical History H/O cervical polypectomy History of bowel resection History of thyroid surgery removal Hx of cataract extraction Family History Family History Mother Diabetes mellitus Malignant neoplasm of prostate Family history of lung cancer Family history of diabetes mellitus in first degree relative Father Family history of cardiovascular disease Sibling Diabetes mellitus Family history of cardiovascular disease, Onset Age: 80 Malignant neoplasm of prostate Social History Social Hi
[2021-06-06 20:53] VITALS: BMI 32.8
== END 2021-05-31 07:01 | disposition home or self-care (01) ==
LOC: ANHCSM 07:49
PROVIDERS: PCP Internal Medicine; Visit Provider Internal Medicine
DX: G47.33 Obstructive sleep apnea (adult) (pediatric) (principal); G47.61 Periodic limb movement disorder
CPT/HCPCS: 95811

== ENCOUNTER → 2021-08-07 10:00 | Outpatient (CLI) | payer MEDICARE, SELFPAY ==
--- NOTE | ~2021-08-07 | DEXA_ITS ---
Bone Density Report Name: TITI BARRETO Age: 75 Sex: Female Ethnicity: White Date of : 1945 Indication: postmenopausal; screening for osteoporosis; height loss; end stage renal disease; Referring Provider: GRACIELA HARDY Study: Bone densitometry was performed. Exam Date: August 07, 2021 Accession number: [id number] Bone Density: Region BMD T-score Z-score Classification AP Spine (L1-L4) 1.306 2.4 4.7 Normal Femoral Neck (Left) 0.769 -0.7 1.3 Normal Total Hip (Left) 0.988 0.4 2.1 Normal Femoral Neck (Right) 0.739 -1.0 1.1 Normal Total Hip (Right) 0.950 0.1 1.8 Normal Total Hip Mean 0.969 0.3 2.0 Normal World Health Organization criteria for BMD impression classify patients as: Normal (T-score at or above -1.0), Osteopenia (T-score between -1.0 and -2.5), or Osteoporosis (T-score at or below -2.5). 10-year Fracture Risk: FRAX not reported because: All T-scores for Spine Total, Hip Total, Femoral Neck at or above -1.0 Clinical Information Provided by Patient: Has used the following medications: Vitamin D, Calcium Has the following medical conditions: End stage renal disease, Thyroid removed Patient maximum height was 63.5 Menopause Age: 58 No regular weight bearing exercise Does not regularly consume dairy products Onset of menses at age 15 Number of children 2 Impression: The patient has normal bone mass. Discussion: BONE DENSITY IS ABOVE THE MINIMUM DESIRABLE LEVEL AT ALL SKELETAL SITES TESTED. This patient?s bone mineral density is above the minimum desirable level (T-score -1.0 or better) at all sites measured. The patient should follow a healthful lifestyle (good nutrition with adequate calcium and vitamin D, and appropriate weight-bearing exercise). Follow-Up: Consider repeating this study in 5 years or sooner if there is some new clinical indication. Reported by: [facility] on 08/07/2021 10:30:00 AM. Reviewed, dictated and finalized at location [facility]
== END ==
PROVIDERS: PCP Internal Medicine; Visit Provider Obstetrics & Gynecology Gynecology
DX: Z78.0 Asymptomatic menopausal state (principal)
CPT/HCPCS: 77080

== ENCOUNTER 2021-09-02 01:46 | Day surgery (SDC) | payer MEDICARE, SELFPAY ==
[2021-08-26 12:15] VITALS: BMI 31.0
[2021-09-02 07:22] VITALS: BP 142/63; PULSE 76; RESP 20; TEMP 37.2; O2SAT 100
--- NOTE | 2021-09-02 07:32 | PM.IMHP ---
H&P: HPI History of Present Illness Date/Time: 09/02/21 07:32 Chief Complaint: Neoplasia screening. Narrative: This is a 75-year-old white female patient presents for neoplasia screening colonoscopy. Patient's current weight appetite bowel movements are normal. She denies abdominal pain. She has had no bleeding. Patient has a history of a large tubulovillous adenoma requiring surgical resection 2005. She underwent partial colectomy. patient also has a history of diverticulitis a year or 2 ago with pericolonic abscess. Apparently he has surgery was avoided. She states she no longer has abdominal pain bowel habits returned to normal. Patient presents today for surveillance screening colonoscopy. Review of Systems Review of Systems: Review of systems noncontributory. 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 Paresthesia of both feet Pedal edema Pulmonary embolism Renal insufficiency Rhus dermatitis Shortness of breath Vaginal prolapse Vitamin D deficiency Surgical History Surgical History H/O cervical polypectomy History of bowel resection History of thyroid surgery removal Hx of cataract extraction Family History Family History Mother Diabetes mellitus Malignant neoplasm of prostate Family history of lung cancer Family history of diabetes mellitus in first degree relative Father Family history of cardiovascular disease Sibling Diabetes mellitus Family history of cardiovascular disease, Onset Age: 80 Malignant neoplasm of prostate Social History Social History Social History: Patient has 2 children. Her daughter Di nguyen is the POA. She lives home alone. She is . 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 She is a lifelong nonsmoker. She does use any alcohol marijuana illicit drugs. Code status full code Smoking status: Former smoker Second hand tobacco smoke exposure: No Alcohol intake: never Substance use: never Substance use type: does not use Living arrangements: alone Gender identity (if verbalized by the patient): Female Spiritual care concerns: No Meds Home Medications and Allergies Home Medications Medication Instructions Recorded Confirmed Type cholecalciferol (vitamin D3) 25 1,000 unit PO QNOON 03/28/19 08/28/21 History mcg/drop (1,000 unit/drop) oral drops mecobalamin (vitamin B12) 1,000 1,000 mcg PO QNOON 03/28/19 08/28/21 History mcg disintegrating tablet,sublingual omega-3 fatty acids 1,000 mg 1,000 mg PO QID 03/28/19 08/28/21 History capsule (Fish Oil Concentrate) levothyroxine 112 mcg tablet 112 mcg PO QAM 04/08/21 08/28/21 History linagliptin 5 mg tablet (Tradjenta) 5 mg PO QAM 04/08/21 08/28/21 History blood-glucose meter (Accu-Chek #1 ea 04/23/21 08/28/21 Rx Nabila Plus Meter) calcium carbonate 600 mg calcium 600 mg PO BID 05/02/21 08/28/21 History (1,500 mg) tablet (Calcium) furosemide 40 mg tablet 40 mg PO DAILY #90 tabs 05/15/21 08/28/21 Rx hydralazine 50 mg tablet 50 mg PO BID #60 tabs 05/29/21 08/28/21 Rx folic acid 1 mg tablet 1 mg PO QPM #90 tabs 06/26/21 08/28/21 Rx losartan 100 mg tablet 100 mg PO DAILY #90 tabs 06/26/21 08/28/21 Rx bl
[2021-09-02] MEDS: LACTATED RINGERS 1,000 ML 150 ML IV CONT (07:33)
[2021-09-02 07:39] LABS: Glucose Point of Care 117 mg/dl (65-105)
--- NOTE | 2021-09-02 07:42 | WPDANESEPPF ---
Anes - Initial Pre Proc Eval Procedure: Operation Date: 09/02/21 08:30 Proposed Procedures p Screening Colonoscopy - Jose Miguel Seo MD Date/Time: 09/02/21 07:42 Surgeon: Jose Miguel Seo MD Pre Op Diagnosis: hx of colon polyps Patient Data Age: 75 Gender: F Height: 1.57 m Weight: 75.3 kg Last Vital Signs Temp 37.2 C 09/02/21 07:22 Pulse 76 09/02/21 07:22 Resp 20 09/02/21 07:22 BP 142/63 H 09/02/21 07:22 Pulse Ox 100 09/02/21 07:22 O2 Del Method Room Air 09/02/21 07:22 Allergies Allergy/AdvReac Type Severity Reaction Status Date / Time LON Inhibitors Allergy Unknown Cough Verified 09/02/21 07:20 Home Medications Medication Instructions Recorded Confirmed Type cholecalciferol (vitamin D3) 25 1,000 unit PO QNOON 03/28/19 08/28/21 History mcg/drop (1,000 unit/drop) oral drops mecobalamin (vitamin B12) 1,000 1,000 mcg PO QNOON 03/28/19 08/28/21 History mcg disintegrating tablet,sublingual omega-3 fatty acids 1,000 mg 1,000 mg PO QID 03/28/19 08/28/21 History capsule (Fish Oil Concentrate) levothyroxine 112 mcg tablet 112 mcg PO QAM 04/08/21 08/28/21 History linagliptin 5 mg tablet (Tradjenta) 5 mg PO QAM 04/08/21 08/28/21 History blood-glucose meter (Accu-Chek #1 ea 04/23/21 08/28/21 Rx Nabila Plus Meter) calcium carbonate 600 mg calcium 600 mg PO BID 05/02/21 08/28/21 History (1,500 mg) tablet (Calcium) furosemide 40 mg tablet 40 mg PO DAILY #90 tabs 05/15/21 08/28/21 Rx hydralazine 50 mg tablet 50 mg PO BID #60 tabs 05/29/21 08/28/21 Rx folic acid 1 mg tablet 1 mg PO QPM #90 tabs 06/26/21 08/28/21 Rx losartan 100 mg tablet 100 mg PO DAILY #90 tabs 06/26/21 08/28/21 Rx blood sugar diagnostic (Accu-Chek #100 ea 07/01/21 08/28/21 Rx Nabila Plus test strips) allopurinol 100 mg tablet 100 mg PO QPM #90 tabs 07/15/21 08/28/21 Rx apixaban 5 mg tablet (Eliquis) 5 mg PO Q12HR #60 tabs 07/29/21 08/28/21 Rx lancets (Accu-Chek Softclix #100 ea 08/20/21 08/28/21 Rx Lancets) carvedilol 6.25 mg tablet 6.25 mg PO Q12H 08/26/21 08/28/21 History famotidine 20 mg tablet 20 mg PO BID 08/26/21 08/28/21 History ferrous sulfate 325 mg (65 mg 325 mg PO DAILY 08/26/21 08/28/21 History iron) tablet magnesium oxide 500 mg tablet 500 mg PO DAILY 08/26/21 08/28/21 History multivitamin-ferrous 1 tablet PO DAILY 08/26/21 08/28/21 History fumarate-folic acid 18 mg-400 mcg tablet (Centrum Women) psyllium husk 3.4 gram/5.4 gram 1 tbsp PO DAILY 08/26/21 08/28/21 History oral powder (Metamucil) rosuvastatin 20 mg tablet 20 mg PO DAILY 08/26/21 08/28/21 History Laboratory Tests 09/02/21 07:33 POC Capillary Glucose 117 mg/dl H mg/dl (65-105) Patient hx anesthesia problems: none Family hx anesthesia problems: none Results Review: All pre-operative results and documents have been reviewed as part of the pre-operative evaluation. 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
--- NOTE | 2021-09-02 08:57 | SUR.OPER ---
RN verified transverse colon polyps collected with Dr. Seo
[2021-09-02 09:01] VITALS: BP 102/45; PULSE 63; RESP 17; O2SAT 100
[2021-09-02 09:11] VITALS: BP 101/88; PULSE 63; RESP 21; O2SAT 100
[2021-09-02 09:21] VITALS: BP 125/52; PULSE 64; RESP 15; O2SAT 99
== END 2021-09-02 09:36 | disposition home or self-care (01) ==
PROVIDERS: PCP Internal Medicine; Visit Provider Internal Medicine Gastroenterology
PROC: 0DJD8ZZ Inspection of Lower Intestinal Tract, Via Natural or Artificial Opening Endoscopic (ICD-10-PCS; CPT 45378; principal; 2021-09-02 08:30)
DX: Z12.11 Encounter for screening for malignant neoplasm of colon (principal); D12.3 Benign neoplasm of transverse colon; K64.8 Other hemorrhoids; K57.32 Diverticulitis of large intestine without perforation or abscess without bleeding; Z98.0 Intestinal bypass and anastomosis status; Z90.49 Acquired absence of other specified parts of digestive tract; I13.0 Hypertensive heart and chronic kidney disease with heart failure and stage 1 through stage 4 chronic kidney disease, or unspecified chronic kidney disease; E11.22 Type 2 diabetes mellitus with diabetic chronic kidney disease; I50.9 Heart failure, unspecified; N18.9 Chronic kidney disease, unspecified; M10.9 Gout, unspecified; E78.5 Hyperlipidemia, unspecified; E89.0 Postprocedural hypothyroidism; E55.9 Vitamin D deficiency, unspecified; E61.1 Iron deficiency; Z95.0 Presence of cardiac pacemaker; Z79.84 Long term (current) use of oral hypoglycemic drugs; Z79.01 Long term (current) use of anticoagulants; Z87.891 Personal history of nicotine dependence; E66.9 Obesity, unspecified; Z68.30 Body mass index [BMI] 30.0-30.9, adult
CPT/HCPCS: 45385; 82948; 88305; J2704; J7120

== ENCOUNTER → 2021-11-22 14:51 | Outpatient (CLI) | payer MEDICARE, SELFPAY ==
--- NOTE | ~2021-11-22 | CT_ITS ---
EXAMINATION: CT abdomen pelvis w con DATE: 11/22/2021 16:00 INDICATION: Uncontrollable bowel movements. History of bowel resection. TECHNIQUE: Computed tomography (CT) of the abdomen and pelvis was performed with 100 CC Omnipaque 350 intravenous contrast. Automated exposure control and iterative reconstruction technique were employe d. Exam dose: 972.83 mGy-cm total exam DLP. COMPARISON: Numerous to CT abdomen pelvis FINDINGS: The lung bases are clear of infiltrate or consolidation. Cardiomegaly. Right atrial and rig ht ventricular pacemaker leads. No pericardial effusion. Small sliding hiatal hernia. There are multiple small stones in the dependent aspect of the gallbladder. No gallbladder wall thick ening or pericholecystic fluid collection or fat stranding. No bile duct or pancreatic ductal dilatat ion. No pancreatic mass lesion or calcification. No hepatic or splenic space-occupying mass lesion. Normal morphology of the adrenal glands. Multiple bilateral small renal cysts are again noted. No uri nary tract calculus or hydroureteronephrosis. There is atherosclerotic calcification of the abdominal aorta. No intraperitoneal or retroperitoneal or pelvic mass lesion or adenopathy or ascites. Status post right partial colectomy. There are numerous diverticula of the sigmoid and descending col on including a prominent sigmoid colon diverticulum impressing the dome of the urinary bladder, with associated thickening of the wall of the dome of the urinary bladder. The superior bladder wall thick ening may be due to inflammation secondary to diverticulitis, fibrotic change, cystitis or urinary bl adder urothelial malignancy. Consider cystoscopic correlation as clinically appropriate. The uterus and adnexal areas are unremarkable. Small fat-containing umbilical hernia. Diffuse idiopathic hyperostosis of the thoracic spine. Degenerative changes apophyseal joints of the lumbar spine with associated grade 1 anterolisthesis at L4-5. Moderate moderate degenerative change of the lumbar spine. IMPRESSION: Thickening of the dome of the urinary bladder with adjacent prominent sigmoid diverticul a and occasional; diverticulitis is includes thickening secondary to diverticulitis, fibrotic change, cystitis or urothelial malignancy. Consider cystoscopic correlation Diverticulosis of left colon Status post right partial colectomy Cholelithiasis Multiple bilateral renal cysts Small sliding hiatal hernia Cardiomegaly; right atrial and ventricular leads Reviewed, dictated and finalized at Location [facility]. Reviewed, dictated and finalized at location B. IMPRESSION: Thickening of the dome of the urinary bladder with adjacent promin ent sigmoid diverticula and occasional; diverticulitis is includes thickening s econdary to diverticulitis, fibrotic change, cystitis or urothelial malignancy. Consider cystoscopic correlation Diverticulosis of left colon Status post right partial colectomy Cholelithiasis Multiple bilateral renal cysts Small sliding hiatal hernia Cardiomegaly; right atrial and ventricular leads
[2021-11-22 15:35] LABS: Estimated Glomerular Filt Rate 34
== END ==
PROVIDERS: PCP Internal Medicine; Visit Provider Internal Medicine
DX: N82.3 Fistula of vagina to large intestine (principal); K57.30 Diverticulosis of large intestine without perforation or abscess without bleeding; K80.20 Calculus of gallbladder without cholecystitis without obstruction; N28.1 Cyst of kidney, acquired; K44.9 Diaphragmatic hernia without obstruction or gangrene; I51.7 Cardiomegaly
CPT/HCPCS: 74177; Q9967

== ENCOUNTER 2022-03-26 11:39 | Outpatient (CLI) | payer MEDICARE, SELFPAY ==
--- NOTE | ~2022-03-26 | MM_ITS ---
EXAMINATION: MM screening [facility] BI w du HISTORY: Screening mammogram TECHNIQUE: Craniocaudal and mediolateral oblique 3-D tomosynthesis images were obtained and synthetic 2-D images were generated. CAD analysis was submitted and interpreted. COMPARISON: 12/19/2020, 08/27/2019, 06/17/2018 BREAST PARENCHYMAL COMPOSITION: There are scattered areas of fibroglandular density. FINDINGS: No suspicious mass, calcification, or architectural distortion are identified in either ladonna ast to suggest malignancy. There has been no suspicious interval change. IMPRESSION: 1. No mammographic evidence of malignancy. 2. Recommend routine screening mammography in one year. BI-RADS Category 1: Negative Reviewed, dictated and finalized at location A. IC RELATIONS PLAYER
== END 2022-03-26 11:40 | disposition home or self-care (01) ==
LOC: ANHIMG 11:40
PROVIDERS: PCP Internal Medicine; Visit Provider Obstetrics & Gynecology Gynecology
DX: Z12.31 Encounter for screening mammogram for malignant neoplasm of breast (principal)
CPT/HCPCS: 77063; 77067

== ENCOUNTER → 2022-08-15 12:26 | Outpatient (CLI) | payer MEDICARE, SELFPAY ==
--- NOTE | ~2022-08-15 | US_ITS ---
EXAMINATION: US carotid duplex BI DATE: 08/15/2022 12:47 INDICATION: Carotid bruit. CHF. TECHNIQUE: Grayscale, color Doppler, and pulsed Doppler images of the cervical carotid arteries were obtained. The degree of vessel stenosis is placed in one of the following categories: normal, <50%, 5 0-69%, >=70% but less than near-occlusion, near-occlusion, or total occlusion. Note that percent sten osis relative to normal distal artery lumen diameter is indirectly measured from velocity measurement s as described by John, et al. Radiology 2003; 229:340-346. Notes: Normal: Peak systolic velocity <125 centimeters/sec and no plaque <50%. Peak systolic velocity <125 ( EDV <40; ICA/CCA PSV ratio <2.0; used these factors only a tandem lesions or low cardiac output or co ntralateral disease) 50-69 %: PSV 125-230 (EDV 40-100; ratio 2-4) >= 70% but less than near occlusion: PSV greater than 230 (EDV > 100; ratio> 4.0) Near Occlusion: PSV that is variable; markedly narrowed lumen Occlusion: Absent flow on color/spectral Doppler and no lumen on valdivia scale. COMPARISON: None. FINDINGS: RIGHT: The right common carotid artery (CCA) peak systolic velocity (PSV) is 71 cm/s. The right internal car otid artery (ICA) PSV is 104 cm/s. The right ICA end-diastolic velocity (EDV) is 29 cm/s. The right I CA/CCA PSV ratio is 1.5. The external carotid artery (ECA) PSV is 82 cm/s. There is antegrade flow in the right vertebral artery. LEFT: The left CCA PSV is 86 cm/s. The left ICA PSV is 84 cm/s. The left ICA EDV is 25 cm/s. The left ICA/C CA PSV ratio is 1.0. The ECA PSV is 108 cm/s. There is antegrade flow in the left vertebral artery. IMPRESSION: 1. Less than 50% stenosis in the right internal carotid artery by sonographic criteria. 2. Less than 50% stenosis in the left internal carotid artery by sonographic criteria. Reviewed, dictated and finalized at location B. IMPRESSION: 1. Less than 50% stenosis in the right internal carotid artery by sonographic c maxeria. 2. Less than 50% stenosis in the left internal carotid artery by sonographic cr kiley.
== END ==
PROVIDERS: PCP Internal Medicine; Visit Provider Internal Medicine
DX: R09.89 Other specified symptoms and signs involving the circulatory and respiratory systems (principal); I65.23 Occlusion and stenosis of bilateral carotid arteries
CPT/HCPCS: 93880

== ENCOUNTER 2022-12-25 08:21 | Outpatient (CLI) | payer MEDICARE, SELFPAY ==
[2022-12-25 09:20] LABS: Appearance Urine Turbid (Clear); Bacteria Urine 4+ /hpf; Bilirubin Urine Negative (Negative); Blood Urine 3+ (Negative); Color Urine Yellow (Yellow); Glucose Urine UA 3+ mg/dL (Negative); Ketones Urine Negative (Negative); Leukocyte Esterase Ur 3+ LEU/UL (Negative); Nitrate Urine Positive (Negative); Non Pathogenic Casts 0-2; Protein Urine 1+ mg/dL (Negative); RBC Urine >100 /hpf (0-2); Specific Grav Ur 1.019 (1.001-1.035); Squamous Epithelial Cell Urine None seen /hpf (Few); Urobilinogen Urine 0.2 mg/dL (<2.0); WBC Urine >100 /hpf
[2022-12-25 09:31] LABS: Add Urine Microscopic? YES
== END 2022-12-25 08:22 | disposition home or self-care (01) ==
PROVIDERS: PCP Internal Medicine; Visit Provider Internal Medicine
DX: R39.9 Unspecified symptoms and signs involving the genitourinary system (principal)
CPT/HCPCS: 81001; 87077; 87086; 87186

== ENCOUNTER 2023-01-15 10:28 | Outpatient (CLI) | payer MEDICARE, SELFPAY ==
[2023-01-15 11:24] LABS: Appearance Urine Cloudy (Clear); Bacteria Urine None Seen /hpf; Bilirubin Urine Negative (Negative); Blood Urine 3+ (Negative); Color Urine Yellow (Yellow); Glucose Urine UA 2+ mg/dL (Negative); Ketones Urine Negative (Negative); Leukocyte Esterase Ur 3+ LEU/UL (Negative); Nitrate Urine Negative (Negative); Non Pathogenic Casts 0-2; Protein Urine Negative (Negative); RBC Urine >100 /hpf (0-2); Specific Grav Ur 1.013 (1.001-1.035); Squamous Epithelial Cell Urine None seen /hpf (Few); Urobilinogen Urine 0.2 mg/dL (<2.0); WBC Urine >100 /hpf; pH Urine 6.5 (5.0-9.0)
[2023-01-15 11:41] LABS: Add Urine Microscopic? YES
== END 2023-01-15 10:29 | disposition home or self-care (01) ==
LOC: ANHLAB 10:29
PROVIDERS: PCP Internal Medicine; Visit Provider Internal Medicine
DX: R39.9 Unspecified symptoms and signs involving the genitourinary system (principal)
CPT/HCPCS: 81001; 87086

== ENCOUNTER 2023-01-21 09:26 | Outpatient (CLI) | payer MEDICARE, SELFPAY ==
--- NOTE | 2023-01-21 10:45 | ECHO_ITS ---
Patient Info Name: Desirae Contreras Age: 77 years : 1945 Gender: Female Ht: 63 in Wt: 200 lbs BSA: 2.05 m2 HR: 68 bpm BP: 133 / 64 mmHg Technical Quality: Fair Exam Date: 01/21/2023 10:50 AM Exam Location: Echo Lab Patient Status: Outpatient Admit Date: 01/21/2023 Staff Ordering Physician: Rohit Flores DO White Spooler: Joann Osborne RDCS Attending Provider: Rohit Flores DO Referring Physician: Mark DONNELLY; Exam Type: CA echo doppler color flow Study Info Indications I51.89 - Other ill-defined heart diseases Complete two-dimensional, color flow and Doppler transthoracic echocardiogram is performed. Summary 1. Complete two-dimensional, color flow and Doppler transthoracic echocardiogram is performed. 2. Left ventricular chamber dimension is normal. 3. Left ventricular systolic function is normal, estimated at 60-65%. 4. The left ventricular diastolic function is grade I diastolic dysfunction. 5. E/e' 26 is significantly elevated. 6. Linear artifact in right ventricle suggestive of catheter(s), pacemaker lead(s), or ICD lead(s). 7. Left atrial chamber dimension is severely enlarged. 8. Right atrial chamber dimension is mildly enlarged. 9. Linear artifact in the right atrium suggestive of catheter(s), pacemaker lead(s), or ICD lead(s). 10. There is severe aortic valve sclerosis. 11. There is moderate aortic valve stenosis with a peak velocity of 288 cm/s, mean gradient of 21 mmHg, and aortic valve area of 1.2 cm2. 12. There is trace aortic valve regurgitation. 13. The mitral valve has moderately calcified annulus. 14. There is moderate to severe mitral valve regurgitation. 15. There is mild tricuspid valve regurgitation. 16. No pulmonary hypertension, estimated pulmonary arterial systolic pressure is 35 mmHg. Left Ventricle E/e' 26 is significantly elevated. Left ventricular chamber dimension is normal. Left ventricular systolic function is normal, estimated at 60-65%. The left ventricular diastolic function is grade I diastolic dysfunction. Right Ventricle Linear artifact in right ventricle suggestive of catheter(s), pacemaker lead(s), or ICD lead(s). Right ventricular chamber dimension is normal. Right ventricular systolic function is normal. Left Atria Left atrial chamber dimension is severely enlarged. Right Atria Linear artifact in the right atrium suggestive of catheter(s), pacemaker lead(s), or ICD lead(s). Right atrial chamber dimension is mildly enlarged. Aortic Valve The aortic valve is trileaflet. There is severe aortic valve sclerosis. There is moderate aortic valve stenosis with a peak velocity of 288 cm/s, mean gradient of 21 mmHg, and aortic valve area of 1.2 cm2. There is trace aortic valve regurgitation. Pulmonic Valve There is no pulmonic regurgitation. Mitral Valve The mitral valve has moderately calcified annulus. There is no mitral valve stenosis. There is moderate to severe mitral valve regurgitation. Tricuspid Valve There is mild tricuspid valve regurgitation. No pulmonary hypertension, estimated pulmonary arterial systolic pressure is 35 mmHg. Pericardium/Pleural There is no pericardial effusion. Inferior Vena Cava Normal inferior vena cava with >50% collapse upon inspiration consistent with normal right atrial pressure, 5 mmHg. Aorta The aortic root size at the sinus of Valsalva is normal. Left Ventricular Outflow Tract Name Value Normal
== END 2023-01-21 09:27 | disposition home or self-care (01) ==
LOC: ANHCARD 09:26
PROVIDERS: PCP Internal Medicine; Visit Provider Internal Medicine Cardiovascular Disease
DX: I51.89 Other ill-defined heart diseases (principal); I34.0 Nonrheumatic mitral (valve) insufficiency; I36.1 Nonrheumatic tricuspid (valve) insufficiency
CPT/HCPCS: 93306

== ENCOUNTER 2023-03-09 09:27 | Outpatient (CLI) | payer MEDICARE, SELFPAY ==
--- NOTE | ~2023-03-09 | US_ITS ---
Renal-Bladder ultrasound Clinical History: Chronic kidney disease Technique: Real-time sonographic imaging of the kidneys and urinary bladder was performed. Findings: The right kidney measures 10.3 cm in length and the left kidney measures 11.1 cm. There is no hydronephrosis or renal calculus identified. Renal cortical echogenicity is within normal limits. No renal mass lesion is identified. The urinary bladder is moderately distended at the time of this exam. No intraluminal echoes are iden tified. No abnormal wall thickening is seen. Gallstones are incidentally noted. Impression: Unremarkable ultrasound of the kidneys and urinary bladder. Cholelithiasis incidentally noted. Reviewed, dictated and finalized at location . UTIVE DIRECTOR [employer]ETING Impression: Unremarkable ultrasound of the kidneys and urinary bladder. Cholelithiasis incidentally noted.
== END 2023-03-09 09:28 ==
LOC: GOSHIMG 09:28
PROVIDERS: PCP Internal Medicine; Visit Provider Internal Medicine Nephrology
DX: N18.32 Chronic kidney disease, stage 3b (principal); R60.1 Generalized edema; K80.20 Calculus of gallbladder without cholecystitis without obstruction
CPT/HCPCS: 76775

== ENCOUNTER 2023-03-20 10:40 | Outpatient (CLI) | payer MEDICARE, SELFPAY ==
--- NOTE | ~2023-03-20 | XR_ITS ---
EXAMINATION: XR knee LT min 4V DATE: 03/20/2023 11:00 INDICATION: Left knee pain TECHNIQUE: Four views of the left knee were obtained. COMPARISON: None. FINDINGS: Alignment is normal. No fracture or osteochondral lesion. There is tricompartmental osteoar thritis of the knee, moderate to severe in the medial and patellofemoral compartments. There is a sma ll knee joint effusion. Soft tissues are unremarkable. IMPRESSION: 1. 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 Reviewed, dictated and finalized at location B. TAL IMAGING TECHNICIAN
== END 2023-03-20 10:41 | disposition home or self-care (01) ==
PROVIDERS: PCP Internal Medicine; Visit Provider Internal Medicine
DX: M17.12 Unilateral primary osteoarthritis, left knee (principal)
CPT/HCPCS: 73564

== ENCOUNTER 2023-04-01 07:42 | Outpatient (CLI) | payer MEDICARE, SELFPAY ==
--- NOTE | ~2023-04-01 | MM_ITS ---
EXAMINATION: MM screening [facility] BI w du HISTORY: Screening mammogram TECHNIQUE: Craniocaudal and mediolateral oblique 3-D tomosynthesis images were obtained and synthetic 2-D images were generated. CAD analysis was submitted and interpreted. COMPARISON: 03/26/2022, 12/19/2020, 09/16/2019 BREAST PARENCHYMAL COMPOSITION: There are scattered areas of fibroglandular density. FINDINGS: No suspicious mass, calcification, or architectural distortion are identified in either ladonna ast to suggest malignancy. There has been no suspicious interval change. IMPRESSION: 1. No mammographic evidence of malignancy. 2. Recommend routine screening mammography in one year. BI-RADS Category 1: Negative Reviewed, dictated and finalized at location A. SIGHT SPECIALIST
== END 2023-04-01 07:43 | disposition home or self-care (01) ==
LOC: ANHIMG 07:44
PROVIDERS: PCP Internal Medicine; Visit Provider Obstetrics & Gynecology Gynecology
DX: Z12.31 Encounter for screening mammogram for malignant neoplasm of breast (principal)
CPT/HCPCS: 77063; 77067

== ENCOUNTER 2023-07-26 20:11 | Inpatient (IN) | payer MEDICARE, SELFPAY ==
--- NOTE | ~2023-07-26 | XR_ITS ---
EXAMINATION: XR chest 1V portable DATE: 07/26/2023 20:59 INDICATION: Fatigue TECHNIQUE: frontal view of the chest was obtained. COMPARISON: Chest radiograph dated 04/18/2021 FINDINGS: Prominent costochondral calcifications project over the medial aspect of the lower lungs. Additional airspace opacity medial right lower lung zone. No pleural effusion or pneumothorax. Calcified right h ilar lymph nodes consistent with old granulomatous disease. Heart size is normal. Dual lead pacemaker /AICD seen with leads projecting over the expected locations of the right atrium and right ventricle. IMPRESSION: 1. Mild opacities in the medial right lower lung zone which could represent atelectasis or pneumonia. Reviewed, dictated and finalized at location A. IMPRESSION: 1. Mild opacities in the medial right lower lung zone which could represent ate lectasis or pneumonia.
--- NOTE | ~2023-07-26 | CT_ITS ---
EXAMINATION: CT brain wo con DATE: 07/26/2023 21:03 INDICATION: Dizziness and headache TECHNIQUE: Computed tomography (CT) of the head was performed without intravenous contrast. Sagittal and coronal reconstructions were performed. The mA was adjusted according to patient size. Iterative reconstruction technique was employed. The dose-length product was 681.00 mGy-cm. COMPARISON: head CT dated 05/10/2011 FINDINGS: No acute intracranial hemorrhage, acute infarction or abnormal extra axial fluid collection. Symmetri c prominence of the sulci and subarachnoid spaces overlying the convexities consistent with mild age- appropriate diffuse cerebral volume loss. Ventricles are normal and symmetric. Dystrophic calcificati on is at the basal ganglia, left greater than right. No mass/mass effect. Changes of bilateral intrao cular lens replacement. Calcified drusen at the bilateral optic discs. The paranasal sinuses and mast oid air cells are normal. IMPRESSION: 1. Normal aging brain. No acute intracranial process. Reviewed, dictated and finalized at location A.
[2023-07-26 20:15] VITALS: BP 125/56; PULSE 88; RESP 20; TEMP 37.4; O2SAT 100
--- NOTE | 2023-07-26 20:23 | ED.GENADULT ---
HPI - General Adult General Chief complaint: Recheck/Abnormal Lab/Rx Stated complaint: low bps, dizziness Time Seen by Provider: 07/26/23 20:19 Source: patient Mode of arrival: ambulatory Limitations: no limitations History of Present Illness HPI narrative: This is a 77-year-old female with PMH of aortic stenosis, CKD, AFib, HFpEF, PE, s/p ventricular pacemaker placement who presents to the ED with chief complaint of general fatigue and weakness x1 day. Complains of slight headache that has since resolved. Reports feeling dizzy but denies any vertiginous symptoms such as room spinning. Denies syncope. States that she felt a little off balance while walking. States that her blood pressure was low at home. Endorses chronic leg swelling but nothing more than normal. Endorses some lower back aches but nothing too severe. Denies fevers, chills, chest pain, shortness of breath, abdominal pain, urinary symptoms, flank pain, neck pain or stiffness. Denies numbness, focal weakness, vision change or speech change. Patient and family recorded several blood pressures in the 80's/40's and 90's/50's a couple hours prior to arrival. no changes in medications. Her daughter is here and states that she called the patient in early afternoon. Reports that she must woke up from her sleep because she did sound a little slurred over the phone but this shortly resolved. Last known normal would have been yesterday evening. They state that she just seems very tired and sluggish overall. They have not noticed any neurologic deficit. Denies any confusion. Related Data Home Medications Medication Instructions Recorded Confirmed cholecalciferol (vitamin D3) 25 1,000 unit PO QNOON 03/28/19 06/16/23 mcg/drop (1,000 unit/drop) oral drops mecobalamin (vitamin B12) 1,000 1,000 mcg PO QNOON 03/28/19 06/16/23 mcg disintegrating tablet,sublingual omega-3 fatty acids 1,000 mg 1,000 mg PO QID 03/28/19 06/16/23 capsule (Fish Oil Concentrate) magnesium oxide 500 mg PO DAILY 08/26/21 06/16/23 multivitamin-ferrous 1 tablet PO DAILY 08/26/21 06/16/23 fumarate-folic acid 18 mg-400 mcg tablet (Centrum Women) psyllium husk 3.4 gram/5.4 gram 1 tbsp PO DAILY 08/26/21 06/16/23 oral powder (Metamucil) B-complex with vitamin C 1 tablet PO DAILY 06/23/22 06/16/23 calcium carbonate 1,200 mg PO TID 02/27/23 06/16/23 Allergies Allergy/AdvReac Type Severity Reaction Status Date / Time LON Inhibitors Allergy Unknown Cough Verified 07/26/23 20:26 Review of Systems Review of Systems: All systems as dictated in [facility] Past Medical History Medical History Abdominal pain Abnormal finding of blood chemistry Abscess of sigmoid colon Aortic valve sclerosis Aortic valve stenosis, moderate Azotemia Bilateral foot pain BMI 30.0-30.9,adult BMI 33.0-33.9,adult BMI 34.0-34.9,adult BMI 35.0-35.9,adult BMI 36.0-36.9,adult BMI 37.0-37.9, adult Cardiac pacemaker in situ Carotid bruit Change in bowel habits CKD (chronic kidney disease) Claustrophobia Congestive heart failure Degenerative joint disease of knee Diverticulitis Diverticulosis DM2 (diabetes mellitus, type 2) Encounter for Medicare annual wellness exam Gout Heart murmur History of diverticulitis HTN (hypertension) Hx of colonic polyps Hx pulmonary embolism Hyperlipidemia Hypothyroidism (acquired) Increased homocysteine Iron deficiency Left knee injury LLQ abdominal pain Low back pain On jail drug therapy 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
--- NOTE | 2023-07-26 20:34 | ECG_ITS ---
SEE SCANNED COPY FOR CONFIRMED REPORT MTDD
[2023-07-26 21:32] LABS: Basophils Percent Auto 0.2 % (0.2-1.2); Eosinophils Percent Auto 0.1 % (0-4.4); Hematocrit 30.2 % (37.0-47.0); Hemoglobin 10.1 g/dL (12.0-15.0); Immature Granulocyte Absolute 0.05 K/mm3 (0.00-0.031); Immature Granulocyte Percent A 0.4 % (0-0.5); Lymphocytes Absolute Auto 1.06 K/mm3 (0.9-3.2); Lymphocytes Percent Auto 7.8 % (18.3-44.2); Mean Corpuscular HGB Conc 33.4 g/dl (32-36); Mean Corpuscular Hemoglobin 30.8 pg (26-34); Mean Corpuscular Volume 92.1 fl (80-100); Mean Platelet Volume 9.7 fl (7.4-10.4); Monocytes Absolute Auto 0.8 K/mm3 (0.1-0.6); Monocytes Percent Auto 5.7 % (2.6-8.5); Neutrophils Absolute Auto 11.7 K/mm3 (1.3-6.7); Neutrophils Percent Auto 85.8 % (45.5-73.1); Platelet Count Result 132 k/mm3 (150-375); Red Blood Count 3.28 M/mm3 (4.2-5.4); Red Cell Distribution Width 13.4 % (11.5-14.5); White Blood Count 13.6 K/mm3 (4.5-10.0)
[2023-07-26 21:42] LABS: Alanine Aminotransferase 17 U/L (6-35); Albumin Level 4.5 g/dL (3.5-5.1); Alkaline Phosphatase 74 U/L (38-126); Anion Gap 10 mmol/L (4-12); Aspartate Amino Transferase 24 U/L (14-36); Bilirubin,Total 0.6 mg/dL (0.2-1.3); Blood Urea Nitrogen 47 mg/dL (7-17); Calcium 9.9 mg/dL (8.4-10.2); Carbon Dioxide 28 mmol/L (22-30); Chloride 100 mmol/L (98-107); Estimated CRCL calculation 19 ml/min; Estimated Glomerular Filt Rate 20; Glucose 141 mg/dL (65-110); Potassium 3.6 mmol/L (3.4-5.0); Sodium 138 mmol/L (137-145)
[2023-07-26 21:51] LABS: NT Pro B Type Natriuretic Pept 1890 pg/mL (19.9-100)
[2023-07-26 22:08] LABS: Influenza A QL RT-PCR Negative (Negative); Influenza B QL RT-PCR Negative (Negative); RSV RNA, RT-PCR Negative (Negative); SARS-CoV-2 RNA PCR Negative (Negative)
[2023-07-26 22:14] VITALS: BP 108/48; BP 109/48; BP 95/48; PULSE 84; PULSE 90; PULSE 91
[2023-07-26] MEDS: SODIUM CHLORIDE 0.9% IV 1,000 ML 999 ML IV CONT ×2 (22:30)
[2023-07-26 22:34] LABS: Appearance Urine Cloudy (Clear); Bacteria Urine 4+ /hpf; Bilirubin Urine Negative (Negative); Blood Urine Negative (Negative); Color Urine Dark Yellow (Yellow); Glucose Urine UA 2+ mg/dL (Negative); Ketones Urine Negative (Negative); Leukocyte Esterase Ur 3+ LEU/UL (Negative); Need Manual Microscopic Reviewed; Nitrate Urine Negative (Negative); Protein Urine Negative (Negative); Specific Grav Ur 1.011 (1.001-1.035); Squamous Epithelial Cell Urine Occasional /hpf (Few); Urobilinogen Urine 0.2 mg/dL (<2.0); WBC Clumps Urine Present /HPF; WBC Urine >100 /hpf (0-3)
[2023-07-26 22:39] LABS: Transitional Epi Cells Urine Few /hpf (None Seen)
[2023-07-26 22:40] LABS: Add Urine Microscopic? YES
[2023-07-26 23:55] VITALS: BP 116/54; PULSE 72; RESP 15; O2SAT 100
[2023-07-27] VITALS (14 sets, daily range): BP systolic 114–138; BP diastolic 43–58; PULSE 66–83; RESP 14–18; TEMP 36.4–36.6; O2SAT 96–100
[2023-07-27] MEDS: SODIUM CHLORIDE 0.9% IV 1,000 ML 75 ML IV CONT (00:08)
--- NOTE | 2023-07-27 00:18 | ADMGEN ---
This patient, Desirae Contreras, was admitted to Medical Room 250-01. Patient/family oriented to hospital policies and general routines including ID bracelet, bed and alarms, visiting hours, pain management, procedures, bathroom and other care routines, personal items, smoking policy, room service/diet, and visiting hours. Information on how to activate the Rapid Response Team has been discussed. Patient/Family are encouraged to report perceived risks to care and to ask questions if they do not understand what they are told or what they should do.
[2023-07-27 00:22] LABS: Lactic Acid Reflex 0.9 mmol/L (0.7-2.0)
--- NOTE | 2023-07-27 01:46 | PM.IMHP ---
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 The patient reports that she when out to the store and did not feel well and decided to go home. She fell asleep watching TV. When she woke up she could tell a lot of time had passed. She was still feeling bad and having chills. She checked her blood pressure and her systolic at home was in the 80s and 90s. But her blood pressure had normalized by the time she arrived to the hospital. She did have a mild headache earlier in the day but this has since resolved. She felt extremely lightheaded but denied any true dizziness. She did not have any syncope. She does have a history of CHF but reports her legs are not any more swollen than usual. She has not been having any dyspnea on exertion, cough or congestion. She denies any nausea vomiting or abdominal pain. She does have some chronic low back aches but nothing changed from normal. She denies any dysuria, changes in urinary frequency or episodes of incontinence. She does report that she frequently will have leakage of a small amount of stool with just about every bathroom visit. She reports that this is unchanged from her baseline. Her last bowel movement was on the morning of presentation and was normally formed. She denies any recent antibiotic use. She is diabetic but she was euglycemic on presentation. The patient reports that her baseline GFR is around 28. She had recent labs and on review of scanned records it appears recent records were in February 2023 which demonstrated GFR of 33 and a creatinine of 1.63. 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 Kate. In the ER patient had a slightly elevated temperature but not truly febrile, leukocytosis and UA suggestive of UTI. Patient was started on empiric antibiotic therapy with Rocephin. Prior urine cultures were reviewed and in 2021 patient's urine grew out pansensitive E coli. Patient did have evidence of acute kidney injury on chronic kidney disease. She received 2 L of fluid bolus in the ER and had stable blood pressures. Urine cultures were pending. Blood cultures were obtained but this was after the patient had already received Rocephin due to abnormal UA. Source of information comes from: Review of past medical records, ER physician report and patient report. The patient is extremely good historian. Review of Systems Review of Systems: 12 systems were reviewed with pertinent positives and negatives per HPI. Except as documented in the HPI, all other systems were reviewed and are negative. [facility] Past Medical History Medical History (Updated 07/27/23 @ 02:45 by Sana Pena DO) Abscess of sigmoid colon Aortic valve stenosis, moderate Bilateral foot pain Cardiac pacemaker in situ Carotid bruit CKD (chronic kidney disease) stage 4, GFR 15-29 ml/min Patient reports that her GFR was around 28 with baseline creatinine around 1.6-1.8 Claustrophobia Congestive heart failure Echocardiogram 01/2023: EF 60 65%, grade 1 diastolic dysfunction, E/E 26 which is significantly elevated, pacemaker leads in place, severe left atrial enlargement, mild right atrial enlargement, severe aortic valve sclerosis, moderate aortic valve stenosis with peak velocity of 288 and mean gradient of 21 with valve area 1.2, trace aortic regurgitation, moderate to severe mitral valve regurgitation, mild tricuspid valve regurgitation Degenerative joint disease of knee Diabetic peripheral neuropathy Diverticulosis DM2 (diabetes mellitus, type 2) Gout Heart murmur History of diverticul
[2023-07-27 05:03] LABS: Hematocrit 26.9 % (37.0-47.0); Hemoglobin 8.6 g/dL (12.0-15.0); Mean Corpuscular Hemoglobin 30.5 pg (26-34); Mean Corpuscular Volume 95.4 fl (80-100); Mean Platelet Volume 10.1 fl (7.4-10.4); Platelet Count Result 104 k/mm3 (150-375); Red Blood Count 2.82 M/mm3 (4.2-5.4); Red Cell Distribution Width 13.2 % (11.5-14.5); White Blood Count 8.2 K/mm3 (4.5-10.0)
[2023-07-27 05:19] LABS: Anion Gap 6 mmol/L (4-12); Blood Urea Nitrogen 39 mg/dL (7-17); Calcium 8.9 mg/dL (8.4-10.2); Carbon Dioxide 26 mmol/L (22-30); Chloride 109 mmol/L (98-107); Estimated CRCL calculation 24 ml/min; Estimated Glomerular Filt Rate 26; Glucose 99 mg/dL (65-110); Potassium 3.2 mmol/L (3.4-5.0); Sodium 141 mmol/L (137-145)
[2023-07-27] MEDS: LEVOTHYROXINE SODIUM 75 MCG TABLET PO (06:33)
[2023-07-27 08:19] LABS: Glucose Point of Care 100 mg/dl (65-105)
[2023-07-27] MEDS: FAMOTIDINE 20 MG TABLET PO ×2 (08:46→20:02)
[2023-07-27] MEDS: carvediloL 6.25 MG TABLET PO ×2 (08:46→20:02)
[2023-07-27] MEDS: SODIUM BICARBONATE TAB 650 MG TABLET PO ×2 (08:47→16:33)
[2023-07-27] MEDS: APIXABAN 5 MG TABLET PO ×2 (08:47→20:02)
[2023-07-27] MEDS: GABAPENTIN 100 MG CAPSULE 200 MG PO ×3 (08:47→16:32)
[2023-07-27] MEDS: FERROUS SULFATE 325 MG TABLET DR BY MOUTH ×2 (08:47→16:33)
[2023-07-27] MEDS: hydrALAZINE HCL 50 MG TABLET PO ×2 (08:47→16:32)
[2023-07-27] MEDS: LOSARTAN POTASSIUM 100 MG TABLET PO (08:47)
[2023-07-27] MEDS: ROSUVASTATIN 10 MG TABLET PO (08:52)
--- NOTE | 2023-07-27 11:36 | P.PNIM_ITS ---
Progress Note: A&P Assessment and Plan (1) Acute UTI: Code(s): N39.0 - Urinary tract infection, site not specified Status: Acute (2) Aortic stenosis: Qualifiers: Cardiac valve disease etiology: nonrheumatic Qualified Code(s): I35.0 - Nonrheumatic aortic (valve) stenosis Code(s): I35.0 - Nonrheumatic aortic (valve) stenosis Status: Acute (3) DM2 (diabetes mellitus, type 2): Qualifiers: Diabetes mellitus nursing home insulin use: without nursing home use Diabetes mellitus complication status: with other specified complication Qualified Code( s): E11.69 - Type 2 diabetes mellitus with other specified complication Code(s): E11.9 - Type 2 diabetes mellitus without complications Status: Chronic (4) TURNER on CPAP: Code(s): G47.33 - Obstructive sleep apnea (adult) (pediatric); Z99.89 - Dependence on other enabling machines and devices Status: Acute Plan UTI * Urine cultures * blood cultures pending * Continue IV hydration. * Monitor CBC, CMP watch for sepsis. * Monitor vital signs. * Rociphen * Monitor for obstructive uropathy and pyelonephritis Acute on chronic diastolic heart failure * Stable will stop IV fluids * BNP elevated * Resume PO lasix 5/7 if BP tolerates * monitor renal function during diuresis * chest x-ray * Optimize Felix inhibitors, beta-blockers, ARNI * Fall risk assessment. Acute on chronic renal failure * Gentle IV hydration. Discontinued * Avoid nephrotoxic drugs. * Monitor antihypertensive drug therapy. * Avoid NSAIDs. * Routine CMP monitoring GFR. * Monitor electrolytes especially potassium. * Antibiotic doses depending on creatinine clearance. Diabetes * Accu-Cheks a.c. HS * sliding scale insulin * hold oral diabetic medications * consult to dietitian * encourage lifestyle modifications and weight loss * Optimize Felix inhibitors and statins. * Watch for hypoglycemia/hypoglycemic protocol ordered HX HTN:Resumed home medications once BP tolerates/BP per protocol HX Gout: Resume allopurinol HX: biventricular pacemaker HX TURNER: CPAP at night Code status: Full code per patient DVT prophylaxis: Lovenox Stress ulcer prophylaxis: Protonix 40 daily PT/OT notes: ambulatory Disposition: Patient admitted to the medical unit with acute urinary tract infection with symptoms of generalized weakness and hypotension. Patient tolerating oral intake at this time. IV fluids apparently just waiting on cultures will continue with IV antibiotic therapy no need for PT OT patient is ambulatory and plan will be to discharge to home when medically stable. Time Spent With Patient Time with patient: 15 - 25 minutes Subjective Date/time seen: 07/27/23 11:36 Interval history: 07/26: Patient was seen by previous providers same day did follow-up assessment patient alert and oriented BP rebounded she is ambulatory on her denied any further dizziness or generalized weakness overall feeling better. Did note some fine crackles bilateral lower lobes will discontinue IV fluids until the patient tolerating oral intake patient reported she poor intake prior to arrival due to not feeling well. Patient's Lasix was on hold will resume for tomorrow as long as BP tolerates. We will continue to treat with IV antibiotics for UTI pending cultures. Review of Systems Review of Systems: All systems reviewed & are unremarkable except as noted in HPI and below
--- NOTE | 2023-07-27 11:36 | PM.IMPN ---
Progress Note: A&P Assessment and Plan (1) Acute UTI: Code(s): N39.0 - Urinary tract infection, site not specified Status: Acute (2) Aortic stenosis: Qualifiers: Cardiac valve disease etiology: nonrheumatic Qualified Code(s): I35.0 - Nonrheumatic aortic (valve) stenosis Code(s): I35.0 - Nonrheumatic aortic (valve) stenosis Status: Acute (3) DM2 (diabetes mellitus, type 2): Qualifiers: Diabetes mellitus mcc insulin use: without mcc use Diabetes mellitus complication status: with other specified complication Qualified Code(s): E11.69 - Type 2 diabetes mellitus with other specified complication Code(s): E11.9 - Type 2 diabetes mellitus without complications Status: Chronic (4) TURNER on CPAP: Code(s): G47.33 - Obstructive sleep apnea (adult) (pediatric); Z99.89 - Dependence on other enabling machines and devices Status: Acute Plan UTI Urine cultures blood cultures pending Continue IV hydration. Monitor CBC, CMP watch for sepsis. Monitor vital signs. Rociphen Monitor for obstructive uropathy and pyelonephritis Acute on chronic diastolic heart failure Stable will stop IV fluids BNP elevated Resume PO lasix 5/7 if BP tolerates monitor renal function during diuresis chest x-ray Optimize Felix inhibitors, beta-blockers, ARNI Fall risk assessment. Acute on chronic renal failure Gentle IV hydration. Discontinued Avoid nephrotoxic drugs. Monitor antihypertensive drug therapy. Avoid NSAIDs. Routine CMP monitoring GFR. Monitor electrolytes especially potassium. Antibiotic doses depending on creatinine clearance. Diabetes Accu-Cheks a.c. HS sliding scale insulin hold oral diabetic medications consult to dietitian encourage lifestyle modifications and weight loss Optimize Felix inhibitors and statins. Watch for hypoglycemia/hypoglycemic protocol ordered HX HTN:Resumed home medications once BP tolerates/BP per protocol HX Gout: Resume allopurinol HX: biventricular pacemaker HX TURNER: CPAP at night Code status: Full code per patient DVT prophylaxis: Lovenox Stress ulcer prophylaxis: Protonix 40 daily PT/OT notes: ambulatory Disposition: Patient admitted to the medical unit with acute urinary tract infection with symptoms of generalized weakness and hypotension. Patient tolerating oral intake at this time. IV fluids apparently just waiting on cultures will continue with IV antibiotic therapy no need for PT OT patient is ambulatory and plan will be to discharge to home when medically stable. Time Spent With Patient Time with patient: 15 - 25 minutes Subjective Date/time seen: 07/27/23 11:36 Interval history: 07/26: Patient was seen by previous providers same day did follow-up assessment patient alert and oriented BP rebounded she is ambulatory on her denied any further dizziness or generalized weakness overall feeling better. Did note some fine crackles bilateral lower lobes will discontinue IV fluids until the patient tolerating oral intake patient reported she poor intake prior to arrival due to not feeling well. Patient's Lasix was on hold will resume for tomorrow as long as BP tolerates. We will continue to treat with IV antibiotics for UTI pending cultures. Review of Systems Review of Systems: All systems reviewed & are unremarkable except as noted in HPI and below Exam Narrative: Physical Exam: GENERAL: Alert and oriented x 3. No acute distress. EYES: EOMI. No scleral icterus. PERRLA. HEENT: Moist mucous membranes. LUNGS: Fine crackles BLL. No accessory muscle use. CARDIOVASCULAR: Regular rate and rhythm. No murmur. No JVD. S1-S2 ABDOMEN: Soft, mild tenderness and non-distended. No palpable masses. EXTREMITIES: No edema. Non-tender SKIN: No rashes or lesions. Skin warm, dry. NEUROLOGIC: No focal neurological deficits. CN II
[2023-07-27 11:58] LABS: Glucose Point of Care 137 mg/dl (65-105)
[2023-07-27 17:09] LABS: Glucose Point of Care 118 mg/dl (65-105)
[2023-07-27] MEDS: allopurinoL 100 MG TABLET PO (20:02)
[2023-07-27] MEDS: FOLIC ACID 1 MG TABLET PO (20:02)
[2023-07-27 20:19] LABS: Glucose Point of Care 131 mg/dl (65-105)
[2023-07-28] VITALS (14 sets, daily range): BP systolic 101–137; BP diastolic 42–58; PULSE 61–83; RESP 14–18; TEMP 36.2–36.7; O2SAT 97–100
[2023-07-28] MEDS: LEVOTHYROXINE SODIUM 75 MCG TABLET PO (06:13)
[2023-07-28] MEDS: FERROUS SULFATE 325 MG TABLET DR BY MOUTH ×2 (08:17→17:35)
[2023-07-28] MEDS: SODIUM BICARBONATE TAB 650 MG TABLET PO ×2 (08:18→17:35)
[2023-07-28] MEDS: APIXABAN 5 MG TABLET PO ×2 (08:18→20:46)
[2023-07-28] MEDS: ROSUVASTATIN 10 MG TABLET PO (08:18)
[2023-07-28] MEDS: carvediloL 6.25 MG TABLET PO ×2 (08:18→20:46)
[2023-07-28] MEDS: FUROSEMIDE 40 MG TABLET PO (08:18)
[2023-07-28] MEDS: GABAPENTIN 100 MG CAPSULE 200 MG PO ×3 (08:18→17:35)
[2023-07-28] MEDS: LOSARTAN POTASSIUM 100 MG TABLET PO (08:18)
[2023-07-28] MEDS: FAMOTIDINE 20 MG TABLET PO ×2 (08:18→20:46)
[2023-07-28] MEDS: hydrALAZINE HCL 50 MG TABLET PO ×2 (08:18→17:35)
[2023-07-28 08:41] LABS: Glucose Point of Care 120 mg/dl (65-105)
[2023-07-28 10:07] LABS: Hematocrit 29.3 % (37.0-47.0); Hemoglobin 9.5 g/dL (12.0-15.0); Mean Corpuscular HGB Conc 32.4 g/dl (32-36); Mean Corpuscular Hemoglobin 30.4 pg (26-34); Mean Corpuscular Volume 93.9 fl (80-100); Mean Platelet Volume 9.4 fl (7.4-10.4); Platelet Count Result 114 k/mm3 (150-375); Red Blood Count 3.12 M/mm3 (4.2-5.4); Red Cell Distribution Width 13.4 % (11.5-14.5); White Blood Count 6.1 K/mm3 (4.5-10.0)
[2023-07-28 10:24] LABS: Alanine Aminotransferase 18 U/L (6-35); Albumin Level 3.9 g/dL (3.5-5.1); Alkaline Phosphatase 58 U/L (38-126); Anion Gap 5 mmol/L (4-12); Aspartate Amino Transferase 28 U/L (14-36); Bilirubin,Total 0.4 mg/dL (0.2-1.3); Blood Urea Nitrogen 29 mg/dL (7-17); Calcium 8.7 mg/dL (8.4-10.2); Carbon Dioxide 27 mmol/L (22-30); Chloride 113 mmol/L (98-107); Estimated CRCL calculation 30 ml/min; Estimated Glomerular Filt Rate 34; Glucose 153 mg/dL (65-110); Potassium 3.7 mmol/L (3.4-5.0); Sodium 145 mmol/L (137-145)
--- NOTE | 2023-07-28 12:13 | P.PNIM_ITS ---
Progress Note: A&P Assessment and Plan (1) Acute UTI: Code(s): N39.0 - Urinary tract infection, site not specified Status: Acute (2) Aortic stenosis: Qualifiers: Cardiac valve disease etiology: nonrheumatic Qualified Code(s): I35.0 - Nonrheumatic aortic (valve) stenosis Code(s): I35.0 - Nonrheumatic aortic (valve) stenosis Status: Acute (3) DM2 (diabetes mellitus, type 2): Qualifiers: Diabetes mellitus fci insulin use: without fci use Diabetes mellitus complication status: with other specified complication Qualified Code( s): E11.69 - Type 2 diabetes mellitus with other specified complication Code(s): E11.9 - Type 2 diabetes mellitus without complications Status: Chronic (4) TURNER on CPAP: Code(s): G47.33 - Obstructive sleep apnea (adult) (pediatric); Z99.89 - Dependence on other enabling machines and devices Status: Acute Plan UTI * Urine cultures gram-negative bacilli * blood cultures pending * Continue IV hydration discontinued * Monitor CBC, CMP watch for sepsis. * Monitor vital signs. * Rociphen * Monitor for obstructive uropathy and pyelonephritis Acute on chronic diastolic heart failure * Stable will stop IV fluids * BNP elevated * Resume PO lasix 07/27 if BP tolerates * monitor renal function during diuresis * chest x-ray * Optimize Felix inhibitors, beta-blockers, ARNI * Fall risk assessment. Acute on chronic renal failure * Gentle IV hydration. Discontinued * Avoid nephrotoxic drugs. * Monitor antihypertensive drug therapy. * Avoid NSAIDs. * Routine CMP monitoring GFR. * Monitor electrolytes especially potassium. * Antibiotic doses depending on creatinine clearance. * renal function improved Cr. 1.5 today 5 Diabetes * Accu-Cheks a.c. HS * sliding scale insulin * hold oral diabetic medications * consult to dietitian * encourage lifestyle modifications and weight loss * Optimize Felix inhibitors and statins. * Watch for hypoglycemia/hypoglycemic protocol ordered HX HTN:Resumed home medications once BP tolerates/BP per protocol HX Gout: Resume allopurinol HX: biventricular pacemaker HX TURNER: CPAP at night Code status: Full code per patient DVT prophylaxis: Lovenox Stress ulcer prophylaxis: Protonix 40 daily PT/OT notes: ambulatory Disposition: Patient admitted to the medical unit with acute urinary tract infection with symptoms of generalized weakness and hypotension. Patient tolerating oral intake at this time. IV fluids discontinued today and BP improved, resumed her PO lasix,just waiting on cultures will continue with IV antibiotic therapy no need for PT OT patient is ambulatory and plan will be to discharge to home when medically stable. Time Spent With Patient Time with patient: 15 - 25 minutes Subjective Date/time seen: 07/28/23 12:13 Interval history: 07/26: Patient was seen by previous providers same day did follow-up assessment patient alert and oriented BP rebounded she is ambulatory on her denied any further dizziness or generalized weakness overall feeling better. Did note some fine crackles bilateral lower lobes will discontinue IV fluids until the patient tolerating oral intake patient reported she poor intake prior to arrival due to not feeling well. Patient's Lasix was on hold will resume for tomorrow as long as BP tolerates. We will continue to treat with IV antibiotics for UTI pending cultures. 07/27: Patient with n
--- NOTE | 2023-07-28 12:13 | PM.IMPN ---
Progress Note: A&P Assessment and Plan (1) Acute UTI: Code(s): N39.0 - Urinary tract infection, site not specified Status: Acute (2) Aortic stenosis: Qualifiers: Cardiac valve disease etiology: nonrheumatic Qualified Code(s): I35.0 - Nonrheumatic aortic (valve) stenosis Code(s): I35.0 - Nonrheumatic aortic (valve) stenosis Status: Acute (3) DM2 (diabetes mellitus, type 2): Qualifiers: Diabetes mellitus prison insulin use: without prison use Diabetes mellitus complication status: with other specified complication Qualified Code(s): E11.69 - Type 2 diabetes mellitus with other specified complication Code(s): E11.9 - Type 2 diabetes mellitus without complications Status: Chronic (4) TURNER on CPAP: Code(s): G47.33 - Obstructive sleep apnea (adult) (pediatric); Z99.89 - Dependence on other enabling machines and devices Status: Acute Plan UTI Urine cultures gram-negative bacilli blood cultures pending Continue IV hydration discontinued Monitor CBC, CMP watch for sepsis. Monitor vital signs. Rociphen Monitor for obstructive uropathy and pyelonephritis Acute on chronic diastolic heart failure Stable will stop IV fluids BNP elevated Resume PO lasix 5/7 if BP tolerates monitor renal function during diuresis chest x-ray Optimize Felix inhibitors, beta-blockers, ARNI Fall risk assessment. Acute on chronic renal failure Gentle IV hydration. Discontinued Avoid nephrotoxic drugs. Monitor antihypertensive drug therapy. Avoid NSAIDs. Routine CMP monitoring GFR. Monitor electrolytes especially potassium. Antibiotic doses depending on creatinine clearance. renal function improved Cr. 1.5 today 5/7 Diabetes Accu-Cheks a.c. HS sliding scale insulin hold oral diabetic medications consult to dietitian encourage lifestyle modifications and weight loss Optimize Felix inhibitors and statins. Watch for hypoglycemia/hypoglycemic protocol ordered HX HTN:Resumed home medications once BP tolerates/BP per protocol HX Gout: Resume allopurinol HX: biventricular pacemaker HX TURNER: CPAP at night Code status: Full code per patient DVT prophylaxis: Lovenox Stress ulcer prophylaxis: Protonix 40 daily PT/OT notes: ambulatory Disposition: Patient admitted to the medical unit with acute urinary tract infection with symptoms of generalized weakness and hypotension. Patient tolerating oral intake at this time. IV fluids discontinued today and BP improved, resumed her PO lasix,just waiting on cultures will continue with IV antibiotic therapy no need for PT OT patient is ambulatory and plan will be to discharge to home when medically stable. Time Spent With Patient Time with patient: 15 - 25 minutes Subjective Date/time seen: 07/28/23 12:13 Interval history: 07/26: Patient was seen by previous providers same day did follow-up assessment patient alert and oriented BP rebounded she is ambulatory on her denied any further dizziness or generalized weakness overall feeling better. Did note some fine crackles bilateral lower lobes will discontinue IV fluids until the patient tolerating oral intake patient reported she poor intake prior to arrival due to not feeling well. Patient's Lasix was on hold will resume for tomorrow as long as BP tolerates. We will continue to treat with IV antibiotics for UTI pending cultures. 07/27: Patient with no acute issues or complaints, BP improved and resumed PO Lasix will need to monitor for hypotension however this was likely due to dehydration on admission. UA shows Gram-negative bacilli pending sensitivities. Review of Systems Review of Systems: 12 systems were reviewed with pertinent positives and negatives per HPI. Except as documented in the HPI, all other systems were reviewed and are negative. All systems reviewed & are unremarkable except as
[2023-07-28 12:19] LABS: Glucose Point of Care 133 mg/dl (65-105)
[2023-07-28 17:09] LABS: Glucose Point of Care 135 mg/dl (65-105)
[2023-07-28] MEDS: allopurinoL 100 MG TABLET PO (20:46)
[2023-07-28] MEDS: FOLIC ACID 1 MG TABLET PO (20:46)
[2023-07-28 21:11] LABS: Glucose Point of Care 140 mg/dl (65-105)
[2023-07-29] VITALS: PULSE 64
[2023-07-29 04:00] VITALS: PULSE 72
[2023-07-29 05:02] VITALS: BP 125/49; PULSE 74; RESP 18; TEMP 36.3; O2SAT 98
[2023-07-29 05:17] LABS: Hematocrit 28.4 % (37.0-47.0); Hemoglobin 9.3 g/dL (12.0-15.0); Mean Corpuscular HGB Conc 32.7 g/dl (32-36); Mean Corpuscular Hemoglobin 30.8 pg (26-34); Mean Platelet Volume 9.8 fl (7.4-10.4); Platelet Count Result 123 k/mm3 (150-375); Red Blood Count 3.02 M/mm3 (4.2-5.4); Red Cell Distribution Width 13.2 % (11.5-14.5); White Blood Count 5.8 K/mm3 (4.5-10.0)
[2023-07-29] MEDS: LEVOTHYROXINE SODIUM 75 MCG TABLET PO (05:28)
[2023-07-29 05:39] LABS: Alanine Aminotransferase 18 U/L (6-35); Albumin Level 3.6 g/dL (3.5-5.1); Alkaline Phosphatase 58 U/L (38-126); Anion Gap 8 mmol/L (4-12); Aspartate Amino Transferase 31 U/L (14-36); Bilirubin,Total 0.4 mg/dL (0.2-1.3); Blood Urea Nitrogen 28 mg/dL (7-17); Calcium 8.3 mg/dL (8.4-10.2); Carbon Dioxide 26 mmol/L (22-30); Chloride 112 mmol/L (98-107); Estimated CRCL calculation 30 ml/min; Estimated Glomerular Filt Rate 34; Glucose 122 mg/dL (65-110); Potassium 3.5 mmol/L (3.4-5.0); Sodium 146 mmol/L (137-145)
[2023-07-29 08:00] VITALS: PULSE 61
[2023-07-29] MEDS: ROSUVASTATIN 10 MG TABLET PO (08:08)
[2023-07-29] MEDS: LOSARTAN POTASSIUM 100 MG TABLET PO (08:08)
[2023-07-29] MEDS: SODIUM BICARBONATE TAB 650 MG TABLET PO (08:09)
[2023-07-29] MEDS: FUROSEMIDE 40 MG TABLET PO (08:09)
[2023-07-29] MEDS: FERROUS SULFATE 325 MG TABLET DR BY MOUTH (08:09)
[2023-07-29] MEDS: GABAPENTIN 100 MG CAPSULE 200 MG PO ×2 (08:09→12:41)
[2023-07-29] MEDS: APIXABAN 5 MG TABLET PO (08:09)
[2023-07-29 08:10] VITALS: BP 132/43; PULSE 74
[2023-07-29] MEDS: hydrALAZINE HCL 50 MG TABLET PO (08:10)
[2023-07-29] MEDS: FAMOTIDINE 20 MG TABLET PO (08:10)
[2023-07-29] MEDS: carvediloL 6.25 MG TABLET PO (08:10)
[2023-07-29 08:23] LABS: Glucose Point of Care 128 mg/dl (65-105)
[2023-07-29 11:52] LABS: Glucose Point of Care 147 mg/dl (65-105)
--- NOTE | 2023-07-29 13:26 | PM.DS ---
DS: Admitting Diagnosis Discharge Date 07/29/23 Admitting Diagnosis UTI DS: Discharge Diagnosis Discharge Diagnosis (1) Acute UTI: Code(s): N39.0 - Urinary tract infection, site not specified Status: Acute Assessment and Plan: ID pharmacist with [facility] regarding urine culture. Lab to resend report through with sensitivities but confirmed bacteria is sensitive to Bactrim. Will DC home to finish 7 day course. BC pending (2) Aortic stenosis: Qualifiers: Cardiac valve disease etiology: nonrheumatic Qualified Code(s): I35.0 - Nonrheumatic aortic (valve) stenosis Code(s): I35.0 - Nonrheumatic aortic (valve) stenosis Status: Chronic (3) DM2 (diabetes mellitus, type 2): Qualifiers: Diabetes mellitus complication status: with other specified complication Diabetes mellitus halfway insulin use: without halfway use Qualified Code(s): E11.69 - Type 2 diabetes mellitus with other specified complication Code(s): E11.9 - Type 2 diabetes mellitus without complications Status: Chronic (4) TURNER on CPAP: Code(s): G47.33 - Obstructive sleep apnea (adult) (pediatric); Z99.89 - Dependence on other enabling machines and devices Status: Chronic DS: Summary Hospital Course Hospital Course: Patient is a 77 YO female admitted with acute UTI with symptoms of generalized weakness and hypotension. Patient tolerating oral intake at this time. IV fluids discontinued with BP improvement, resumed her PO lasix. ID pharmacist reached out to [facility] regarding the urine culture result confirmed the bacteria that it was susceptible to Bactrim. Will DC to finish full 7 day course. Patient is ambulatory and safe to discharge home. Status at Discharge Functional status at discharge: independent ambulation Overall status at discharge: patient is back to baseline Time Spent with Patient Time attestation: Total time spent providing and/or coordinating discharge services: Exam Narrative: GENERAL: Well-appearing elderly female sitting up in bed. No acute distress. EYES: EOMI. PERRLA. HEENT: Moist mucous membranes. LUNGS: Lungs clear to auscultation. CARDIOVASCULAR: RRR. No murmur. ABDOMEN: Soft, nontender and non-distended. BS present and active. EXTREMITIES: No edema. SKIN: No rashes or lesions. Skin warm, dry. NEUROLOGIC: A&O x3. No focal neurological deficits. PSYCHIATRIC: Appropriate mood and affect. DS: Data Data Completed and Pending Labs on day of discharge: Labs from last 24 hours 07/29/23 07/29/23 07/29/23 11:47 08:15 04:53 WBC 5.8 RBC 3.02 L Hgb 9.3 L Hct 28.4 L MCV 94.0 MCH 30.8 MCHC 32.7 RDW 13.2 Plt Count 123 L MPV 9.8 Sodium 146 H Potassium 3.5 Chloride 112 H Carbon Dioxide 26 Anion Gap 8 BUN 28 H Creatinine 1.50 H Estim Creat Clear Calc 30 Estimated GFR 34 L Glucose 122 H POC Capillary Glucose 147 H 128 H Calcium 8.3 L Total Bilirubin 0.4 AST 31 ALT 18 Alkaline Phosphatase 58 Total Protein 7.0 Albumin 3.6 07/28/23 07/28/23 20:34 17:01 WBC RBC Hgb Hct MCV MCH MCHC RDW Plt Count MPV Sodium Potassium Chloride Carbon Dioxide Anion Gap BUN Creatinine Estim Creat Clear Calc Estimated GFR Glucose POC Capillary Glucose 140 H 135 H Calcium Total Bilirubin AST ALT Alkaline Phosphatase Total Protein Albumin Preliminary micro results at discharge 07/26/23 22:10 Urine Culture - Preliminary Unspecified Urine Gram negative bacilli isolated 07/26/23 23:43 Blood Culture - Preliminary Blood 07/26/23 23:43 Blood Culture - Preliminary Blood Discharge Plan Discharge Attending physician on discharge: Teddy Rocha Discharging Clinician: Rachael Giraldo Anticipated Discharge Date/Time: 07/29/23 13:22 Patient Disposition: Home, [place]
[2023-07-29] MEDS: SULFAMETHOXAZOLE/TRIMETHOPRIM 800/160 MG DS TABLET 1 TAB PO (13:41)
--- NOTE | 2023-08-03 09:44 | PC.NURSE ---
Blood cx are negative.
== END 2023-07-29 14:15 | disposition home or self-care (01) | DRG 689 ==
LOC: ANHED 20:40 → ANH2MED 23:31
PROVIDERS: Nurse Practitioner Family; Admitting Provider Internal Medicine; Emergency Provider Physician Assistant; PCP Internal Medicine; Visit Provider Nurse Practitioner
DX: N39.0 Urinary tract infection, site not specified (principal); I50.33 Acute on chronic diastolic (congestive) heart failure; I13.0 Hypertensive heart and chronic kidney disease with heart failure and stage 1 through stage 4 chronic kidney disease, or unspecified chronic kidney disease; N18.4 Chronic kidney disease, stage 4 (severe); N17.9 Acute kidney failure, unspecified; I35.0 Nonrheumatic aortic (valve) stenosis; G47.33 Obstructive sleep apnea (adult) (pediatric); B96.89 Other specified bacterial agents as the cause of diseases classified elsewhere; E11.22 Type 2 diabetes mellitus with diabetic chronic kidney disease; E86.0 Dehydration; I50.9 Heart failure, unspecified; E11.42 Type 2 diabetes mellitus with diabetic polyneuropathy; E03.9 Hypothyroidism, unspecified; K57.90 Diverticulosis of intestine, part unspecified, without perforation or abscess without bleeding; D64.9 Anemia, unspecified; E78.5 Hyperlipidemia, unspecified; Z20.822 Contact with and (suspected) exposure to COVID-19; Z86.711 Personal history of pulmonary embolism; Z95.0 Presence of cardiac pacemaker; Z98.49 Cataract extraction status, unspecified eye; E66.9 Obesity, unspecified; Z68.33 Body mass index [BMI] 33.0-33.9, adult
CPT/HCPCS: 36415; 70450; 71045; 80048; 80053; 81001; 82948; 83605; 83880; 85025; 85027; 87040; 87077; 87086; 87088; 87186; 87637; 93005; 96361; 96365; 99285; A9270; G0378; J0696; J7030

== ENCOUNTER 2023-11-05 08:39 | Outpatient (CLI) | payer MEDICARE, SELFPAY ==
--- NOTE | ~2023-11-05 | XR_ITS ---
3 VIEWS MANDIBLE Ordering provider: Casey Newsome MD History: . R68.84 - Jaw pain . Comparison: None. FINDINGS: BONES: No acute fracture or dislocation. TEMPOROMANDIBULAR JOINTS: Normal. SOFT TISSUES: Normal. IMPRESSION: NO ACUTE OSSEOUS ABNORMALITY OF THE MANDIBLE. IF STILL SUSPICIOUS CT IS ADVISED. Reviewed, dictated and finalized at location A.
== END 2023-11-05 08:40 ==
PROVIDERS: PCP Internal Medicine; Visit Provider Internal Medicine
DX: R68.84 Jaw pain (principal); K13.79 Other lesions of oral mucosa
CPT/HCPCS: 70110

== ENCOUNTER 2024-01-27 12:25 | Outpatient (CLI) | payer MEDICARE, SELFPAY ==
--- NOTE | 2024-01-27 12:39 | ECHO_ITS ---
Patient Info Name: Desirae Contreras Age: 78 years : 1945 Gender: Female Ht: 63 in Wt: 190 lbs BSA: 1.99 m2 HR: 65 bpm BP: 135 / 78 mmHg Technical Quality: Good Exam Date: 01/27/2024 12:52 PM Exam Location: Echo Lab Patient Status: Outpatient Admit Date: 01/27/2024 Staff Ordering Physician: Rohit Flores DO Human Resource Advisor: Alec Mason RDCS Attending Provider: Rohit Flores DO Referring Physician: Mark DONNELLY; Exam Type: CA echo doppler color flow Study Info Indications - nonrhumatic aortic valve stenosis Complete two-dimensional, color flow and Doppler transthoracic echocardiogram is performed. Summary 1. Complete two-dimensional, color flow and Doppler transthoracic echocardiogram is performed. 2. Left ventricular chamber dimension is mildly enlarged. 3. Left ventricular systolic function is normal, estimated at 55-60%. 4. There is mild concentric increased left ventricular wall thickness. 5. The left ventricular diastolic function is grade I diastolic dysfunction. 6. E/e' 25 is elevated. 7. Linear artifact in right ventricle suggestive of catheter(s), pacemaker lead(s), or ICD lead(s). 8. Left atrial chamber dimension is moderately enlarged. 9. Linear artifact in the right atrium suggestive of catheter(s), pacemaker lead(s), or ICD lead(s). 10. There is severe aortic valve sclerosis. 11. There is mild aortic valve stenosis with a peak velocity of 287 cm/s, mean gradient of 18 mmHg, and aortic valve area of 1.7 cm2. 12. The mitral valve has moderately calcified annulus. 13. There is mild to moderate mitral valve regurgitation. 14. There is mild tricuspid valve regurgitation. 15. No pulmonary hypertension, estimated pulmonary arterial systolic pressure is 36 mmHg. Left Ventricle E/e' 25 is elevated. Left ventricular chamber dimension is mildly enlarged. Left ventricular systolic function is normal, estimated at 55-60%. There is mild concentric increased left ventricular wall thickness. The left ventricular diastolic function is grade I diastolic dysfunction. Right Ventricle Linear artifact in right ventricle suggestive of catheter(s), pacemaker lead(s), or ICD lead(s). Right ventricular chamber dimension is normal. Right ventricular systolic function is normal. Left Atria Left atrial chamber dimension is moderately enlarged. Right Atria Linear artifact in the right atrium suggestive of catheter(s), pacemaker lead(s), or ICD lead(s). Right atrial chamber dimension is normal. Aortic Valve The aortic valve is trileaflet. There is severe aortic valve sclerosis. There is mild aortic valve stenosis with a peak velocity of 287 cm/s, mean gradient of 18 mmHg, and aortic valve area of 1.7 cm2. There is no aortic valve regurgitation. Pulmonic Valve There is no pulmonic regurgitation. Mitral Valve The mitral valve has moderately calcified annulus. There is no mitral valve stenosis. There is mild to moderate mitral valve regurgitation. Tricuspid Valve There is mild tricuspid valve regurgitation. No pulmonary hypertension, estimated pulmonary arterial systolic pressure is 36 mmHg. Pericardium/Pleural There is no pericardial effusion. Inferior Vena Cava Normal inferior vena cava with >50% collapse upon inspiration consistent with normal right atrial pressure, 5 mmHg. Aorta The aortic root size at the sinus of Valsalva is normal. Left Ventricular Outflow Tract Name Value Normal LVOT 2D LVOT Diameter 2.1 cm LVOT Doppler LVOT Peak Gradient 2 mmHg LVOT Mean Gradient 1 mmHg LVOT VTI 38 cm LVOT VTI/AV VTI Ratio 0.5 LVOT Stroke Volume 136 ml LVOT CO 5.6 l/min LVOT CI 2.8 l/min/m2 Mitral Valve Name Value Normal MV Doppler MV Decel Gooding 563 cm/s2 MV PHT 67 ms MV Area (PHT) 3.3 cm2 4.0-5.0 MV Regurgitation Doppler MR Peak Gradient 109 mmHg MV Diastolic Function MV E Peak Velocity 130 cm/s MV A Peak Velocity 139 cm/s MV E/A 0.9 MV Decel Time 231 ms MV Annular TDI MV E/e' (Septal) 24.6 <=8.0 MV E/e' (Lateral) 27.1 <=8.0 MV E/e' (Average) 25.8 Tricuspid Valve Name Value Normal TV Regurgitation Doppler TR Peak Velocity 278 cm/s TR Peak Gradient 31 mmHg Estimated PAP/RSVP RA Pressure 5 mmHg <=5 PA Systolic Pressure 36 mmHg <36 RV Systolic Pressure 36 mmHg <36 Aortic Valve Name Value Normal AV Doppler AV Peak Velocity 287 cm/s AV Peak Gradient 29 mmHg AV Mean Gradient 18 mmHg AV VTI 80 cm AV Area (Cont Eq VTI) 1.7 cm2 >=3.0 AV Area (Cont Eq Herminio) 1.0 cm2 AV Regurgitation 2D LVOT Area 3.6 cm2 Ventricles Name Value Normal LV Dimensions 2D/MM IVS Diastolic Thickness (2D) 1.3 cm 0.6-1.0 LVID Diastole (2D) 5.5 cm 3.8-5.2 LVIW Diastolic Thickness (2D) 1.3 cm 0.6-0.9 LVID Systole (2D) 3.4 cm 2.2-3.5 LVOT Diameter 2.1 cm LV Mass (2D Cubed) 288.90 g 67.00-162.00 LV Mass Index (2D Cubed) 145 g/m2 43-95 Relative Wall Thickness (2D) 0.46 LV Fractional Shortening/Ejection Fraction 2D/MM LV Fractional Shortening (2D) 38 % 27-45 LV EF (2D Teicholz) 68 % 54-74 LV Diastolic Volume (4C MOD) 151 ml LV EF (4C MOD) 63 % LV Diastolic Volume (2C MOD) 134 ml LV EF (2C MOD) 55 % LV Diastolic Volume (BP MOD) 144 ml 46-106 LV Diastolic Volume Index (BP MOD) 72 ml/m2 29-61 LV Systolic Volume (BP MOD) 59 ml 14-42 LV Systolic Volume Index (BP MOD) 30 ml/m2 8-24 LV EF (BP MOD) 59 % 54-74 LV Diastolic Length (4C) 8.6 cm LV Systolic Length (4C) 6.4 cm LV Stroke Volume (4C MOD) 96 ml Atria Name Value Normal LA Dimensions LA Volume (4C A-L) 74 ml LA Volume (BP A-L) 62 ml RA Dimensions RA Area (4C) 15.8 cm2 <=18.0 Report Signatures
== END 2024-01-27 12:26 | disposition home or self-care (01) ==
LOC: ANHCARD 12:26
PROVIDERS: PCP Internal Medicine; Visit Provider Internal Medicine Cardiovascular Disease
DX: I35.0 Nonrheumatic aortic (valve) stenosis (principal); I34.0 Nonrheumatic mitral (valve) insufficiency; I35.1 Nonrheumatic aortic (valve) insufficiency; I36.1 Nonrheumatic tricuspid (valve) insufficiency
CPT/HCPCS: 93306

== ENCOUNTER 2024-06-15 13:39 | Outpatient (CLI) | payer MEDICARE, SELFPAY ==
--- NOTE | ~2024-06-15 | MM_ITS ---
EXAMINATION: MM screening [facility] BI w du HISTORY: Screening TECHNIQUE: Craniocaudal and mediolateral oblique 3-D tomosynthesis images were obtained and synthetic 2-D images were generated. CAD analysis was submitted and interpreted. COMPARISON: 04/01/2023 and dating back to 09/16/2019 BREAST PARENCHYMAL COMPOSITION: There are scattered areas of fibroglandular density. FINDINGS: Punctate calcifications detected bilaterally, vascular in origin and benign in appearance. Stable parenchymal pattern without suspicious microcalcifications, architectural distortion, discrete masses or significant asymmetry. IMPRESSION: 1. No mammographic evidence of malignancy. 2. Recommend routine screening mammography in one year. BI-RADS Category 2: Benign finding(s). Reviewed, dictated and finalized at location A.
--- OUTSIDE RECORDS SUMMARY | 2024-06-15 14:47 | XMS_ITS | Referral Summary ---
Author Organization [facility] [place] [address] Address [address] [place] [address] Care Team Providers Care Chemical Etching Processor Name Role Phone Casey Newsome MD Primary Care Provider [phone] Active Problems Problem Noted Date Diagnosed Date Cardiac pacemaker in situ 04/16/2021 Overview (04/16/2021): [employer]ik Edora Dual Pacemaker. Dx; CHB, Symptomatic Bradycardia. DOI 04/15/2021-Olu. [employer] remote monitoring. Social History Tobacco Use Types Packs/Day Years Used Date Smoking Tobacco: Never Assessed Personal Safety Answer Date Recorded Getting School Help Needed Not on file 06/06 Comments Unknown Sex and Gender Information Value Date Recorded Sex Assigned at Not on file Legal Sex Female 2:16 PM CDT Gender Identity Not on file Sexual Orientation Not on file Plan of Treatment Not on file Insurance AARP MEDICARE Care Teams Chemical Etching Processor Relationship Specialty Start Date End Date Casey Newsome MD [address] [facility] MEDICINE [place], [place] [id number] PCP - General Internal Medicine 04/15/21
--- OUTSIDE RECORDS SUMMARY | 2024-06-15 14:47 | XMS_ITS | Clinical Summary ---
Author Organization [facility] Address [address] [place] [address] Phone Care Team Providers Care Wireworker Name Role Phone Casey Newsome MD Primary Care Provider Allergies No known active allergies Medications Medication Sig Dispensed Refills Start Date End Date Status allopurinol (ZYLOPRIM) 100 MG tablet TAKE ONE TABLET BY MOUTH ONCE DAILY , NEW DOSING 03/07/2021 Active Eliquis 5 MG tablet TAKE 2 TABLETS BY MOUTH EVERY 12 HOURS THROUGH 04/29/2021 THEN DECREASE TO 1 TABLET BY MOUTH EVERY 12 HOURS ON 04/30/2021 04/23/2021 Active Blood Glucose Monitoring Suppl (Accu-Chek Guide) w/Device kit USE DAILY TO CHECK BLOOD SUGAR 05/03/2021 Active carvedilol (COREG) 6.25 MG tablet Take 6.25 mg by mouth every 12 (twelve) hours 04/23/2021 Active famotidine (PEPCID) 20 MG tablet Take 20 mg by mouth every 12 (twelve) hours 04/23/2021 Active ferrous sulfate 325 (65 Fe) MG tablet Take 1 tablet by mouth 1 (one) time each day 03/01/2021 Active folic acid (FOLVITE) 1 MG tablet Take 1,000 mcg by mouth 1 (one) time each day 02/09/2021 Active Accu-Chek Guide test strip 05/03/2021 Active Accu-Chek Softclix Lancets lancets USE 1 LANCET DAILY TO CHECK BLOOD SUGAR 05/03/2021 Active rosuvastatin (CRESTOR) 20 MG tablet Take 20 mg by mouth 1 (one) time each day Active gabapentin (NEURONTIN) 100 MG capsule Take 100 mg by mouth 2 (two) times a day 07/03/2021 Active hydrALAZINE (APRESOLINE) 50 MG tablet Take 50 mg by mouth 2 (two) times a day 09/02/2021 Active losartan (COZAAR) 100 MG tablet Take 100 mg by mouth 1 (one) time each day 06/26/2021 Active furosemide (LASIX) 20 MG tablet Take 20 mg by mouth 1 (one) time each day Active levothyroxine (SYNTHROID) 88 MCG tablet Take 88 mcg by mouth 1 (one) time each day 01/24/2022 Active Farxiga 10 MG tablet Take 1 tablet by mouth 1 (one) time each day 01/07/2022 Active Active Problems Problem Noted Date Diagnosed Date Chronic kidney disease stage 3B 05/06/2021 Essential hypertension 05/06/2021 Diabetes mellitus without me ntion of complication, type II or unspecified type, not stated as uncontrolled 05/06/2021 Cardiac pacemaker in situ 04/16/2021 Overview (09/06/2021): [employer] Edora Dual Pacemaker. Dx; CHB, Symptomatic Bradycardia. DOI 04/15/2021-Olu. [employer] remote monitoring. Immunizations Name Administration Dates Next Due Influenza TIV (IM) 12/21/2021,01/04/2021 Pneumococcal Conjugate 11/21/2014 Social History Tobacco Use Types Packs/Day Years Used Date Smoking Tobacco: Never Smokeless Tobacco: Never Alcohol Use Standard Drinks/Week Comments Not Currently 0 (1 standard drink = 0.6 oz pur e alcohol) Sex and Gender Information Value Date Recorded Sex Assigned at Not on file Gender Identity Not on file Sexual Orientation Not on file Last Filed Vital Signs Vital Sign Reading Time Taken Comments Blood Pressure 116/80 03/12/2022 9:30 AM VETERINARY TECHNICIAN INSTRUCTOR Pulse 72 03/12/2022 9:30 AM VETERINARY TECHNICIAN INSTRUCTOR Temperature 36 C (96.8 F) 03/12/2022 9:30 AM VETERINARY TECHNICIAN INSTRUCTOR Respiratory Rate - - Oxygen Saturation - - Inhaled Oxygen Concentration - - Weight 80.7 kg (178 lb) 03/12/2022 9:30 AM VETERINARY TECHNICIAN INSTRUCTOR Height 160 cm (5' 3 ) 03/12/2022 9:30 AM VETERINARY TECHNICIAN INSTRUCTOR Body Mass Index 31.53 03/12/2022 9:30 AM VETERINARY TECHNICIAN INSTRUCTOR Plan of Treatment Health Maintenance Due Date Last Done Comments Pneumococcal PPSV23/PCV13 65 + Years / High and Highest Risk (1 of 4 - PCV) 1951 Diabetic Foot Exam 1955 Ophthalmology Exam 1955 Influenza Vaccine (#1) 2023 12/21/2021, 2020 Care Teams Wireworker Relationship Specialty Start Date End Date Casey Newsome MD [address] [place] [address] PCP - General Internal Medicine 04/29/21
--- OUTSIDE RECORDS SUMMARY | 2024-06-15 14:47 | XMS_ITS | Clinical Summary ---
Author Organization [facility] [place] [address] Address [address] [place] [address] Care Team Providers Care Billing Clerk Name Role Phone Casey Newsome MD Primary Care Provider [phone] Active Problems Problem Noted Date Diagnosed Date [...] on file Insurance AARP MEDICARE Care Teams Billing Clerk Relationship Specialty Start Date End Date Casey Newsome MD [address] INTER[facility] MED[facility]INE [place], [place] [phone] PCP - General Internal Medicine 04/15/21
--- OUTSIDE RECORDS SUMMARY | 2024-06-15 14:47 | XMS_ITS | Continuity of Care Document ---
Author Organization [facility] Address [address] [place] [address] [address] [place] [address] Phone Care Team Providers Care Dedicated Owner Operator Name Role Phone Jaron Catalan MD, MD Unavailable Unavailable Allergies, Adverse Reactions, Alerts Substance Reaction Status Criticality No Known Allergies Active No Inform ation Medications Medication Instructions Dosage Effective Dates (start - stop) Status Comments metformin (unknown strength) . Not Available - Active METOPROLOL SUCCINATE (unknown strength) take 1 tablet by oral route every day Not Available - Active gemfibrozil powder - Active levothyroxine (unknown strength) . Not Available - Active atorvastatin (unknown strength) Not Available - Active ALLOPURINOL (unknown strength) take 1 tablet by oral route 3 times every day Not Available - Active FUROSEMIDE (unknown strength) inject 2 milliliter by intravenous route every day slowly Not Available - Active AMLODIPINE BESYLATE (unknown strength) take 1 tablet by oral route every day Not Available - Active GLIMEPIRIDE (unknown strength) take 1 tablet by oral route every day Not Available - Active aspirin 325 mg tablet take 1 tablet by oral route every day 325 MG - Active Procedures Procedure Date CATARACT SURG W/IOL, 1 STAGE CATARACT SURG W/IOL, 1 STAGE OFFICE/OUTPATIENT VISIT, NEW OPHTHALMIC BIOMETRY OPHTHALMIC BIOMETRY DILATED EXAM RIGHT EYE DILATED EXAM LEFT EYE EYE EXAM, NEW PATIENT Advance Directives Directive Yes / No Effective Date File Name No Information Encounters Encounter Description Practice Location Reason(s) For Visit Diagnoses Date Provider Providers Copied on Encounter [facility], [address] [facility] [address], [place], [place], [id number], tel:[phone] [facility] No Information 5 Hossein Salmeron. [address], [address], [place], [place], [id number] , [place]. tel:[phone] Referring Provider: Jaron Carlson, [address], [place], [address] . tel:[phone] [facility], [address] [place] [address], [id number], tel:[phone] [facility] No Information 5 Hossein Salmeron. [address], [address], [place], [place], [id number] , [place]. tel:[phone] [facility], [address] [place] [address], [id number], tel:[phone] [facility] No Information 5 Hossein Salmeron. [address] [place], [id number] , [place]. tel:[phone] Referring Provider: Jaron Carlson, [address], [place], [address] . tel:[phone] OFFICE/OUTPA TIENT VISIT, [facility], [address] [place] [address], [id number], tel:[phone] [facility] blurry vision (chief complaint) Age-related nuclear cataract, bilateralAnat omical narrow angle, left eyeKeratoconj unct sicca, not specified as Sjogren's, bilateralOthe r vitreous opacities, bilateral Oct-2 5 Hossein Salmeron. [address], [place], [place], [id number] , [place]. tel:[phone] Referring Provider: Jaron Carlson, [address], [place], [address] . tel:[phone] Family History Family Member Type Diagnosis Age At Onset No Information Payers Payer name Insurance type Covered alliance party ID Authoriza tion(s) Medicare Complete Advantage [facility] CI [id number] Social History Type Description Quantity Date Captured Comments Sex Female Smoking Status No Information Chief Complaint And Reason For Visit No Information Reason For Referral Reason For Referral No Information History Of Present Illness Encounter Date Complaint History Of Prese nt Illness blurry vision The 69 year old female presents for evaluation of blurry vision in the right eye and left eye. It started about 1 year(s) ago. It affects both near and far vision. The condition is worsening. Pt advised new glasses would no help. Functional Status Date Functional Assessmen t No Information Instructions Date Instruction Additional Infor mation Impression/Plan - Ca taracts account for the patient's complaints. Discussed all risks, benefits, procedures and recovery. Patient understands changing glasses will not improve vision. Patient desires to have surgery, recommend phacoemulsification with intraocular lens. OS first, then OD. STND DSTN OU Related to Age-related nuclear cataract, bilateral Impression/Plan - Dr y eyes account for the patient's complaints. There is no evidence of permanent changes to the cornea. Explained that this condition does not have a cure. The options explained to the patient include topical lubricants/ Restasis. 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 There is no evidence of retinal pathology. All signs and risks of retinal detachment and tears were discussed in detail. Patient instructed to call the office immediately if any symptoms noted. Recommend the patient return to office for follow up. Related to Other vitreous opacities, bilateral Assessments Type Assessment Date No Information Patient Care Teams Name Effective Dates (start - stop) Status Members No Information
== END 2024-06-15 13:40 | disposition home or self-care (01) ==
LOC: ANHIMG 13:41
PROVIDERS: PCP Internal Medicine; Visit Provider Obstetrics & Gynecology Gynecology
DX: Z12.31 Encounter for screening mammogram for malignant neoplasm of breast (principal)
CPT/HCPCS: 77063; 77067

== ENCOUNTER 2024-07-20 01:01 | Day surgery (SDC) | payer MEDICARE, SELFPAY ==
[2024-07-08 09:51] VITALS: BMI 34.9
--- NOTE | 2024-07-08 10:14 | PC.NURSE ---
Spoke with patient regarding medication Eliquis. Patient verbalizes understanding that the last dose is to be taken on 07/16/2024 and the Endoscopist will instruct them when to restart after the procedure.
--- OUTSIDE RECORDS SUMMARY | 2024-07-20 01:03 | XMS_ITS | Clinical Summary ---
Author Organization [facility] Address [address] [place] [address] Phone Care Team Providers Care Warble Saw Operator Name Role Phone Casey Newsome MD Primary Care Provider [phone] Allergies No known active allergies Medications allopurinol (ZYLOPRIM) 100 MG tablet TAKE ONE [...] Cardiac pacemaker in situ 04/16/2021 Overview (09/06/2021): Biotronik Edora Dual Pacemaker. Dx; CHB, Symptomatic Bradycardia. DOI 04/15/2021-Olu. [employer] remote monitoring. Immunizations Immunization Administration Dates Next Due Influenza TIV (IM) 12/21/2021,01/04/2021 Pneumococcal Conjugate 11/21/2014 Social History Tobacco Use Types Packs/Day Years Used Date Smoking Tobacco: Never Smokeless Tobacco: Never Alcohol Use Standard Drinks/Week Comments Not Currently 0 (1 standard drink = 0.6 oz pur e alcohol) Comments Unknown Sex and Gender Information Value Date Recorded Sex Assigned at Not on file Legal Sex Female 2:39 PM [facility] Gender Identity Not on file Sexual Orientation Not on file Last Filed Vital Signs Vital Sign Reading Time Taken Comments Blood Pressure 116/80 03/12/2022 9:30 AM STAPLER MACHINE Pulse 72 03/12/2022 9:30 AM STAPLER MACHINE Temperature 36 C (96.8 F) 03/12/2022 9:30 AM STAPLER MACHINE Respiratory Rate - - Oxygen Saturation - - Inhaled Oxygen Concentration - - Weight 80.7 kg (178 lb) 03/12/2022 9:30 AM STAPLER MACHINE Height 160 cm (5' 3 ) 03/12/2022 9:30 AM STAPLER MACHINE Body Mass Index 31.53 03/12/2022 9:30 AM STAPLER MACHINE Plan of Treatment Health Maintenance Due Date Last Done Comments Diabetic Foot Exam 1955 Ophthalmology Exam 1955 Pneumococcal PPSV23/PCV13 65 + Years / High and Highest Risk (1 of 5 - PCV) 1965 Influenza Vaccine (Season Ended) 2024 12/22/19, 01/04/2021 Insurance MEDICARE [facility] Care Teams Warble Saw Operator Relationship Specialty Start Date End Date Casey Newsome MD [address] [place] [id number] PCP - General Internal Medicine 04/29/21
--- OUTSIDE RECORDS SUMMARY | 2024-07-20 01:03 | XMS_ITS | Continuity of Care Document ---
Author Organization [facility] Address [address] [place] [address] [address] [place] [address] Phone Care Team Providers Care Pulp Piler Name Role Phone Jaron Catalan MD, MD [...] Providers Copied on Encounter [facility], [address] [facility] [address], [place], [place], [id number], tel:[phone] [facility] No Information 5 Hossein Salmeron. [address], [address], [place], [place], [id number] , [place]. tel:[phone] Referring Provider: Jaron Carlson, [address], [place], [address] . tel:[phone] [facility], [address] [place] [address], [id number], tel:[phone] [facility] No Information 5 Hossein Salmeron. [address], [address], [place], [place], [id number] , [place]. tel:[phone] [facility], [address] [place] [address], [id number], tel:[phone] [facility] No Information 5 Hossein Salmeron. [address], [address], [id number] , [place]. tel:[phone] Referring Provider: Jaron Carlson, [address], [place], [address] . tel:[phone] OFFICE/OUTPA TIENT VISIT, [facility], [address] [place] [address], [id number], tel:[phone] [facility] blurry vision (chief complaint) Age-related nuclear cataract, bilateralAnat omical narrow angle, left eyeKeratoconj unct sicca, not specified as Sjogren's, bilateralOthe r vitreous opacities, bilateral Oct-2 5 Hossein Salmeron. [address], [address], [place], [place], [id number] , [place]. tel:[phone] Referring Provider: Jaron Carlson, [address], [place], [address] . tel:[phone] Family History Family Member Type Diagnosis Age At Onset No Information Payers Payer name Insurance type Covered constitution party ID Authoriza tion(s) Medicare Complete Advantage [facility] CI [id number] Social History Type Description Quantity Date Captured [...]
--- OUTSIDE RECORDS SUMMARY | 2024-07-20 01:03 | XMS_ITS | Referral Summary ---
Author Organization [facility] [address] Address [address] [place] [address] Care Team Providers Care Roller Maker Name Role Phone Casey Newsome MD Primary Care Provider [phone] Active Problems Problem Noted Date Diagnosed Date [...] on file Insurance AARP MEDICARE Care Teams Roller Maker Relationship Specialty Start Date End Date Casey Newsome MD [address] INTERNAL MEDICINE [place], [place] [id number] PCP - General Internal Medicine 04/15/21
--- OUTSIDE RECORDS SUMMARY | 2024-07-20 01:03 | XMS_ITS | Clinical Summary ---
Author Organization [facility] [address] Address [address] [place] [address] Care Team Providers Care Graphic Specialist Name Role Phone Casey Newsome MD Primary Care Provider [phone] Active Problems Problem Noted Date Diagnosed Date [...] on file Insurance AARP MEDICARE Care Teams Graphic Specialist Relationship Specialty Start Date End Date Casey Newsome MD [address] INTERNAL MEDICINE [place], [place] [id number] PCP - General Internal Medicine 04/15/21
[2024-07-20 12:05] VITALS: BP 136/43; PULSE 63; RESP 20; TEMP 36.6; O2SAT 100
[2024-07-20 12:11] LABS: Glucose Point of Care 143 mg/dl (65-105)
[2024-07-20] MEDS: LACTATED RINGERS 1,000 ML 150 ML IV CONT (12:14)
--- NOTE | 2024-07-20 12:29 | WPDANESEPPF ---
Anes - Initial Pre Proc Eval Procedure: Operation Date: 07/20/24 13:15 Proposed Procedures p Esophagogastroduodenoscopy & Colonoscopy - Heber Zuniga MD Date/Time: 07/20/24 12:29 Surgeon: Heber Zuniga MD Pre Op Diagnosis: Anemia, unspecified,Other fecal abnormalities Patient Data Age: 78 Gender: F Height: 1.6 m Weight: 88.2 kg Last Vital Signs Temp 97.8 F 07/20/24 12:05 Pulse 63 07/20/24 12:05 Resp 20 07/20/24 12:05 BP 136/43 L 07/20/24 12:05 Pulse Ox 100 07/20/24 12:05 O2 Del Method Room Air 07/20/24 12:05 Allergies Allergy/AdvReac Type Severity Reaction Status Date / Time LON Inhibitors Allergy Unknown Cough Verified 07/08/24 09:48 Home Medications ?Medication ?Instructions ?Recorded ?Confirmed ?Type blood-glucose meter (Accu-Chek #1 ea 04/23/21 07/08/24 Rx Nabila Plus Meter) lancets (Accu-Chek Softclix #100 ea 08/20/21 07/08/24 Rx Lancets) blood sugar diagnostic (Accu-Chek #100 strips 07/10/22 07/08/24 Rx Guide test strips) allopurinol 100 mg tablet See Rx Instructions .Route 09/04/23 07/20/24 Rx .COMPLEX #90 tabs carvedilol 12.5 mg tablet 12.5 mg PO Q12H #180 tabs 10/07/23 07/20/24 Rx losartan 100 mg tablet See Rx Instructions .Route 12/16/23 07/20/24 Rx .COMPLEX #90 tabs gabapentin 100 mg capsule 200 mg (2 x 100 mg) PO TID #540 02/15/24 07/20/24 Rx caps sodium bicarbonate 650 mg tablet See Rx Instructions .Route 02/22/24 07/20/24 Rx .COMPLEX #60 tabs folic acid 1 mg tablet See Rx Instructions .Route 02/23/24 07/20/24 Rx .COMPLEX #90 tabs hydralazine 50 mg tablet 50 mg PO BID #180 tabs 03/29/24 07/20/24 Rx finerenone 10 mg tablet (Kerendia) 10 mg PO DAILY #30 tabs 04/06/24 07/20/24 Rx levothyroxine 75 mcg tablet See Rx Instructions .Route 05/11/24 07/20/24 Rx .COMPLEX #90 tabs rosuvastatin 10 mg tablet See Rx Instructions .Route 05/11/24 07/08/24 Rx .COMPLEX #90 tabs famotidine 20 mg tablet See Rx Instructions .Route 05/25/24 07/20/24 Rx .COMPLEX #180 tabs ferrous sulfate 325 mg (65 mg See Rx Instructions .Route 05/25/24 07/20/24 Rx iron) tablet (FeroSul) .COMPLEX #180 tabs dapagliflozin propanediol 10 mg See Rx Instructions .Route 06/28/24 07/20/24 Rx tablet (Farxiga) .COMPLEX #90 tabs furosemide 40 mg tablet 40 mg PO QAM #90 tabs 07/14/24 07/20/24 Rx apixaban 5 mg tablet (Eliquis) See Rx Instructions .Route 07/19/24 07/20/24 Rx .COMPLEX #60 tabs Laboratory Tests 07/20/24 12:09 POC Capillary Glucose 143 H mg/dl (65-105) Patient hx anesthesia problems: none Family hx anesthesia problems: none Results Review: All pre-operative results and documents have been reviewed as part of the pre-operative evaluation. [facility] Past Medical History Medical History (Updated 05/31/24 @ 09:15 by Li Holcomb MA) A-fib UTI (urinary tract infection) URI (upper respiratory infection) Gingivitis CKD (chronic kidney disease) stage 4, GFR 15-29 ml/min Patient reports that her GFR was around 28 with baseline creatinine around 1.6-1.8 Diabetic peripheral neuropathy Degenerative joint disease of knee Aortic valve stenosis, moderate BMI 37.0-37.9, adult Hx pulmonary embolism (~04/2021) TURNER on CPAP Pulmonary embolism Cardiac pacemaker in situ Vaginal prolapse Diverticulosis Claustrophobia Bilateral foot pain Carotid bruit Congestive heart failure Echocardiogram 01/2023: EF 60 65%, grade 1 diastolic dysfunction, E/E 26 which is significantly elevated, pacemaker leads in place, severe left atrial enlargement, mild right atrial enlargement, severe aortic valve sclerosis, moderate aortic valve stenosis with peak velocity of 288 and mean gradient of 21 with valve area 1.2, trace aortic regurgitation, moderate to severe mitral valve regurgitation, mild tricuspid valve regurgitation Abscess of sigmoid colon Vitamin D deficiency Heart murmur Hyperlipidemia Rhus dermatitis History of diverticulitis Hx of colonic polyps Hypothyroidism (acquired) Iron deficiency HTN (hypertension) Increased homocysteine DM2 (diabetes mellitus, type 2) Gout Surgical History Surgical History Status post biventricular pacemaker (03/2021) Cataract extraction status H/O cervical polypectomy Hx of cataract extraction History of thyroid surgery removal History of bowel resection Family History Family History Mother Diabetes mellitus Malignant neoplasm of prostate Family history of lung cancer Family history of diabetes mellitus in first degree relative Father Family history of cardiovascular disease Sibling Diabetes mellitus Family history of cardiovascular disease, Onset Age: 80 Malignant neoplasm of prostate Social History Social History Social History: She has been for over 30 years. She lives alone. She has a daughter and a son. She is retired from [employer]. She is a lifelong nonsmoker. She does use any alcohol marijuana illicit drugs. Code status: Full code (she does not she would want long-term ventilation) Healthcare power of commercial attorney: Di Mcnamara (daughter) Smoking status: Never smoker Second hand tobacco smoke exposure: No Alcohol intake: never Substance use: never Substance use type: does not use Do You Feel Safe in your Home?: Yes Lack of Transportation: No Lack of Food: Never True Current Housing: I Have Housing Concerned About Future Housing: No Difficulty Paying Gas/Electric Bills: No Difficulty Paying for Meds: No Currently Unemployed: No Education: High School Diploma/GED Difficulty w/ Childcare or Family Care: No Living arrangements: alone Occupation/Education: retired Gender identity (if verbalized by the patient): Female Spiritual care concerns: No Anes - Eval Final PreProcedure Day of Procedure 07/20/24 12:29 Patient weight: obese Heart: regular rate and rhythm Lungs: clear to auscultation Airway: Mallampati scale class II Neurological: alert and oriented Last oral intake: >/= 8 hours ASA classification: III Emergent: no Anesthetic plan: proceed Anesthesia type and monitoring: general GIVS and standard monitoring Results Review: All pre-operative results and documents have been reviewed as part of the pre-operative evaluation. Informed Consent: The patient's anesthetic plan and its attendant risks and benefits were discussed with the patient/family/POA. Questions were solicited and answers provided to the satisfaction of the patient/family/POA.
--- NOTE | 2024-07-20 13:23 | P.HP_ITS ---
H&P: HPI History of Present Illness Date/Time: 07/20/24 13:23 Chief Complaint: History of colon polyps-anemia Narrative: The patient has a history of colonic polyps, the last colonoscopy was more than 5 years ago. In addition, patient takes oral iron supplements and her Hb level is around 9.3-10 g per dL since last year. She is also referred for EGD. Review of Systems Review of Systems: All systems reviewed & are unremarkable except as noted in HPI and below PMFSH Past Medical History Medical History (Updated 07/20/24 @ 13:24 by Heber Zuniga MD) A-fib UTI (urinary tract infection) URI (upper respiratory infection) Gingivitis CKD (chronic kidney disease) stage 4, GFR 15-29 ml/min Patient reports that her GFR was around 28 with baseline creatinine around 1.6-1.8 Diabetic peripheral neuropathy Degenerative joint disease of knee Aortic valve stenosis, moderate BMI 37.0-37.9, adult Hx pulmonary embolism (~04/2021) TURNER on CPAP Pulmonary embolism Cardiac pacemaker in situ Vaginal prolapse Diverticulosis Claustrophobia Bilateral foot pain Carotid bruit Congestive heart failure Echocardiogram 01/2023: EF 60 65%, grade 1 diastolic dysfunction, E/E 26 which is significantly elevated, pacemaker leads in place, severe left atrial enlargement, mild right atrial enlargement, severe aortic valve sclerosis, moderate aortic valve stenosis with peak velocity of 288 and mean gradient of 21 with valve area 1.2, trace aortic regurgitation, moderate to severe mitral valve regurgitation, mild tricuspid valve regurgitation Abscess of sigmoid colon Vitamin D deficiency Heart murmur Hyperlipidemia Rhus dermatitis History of diverticulitis Hx of colonic polyps Hypothyroidism (acquired) Iron deficiency HTN (hypertension) Increased homocysteine DM2 (diabetes mellitus, type 2) Gout Surgical History Surgical History Status post biventricular pacemaker (03/2021) Cataract extraction status H/O cervical polypectomy Hx of cataract extraction History of thyroid surgery removal History of bowel resection Family History Family History Mother Diabetes mellitus Malignant neoplasm of prostate Family history of lung cancer Family history of diabetes mellitus in first degree relative Father Family history of cardiovascular disease Sibling Diabetes mellitus Family history of cardiovascular disease, Onset Age: 80 Malignant neoplasm of prostate Social History Social History Social History: She has been for over 30 years. She lives alone. She has a daughter and a son. She is retired from [employer]. She is a lifelong nonsmoker. She does use any alcohol marijuana illicit drugs. Code status: Full code (she does not she would want long-term ventilation) Healthcare power of assistant city attorney: Di Mcnamara (daughter) Smoking status: Never smoker Second hand tobacco smoke exposure: No Alcohol intake: never Substance use: never Substance use type: does not use Do You Feel Safe in your Home?: Yes Lack of Transportation: No Lack of Food: Never True Current Housing: I Have Housing Concerned About Future Housing: No Difficulty Paying Gas/Electric Bills: No Difficulty Paying for Meds: No Currently Unemployed: No Education: High School Diploma/GED Difficulty w/ Childcare or Family Care: No Living arrangements: alone Occupation/Education: retired Gender identity (if verbalized by the patient): Female Spiritual care concerns: No Meds Home Medications and Allergies Home Medications ?Medication ?Instructions ?Recorded ?Confirmed ?Type blood-glucose meter (Accu-Chek #1 ea 04/23/21 07/08/24 Rx Nabila Plus Meter) lancets (Accu-Chek Softclix #100 ea 08/20/21 07/08/24 Rx Lancets) blood sugar diagnostic (Accu-Chek #100 strips 07/10/22 07/08/24 Rx Guide test strips) allopurinol 100 mg tablet See Rx Instructions .Route 09/04/23 07/20/24 Rx .COMPLEX #90 tabs carvedilol 12.5 mg tablet 12.5 mg PO Q12H #180 tabs 10/07/23 07/20/24 Rx losartan 100 mg tablet See Rx Instructions .Route 12/16/23 07/20/24 Rx .COMPLEX #90 tabs gabapentin 100 mg capsule 200 mg (2 x 100 mg) PO TID #540 02/15/24 07/20/24 Rx caps sodium bicarbonate 650 mg tablet See Rx Instructions .Route 02/22/24 07/20/24 Rx .COMPLEX #60 tabs folic acid 1 mg tablet See Rx Instructions .Route 02/23/24 07/20/24 Rx .COMPLEX #90 tabs hydralazine 50 mg tablet 50 mg PO BID #180 tabs 03/29/24 07/20/24 Rx finerenone 10 mg tablet (Kerendia) 10 mg PO DAILY #30 tabs 04/06/24 07/20/24 Rx levothyroxine 75 mcg tablet See Rx Instructions .Route 05/11/24 07/20/24 Rx .COMPLEX #90 tabs rosuvastatin 10 mg tablet See Rx Instructions .Route 05/11/24 07/08/24 Rx .COMPLEX #90 tabs famotidine 20 mg tablet See Rx Instructions .Route 05/25/24 07/20/24 Rx .COMPLEX #180 tabs ferrous sulfate 325 mg (65 mg See Rx Instructions .Route 05/25/24 07/20/24 Rx iron) tablet (FeroSul) .COMPLEX #180 tabs dapagliflozin propanediol 10 mg See Rx Instructions .Route 06/28/24 07/20/24 Rx tablet (Farxiga) .COMPLEX #90 tabs furosemide 40 mg tablet 40 mg PO QAM #90 tabs 07/14/24 07/20/24 Rx apixaban 5 mg tablet (Eliquis) See Rx Instructions .Route 07/19/24 07/20/24 Rx .COMPLEX #60 tabs Allergies Allergy/AdvReac Type Severity Reaction Status Date / Time LON Inhibitors Allergy Unknown Cough Verified 07/08/24 09:48 Vital Signs Vital Signs - 24 hr 07/20/24 12:05 Temperature 97.8 F Pulse Rate 63 Respiratory Rate 20 Blood Pressure 136/43 L Pulse Oximetry 100 Oxygen Delivery Room Air Exam Const: General: cooperative and healthy appearing Resp: Effort & Inspection: normal respiratory effort and able to speak in complete sentences Auscultation: clear to auscultation bilaterally Cardio: Rate: regular rate Rhythm: regular rhythm GI: Inspection: normal to inspection GI Palp: No No hepatosplenomegaly present Auscultation: normal bowel sounds Rectal Exam: deferred Skin: General skin exam: normal color Psych: Appearance: grossly normal Mental Status: mental status grossly n ormal Assessment and Plan Assessment and plan (1) Hx of colonic polyps: Code(s): Z86.010 - Personal history of colon polyps Status: Acute Assessment and Plan: The patient is deemed a good candidate for the procedure. Consent signed. Will proceed. (2) Anemia: Code(s): D64.9 - Anemia, unspecified Status: Acute Assessment and Plan: The patient is deemed a good candidate for the procedure. Consent signed. Will proceed.
--- NOTE | 2024-07-20 13:45 | SUR.OPER ---
EGD end time: 1340, Colonoscopy start time: 1345
[2024-07-20] MEDS: BENZOCAINE (*SP) 60 ML SPRAY CAN (HURRICAINE) 1 SPRAY MUCOUS MEM (13:51)
[2024-07-20 14:05] VITALS: BP 130/58; PULSE 61; RESP 16; O2SAT 99
[2024-07-20 14:15] VITALS: BP 109/78; PULSE 63; RESP 23; O2SAT 99
[2024-07-20 14:25] VITALS: BP 121/56; PULSE 60; RESP 24; O2SAT 100
== END 2024-07-20 14:40 | disposition home or self-care (01) ==
PROVIDERS: PCP Internal Medicine; Referring Provider Internal Medicine; Visit Provider Internal Medicine Gastroenterology
PROC: 0DJ08ZZ Inspection of Upper Intestinal Tract, Via Natural or Artificial Opening Endoscopic (ICD-10-PCS; CPT 45378; principal; 2024-07-20 13:15)
DX: Z12.11 Encounter for screening for malignant neoplasm of colon (principal); K63.5 Polyp of colon; K57.30 Diverticulosis of large intestine without perforation or abscess without bleeding; K29.50 Unspecified chronic gastritis without bleeding; D64.9 Anemia, unspecified; E55.9 Vitamin D deficiency, unspecified; R01.1 Cardiac murmur, unspecified; E78.5 Hyperlipidemia, unspecified; E03.9 Hypothyroidism, unspecified; D50.9 Iron deficiency anemia, unspecified; F40.240 Claustrophobia; I48.91 Unspecified atrial fibrillation; E11.42 Type 2 diabetes mellitus with diabetic polyneuropathy; E11.22 Type 2 diabetes mellitus with diabetic chronic kidney disease; I12.9 Hypertensive chronic kidney disease with stage 1 through stage 4 chronic kidney disease, or unspecified chronic kidney disease; N18.4 Chronic kidney disease, stage 4 (severe); L23.7 Allergic contact dermatitis due to plants, except food; I11.0 Hypertensive heart disease with heart failure; I50.9 Heart failure, unspecified; M17.10 Unilateral primary osteoarthritis, unspecified knee; I35.0 Nonrheumatic aortic (valve) stenosis; G47.33 Obstructive sleep apnea (adult) (pediatric); E66.9 Obesity, unspecified; Z68.34 Body mass index [BMI] 34.0-34.9, adult; Z79.84 Long term (current) use of oral hypoglycemic drugs; Z79.01 Long term (current) use of anticoagulants; Z99.89 Dependence on other enabling machines and devices; Z98.890 Other specified postprocedural states; Z98.0 Intestinal bypass and anastomosis status; Z90.49 Acquired absence of other specified parts of digestive tract; Z95.0 Presence of cardiac pacemaker; Z95.5 Presence of coronary angioplasty implant and graft; Z86.0100 Personal history of colon polyps, unspecified; Z86.711 Personal history of pulmonary embolism; Z87.19 Personal history of other diseases of the digestive system; Z87.42 Personal history of other diseases of the female genital tract; Z80.42 Family history of malignant neoplasm of prostate; Z80.1 Family history of malignant neoplasm of trachea, bronchus and lung; Z82.49 Family history of ischemic heart disease and other diseases of the circulatory system
CPT/HCPCS: 43239; 45385; 82948; 88305; J2003; J2704; J7120

== ENCOUNTER 2024-08-26 11:45 | Outpatient (CLI) | payer MEDICARE, SELFPAY ==
--- OUTSIDE RECORDS SUMMARY | 2024-08-26 11:48 | XMS_ITS | Continuity of Care Document ---
Author Organization [facility] Address [address] [place] [address] [address] [place] [address] Phone Care Team Providers Care Electrical Controls Assembler Name Role Phone Jaron Catalan MD, MD [...] Providers Copied on Encounter [facility], [address] [facility] [address], [place], [place], [id number], tel:[phone] [facility] No Information 5 Hossein Salmeron. [address], [place], [place], [id number] , [place]. tel:[phone] Referring Provider: Jaron Carlson, [address], [place], [address] . tel:[phone] [facility], [address] [place] [address], [id number], tel:[phone] [facility] No Information 5 Hossein Salmeron. [address], [place], [place], [id number] , [place]. tel:[phone] [facility], [address] [place] [address], [id number], tel:[phone] [facility] No Information 5 Hossein Salmeron. [address], [id number] , [place]. tel:[phone] Referring Provider: Jaron Carlson, [address], [place], [address] . tel:[phone] OFFICE/OUTPA TIENT VISIT, [facility], [address] [place] [address], [id number], tel:[phone] [facility] blurry vision (chief complaint) Age-related nuclear cataract, bilateralAnat omical narrow angle, left eyeKeratoconj unct sicca, not specified as Sjogren's, bilateralOthe r vitreous opacities, bilateral Oct-2 5 Hossein Salmeron. [address], [place], [place], [id number] , [place]. tel:[phone] Referring Provider: Jaron Carlson, [address], [place], [address] . tel:[phone] Family History Family Member Type Diagnosis Age At Onset No Information Payers Payer name Insurance type Covered constitution party ID Authoriza tion(s) Medicare Complete Advantage [facility] CI [id number] Social History Type Description Quantity Date Captured [...]
--- OUTSIDE RECORDS SUMMARY | 2024-08-26 11:48 | XMS_ITS | Referral Summary ---
Author Organization [facility] [address] Address [address] [place] [address] Care Team Providers Care Buffing Wheel Inspector Name Role Phone Casey Newsome MD Primary Care Provider [phone] Active Problems Problem Noted Date Diagnosed Date [...] on file Insurance AARP MEDICARE Care Teams Buffing Wheel Inspector Relationship Specialty Start Date End Date Casey Newsome MD [address] INTERNAL MEDICINE [place], [place] [id number] PCP - General Internal Medicine 04/15/21
--- OUTSIDE RECORDS SUMMARY | 2024-08-26 11:48 | XMS_ITS | Clinical Summary ---
Author Organization [facility] Address [address] [place] [address] Phone Care Team Providers Care Art Instructor Name Role Phone Casey Newsome MD Primary Care Provider Allergies No known active allergies Medications allopurinol [...] Pacemaker. Dx; CHB, Symptomatic Bradycardia. DOI 04/15/2021-Olu. [employer] remote monitoring. Immunizations Immunization Administration Dates Next [...] on file Legal Sex Female 2:[address] [facility] Gender Identity Not on file Sexual Orientation Not on file Last Filed Vital Signs Vital Sign Reading Time Taken Comments Blood Pressure 116/80 03/12/2022 9:30 AM STOCK CHECKERER Pulse 72 03/12/2022 9:30 AM STOCK CHECKERER Temperature 36 C (96.8 F) 03/12/2022 9:30 AM STOCK CHECKERER Respiratory Rate - - Oxygen Saturation - - Inhaled Oxygen Concentration - - Weight 80.7 kg (178 lb) 03/12/2022 9:30 AM STOCK CHECKERER Height 160 cm (5' 3) 03/12/2022 9:30 AM STOCK CHECKERER Body Mass Index 31.53 03/12/2022 9:30 AM STOCK CHECKERER Plan of Treatment Health Maintenance Due Date Last Done Comments Diabetic Foot Exam 1955 Ophthalmology Exam 1955 Pneumococcal PPSV23/PCV13 65 + Years / High and Highest Risk (1 of 5 - PCV) 1965 Influenza Vaccine (Season Ended) 2024 12/22/19, 01/04/2021 Insurance MEDICARE [facility] Care Teams Art Instructor Relationship Specialty Start Date End Date Casey Newsome MD [address] [place] [id number] PCP - General Internal Medicine 04/29/21
--- OUTSIDE RECORDS SUMMARY | 2024-08-26 11:48 | XMS_ITS | Clinical Summary ---
Author Organization [facility] [address] Address [address] [place] [address] Care Team Providers Care Car Salesperson Name Role Phone Casey Newsome MD Primary Care Provider [phone] Active Problems Problem Noted Date Diagnosed Date [...] on file Insurance AARP MEDICARE Care Teams Car Salesperson Relationship Specialty Start Date End Date Casey Newsome MD [address] INTERNAL MEDICINE [place], [place] [id number] PCP - General Internal Medicine 04/15/21
[2024-08-26 12:47] LABS: Anion Gap 14 mmol/L (4-12); Blood Urea Nitrogen 47 mg/dL (7-17); Carbon Dioxide 23 mmol/L (22-30); Chloride 105 mmol/L (98-107); Estimated Glomerular Filt Rate 26; Glucose 195 mg/dL (65-110); Potassium 4.5 mmol/L (3.4-5.0); Sodium 142 mmol/L (137-145)
[2024-08-26 13:05] LABS: Calcium 5.7 mg/dL (8.4-10.2)
== END 2024-08-26 11:46 | disposition home or self-care (01) ==
PROVIDERS: PCP Internal Medicine; Visit Provider Internal Medicine Nephrology
DX: E83.51 Hypocalcemia (principal)
CPT/HCPCS: 36415; 80048

== ENCOUNTER 2024-11-23 09:48 | Outpatient (CLI) | payer MEDICARE, SELFPAY ==
--- NOTE | ~2024-11-23 | DEXA_ITS ---
Bone Density Report Name: TITI BARRETO Age: 78 Sex: Female Ethnicity: White Date of : 1945 Indication: postmenopausal; screening for osteoporosis; height loss; end stage renal disease; Referring Provider: GRACIELA HARDY Study: Bone densitometry was performed. Exam Date: November 23, 2024 Accession number: [id number] Bone Density: Region BMD T-score Z-score Classification AP Spine(L1-L4) 1.346 2.7 5.3 Normal Femoral Neck (Left) 0.691 -1.4 0.8 Osteopenia Total Hip (Left) 0.943 0.0 1.9 Normal Femoral Neck (Right) 0.700 -1.3 0.9 Osteopenia Total Hip (Right) 0.953 0.1 2.0 Normal Total Hip Mean 0.948 0.1 2.0 Normal World Health Organization criteria for BMD impression classify patients as: Normal (T-score at or above -1.0), Osteopenia (T-score between -1.0 and -2.5), or Osteoporosis (T-score at or below -2.5). 10-year Fracture Risk(1): Major Osteoporotic Fracture 11% Hip Fracture 2.3% Reported Risk Factors: [place] (), Neck BMD=0.691, BMI=35.9 (1) FRAX(R) Version 3.08. Fracture probability calculated for an untreated patient. Fracture probability may be lower if the patient has received treatment. Previous Exams: -- Region Exam Age BMD T-score BMD Change BMD Change Date g/cm2 vs Baseline vs Previous -- AP Spine (L1-L4) 11/23/2024 78 1.346 2.7 3.0%* 3.0%* 08/07/2021 75 1.306 2.4 Total Hip(Left) 11/23/2024 78 0.943 0.0 -4.6%* -4.6%* 08/07/2021 75 0.988 0.4 Total Hip(Right) 11/23/2024 78 0.953 0.1 0.4% 0.4% 08/07/2021 75 0.950 0.1 -- *Denotes significance at 95% confidence level, LSC for AP Spine = 0.022 g/cm2, LSC for Total Hip = 0.027 g/cm2 Clinical Information Provided by Patient: Has used the following medications: Vitamin D, Calcium Has the following medical conditions: End stage renal disease, thyroid removed Patient maximum height was 63.5 Menopause Age: 58 No regular weight bearing exercise Does not regularly consume dairy products Onset of menses at age 15 Number of children 2 Impression: The patient has low bone mass, based on the Left Femoral Neck T-score. The patient has an estimated ten-year risk of hip fracture of 2.3% and an estimated ten-year risk of major fracture of 11%, based on the WHO FRAX algorithm. The BMD for the Total Hip(Left) decreased, changing by -4.6% since the last DXA exam. Discussion: BONE DENSITY IS LOW AT ONE OR MORE SKELETAL SITES. This patient's lowest T-score is low at one or more skeletal sites. It meets the World Health Organization's (WHO) criteria for ?low bone mass? (T-score between -1.0 and -2.5). The patient's 10-year risk of fracture as calculated by FRAX is less than the threshold where pharmacological therapy is recommended by the National Osteoporosis Foundation (NOF). However, all treatment decisions require clinical judgment and consideration of individual patient factors, including patient preferences, comorbidities, previous drug use, risk factors not captured in the FRAX model (e.g., frailty, falls, vitamin D deficiency, increased bone turnover, interval significant decline in bone density) and possible under or overestimation of fracture risk by FRAX. The patient should follow a healthful lifestyle (good nutrition with adequate calcium and vitamin D, and appropriate weight-bearing exercise). Follow-Up: Consider repeating this study in 2 years to reassess this patient's status, or sooner if there is some new clinical indication. Reported by: ABRAN on 11/23/2024 10:18:00 AM. Reviewed, dictated and finalized at location A.
== END 2024-11-23 09:49 | disposition home or self-care (01) ==
LOC: MICIMG 09:51
PROVIDERS: PCP Internal Medicine; Visit Provider Obstetrics & Gynecology Gynecology
DX: Z78.0 Asymptomatic menopausal state (principal); M85.852 Other specified disorders of bone density and structure, left thigh; M85.851 Other specified disorders of bone density and structure, right thigh
CPT/HCPCS: 77080